=== PATIENT | male | born 1995 | race African-American/Black ===

== ENCOUNTER 2018-05-04 00:10 | Emergency (ER) | payer MEDICAID, OTHER, SELFPAY ==
[2018-05-04 00:10] VITALS: BP 142/73; PULSE 96; RESP 16; TEMP 36.9; O2SAT 97; BMI 23.1
--- NOTE | 2018-05-04 00:32 | ED.DCSUM_ITS ---
- ER Visit Summary Date of Service: 05/04/18 Chief Complaint: Right flank pain History of Present Illness: The patient is a 22 M history of spina bifida with hydrocephalus with non-functioning shunt. He has had a prior appendectomy and prior kidney stone ?1. Patient is paralyzed from the waist down. States this afternoon he had gradual onset of right lower quadrant and right flank pain. Denies fever denies vomiting. Denies diarrhea or constipation. Had a bowel movement today. He does self cath himself. He denies any trauma. Physical Examination: Well appearing young male. Vital signs are stable and afebrile. Does appear to be in some pain. H EENT exam unremarkable. Neck nontender. Lungs clear to auscultation bilaterally. Heart regular rate and rhythm no murmur. Abdomen is soft. Mild right no ecchymosis or bruising. He does have a well-healed prior appendectomy scar in the right lower quadrant. He is nondistended. He has normal bowel sounds. He does not have any peritoneal signs. No signs of obstruction. No masses. He is paralyzed in the lower extremities. Muscles of atrophy.. Neurologically is awake and alert. He has a paralysis from the waist down. Test Results: CBC shows elevated white count of 13. Normal H&H. Electrolytes unremarkable gap is 7. Normal BUN and creatinine. UA is positive for nitrates and 10-25 white cells +2+ bacteria consistent with UTI. This was sent for urine culture. CT flank study without contrast shows right hydronephrosis and hydroureter which is new from the most recent study. They do not see a specific kidney or ureteral stone. The left kidney is normal. This is suspicious for recently passed right ureteral calculi Emergency Department Course and Treatment: Patient has right flank pain which may or may not be a kidney stone. His appendix is previously been removed. Will be treated with IV morphine, Zofran and Toradol. CT labs and urinalysis will be obtained. Treatment Plan: Urine culture sent. Given a dose of Keflex in the ER and started on Keflex 4 times a day for 10 days. Follow-up with his pediatric urologist at [facility]. Urine strainer. [place] for pain. Disposition: Discharge Impression: Acute right flank pain secondary to recently passed right ureteral calculi Acute UTI with urine culture sent History of lower extremity paralysis from spina bifida Prior appendectomy This note was generated with [employer] dictation software. It may contain incorrect words, spelling, and punctuation that were not noted in review of the chart prior to signing ED Disposition - Plan for ED Patient: Chief Complaint: Abd Pain Referrals: Kevin Coleman MD [Primary Care Provider] -
[2018-05-04] MEDS: morphine 8 MG/ML Syringe 6 MG IV (00:38)
[2018-05-04] MEDS: Ketorolac 30 MG/ML Syringe IV (00:38)
[2018-05-04] MEDS: Ondansetron 4 MG/2 ML Vial IV (00:39)
[2018-05-04 01:04] LABS: Anion Gap 7 (5-15); BUN 19 mg/dL (7-18); BUN/Creat Ratio 21.1 RATIO (10-20); Calcium,Total 8.9 mg/dL (8.5-10.1); Chloride 101 mmol/L (98-107); EST Glomerular Filtration Rate 113 mL/min (>60); Est Glom Filt Rate - Afr Amer 137 mL/min (>60); Estimated Creatinine Clearance 108.72 ml/min; Glucose 114 mg/dL (74-106); Potassium 3.6 mmol/L (3.5-5.1); Sodium Level 136 mmol/L (136-145)
[2018-05-04 01:07] LABS: Absolute Lymphocyte Count 1.38 X10^3/ul (0.83-4.51); Absolute Neutrophil Count 9.7 X10^3/uL (2.0-7.7); Basophil# 0.01 X10^3/uL; Basophil% 0.1 % (0-1); Eosinophil# 0.03 X10^3/uL; Eosinophils% 0.2 % (0-5); Hematocrit 43.1 % (40-54); Hemoglobin 13.6 g/dl (13.0-16.5); Lymphocyte # 1.38 X10^3/ul (4.0); Lymphocyte % 10.6 % (19-41); Mean Corp Hgb Conc 31.6 g/gl (32-36); Mean Corpuscular Hgb 26.5 pg (27.0-32.0); Mean Platelet Vol. 9.8 fl (6.2-12.0); Monocyte# 1.88 X10^3/uL; Monocyte% 14.5 % (0-10); Neutrophil # 9.69 X10^3/uL (2.7-7.7); Neutrophil % 74.5 % (47-70); Platelet Count 289 K/mm3 (150-450); RBC Distribution Width CV 13.4 % (11.6-14.6); RBC Distribution Width SD 41.3 fl (35.1-43.9); Red Blood Count 5.13 M/mm3 (4.6-6.2)
[2018-05-04 01:08] LABS: Differential Indicated SCAN CRITERIA MET; POSITIVE COUNT NO; POSITIVE DIFFERENTIAL YES; POSITIVE MORPHOLOGY NO
[2018-05-04 01:43] LABS: Differential Comment SCANNED
[2018-05-04 01:53] LABS: Mucous, Urine 0 SEEN /hpf (<or=2+); Red Blood Cells-Urine 0 SEEN /hpf (0-5); Squamous Epithelial Cells - UA 0 SEEN /hpf (0-5)
[2018-05-04 01:57] LABS: Color, Urine Yellow (Yellow); Glucose, Dipstick Normal (Normal); Ketone-Dipstick Negative (Negative); Leukocyte Esterase-Dipstick 500 /ul (Negative); Nitrite-Dipstick Positive (Negative); Occult Blood-Urine 10 /ul (Negative); Protein-Dipstick 30 mg/dl (Negative); Urine Bilirubin Dipstick Negative (Negative); Urine Clarity Sl. Cloudy (Clear); Urine Urobilinogen Normal (Normal)
[2018-05-04 02:17] VITALS: BP 107/72; PULSE 61; RESP 15; O2SAT 99
[2018-05-04 02:39] LABS: Bacteria 2+ /hpf (None Seen); White Blood Cells 10-25 SEEN /hpf (0-5)
[2018-05-04] MEDS: Cephalexin 250 MG Capsule 500 MG PO (03:01)
--- NOTE | 2018-05-04 03:04 | ED.DEP ---
ED Disposition - Plan for ED Patient: Disposition: Home or Assisted Living Chief Complaint: Abd Pain Instructions: ED Stone Renal W Colic, ED UTI Cystitis Male Prescriptions: Cephalexin [Keflex] 500 mg PO Q6 #40 cap Hydrocodone/Acetaminophen [[place] 5-325 Tablet] 1 - 2 ea PO 4X/DAY PRN PRN 3 Days #14 tab PRN Reason: Pain Referrals: Kevin Coleman MD [Primary Care Provider] - As Needed Additional Instructions: Aspect of the right kidney stone is passed in your bladder. Strain urine to find the stone. Urinary tract infection. Treated with Keflex 4 times a day. Urine culture sent results should be back in the next 48 hours. Plenty fluids and rest. [place] as needed for pain along with Motrin. Call follow-up with your pediatric urologist. Return to ER if feeling a lot worse.
[2018-05-04 03:08] VITALS: RESP 16
--- NOTE | 2018-05-04 03:08 | DCINST.ED_ITS ---
ED Disposition - Plan for ED Patient: Disposition: Home or Assisted Living Chief Complaint: Abd Pain Instructions: ED Stone Renal W Colic, ED UTI Cystitis Male Prescriptions: Cephalexin [Keflex] 500 mg PO Q6 #40 cap Hydrocodone/Acetaminophen [[place] 5-325 Tablet] 1 - 2 ea PO 4X/DAY PRN PRN 3 Days #14 tab PRN Reason: Pain Referrals: Kevin Coleman MD [Primary Care Provider] - As Needed Additional Instructions: Aspect of the right kidney stone is passed in your bladder. Strain urine to find the stone. Urinary tract infection. Treated with Keflex 4 times a day. Urine culture sent results should be back in the next 48 hours. Plenty fluids and rest. [place] as needed for pain along with Motrin. Call follow-up with your pediatric urologist. Return to ER if feeling a lot worse.
[2018-05-04 13:27] LABS: Pathologist Review Reviewed
== END 2018-05-04 03:15 | disposition home or self-care (01) ==
PROVIDERS: Emergency Provider Emergency Medicine; Family Provider Family Medicine; PCP Family Medicine
DX: N13.2 Hydronephrosis with renal and ureteral calculous obstruction (principal); N39.0 Urinary tract infection, site not specified; R10.9 Unspecified abdominal pain; Q05.4 Unspecified spina bifida with hydrocephalus; G82.20 Paraplegia, unspecified; Z87.442 Personal history of urinary calculi; Z79.899 Other long term (current) drug therapy
CPT/HCPCS: 74176; 80048; 81001; 85025; 87077; 87086; 87088; 87186; 96374; 96375; 99283; J7030; A4216; J2405

== ENCOUNTER 2018-12-16 09:00 | Outpatient (RCR) | payer MEDICAID, SELFPAY ==
[2018-12-02 08:54] VITALS: BP 126/62; PULSE 83; RESP 16; TEMP 37.3; BMI 23.1
--- NOTE | 2018-12-02 12:17 | PCM.WC.HP ---
(1) Stage IV pressure ulcer of sacral region Status: Chronic Current Visit: Yes Code(s): L89.154 - Pressure ulcer of sacral region, stage 4 (2) Spina bifida Status: Chronic Current Visit: Yes Code(s): Q05.9 - Spina bifida, unspecified History of Present Illness Chief Complaint: Nonhealing sacral ulcer. History of Wound: Mr. Keenan is a 23yo with past medical history of spina bifida who was in his stable state of health until about 4 months ago after developed an ulcer to his sacral region during an inpatient hospital stay. He had surgery July and also was noted on 22 August. He has since been managed at [facility] and subsequently [place] [facility]. He has had a wound VAC and all the products applied to the wound. He is here with his father who states that he has had no significant improvement. Flap closure was suggested however the family wants to exhaust other possibilities before considering flap closure. They deny stool contamination of the ulcer. He has scheduled bowel movements. They have been told he has exposed bone but did not know of any history of osteomyelitis. He feels well otherwise and denies chills, fever or feeling of unwell. Past Medical History Past Medical History: Chronic Problems Stage IV pressure ulcer of sacral region (Chronic) Spina bifida (Chronic) Allergies/Adverse Reactions: Allergies latex Allergy (Verified 05/04/18 00:12) Other codine Allergy (Uncoded 05/04/18 00:12) Hives Home Medications: Ambulatory Orders Medication Instructions Recorded Darifenacin Hydrobromide 15 mg PO DAILY 10/09/17 [Darifenacin ER] Mirabegron [Myrbetriq] 25 mg PO DAILY 10/09/17 Cephalexin [Keflex] 500 mg PO Q6 #40 cap 05/04/18 Hydrocodone/Acetaminophen [[place] 1 - 2 ea PO 4X/DAY PRN PRN 3 Days 05/04/18 5-325 Tablet] #14 tab Smoking Status: Never smoker Review of Systems Constitutional: Denies: Anorexia, Chills, Fever Eyes: Denies: Blurred vision, Pain HEENT: Denies: Difficulty Swallowing Cardiovascular: Denies: Claudication, Chest Tightness Respiratory: Denies: Cough, Hemoptysis Gastrointestinal: Denies: Abdominal Pain, Hematemesis, Vomiting Genitourinary: Denies: Hematuria Skin: Denies: Jaundice - Physical Exam Vital Signs Temp Pulse Resp BP 99.2 F H 83 16 126/62 H 12/02/18 08:54 12/02/18 08:54 12/02/18 08:54 12/02/18 08:54 General: Alert, Oriented x3, Cooperative, No apparent distress HEENT: Atraumatic, Normocephalic Oral: Moist Mucosa Neck: Supple Lungs: Normal air movement Cardiovascular: Regular rate, Regular Rhythm Abdomen: Non Tender Extremities: No cyanosis Skin: Ulcer/ Wound Wound Measurements and Assessment WC - Nurse 1 - General Ulcer Measurement Start: 12/02/18 08:53 Freq: Status: Active Protocol: Activity Type Activity Date Activity User E-Sign Co-Sign Detail Recorded Client Recorded Date Recorded By Document 12/02/18 08:54 DV [id number] 12/02/18 09:37 DV 12/02/18 08:54 Wound Center Nurse 1 [Ulcer Assessment] # 1 Coccyx -Combined with other wound No -Current Size (cm) - Length 5.3 -Current Size (cm) - Width 3.5 -Current Size (cm) - Depth 2.0 -Total Square Cm 18.55 -Date of Last Picture (Recall this 12/02/18 field) -Photo Taken Yes -Epithelialization None Present -Tunneling No -Undermining/Tunneling Yes -Undermining/Tunneling Starts (O' 7 clock) -Undermining/Tunneling Ends (O'clock) 5 -Maximum Distance (cm) 3.5 -Circular Undermining Yes -Classification - Thickness Full Thickness without Exposed Support Structure -Classification - Pressure Ulcer Stage 4 -Exudate Amt Large -Exudate Type Serosanguineous -Wound Margin Well Defined, Not Attached -Granulation Amt Small (1-33%) -Granulation Quality Red -Slough/Fibrin Yes -Necrosis Amt Small (1-33%) -Necrotic Tissue Type Adherent Slough -Structure Exposed Fascia Muscle -Texture (Aishwarya-wound Skin Appearance) Assessed -Moisture (Aishwarya-wound Skin Appearance Assessed ) -Color (Aishwarya-wound Skin Appearance) Assessed -Temperature (Aishwarya-wound Skin No Abnormality Appearance) (Pt Warm) -Ulcer Cleansing Rinsed/ Irrigated with Saline -Foul Odor after Cleansing No WC - Nurse 2 - General Ulcer CM Notes Start: 12/02/18 08:53 Freq: Status: Active Protocol: Activity Type Activity Date Activity User E-Sign Co-Sign Detail Recorded Client Recorded Date Recorded By Document 12/02/18 09:49 MW [id number] 12/02/18 10:02 MW 12/02/18 09:49 Wound Center Nurse 2 [Procedure/Treatment] -Time 09:49 -Correct Patient Yes -Correct Side, Site, Position Yes -Correct Procedure Yes -Procedure Performed Yes -Type of Procedure Debridement -Clinical Debridement Subcutaneous -Post Debridement Size (cm) - Length 5.4 -Post Debridement Size (cm) - Width 4.0 -Post Debridement Size (cm) - Depth 2.5 -Total Square Cm 21.60 -Wound/Ulcer Outcome Not Healed -Ulcer Cleansing Rinsed/ Irrigated with Saline -Foul Odor after Cleansing No -Bioengineered Tissue No -Bleeding Controlled with Pressure -Other undermining 8-5 , @12- 3.5cm -Offloading No -Treatment Response Procedure Tolerated Well [See Physician Procedure note for Specifics] Pain Scale: 0-10 Numeric [Pain] -Is Patient Pain Free? Yes Neurological: Cranial nerves II-XII grossly intact Psych/Mental Status: Normal Affect Debridement Note Post-Debridement Measurements/Treatment WC - Nurse 2 - General Ulcer CM Notes Start: 12/02/18 08:53 Freq: Status: Active Protocol: Activity Type Activity Date Activity User E-Sign Co-Sign Detail Recorded Client Recorded Date Recorded By Document 12/02/18 09:49 MW [id number] 12/02/18 10:02 MW 12/02/18 09:49 Wound Center Nurse 2 # 1 Coccyx -Time 09:49 -Correct Patient Yes -Correct Side, Site, Position Yes -Correct Procedure Yes -Procedure Performed Yes -Type of Procedure Debridement -Clinical Debridement Subcutaneous -Post Debridement Size (cm) - Length 5.4 -Post Debridement Size (cm) - Width 4.0 -Post Debridement Size (cm) - Depth 2.5 -Total Square Cm 21.60 -Wound/Ulcer Outcome Not Healed -Ulcer Cleansing Rinsed/ Irrigated with Saline -Foul Odor after Cleansing No -Bioengineered Tissue No -Bleeding Controlled with Pressure -Other undermining 8-5 , @12- 3.5cm -Offloading No -Treatment Response Procedure Tolerated Well Pain Scale: 0-10 Numeric Is Patient Pain Free? Yes Wound debrided: Sacral area Wound Grade/Stage: Stage IV Type of Debridement: Excisional debridement Anesthesia Used: 4% Lidocaine Solution Depth: Down to and including healthy tissue, in the subcutaneous layer Percentage of wound debrided: 100 Instrument Used: 7mm curette Tissue Removed: Slough and devitalized tissue Severity: Fat Layer Exposed - Exposed bone Amount of bleeding with debridement: Mild Bleeding Controlled with: Pressure Patient tolerated procedure well Assessment/Plan Active Problems Stage IV pressure ulcer of sacral region (Chronic) Spina bifida (Chronic) Assessment: Nonhealing stage IV sacral ulcer. Possible osteomyelitis, exposed bone. Plan: Debridement done as documented above, procedure was well-tolerated. Due to exposed bone and concerns for osteomyelitis, culture was taken and CT with contrast ordered. They have had problems with the wound VAC and have not used it in about a week. We will attempt to get him a new wound VAC. However, I believe he will benefit from a skin substitute as he has tried traditional wound care products for about 3 months without significant improvement. Will however rule out an active infection/osteomyelitis as above. Continue calcium alginate dressing for now. Change daily to twice daily depending on drainage. Keep area clean. Increased protein intake recommended. He states that he had blood work done about a month ago, will request records. Their questions were answered and he was advised to call with any further questions or concerns. Follow-up in 1 week. This note was generated with [employer] dictation software. It may contain incorrect words, spelling, and punctuation that were not noted in checking the note before signing.
--- NOTE | 2018-12-02 12:21 | HP.PCM_ITS ---
(1) Stage IV pressure ulcer of sacral region Status: Chronic Current Visit: Yes Code(s): L89.154 - Pressure ulcer of sacral region, stage 4 (2) Spina bifida Status: Chronic Current Visit: Yes Code(s): Q05.9 - Spina bifida, unspecified History of Present Illness Chief Complaint: Nonhealing sacral ulcer. History of Wound: Mr. Keenan is a 23yo with past medical history of spina bifida who was in his stable state of health until about 4 months ago after developed an ulcer to his sacral region during an inpatient hospital stay. He had surgery July and also was noted on 22 August. He has since been managed at [facility] and subsequently [place] [facility]. He has had a wound VAC and all the products applied to the wound. He is here with his father who states that he has had no significant improvement. Flap closure was suggested however the family wants to exhaust other possibilities before considering flap closure. They deny stool contamination of the ulcer. He has scheduled bowel movements. They have been told he has exposed bone but did not know of any history of osteomyelitis. He feels well otherwise and denies chills, fever or feeling of unwell. Past Medical History Past Medical History: Chronic Problems Stage IV pressure ulcer of sacral region (Chronic) Spina bifida (Chronic) Allergies/Adverse Reactions: Allergies latex Allergy (Verified 05/04/18 00:12) Other codine Allergy (Uncoded 05/04/18 00:12) Hives Home Medications: Ambulatory Orders Medication Instructions Recorded Darifenacin Hydrobromide 15 mg PO DAILY 10/09/17 [Darifenacin ER] Mirabegron [Myrbetriq] 25 mg PO DAILY 10/09/17 Cephalexin [Keflex] 500 mg PO Q6 #40 cap 05/04/18 Hydrocodone/Acetaminophen [[place] 1 - 2 ea PO 4X/DAY PRN PRN 3 Days 05/04/18 5-325 Tablet] #14 tab Smoking Status: Never smoker Review of Systems Constitutional: Denies: Anorexia, Chills, Fever Eyes: Denies: Blurred vision, Pain HEENT: Denies: Difficulty Swallowing Cardiovascular: Denies: Claudication, Chest Tightness Respiratory: Denies: Cough, Hemoptysis Gastrointestinal: Denies: Abdominal Pain, Hematemesis, Vomiting Genitourinary: Denies: Hematuria Skin: Denies: Jaundice - Physical Exam Vital Signs Temp Pulse Resp BP 99.2 F H 83 16 126/62 H 12/02/18 08:54 12/02/18 08:54 12/02/18 08:54 12/02/18 08:54 General: Alert, Oriented x3, Cooperative, No apparent distress HEENT: Atraumatic, Normocephalic Oral: Moist Mucosa Neck: Supple Lungs: Normal air movement Cardiovascular: Regular rate, Regular Rhythm Abdomen: Non Tender Extremities: No cyanosis Skin: Ulcer/ Wound Wound Measurements and Assessment WC - Nurse 1 - General Ulcer Measurement Start: 12/02/18 08:53 Freq: Status: Active Protocol: Activity Type Activity Date Activity User E-Sign Co-Sign Detail Recorded Client Recorded Date Recorded By Document 12/02/18 08:54 DV [id number] 12/02/18 09:37 DV 12/02/18 08:54 Wound Center Nurse 1 [Ulcer Assessment] # 1 Coccyx -Combined with other wound No -Current Size (cm) - Length 5.3 -Current Size (cm) - Width 3.5 -Current Size (cm) - Depth 2.0 -Total Square Cm 18.55 -Date of Last Picture (Recall this 12/02/18 field) -Photo Taken Yes -Epithelialization None Present -Tunneling No -Undermining/Tunneling Yes -Undermining/Tunneling Starts (O' 7 clock) -Undermining/Tunneling Ends (O'clock) 5 -Maximum Distance (cm) 3.5 -Circular Undermining Yes -Classification - Thickness Full Thickness without Exposed Support Structure -Classification - Pressure Ulcer Stage 4 -Exudate Amt Large -Exudate Type Serosanguineous -Wound Margin Well Defined, Not Attached -Granulation Amt Small (1-33%) -Granulation Quality Red -Slough/Fibrin Yes -Necrosis Amt Small (1-33%) -Necrotic Tissue Type Adherent Slough -Structure Exposed Fascia Muscle -Texture (Aishwarya-wound Skin Appearance) Assessed -Moisture (Aishwarya-wound Skin Appearance Assessed ) -Color (Aishwarya-wound Skin Appearance) Assessed -Temperature (Aishwarya-wound Skin No Abnormality Appearance) (Pt Warm) -Ulcer Cleansing Rinsed/ Irrigated with Saline -Foul Odor after Cleansing No WC - Nurse 2 - General Ulcer CM Notes Start: 12/02/18 08:53 Freq: Status: Active Protocol: Activity Type Activity Date Activity User E-Sign Co-Sign Detail Recorded Client Recorded Date Recorded By Document 12/02/18 09:49 MW [id number] 12/02/18 10:02 MW 12/02/18 09:49 Wound Center Nurse 2 [Procedure/Treatment] -Time 09:49 -Correct Patient Yes -Correct Side, Site, Position Yes -Correct Procedure Yes -Procedure Performed Yes -Type of Procedure Debridement -Clinical Debridement Subcutaneous -Post Debridement Size (cm) - Length 5.4 -Post Debridement Size (cm) - Width 4.0 -Post Debridement Size (cm) - Depth 2.5 -Total Square Cm 21.60 -Wound/Ulcer Outcome Not Healed -Ulcer Cleansing Rinsed/ Irrigated with Saline -Foul Odor after Cleansing No -Bioengineered Tissue No -Bleeding Controlled with Pressure -Other undermining 8-5 , @12- 3.5cm -Offloading No -Treatment Response Procedure Tolerated Well [See Physician Procedure note for Specifics] Pain Scale: 0-10 Numeric [Pain] -Is Patient Pain Free? Yes Neurological: Cranial nerves II-XII grossly intact Psych/Mental Status: Normal Affect Debridement Note Post-Debridement Measurements/Treatment WC - Nurse 2 - General Ulcer CM Notes Start: 12/02/18 08:53 Freq: Status: Active Protocol: Activity Type Activity Date Activity User E-Sign Co-Sign Detail Recorded Client Recorded Date Recorded By Document 12/02/18 09:49 MW [id number] 12/02/18 10:02 MW 12/02/18 09:49 Wound Center Nurse 2 # 1 Coccyx -Time 09:49 -Correct Patient Yes -Correct Side, Site, Position Yes -Correct Procedure Yes -Procedure Performed Yes -Type of Procedure Debridement -Clinical Debridement Subcutaneous -Post Debridement Size (cm) - Length 5.4 -Post Debridement Size (cm) - Width 4.0 -Post Debridement Size (cm) - Depth 2.5 -Total Square Cm 21.60 -Wound/Ulcer Outcome Not Healed -Ulcer Cleansing Rinsed/ Irrigated with Saline -Foul Odor after Cleansing No -Bioengineered Tissue No -Bleeding Controlled with Pressure -Other undermining 8-5 , @12- 3.5cm -Offloading No -Treatment Response Procedure Tolerated Well Pain Scale: 0-10 Numeric Is Patient Pain Free? Yes Wound debrided: Sacral area Wound Grade/Stage: Stage IV Type of Debridement: Excisional debridement Anesthesia Used: 4% Lidocaine Solution Depth: Down to and including healthy tissue, in the subcutaneous layer Percentage of wound debrided: 100 Instrument Used: 7mm curette Tissue Removed: Slough and devitalized tissue Severity: Fat Layer Exposed - Exposed bone Amount of bleeding with debridement: Mild Bleeding Controlled with: Pressure Patient tolerated procedure well Assessment/Plan Active Problems Stage IV pressure ulcer of sacral region (Chronic) Spina bifida (Chronic) Assessment: Nonhealing stage IV sacral ulcer. Possible osteomyelitis, exposed bone. Plan: Debridement done as documented above, procedure was well-tolerated. Due to exposed bone and concerns for osteomyelitis, culture was taken and CT with contrast ordered. They have had problems with the wound VAC and have not used it in about a week. We will attempt to get him a new wound VAC. However, I believe he will benefit from a skin substitute as he has tried traditional wound care products for about 3 months without significant improvement. Will however rule out an active infection/osteomyelitis as above. Continue calcium alginate dressing for now. Change daily to twice daily depending on drainage. Keep area clean. Increased protein intake recommended. He states that he had blood work done about a month ago, will request records. Their questions were answered and he was advised to call with any further questions or concerns. Follow-up in 1 week. This note was generated with [employer] dictation software. It may contain incorrect words, spelling, and punctuation that were not noted in checking the note before signing.
--- NOTE | 2018-12-07 15:06 | CT_ITS ---
HISTORY: SPINA BIFIDA, POSSIBLE OSTEOMYELITIS SACRAL AREA. JACKSON RODS. MAR IMAGES INCLUDED TECHNIQUE:Routine noncontrast bone CT protocol was performed of the pelvis. 2-D reformats were performed by the technologist. A radiation dose optimization technique was used for this scan. IV Contrast dosage and agent: 100 cc [id number]-300 contrast COMPARISON: CT abdomen and pelvis 05/04/2018 FINDINGS: Spina bifida with thoracolumbar Jackson rods anchored distally within the upper sacrum and spanning the SI joints. With comparison to previous, development of a large sacral decubitus ulcer which is gas-filled and measures approximately 5.6 cm in transverse dimension. The ulcer depth is approximately 3 cm and abuts the left hemisacrum. With comparison to previous, the lower sacrum shows an element of decreased density and demyelinization accompanied by heterotopic ossification in keeping with osteomyelitis. The heterotopic ossification is new compared to previous CT exam. No pathologic fracture is seen. The SI joints are not widened. The presacral soft tissues show no suspicious fluid collections. There is chronic fracture of the surgical screw spanning the right SI joint. The fracture is proximal to the SI joint. CT/Pelvis WITH IV Contrast IMPRESSION: 1. Large sacral decubitus ulcer and the lower left hemisacrum shows interval change with bony demineralization accompanied by heterotopic bone formation in keeping with osteomyelitis. 2. No organized abscess collections. 3. Chronic fracture of the surgical screw bridging the right SI joint. Individualized dose optimization techniques were used for this CT. at 0808 Reported and signed by: Noe Fan MD Electronically Signed: Noe Fan, at 8:07 EDT Tel , Service support ,
[2018-12-09 09:09] VITALS: BP 125/70; PULSE 80; RESP 18; TEMP 36.1; BMI 23.1
--- NOTE | 2018-12-09 12:24 | PCM.WC.PN ---
(1) Stage IV pressure ulcer of sacral region Status: Chronic Current Visit: Yes Code(s): L89.154 - Pressure ulcer of sacral region, stage 4 (2) Spina bifida Status: Chronic Current Visit: Yes Code(s): Q05.9 - Spina bifida, unspecified (3) Sacral osteomyelitis Status: Chronic Current Visit: Yes Code(s): M46.28 - Osteomyelitis of vertebra, sacral and sacrococcygeal region Type of Wound Chief Complaint: Nonhealing sacral ulcer. History of Wound: Mr. Keenan is a 23yo with past medical history of spina bifida who was in his stable state of health until about 4 months ago after developed an ulcer to his sacral region during an inpatient hospital stay. He had surgery July and also was noted on 22 August. He has since been managed at [facility] and [facility] [place]. He has had a wound VAC and all the products applied to the wound. He is here with his father who states that he has had no significant improvement. Flap closure was suggested however the family wants to exhaust other possibilities before considering flap closure. They deny stool contamination of the ulcer. He has scheduled bowel movements. They have been told he has exposed bone but did not know of any history of osteomyelitis. He feels well otherwise and denies chills, fever or feeling of unwell. Progress of Wound: Stable. No concerns at this time. They however state that they followed up with a plastic surgeon at the [facility] for second opinion and per patient/father flap closure not necessary. They also will like to do without the wound VAC as it impacts his activities. - Physical Exam Vital Signs Temp Pulse Resp BP 97 F L 80 18 125/70 H 12/09/18 09:09 12/09/18 09:09 12/09/18 09:09 12/09/18 09:09 General: Alert, Oriented x3, Cooperative, No apparent distress HEENT: Atraumatic, Normocephalic Oral: Moist Mucosa Neck: Supple Lungs: Normal air movement Extremities: No cyanosis Skin: Ulcer/ Wound Wound Measurements and Assessment WC - Nurse 1 - General Ulcer Measurement Start: 12/02/18 08:53 Freq: Status: Active Protocol: Activity Type Activity Date Activity User E-Sign Co-Sign Detail Recorded Client Recorded Date Recorded By Document 12/09/18 09:09 DL [id number] 12/09/18 09:18 DL 12/09/18 09:09 Wound Center Nurse 1 [Ulcer Assessment] # 1 Coccyx -Current Size (cm) - Length 4.8 -Current Size (cm) - Width 5 -Current Size (cm) - Depth 2.2 -Total Square Cm 24.0 -Photo Taken No -Undermining/Tunneling Starts (O' 7 clock) -Undermining/Tunneling Ends (O'clock) 3 -Maximum Distance (cm) 3.5 -Exudate Amt Medium -Exudate Type Serosanguineous -Wound Margin Thickened & Rolled Under -Granulation Amt Medium (34-66%) -Granulation Quality [place] -Necrosis Amt Medium (34-66%) -Necrotic Tissue Type Adherent Slough -Structure Exposed Bone -Texture (Aishwarya-wound Skin Appearance) Scarring -Moisture (Aishwarya-wound Skin Appearance No Abnormality ) -Color (Aishwarya-wound Skin Appearance) No Abnormality -Temperature (Aishwarya-wound Skin No Abnormality Appearance) (Pt Warm) -Tenderness on Palpation (Aishwarya-wound No Skin Appearance) -Ulcer Cleansing Rinsed/ Irrigated with Saline -Foul Odor after Cleansing No -Anesthetic Used 4% Lidocaine Solution WC - Nurse 2 - General Ulcer CM Notes Start: 12/02/18 08:53 Freq: Status: Active Protocol: Activity Type Activity Date Activity User E-Sign Co-Sign Detail Recorded Client Recorded Date Recorded By Document 12/09/18 09:31 MW [id number] 12/09/18 09:44 MW 12/09/18 09:31 Wound Center Nurse 2 [Procedure/Treatment] -Time 09:31 -Correct Patient Yes -Correct Side, Site, Position Yes -Correct Procedure Yes -Procedure Performed Yes -Type of Procedure Debridement -Clinical Debridement Subcutaneous -Post Debridement Size (cm) - Length 5.5 -Post Debridement Size (cm) - Width 5.0 -Post Debridement Size (cm) - Depth 2.0 -Total Square Cm 27.50 -Wound/Ulcer Outcome Not Healed -Ulcer Cleansing Rinsed/ Irrigated with Saline -Foul Odor after Cleansing No -Bioengineered Tissue No -Bleeding Controlled with Pressure -Offloading No -Treatment Response Procedure Tolerated Well [See Physician Procedure note for Specifics] Pain Scale: 0-10 Numeric [Pain] -Is Patient Pain Free? Yes Neurological: Cranial nerves II-XII grossly intact Debridement Note Post-Debridement Measurements/Treatment WC - Nurse 2 - General Ulcer CM Notes Start: 12/02/18 08:53 Freq: Status: Active Protocol: Activity Type Activity Date Activity User E-Sign Co-Sign Detail Recorded Client Recorded Date Recorded By Document 12/02/18 09:49 MW [id number] 12/02/18 10:02 MW Document 12/09/18 09:31 MW [id number] 12/09/18 09:44 MW 12/02/18 12/09/18 09:49 09:31 Wound Center Nurse 2 # 1 Coccyx -Time 09:49 09:31 -Correct Patient Yes Yes -Correct Side, Site, Position Yes Yes -Correct Procedure Yes Yes -Procedure Performed Yes Yes -Type of Procedure Debridement Debridement -Clinical Debridement Subcutaneous Subcutaneous -Post Debridement Size (cm) - Length 5.4 5.5 -Post Debridement Size (cm) - Width 4.0 5.0 -Post Debridement Size (cm) - Depth 2.5 2.0 -Total Square Cm 21.60 27.50 -Wound/Ulcer Outcome Not Healed Not Healed -Ulcer Cleansing Rinsed/ Rinsed/ Irrigated with Irrigated with Saline Saline -Foul Odor after Cleansing No No -Bioengineered Tissue No No -Bleeding Controlled with Pressure Pressure -Other undermining 8-5 , @12- 3.5cm -Offloading No No -Treatment Response Procedure Procedure Tolerated Well Tolerated Well Pain Scale: 0-10 Numeric Is Patient Pain Free? Yes Yes Wound debrided: Sacral ulcer Wound Grade/Stage: Stage IV Type of Debridement: Excisional debridement Anesthesia Used: 4% Lidocaine Solution Depth: Down to and including healthy tissue, in the subcutaneous layer Percentage of wound debrided: 100 Instrument Used: 7mm curette Tissue Removed: Slough and devitalized tissue Severity: Fat Layer Exposed Amount of bleeding with debridement: Mild Bleeding Controlled with: Pressure Patient tolerated procedure well Assessment/Plan Clinical Impression(s) from Imaging Studies Pelvis CT 12/07/18 15:06 IMPRESSION: 1. Large sacral decubitus ulcer and the lower left hemisacrum shows interval change with bony demineralization accompanied by heterotopic bone formation in keeping with osteomyelitis. 2. No organized abscess collections. 3. Chronic fracture of the surgical screw bridging the right SI joint. Individualized dose optimization techniques were used for this CT. at 0808 Reported and signed by: Noe Fan MD Electronically Signed: Noe Fan, at 8:07 EDT Tel , Service support , Active Problems Stage IV pressure ulcer of sacral region (Chronic) Spina bifida (Chronic) Sacral osteomyelitis (Chronic) Assessment: Nonhealing stage IV sacral ulcer. Possible osteomyelitis, exposed bone. Plan: Cultures grew staph however CAT scan done also suggestive of osteomyelitis. Debridement done as documented above, procedure was well-tolerated. He would require possible surgical debridement/bone biopsy for culture. He will also require PICC line placement for chronic antibiotic use. They are considering the physicians/surgeons to go with. Will switch to Aquacel silver, change daily to twice daily depending on drainage. Keep area clean. Increased protein intake recommended. Their questions were answered and he was advised to call with any further questions or concerns. Follow-up in 1 week. This note was generated with [employer] dictation software. It may contain incorrect words, spelling, and punctuation that were not noted in checking the note before signing.
--- NOTE | 2018-12-09 12:30 | PN.PCM_ITS ---
(1) Stage IV pressure ulcer of sacral region Status: Chronic Current Visit: Yes Code(s): L89.154 - Pressure ulcer of sacral region, stage 4 (2) Spina bifida Status: Chronic Current Visit: Yes Code(s): Q05.9 - Spina bifida, unspecified (3) Sacral osteomyelitis Status: Chronic Current Visit: Yes Code(s): M46.28 - Osteomyelitis of vertebra, sacral and sacrococcygeal region Type of Wound Chief Complaint: Nonhealing sacral ulcer. History of Wound: Mr. Keenan is a 23yo with past medical history of spina bifida who was in his stable state of health until about 4 months ago after developed an ulcer to his sacral region during an inpatient hospital stay. He had surgery July and also was noted on 22 August. He has since been managed at [facility] and subsequently [place] [facility]. He has had a wound VAC and all the products applied to the wound. He is here with his father who states that he has had no significant improvement. Flap closure was suggested however the family wants to exhaust other possibilities before considering flap closure. They deny stool contamination of the ulcer. He has scheduled bowel movements. They have been told he has exposed bone but did not know of any history of osteomyelitis. He feels well otherwise and denies chills, fever or feeling of unwell. Progress of Wound: Stable. No concerns at this time. They however state that they followed up with a plastic surgeon at the [facility] for second opinion and per patient/father flap closure not necessary. They also will like to do without the wound VAC as it impacts his activities. - Physical Exam Vital Signs Temp Pulse Resp BP 97 F L 80 18 125/70 H 12/09/18 09:09 12/09/18 09:09 12/09/18 09:09 12/09/18 09:09 General: Alert, Oriented x3, Cooperative, No apparent distress HEENT: Atraumatic, Normocephalic Oral: Moist Mucosa Neck: Supple Lungs: Normal air movement Extremities: No cyanosis Skin: Ulcer/ Wound Wound Measurements and Assessment WC - Nurse 1 - General Ulcer Measurement Start: 12/02/18 08:53 Freq: Status: Active Protocol: Activity Type Activity Date Activity User E-Sign Co-Sign Detail Recorded Client Recorded Date Recorded By Document 12/09/18 09:09 DL [id number] 12/09/18 09:18 DL 12/09/18 09:09 Wound Center Nurse 1 [Ulcer Assessment] # 1 Coccyx -Current Size (cm) - Length 4.8 -Current Size (cm) - Width 5 -Current Size (cm) - Depth 2.2 -Total Square Cm 24.0 -Photo Taken No -Undermining/Tunneling Starts (O' 7 clock) -Undermining/Tunneling Ends (O'clock) 3 -Maximum Distance (cm) 3.5 -Exudate Amt Medium -Exudate Type Serosanguineous -Wound Margin Thickened & Rolled Under -Granulation Amt Medium (34-66%) -Granulation Quality [place] -Necrosis Amt Medium (34-66%) -Necrotic Tissue Type Adherent Slough -Structure Exposed Bone -Texture (Aishwarya-wound Skin Appearance) Scarring -Moisture (Aishwarya-wound Skin Appearance No Abnormality ) -Color (Aishwarya-wound Skin Appearance) No Abnormality -Temperature (Aishwarya-wound Skin No Abnormality Appearance) (Pt Warm) -Tenderness on Palpation (Aishwarya-wound No Skin Appearance) -Ulcer Cleansing Rinsed/ Irrigated with Saline -Foul Odor after Cleansing No -Anesthetic Used 4% Lidocaine Solution WC - Nurse 2 - General Ulcer CM Notes Start: 12/02/18 08:53 Freq: Status: Active Protocol: Activity Type Activity Date Activity User E-Sign Co-Sign Detail Recorded Client Recorded Date Recorded By Document 12/09/18 09:31 MW [id number] 12/09/18 09:44 MW 12/09/18 09:31 Wound Center Nurse 2 [Procedure/Treatment] -Time 09:31 -Correct Patient Yes -Correct Side, Site, Position Yes -Correct Procedure Yes -Procedure Performed Yes -Type of Procedure Debridement -Clinical Debridement Subcutaneous -Post Debridement Size (cm) - Length 5.5 -Post Debridement Size (cm) - Width 5.0 -Post Debridement Size (cm) - Depth 2.0 -Total Square Cm 27.50 -Wound/Ulcer Outcome Not Healed -Ulcer Cleansing Rinsed/ Irrigated with Saline -Foul Odor after Cleansing No -Bioengineered Tissue No -Bleeding Controlled with Pressure -Offloading No -Treatment Response Procedure Tolerated Well [See Physician Procedure note for Specifics] Pain Scale: 0-10 Numeric [Pain] -Is Patient Pain Free? Yes Neurological: Cranial nerves II-XII grossly intact Debridement Note Post-Debridement Measurements/Treatment WC - Nurse 2 - General Ulcer CM Notes Start: 12/02/18 08:53 Freq: Status: Active Protocol: Activity Type Activity Date Activity User E-Sign Co-Sign Detail Recorded Client Recorded Date Recorded By Document 12/02/18 09:49 MW [id number] 12/02/18 10:02 MW Document 12/09/18 09:31 MW [id number] 12/09/18 09:44 MW 12/02/18 12/09/18 09:49 09:31 Wound Center Nurse 2 # 1 Coccyx -Time 09:49 09:31 -Correct Patient Yes Yes -Correct Side, Site, Position Yes Yes -Correct Procedure Yes Yes -Procedure Performed Yes Yes -Type of Procedure Debridement Debridement -Clinical Debridement Subcutaneous Subcutaneous -Post Debridement Size (cm) - Length 5.4 5.5 -Post Debridement Size (cm) - Width 4.0 5.0 -Post Debridement Size (cm) - Depth 2.5 2.0 -Total Square Cm 21.60 27.50 -Wound/Ulcer Outcome Not Healed Not Healed -Ulcer Cleansing Rinsed/ Rinsed/ Irrigated with Irrigated with Saline Saline -Foul Odor after Cleansing No No -Bioengineered Tissue No No -Bleeding Controlled with Pressure Pressure -Other undermining 8-5 , @12- 3.5cm -Offloading No No -Treatment Response Procedure Procedure Tolerated Well Tolerated Well Pain Scale: 0-10 Numeric Is Patient Pain Free? Yes Yes Wound debrided: Sacral ulcer Wound Grade/Stage: Stage IV Type of Debridement: Excisional debridement Anesthesia Used: 4% Lidocaine Solution Depth: Down to and including healthy tissue, in the subcutaneous layer Percentage of wound debrided: 100 Instrument Used: 7mm curette Tissue Removed: Slough and devitalized tissue Severity: Fat Layer Exposed Amount of bleeding with debridement: Mild Bleeding Controlled with: Pressure Patient tolerated procedure well Assessment/Plan Clinical Impression(s) from Imaging Studies Pelvis CT 12/07/18 15:06 IMPRESSION: 1. Large sacral decubitus ulcer and the lower left hemisacrum shows interval change with bony demineralization accompanied by heterotopic bone formation in keeping with osteomyelitis. 2. No organized abscess collections. 3. Chronic fracture of the surgical screw bridging the right SI joint. Individualized dose optimization techniques were used for this CT. at 0808 Reported and signed by: Noe Fan MD Electronically Signed: Noe Fan, at 8:07 EDT Tel , Service support , Active Problems Stage IV pressure ulcer of sacral region (Chronic) Spina bifida (Chronic) Sacral osteomyelitis (Chronic) Assessment: Nonhealing stage IV sacral ulcer. Possible osteomyelitis, exposed bone. Plan: Cultures grew staph however CAT scan done also suggestive of osteomyelitis. Debridement done as documented above, procedure was well- tolerated. He would require possible surgical debridement/bone biopsy for culture. He will also require PICC line placement for chronic antibiotic use. They are considering the physicians/surgeons to go with. Will switch to Aquacel silver, change daily to twice daily depending on drainage. Keep area clean. Increased protein intake recommended. Their questions were answered and he was advised to call with any further questions or concerns. Follow-up in 1 week. This note was generated with [employer] dictation software. It may contain incorrect words, spelling, and punctuation that were not noted in checking the note before signing.
[2018-12-16 08:55] VITALS: BP 134/73; PULSE 70; RESP 18; TEMP 36.5; BMI 23.1
--- NOTE | 2018-12-16 11:19 | PCM.WC.PN ---
(1) Stage IV pressure ulcer of sacral region Status: Chronic Current Visit: Yes Code(s): L89.154 - Pressure ulcer of sacral region, stage 4 (2) Spina bifida Status: Chronic Current Visit: Yes Code(s): Q05.9 - Spina bifida, unspecified (3) Sacral osteomyelitis Status: Chronic Current Visit: Yes Code(s): M46.28 - Osteomyelitis of vertebra, sacral and sacrococcygeal region Type of Wound Chief Complaint: Nonhealing sacral ulcer. History of Wound: Mr. Keenan is a 23yo with past medical history of spina bifida who was in his stable state of health until about 4 months ago after developed an ulcer to his sacral region during an inpatient hospital stay. He had surgery July and also was noted on 22 August. He has since been managed at [facility] and subsequently [place] [facility]. He has had a wound VAC and all the products applied to the wound. He is here with his father who states that he has had no significant improvement. Flap closure was suggested however the family wants to exhaust other possibilities before considering flap closure. They deny stool contamination of the ulcer. He has scheduled bowel movements. They have been told he has exposed bone but did not know of any history of osteomyelitis. He feels well otherwise and denies chills, fever or feeling of unwell. Progress of Wound: Stable. No concerns at this time. Tolerating Aquacel silver daily. - Physical Exam Vital Signs Temp Pulse Resp BP 97.7 F L 70 18 134/73 H 12/16/18 08:55 12/16/18 08:55 12/16/18 08:55 12/16/18 08:55 General: Alert, Oriented x3, Cooperative, No apparent distress HEENT: Atraumatic, Normocephalic Oral: Moist Mucosa Neck: Supple Lungs: Normal air movement Extremities: No cyanosis Skin: Ulcer/ Wound Wound Measurements and Assessment WC - Nurse 1 - General Ulcer Measurement Start: 12/02/18 08:53 Freq: Status: Active Protocol: Activity Type Activity Date Activity User E-Sign Co-Sign Detail Recorded Client Recorded Date Recorded By Document 12/16/18 08:55 DL [id number] 12/16/18 09:02 DL 12/16/18 08:55 Wound Center Nurse 1 [Ulcer Assessment] # 1 Coccyx -Current Size (cm) - Length 5.8 -Current Size (cm) - Width 4.4 -Current Size (cm) - Depth 2 -Total Square Cm 25.52 -Photo Taken No -Exudate Amt Medium -Exudate Type Serosanguineous -Wound Margin Thickened & Rolled Under -Granulation Amt Medium (34-66%) -Necrosis Amt Medium (34-66%) -Necrotic Tissue Type Adherent Slough -Structure Exposed Bone -Texture (Aishwarya-wound Skin Appearance) Scarring -Moisture (Aishwarya-wound Skin Appearance No Abnormality ) -Color (Aishwarya-wound Skin Appearance) No Abnormality -Temperature (Aishwarya-wound Skin No Abnormality Appearance) (Pt Warm) -Tenderness on Palpation (Aishwarya-wound No Skin Appearance) -Ulcer Cleansing Rinsed/ Irrigated with Saline -Foul Odor after Cleansing No -Anesthetic Used 4% Lidocaine Solution WC - Nurse 2 - General Ulcer CM Notes Start: 12/02/18 08:53 Freq: Status: Active Protocol: Activity Type Activity Date Activity User E-Sign Co-Sign Detail Recorded Client Recorded Date Recorded By Document 12/15/18 02:00 MW [id number] 12/16/18 09:15 MW 12/15/18 02:00 Wound Center Nurse 2 [Procedure/Treatment] -Time 09:09 -Correct Patient Yes -Correct Side, Site, Position Yes -Correct Procedure Yes -Procedure Performed Yes -Type of Procedure Debridement -Clinical Debridement Subcutaneous -Post Debridement Size (cm) - Length 5.0 -Post Debridement Size (cm) - Width 4.5 -Post Debridement Size (cm) - Depth 2.0 -Total Square Cm 22.50 -Wound/Ulcer Outcome Not Healed -Ulcer Cleansing Rinsed/ Irrigated with Saline -Foul Odor after Cleansing No -Bioengineered Tissue No -Bleeding Controlled with Pressure -Offloading No -Treatment Response Procedure Tolerated Well [See Physician Procedure note for Specifics] Pain Scale: 0-10 Numeric [Pain] -Is Patient Pain Free? Yes Musculoskeletal: No Muscle Wasting Neurological: Cranial nerves II-XII grossly intact Psych/Mental Status: Normal Affect Debridement Note Post-Debridement Measurements/Treatment WC - Nurse 2 - General Ulcer CM Notes Start: 12/02/18 08:53 Freq: Status: Active Protocol: Activity Type Activity Date Activity User E-Sign Co-Sign Detail Recorded Client Recorded Date Recorded By Document 03/13/19 09:49 MW [id number] 12/02/18 10:02 MW Document 12/09/18 09:31 MW [id number] 12/09/18 09:44 MW Document 12/15/18 02:00 MW [id number] 12/16/18 09:15 MW 12/02/18 12/09/18 12/15/18 09:49 09:31 02:00 Wound Center Nurse 2 # 1 Coccyx -Time 09:49 09:31 09:09 -Correct Patient Yes Yes Yes -Correct Side, Site, Position Yes Yes Yes -Correct Procedure Yes Yes Yes -Procedure Performed Yes Yes Yes -Type of Procedure Debridement Debridement Debridement -Clinical Debridement Subcutaneous Subcutaneous Subcutaneous -Post Debridement Size (cm) - Length 5.4 5.5 5.0 -Post Debridement Size (cm) - Width 4.0 5.0 4.5 -Post Debridement Size (cm) - Depth 2.5 2.0 2.0 -Total Square Cm 21.60 27.50 22.50 -Wound/Ulcer Outcome Not Healed Not Healed Not Healed -Ulcer Cleansing Rinsed/ Rinsed/ Rinsed/ Irrigated with Irrigated with Irrigated with Saline Saline Saline -Foul Odor after Cleansing No No No -Bioengineered Tissue No No No -Bleeding Controlled with Pressure Pressure Pressure -Other undermining 8-5 , @12- 3.5cm -Offloading No No No -Treatment Response Procedure Procedure Procedure Tolerated Well Tolerated Well Tolerated Well Pain Scale: 0-10 Numeric Is Patient Pain Free? Yes Yes Yes Wound debrided: Sacarl area Wound Grade/Stage: Stage IV Type of Debridement: Excisional debridement Anesthesia Used: 4% Lidocaine Solution Depth: Down to and including healthy tissue, in the subcutaneous layer Percentage of wound debrided: 100 Instrument Used: 5mm curette Tissue Removed: Slough and devitalized tissue Severity: Fat Layer Exposed Amount of bleeding with debridement: Mild Bleeding Controlled with: Pressure Patient tolerated procedure well Assessment/Plan Clinical Impression(s) from Imaging Studies Pelvis CT 12/07/18 15:06 IMPRESSION: 1. Large sacral decubitus ulcer and the lower left hemisacrum shows interval change with bony demineralization accompanied by heterotopic bone formation in keeping with osteomyelitis. 2. No organized abscess collections. 3. Chronic fracture of the surgical screw bridging the right SI joint. Individualized dose optimization techniques were used for this CT. at 0808 Reported and signed by: Noe Fan MD Electronically Signed: Noe Fan, at 8:07 EDT Tel , Service support , Active Problems Stage IV pressure ulcer of sacral region (Chronic) Spina bifida (Chronic) Sacral osteomyelitis (Chronic) Assessment: Nonhealing stage IV sacral ulcer. Sacral Osteomyelitis. Plan: No new concerns. Debridement done as documented above, procedure was well-tolerated. He would require possible surgical debridement/bone biopsy for culture. He may also require PICC line placement for chronic antibiotic use. They are still considering the physicians/surgeons to go with/ their next line of action. Continue Aquacel silver, change daily to twice daily depending on drainage. Keep area clean. Increased protein intake recommended. Their questions were answered and he was advised to call with any further questions or concerns. Follow-up in 1 - 2 weeks pending consult with Dr. Gomez on 12/21/18. This note was generated with [employer] software. It may contain incorrect words, spelling, and punctuation that were not noted in checking the note before signing.
--- NOTE | 2018-12-16 11:23 | PN.PCM_ITS ---
(1) Stage IV pressure ulcer of sacral region Status: Chronic Current Visit: Yes Code(s): L89.154 - Pressure ulcer of sacral region, stage 4 (2) Spina bifida Status: Chronic Current Visit: Yes Code(s): Q05.9 - Spina bifida, unspecified (3) Sacral osteomyelitis Status: Chronic Current Visit: Yes Code(s): M46.28 - Osteomyelitis of vertebra, sacral and sacrococcygeal region Type of Wound Chief Complaint: Nonhealing sacral ulcer. History of Wound: Mr. Keenan is a 23yo with past medical history of spina bifida who was in his stable state of health until about 4 months ago after developed an ulcer to his sacral region during an inpatient hospital stay. He had surgery July and also was noted on 22 August. He has since been managed at [facility] and subsequently [place] [facility]. He has had a wound VAC and all the products applied to the wound. He is here with his father who states that he has had no significant improvement. Flap closure was suggested however the family wants to exhaust other possibilities before considering flap closure. They deny stool contamination of the ulcer. He has scheduled bowel movements. They have been told he has exposed bone but did not know of any history of osteomyelitis. He feels well otherwise and denies chills, fever or feeling of unwell. Progress of Wound: Stable. No concerns at this time. Tolerating Aquacel silver daily. - Physical Exam Vital Signs Temp Pulse Resp BP 97.7 F L 70 18 134/73 H 12/16/18 08:55 12/16/18 08:55 12/16/18 08:55 12/16/18 08:55 General: Alert, Oriented x3, Cooperative, No apparent distress HEENT: Atraumatic, Normocephalic Oral: Moist Mucosa Neck: Supple Lungs: Normal air movement Extremities: No cyanosis Skin: Ulcer/ Wound Wound Measurements and Assessment WC - Nurse 1 - General Ulcer Measurement Start: 12/02/18 08:53 Freq: Status: Active Protocol: Activity Type Activity Date Activity User E-Sign Co-Sign Detail Recorded Client Recorded Date Recorded By Document 12/16/18 08:55 DL [id number] 12/16/18 09:02 DL 12/16/18 08:55 Wound Center Nurse 1 [Ulcer Assessment] # 1 Coccyx -Current Size (cm) - Length 5.8 -Current Size (cm) - Width 4.4 -Current Size (cm) - Depth 2 -Total Square Cm 25.52 -Photo Taken No -Exudate Amt Medium -Exudate Type Serosanguineous -Wound Margin Thickened & Rolled Under -Granulation Amt Medium (34-66%) -Necrosis Amt Medium (34-66%) -Necrotic Tissue Type Adherent Slough -Structure Exposed Bone -Texture (Aishwarya-wound Skin Appearance) Scarring -Moisture (Aishwarya-wound Skin Appearance No Abnormality ) -Color (Aishwarya-wound Skin Appearance) No Abnormality -Temperature (Aishwarya-wound Skin No Abnormality Appearance) (Pt Warm) -Tenderness on Palpation (Aishwarya-wound No Skin Appearance) -Ulcer Cleansing Rinsed/ Irrigated with Saline -Foul Odor after Cleansing No -Anesthetic Used 4% Lidocaine Solution WC - Nurse 2 - General Ulcer CM Notes Start: 12/02/18 08:53 Freq: Status: Active Protocol: Activity Type Activity Date Activity User E-Sign Co-Sign Detail Recorded Client Recorded Date Recorded By Document 12/15/18 02:00 MW [id number] 12/16/18 09:15 MW 12/15/18 02:00 Wound Center Nurse 2 [Procedure/Treatment] -Time 09:09 -Correct Patient Yes -Correct Side, Site, Position Yes -Correct Procedure Yes -Procedure Performed Yes -Type of Procedure Debridement -Clinical Debridement Subcutaneous -Post Debridement Size (cm) - Length 5.0 -Post Debridement Size (cm) - Width 4.5 -Post Debridement Size (cm) - Depth 2.0 -Total Square Cm 22.50 -Wound/Ulcer Outcome Not Healed -Ulcer Cleansing Rinsed/ Irrigated with Saline -Foul Odor after Cleansing No -Bioengineered Tissue No -Bleeding Controlled with Pressure -Offloading No -Treatment Response Procedure Tolerated Well [See Physician Procedure note for Specifics] Pain Scale: 0-10 Numeric [Pain] -Is Patient Pain Free? Yes Musculoskeletal: No Muscle Wasting Neurological: Cranial nerves II-XII grossly intact Psych/Mental Status: Normal Affect Debridement Note Post-Debridement Measurements/Treatment WC - Nurse 2 - General Ulcer CM Notes Start: 12/02/18 08:53 Freq: Status: Active Protocol: Activity Type Activity Date Activity User E-Sign Co-Sign Detail Recorded Client Recorded Date Recorded By Document 03/13/19 09:49 MW [id number] 12/02/18 10:02 MW Document 12/09/18 09:31 MW [id number] 12/09/18 09:44 MW Document 12/15/18 02:00 MW [id number] 12/16/18 09:15 MW 12/02/18 12/09/18 12/15/18 09:49 09:31 02:00 Wound Center Nurse 2 # 1 Coccyx -Time 09:49 09:31 09:09 -Correct Patient Yes Yes Yes -Correct Side, Site, Position Yes Yes Yes -Correct Procedure Yes Yes Yes -Procedure Performed Yes Yes Yes -Type of Procedure Debridement Debridement Debridement -Clinical Debridement Subcutaneous Subcutaneous Subcutaneous -Post Debridement Size (cm) - Length 5.4 5.5 5.0 -Post Debridement Size (cm) - Width 4.0 5.0 4.5 -Post Debridement Size (cm) - Depth 2.5 2.0 2.0 -Total Square Cm 21.60 27.50 22.50 -Wound/Ulcer Outcome Not Healed Not Healed Not Healed -Ulcer Cleansing Rinsed/ Rinsed/ Rinsed/ Irrigated with Irrigated with Irrigated with Saline Saline Saline -Foul Odor after Cleansing No No No -Bioengineered Tissue No No No -Bleeding Controlled with Pressure Pressure Pressure -Other undermining 8-5 , @12- 3.5cm -Offloading No No No -Treatment Response Procedure Procedure Procedure Tolerated Well Tolerated Well Tolerated Well Pain Scale: 0-10 Numeric Is Patient Pain Free? Yes Yes Yes Wound debrided: Sacarl area Wound Grade/Stage: Stage IV Type of Debridement: Excisional debridement Anesthesia Used: 4% Lidocaine Solution Depth: Down to and including healthy tissue, in the subcutaneous layer Percentage of wound debrided: 100 Instrument Used: 5mm curette Tissue Removed: Slough and devitalized tissue Severity: Fat Layer Exposed Amount of bleeding with debridement: Mild Bleeding Controlled with: Pressure Patient tolerated procedure well Assessment/Plan Clinical Impression(s) from Imaging Studies Pelvis CT 12/07/18 15:06 IMPRESSION: 1. Large sacral decubitus ulcer and the lower left hemisacrum shows interval change with bony demineralization accompanied by heterotopic bone formation in keeping with osteomyelitis. 2. No organized abscess collections. 3. Chronic fracture of the surgical screw bridging the right SI joint. Individualized dose optimization techniques were used for this CT. at 0808 Reported and signed by: Noe Fan MD Electronically Signed: Noe Fan, at 8:07 EDT Tel , Service support , Active Problems Stage IV pressure ulcer of sacral region (Chronic) Spina bifida (Chronic) Sacral osteomyelitis (Chronic) Assessment: Nonhealing stage IV sacral ulcer. Sacral Osteomyelitis. Plan: No new concerns. Debridement done as documented above, procedure was well- tolerated. He would require possible surgical debridement/bone biopsy for culture. He may also require PICC line placement for chronic antibiotic use. They are still considering the physicians/surgeons to go with/ their next line of action. Continue Aquacel silver, change daily to twice daily depending on drainage. Keep area clean. Increased protein intake recommended. Their questions were answered and he was advised to call with any further questions or concerns. Follow-up in 1 - 2 weeks pending consult with Dr. Gomez on 12/21/18. This note was generated with [employer] software. It may contain incorrect words, spelling, and punctuation that were not noted in checking the note before signing.
== END 2018-12-20 23:59 ==
LOC: WC 09:00
PROVIDERS: Family Provider Family Medicine; PCP Family Medicine; Referring Provider Internal Medicine; Visit Provider Internal Medicine
DX: L89.154 Pressure ulcer of sacral region, stage 4 (principal); Q05.9 Spina bifida, unspecified; M46.28 Osteomyelitis of vertebra, sacral and sacrococcygeal region
CPT/HCPCS: 11042; 11045; 72193; 87070; 87075; 87077; 87186; 87205; 99203; Q9967; G0463

== ENCOUNTER 2019-01-13 09:00 | Outpatient (RCR) | payer MEDICAID, SELFPAY ==
[2018-12-21 01:35] VITALS: BP 134/73; PULSE 70; RESP 18; TEMP 36.5
[2018-12-21 10:26] VITALS: BP 140/70; PULSE 69; RESP 18; TEMP 36.6; BMI 23.1
--- NOTE | 2018-12-21 18:03 | HP.PCM_ITS ---
History of Present Illness Date of Service: 12/21/18 - WOUND CENTER CONSULT REFERRING PHYSICIAN: Dr. Montero. VETERINARY SCIENCE TEACHER: Dr. Gomez. Chief Complaint: Sacral pressure sore, Stage IV. History of Wound: 23 year old man with past medical history of spina bifida presented to the Wound Center with a sacral pressure sore. He had on about 4 years ago and his mother thinks he had osteomyelitis at that time. Several months ago, he developed a recurrence during an inpatient hospital stay in [place]. He has been treated with antibiotics and the VAC. While he was in [place], it was recommended to him to proceed with excision of the pressure sore with myocutaneous flap closure. He presents today for another opinion because he is not ready for surgery at this time, and they felt not much improvement has occurred over the last few months. They deny stool contamination of the ulcer. He has scheduled bowel movements. They have been told he has exposed bone but did not know of any history of osteomyelitis. He feels well otherwise and denies fever and chills. His appetite is good. He had a wound culture done on 12/02/18. It showed Staphylococcus aureus and Streptococcus agalactiae. He had been on Keflex. Will add Augmentin. He had a CT Pelvis on 12/07/18. It showed a large sacral decubitus ulcer and the lower left hemisacrum shows interval change with bony demineralization accompanied by heterotopic bone formation in keeping with osteomyelitis. He is currently using Silver dressing changes. Past Medical History Past Medical History: Chronic Problems Stage IV pressure ulcer of sacral region (Chronic) Spina bifida (Chronic) Sacral osteomyelitis (Chronic) Allergies/Adverse Reactions: Allergies latex Allergy (Verified 05/04/18 00:12) Other codine Allergy (Uncoded 05/04/18 00:12) Hives Home Medications: Ambulatory Orders Medication Instructions Recorded Darifenacin Hydrobromide 15 mg PO DAILY 10/09/17 [Darifenacin ER] Mirabegron [Myrbetriq] 25 mg PO DAILY 10/09/17 Cephalexin [Keflex] 500 mg PO Q6 #40 cap 05/04/18 Hydrocodone/Acetaminophen [[place] 1 - 2 ea PO 4X/DAY PRN PRN 3 Days 05/04/18 5-325 Tablet] #14 tab Smoking Status: Never smoker Review of Systems Constitutional: Denies: Anorexia, Chills, Fever. Eyes: Denies: Blurred vision, Pain. HEENT: Denies: Difficulty Swallowing. Cardiovascular: Denies: Claudication, Chest Tightness. Respiratory: Denies: Cough, Hemoptysis. Gastrointestinal: Denies: Abdominal Pain, Hematemesis, Vomiting. Genitourinary: Denies: Hematuria. Skin: Denies: Jaundice - Physical Exam General: Alert, Oriented x3, Cooperative. HEENT: PERRL. EOMI. Oral: Moist Mucosa Neck: Supple, nontender. No cervical adenopathy. Lungs: Clear to auscultation. Cardiovascular: Regular rate, Regular Rhythm Abdomen: Soft, nondistended. Extremities: Skin: Large sacral pressure sore, Stage IV. Bone is palpable. Some granulation tissue is present. Close to the anal opening. Measures 5 x 5 x 1.5 cm. Neurological: Cranial nerves II-XII grossly intact Psych/Mental Status: Normal Affect Vital Signs Temp Pulse Resp BP 97.8 F 69 18 140/70 H 12/21/18 10:26 12/21/18 10:26 12/21/18 10:26 12/21/18 10:26 Wound Measurements and Assessment WC - Nurse 1 - General Ulcer Measurement Start: 12/21/18 10:26 Freq: Status: Active Protocol: Activity Type Activity Date Activity User E-Sign Co-Sign Detail Recorded Client Recorded Date Recorded By Document 12/21/18 10:26 DL [id number] 12/21/18 10:29 DL 12/21/18 10:26 Wound Center Nurse 1 [Ulcer Assessment] # 1 Coccyx -Current Size (cm) - Length 5 -Current Size (cm) - Width 4.8 -Current Size (cm) - Depth 1.5 -Total Square Cm 24.0 -Photo Taken No -Undermining/Tunneling Starts (O' 9 clock) -Undermining/Tunneling Ends (O'clock) 5 -Maximum Distance (cm) 2.8 -Exudate Amt Small -Exudate Type Serosanguineous -Wound Margin Thickened & Rolled Under -Granulation Amt Large (67-100%) -Granulation Quality [place] Red -Necrosis Amt Small (1-33%) -Necrotic Tissue Type Adherent Slough -Structure Exposed N/A -Texture (Aishwarya-wound Skin Appearance) Scarring -Moisture (Aishwarya-wound Skin Appearance No Abnormality ) -Color (Aishwarya-wound Skin Appearance) No Abnormality -Temperature (Aishwarya-wound Skin No Abnormality Appearance) (Pt Warm) -Tenderness on Palpation (Aishwarya-wound No Skin Appearance) -Ulcer Cleansing Rinsed/ Irrigated with Saline -Foul Odor after Cleansing No -Anesthetic Used 4% Lidocaine Solution STACY - Nurse 2 - General Ulcer CM Notes Start: 12/21/18 10:26 Freq: Status: Active Protocol: Activity Type Activity Date Activity User E-Sign Co-Sign Detail Recorded Client Recorded Date Recorded By Document 12/21/18 10:56 [id number] 12/21/18 11:06 12/21/18 10:56 Wound Center Nurse 2 [Procedure/Treatment] -Time 10:56 -Correct Patient Yes -Correct Side, Site, Position Yes -Correct Procedure Yes -Procedure Performed Yes -Type of Procedure Debridement -Clinical Debridement Muscle -Post Debridement Size (cm) - Length 5.1 -Post Debridement Size (cm) - Width 4.8 -Post Debridement Size (cm) - Depth 1.5 -Total Square Cm 24.48 -Wound/Ulcer Outcome Not Healed -Ulcer Cleansing Rinsed/ Irrigated with Saline -Foul Odor after Cleansing No -Bioengineered Tissue No -Bleeding Controlled with Pressure -Offloading No -Treatment Response Procedure Tolerated Well [See Physician Procedure note for Specifics] Pain Scale: 0-10 Numeric [Pain] -Is Patient Pain Free? Yes Debridement Note Post-Debridement Measurements/Treatment - Nurse 2 - General Ulcer CM Notes Start: 12/21/18 10:26 Freq: Status: Active Protocol: Activity Type Activity Date Activity User E-Sign Co-Sign Detail Recorded Client Recorded Date Recorded By Document 12/21/18 10:56 [id number] 12/21/18 11:06 12/21/18 10:56 Wound Center Nurse 2 # 1 Coccyx -Time 10:56 -Correct Patient Yes -Correct Side, Site, Position Yes -Correct Procedure Yes -Procedure Performed Yes -Type of Procedure Debridement -Clinical Debridement Muscle -Post Debridement Size (cm) - Length 5.1 -Post Debridement Size (cm) - Width 4.8 -Post Debridement Size (cm) - Depth 1.5 -Total Square Cm 24.48 -Wound/Ulcer Outcome Not Healed -Ulcer Cleansing Rinsed/ Irrigated with Saline -Foul Odor after Cleansing No -Bioengineered Tissue No -Bleeding Controlled with Pressure -Offloading No -Treatment Response Procedure Tolerated Well Pain Scale: 0-10 Numeric Is Patient Pain Free? Yes Wound debrided: #1 Sacral area. Laterality: Not Applicable Wound Grade/Stage: IV. Type of Debridement: Excisional debridement Anesthesia Used: 4% Lidocaine Solution Depth: Down to and including healthy tissue, in the subcutaneous layer, to muscle, to bone - bone is palpable but not debrided. Percentage of wound debrided: 100 Instrument Used: 7mm curette Tissue Removed: subcutaneous tissue and muscle. Severity: Fat Layer Exposed - muscle exposed. bone is palpable but not debrided. Amount of bleeding with debridement: Mild Bleeding Controlled with: Pressure Patient tolerated procedure well Assessment/Plan Assessment: 1. Sacral pressure sore, Stage IV. 2. Osteomyelitis. 3. Spina bifida. Plan: CT Pelvis reviewed. It was suspicious for osteomyelitis. Continue Silver dressing changes to the sacrum. Wound culture from 12/02/18 showed Staphylococcus aureus and Streptococcus agalactiae. He had been on Keflex. Will add Augmentin. Family is not in a hurry for major surgery at this time. They want to see how much this ulcer can heal. There is good granulation tissue, but it appears if there is some abnormal scar tissue that may get in the way of healing. After talking to them, I think they are hesitant to proceed with the more complex myocutaneous flap closure. Excision of the pressure sore intermittently is needed because of the development of abnormal scarring that can be a hindrance to healing. After surgery, will begin wound care with the VAC. Will send soft tissue to Pathology and Microbiology and will send bone to Pathology and Microbiology. A positive culture may necessitate antibiotic modification. If Pathology is positive for ostemyelitis, then would need dedicated intermodal truck driver IV antibiotics through a PICC line. Also he would be evaluated for HBO treatments which can help salvage healing of a wound with underlying chronic refractory osteomyelitis. Will obtain old records from [place] from 4 years ago. The mother thinks they told him he had osteomyelitis. If so we can start HBO before any surgical debridement. If not then we would have to re-evaluate with a CT or with operative debridement [address] result in November. Then we can start HBO treatments. Followup 2 weeks. If I don't see much improvement in the healing, then I would recommend surgical excision of the pressure sore with partial ostectomy for osteomyelitis. Surgery would be done under general anesthesia with a surgical observation overnight stay in the hospital. I told them that healing would be more efficient if we proceed with operative excision. Can also discuss eventual flap surgery for wound closure. Patient was informed of the risks and complications of the procedure including alternatives to surgery. These were discussed with him personally. He voices understanding and wishes to proceed.
[2019-01-04 09:55] VITALS: BP 129/57; PULSE 71; RESP 16; TEMP 36.9; BMI 23.1
--- NOTE | 2019-01-04 12:26 | PCM.WC.PN ---
Type of Wound Date of Service: 01/04/19 Chief Complaint: Sacral pressure sore, Stage IV. History of Wound: 23 year old man with past medical history of spina bifida presented to [facility] with a sacral pressure sore. He had on about 4 years ago and his mother thinks he had osteomyelitis at that time. Several months ago, he developed a recurrence during an inpatient hospital stay in [place]. He has been treated with antibiotics and the VAC. While he was in [place], it was recommended to him to proceed with excision of the pressure sore with myocutaneous flap closure. He presents today for another opinion because he is not ready for surgery at this time, and they felt not much improvement has occurred over the last few months. They deny stool contamination of the ulcer. He has scheduled bowel movements. They have been told he has exposed bone but did not know of any history of osteomyelitis. He feels well otherwise and denies fever and chills. His appetite is good. He had a wound culture done on 12/02/18. It showed Staphylococcus aureus and Streptococcus agalactiae. He had been on Keflex. Augmentin was added. He had a CT Pelvis on 12/07/18. It showed a large sacral decubitus ulcer and the lower left hemisacrum shows interval change with bony demineralization accompanied by heterotopic bone formation in keeping with osteomyelitis. He is currently using Silver dressing changes. We were able to get a Pathology report from 4 years ago. It was negative for osteomyelitis. Progress of Wound: Stable. - Physical Exam Vital Signs Temp Pulse Resp BP 98.4 F 71 16 129/57 H 01/04/19 09:55 01/04/19 09:55 01/04/19 09:55 01/04/19 09:55 Wound Measurements and Assessment WC - Nurse 1 - General Ulcer Measurement Start: 12/21/18 10:26 Freq: Status: Active Protocol: Activity Type Activity Date Activity User E-Sign Co-Sign Detail Recorded Client Recorded Date Recorded By Document 01/04/19 09:55 DV [id number] 01/04/19 10:09 DV 01/04/19 09:55 Wound Center Nurse 1 [Ulcer Assessment] # 1 Coccyx -Combined with other wound No -Current Size (cm) - Length 4.5 -Current Size (cm) - Width 4.5 -Current Size (cm) - Depth 2.0 -Total Square Cm 20.25 -Date of Last Picture (Recall this 01/04/19 field) -Photo Taken Yes -Epithelialization None Present -Tunneling No -Tunneling Position (O'clock) 11 -Tunneling Distance (cm) 3.5 -Undermining/Tunneling No -Undermining/Tunneling Starts (O' 9 clock) -Undermining/Tunneling Ends (O'clock) 5 -Maximum Distance (cm) 2.5 -Circular Undermining No -Exudate Amt Medium -Exudate Type Serosanguineous -Wound Margin Thickened & Rolled Under -Granulation Amt Large (67-100%) -Granulation Quality Red -Slough/Fibrin Yes -Necrosis Amt Medium (34-66%) -Necrotic Tissue Type Adherent Slough -Structure Exposed Fascia Fat Layer Exposed None/Limited to Skin Breakdown -Texture (Aishwarya-wound Skin Appearance) Assessed Scarring -Moisture (Aishwarya-wound Skin Appearance No Abnormality ) Assessed -Color (Aishwarya-wound Skin Appearance) No Abnormality Assessed -Temperature (Aishwarya-wound Skin No Abnormality Appearance) (Pt Warm) -Tenderness on Palpation (Aishwarya-wound No Skin Appearance) -Ulcer Cleansing Rinsed/ Irrigated with Saline -Foul Odor after Cleansing No WC - Nurse 2 - General Ulcer CM Notes Start: 12/21/18 10:26 Freq: Status: Active Protocol: Activity Type Activity Date Activity User E-Sign Co-Sign Detail Recorded Client Recorded Date Recorded By Document 01/04/19 10:43 MW [id number] 01/04/19 10:50 MW 01/04/19 10:43 Wound Center Nurse 2 [Procedure/Treatment] -Time 10:43 -Correct Patient Yes -Correct Side, Site, Position Yes -Correct Procedure Yes -Procedure Performed Yes -Type of Procedure Debridement -Clinical Debridement Muscle -Post Debridement Size (cm) - Length 5.0 -Post Debridement Size (cm) - Width 3.8 -Post Debridement Size (cm) - Depth 2.0 -Total Square Cm 19.00 -Wound/Ulcer Outcome Not Healed -Ulcer Cleansing Rinsed/ Irrigated with Saline -Foul Odor after Cleansing No -Bioengineered Tissue No -Bleeding Controlled with Pressure -Other undermining 9-4 , 2.5cm -Offloading No -Treatment Response Procedure Tolerated Well [See Physician Procedure note for Specifics] Pain Scale: 0-10 Numeric [Pain] -Is Patient Pain Free? Yes Debridement Note Post-Debridement Measurements/Treatment WC - Nurse 2 - General Ulcer CM Notes Start: 12/21/18 10:26 Freq: Status: Active Protocol: Activity Type Activity Date Activity User E-Sign Co-Sign Detail Recorded Client Recorded Date Recorded By Document 12/21/18 10:56 [id number] 12/21/18 11:06 Document 01/04/19 10:43 MW [id number] 01/04/19 10:50 MW 12/21/18 01/04/19 10:56 10:43 Wound Center Nurse 2 # 1 Coccyx -Time 10:56 10:43 -Correct Patient Yes Yes -Correct Side, Site, Position Yes Yes -Correct Procedure Yes Yes -Procedure Performed Yes Yes -Type of Procedure Debridement Debridement -Clinical Debridement Muscle Muscle -Post Debridement Size (cm) - Length 5.1 5.0 -Post Debridement Size (cm) - Width 4.8 3.8 -Post Debridement Size (cm) - Depth 1.5 2.0 -Total Square Cm 24.48 19.00 -Wound/Ulcer Outcome Not Healed Not Healed -Ulcer Cleansing Rinsed/ Rinsed/ Irrigated with Irrigated with Saline Saline -Foul Odor after Cleansing No No -Bioengineered Tissue No No -Bleeding Controlled with Pressure Pressure -Other undermining 9-4 , 2.5cm -Offloading No No -Treatment Response Procedure Procedure Tolerated Well Tolerated Well Pain Scale: 0-10 Numeric Is Patient Pain Free? Yes Yes Wound debrided: #1 Sacral area. Laterality: Not Applicable Wound Grade/Stage: IV. Type of Debridement: Excisional debridement Anesthesia Used: 4% Lidocaine Solution Depth: Down to and including healthy tissue, in the subcutaneous layer, to muscle, to bone - bone is palpable but not debrided. Percentage of wound debrided: 100 Instrument Used: 7mm curette Tissue Removed: subcutaneous tissue and muscle. Severity: Fat Layer Exposed - muscle is exposed. bone is palpable but not debrided. Amount of bleeding with debridement: Mild Bleeding Controlled with: Pressure Patient tolerated procedure well Assessment/Plan Assessment: 1. Sacral pressure sore, Stage IV. 2. Osteomyelitis. 3. Spina bifida. Plan: Continue Silver dressing changes to the sacrum. Wound culture from 12/02/18 showed Staphylococcus aureus and Streptococcus agalactiae. He had been on Keflex. Augmentin was added. Family is not in a hurry for major surgery at this time. They want to see how much this ulcer can heal. There is good granulation tissue, but it appears if there is some abnormal scar tissue that may get in the way of healing. After talking to them, I think they are hesitant to proceed with the more complex myocutaneous flap closure. Excision of the pressure sore intermittently is needed because of the development of abnormal scarring that can be a hindrance to healing. After surgery, will begin wound care with the VAC. Will send soft tissue to Pathology and Microbiology and will send bone to Pathology and Microbiology. A positive culture may necessitate antibiotic modification. If Pathology is positive for ostemyelitis, then would need intermediate school teacher IV antibiotics through a PICC line. Also he would be evaluated for HBO treatments which can help salvage healing of a wound with underlying chronic refractory osteomyelitis. A Pathology report from [place] from 4 years ago was obtained. It was negative for osteomyelitis. Since the mother remembers being told there was osteomyelitis, it may have been a clinical diagnosis. So getting the bone culture and getting the ID notes may be helpful. If the ID note mentions osteomyelitis in the diagnosis, then we can resubmit for medical approval of HBO. If not successful, will have to wait until March before repeating the CT. As long as osteomyelitis is stil suspicious on the CT, we can start HBO treatments at that time. If CT doesn't show suspicion for osteomyelitis, we can proceed with operative debridement with bony resection. If the pathology from that surgery showed osteomyelitis, then can proceed with HBO treatments. If I don't see much improvement in the healing, then I would recommend surgical excision of the pressure sore with partial ostectomy for osteomyelitis. Surgery would be done under general anesthesia with a surgical observation overnight stay in the hospital. I told them that healing would be more efficient if we proceed with operative excision. Can also discuss eventual flap surgery for wound closure. Patient was informed of the risks and complications of the procedure including alternatives to surgery. These were discussed with him personally. He voices understanding and wishes to proceed. Patient and his father voice understanding that surgical excision will be necessary in the future. Repeat debridements can sometimes help to jump start the healing process. Can proceed with the VAC at that time. They are not ready for a muscle flap at this time. But depending on the healing process, they may change their mind and want to proceed with the muscle flap. Continue Augmentin. Followup 4 weeks. Will see Arsen Montero in the meantime.
[2019-01-13 08:52] VITALS: BP 126/74; PULSE 74; RESP 18; TEMP 36.6; BMI 23.1
--- NOTE | 2019-01-13 09:42 | PCM.WC.PN ---
(1) Sacral osteomyelitis Status: Chronic Current Visit: Yes Code(s): M46.28 - Osteomyelitis of vertebra, sacral and sacrococcygeal region (2) Spina bifida Status: Chronic Current Visit: Yes Code(s): Q05.9 - Spina bifida, unspecified (3) Stage IV pressure ulcer of sacral region Status: Chronic Current Visit: Yes Code(s): L89.154 - Pressure ulcer of sacral region, stage 4 Type of Wound Chief Complaint: Sacral pressure sore, Stage IV. History of Wound: 23 year old man with past medical history of spina bifida presented to the [facility] with a sacral pressure sore. He had on about 4 years ago and his mother thinks he had osteomyelitis at that time. Several months ago, he developed a recurrence during an inpatient hospital stay in [place]. He has been treated with antibiotics and the VAC. While he was in [place], it was recommended to him to proceed with excision of the pressure sore with myocutaneous flap closure. He presents today for another opinion because he is not ready for surgery at this time, and they felt not much improvement has occurred over the last few months. They deny stool contamination of the ulcer. He has scheduled bowel movements. They have been told he has exposed bone but did not know of any history of osteomyelitis. He feels well otherwise and denies fever and chills. His appetite is good. He had a wound culture done on 12/02/18. It showed Staphylococcus aureus and Streptococcus agalactiae. He had been on Keflex. Will add Augmentin. He had a CT Pelvis on 12/07/18. It showed a large sacral decubitus ulcer and the lower left hemisacrum shows interval change with bony demineralization accompanied by heterotopic bone formation in keeping with osteomyelitis. He is currently using Silver dressing changes. Progress of Wound: No new concerns at this time. - Physical Exam Vital Signs Temp Pulse Resp BP 97.8 F 74 18 126/74 H 01/13/19 08:52 01/13/19 08:52 01/13/19 08:52 01/13/19 08:52 General: Alert, Oriented x3, No apparent distress HEENT: Atraumatic, Normocephalic Oral: Moist Mucosa Neck: Supple Lungs: Normal air movement Extremities: No cyanosis Skin: Ulcer/ Wound Wound Measurements and Assessment WC - Nurse 1 - General Ulcer Measurement Start: 12/21/18 10:26 Freq: Status: Active Protocol: Activity Type Activity Date Activity User E-Sign Co-Sign Detail Recorded Client Recorded Date Recorded By Document 01/13/19 08:52 DL [id number] 01/13/19 08:58 DL 01/13/19 08:52 Wound Center Nurse 1 [Ulcer Assessment] # 1 Coccyx -Current Size (cm) - Length 4.7 -Current Size (cm) - Width 4 -Current Size (cm) - Depth 1.8 -Total Square Cm 18.8 -Photo Taken No -Undermining/Tunneling Starts (O' 9 clock) -Undermining/Tunneling Ends (O'clock) 3 -Maximum Distance (cm) 2 -Exudate Amt Medium -Exudate Type Serosanguineous -Wound Margin Thickened & Rolled Under -Granulation Amt Large (67-100%) -Granulation Quality Red -Necrosis Amt Small (1-33%) -Necrotic Tissue Type Adherent Slough -Structure Exposed N/A -Texture (Aishwarya-wound Skin Appearance) Scarring -Moisture (Aishwarya-wound Skin Appearance No Abnormality ) -Color (Aishwarya-wound Skin Appearance) No Abnormality -Temperature (Aishwarya-wound Skin No Abnormality Appearance) (Pt Warm) -Tenderness on Palpation (Aishwarya-wound No Skin Appearance) -Ulcer Cleansing Rinsed/ Irrigated with Saline -Foul Odor after Cleansing No -Anesthetic Used 4% Lidocaine Solution - Nurse 2 - General Ulcer CM Notes Start: 12/21/18 10:26 Freq: Status: Active Protocol: Activity Type Activity Date Activity User E-Sign Co-Sign Detail Recorded Client Recorded Date Recorded By Document 01/13/19 09:19 MW [id number] 01/13/19 09:27 MW 01/13/19 09:19 Wound Center Nurse 2 [Procedure/Treatment] -Time 09:20 -Correct Patient Yes -Correct Side, Site, Position Yes -Correct Procedure Yes -Procedure Performed Yes -Type of Procedure Debridement -Clinical Debridement Subcutaneous -Post Debridement Size (cm) - Length 4.5 -Post Debridement Size (cm) - Width 6.0 -Post Debridement Size (cm) - Depth 1.5 -Total Square Cm 27.00 -Wound/Ulcer Outcome Not Healed -Ulcer Cleansing Rinsed/ Irrigated with Saline -Foul Odor after Cleansing No -Bioengineered Tissue No -Bleeding Controlled with Pressure -Offloading No -Treatment Response Procedure Tolerated Well [See Physician Procedure note for Specifics] Pain Scale: 0-10 Numeric [Pain] -Is Patient Pain Free? Yes Musculoskeletal: No Muscle Wasting Neurological: Cranial nerves II-XII grossly intact Psych/Mental Status: Normal Affect Debridement Note Post-Debridement Measurements/Treatment WC - Nurse 2 - General Ulcer CM Notes Start: 12/21/18 10:26 Freq: Status: Active Protocol: Activity Type Activity Date Activity User E-Sign Co-Sign Detail Recorded Client Recorded Date Recorded By Document 12/21/18 10:56 JF [id number] 12/21/18 11:06 JF Document 01/04/19 10:43 MW [id number] 01/04/19 10:50 MW Document 01/13/19 09:19 MW [id number] 01/13/19 09:27 MW 12/21/18 01/04/19 01/13/19 10:56 10:43 09:19 Wound Center Nurse 2 # 1 Coccyx -Time 10:56 10:43 09:20 -Correct Patient Yes Yes Yes -Correct Side, Site, Position Yes Yes Yes -Correct Procedure Yes Yes Yes -Procedure Performed Yes Yes Yes -Type of Procedure Debridement Debridement Debridement -Clinical Debridement Muscle Muscle Subcutaneous -Post Debridement Size (cm) - Length 5.1 5.0 4.5 -Post Debridement Size (cm) - Width 4.8 3.8 6.0 -Post Debridement Size (cm) - Depth 1.5 2.0 1.5 -Total Square Cm 24.48 19.00 27.00 -Wound/Ulcer Outcome Not Healed Not Healed Not Healed -Ulcer Cleansing Rinsed/ Rinsed/ Rinsed/ Irrigated with Irrigated with Irrigated with Saline Saline Saline -Foul Odor after Cleansing No No No -Bioengineered Tissue No No No -Bleeding Controlled with Pressure Pressure Pressure -Other undermining 9-4 , 2.5cm -Offloading No No No -Treatment Response Procedure Procedure Procedure Tolerated Well Tolerated Well Tolerated Well Pain Scale: 0-10 Numeric Is Patient Pain Free? Yes Yes Yes Wound debrided: Sacral Wound Grade/Stage: Stage IV Type of Debridement: Excisional debridement Anesthesia Used: 4% Lidocaine Solution Depth: Down to and including healthy tissue, in the subcutaneous layer Percentage of wound debrided: 100 Instrument Used: 5mm curette Tissue Removed: slough and devitalized tissue Severity: Fat Layer Exposed Amount of bleeding with debridement: Mild Bleeding Controlled with: Pressure Patient tolerated procedure well Assessment/Plan Active Problems Stage IV pressure ulcer of sacral region (Chronic) Spina bifida (Chronic) Sacral osteomyelitis (Chronic) Assessment: 1. Sacral pressure sore, Stage IV. 2. Osteomyelitis. 3. Spina bifida. Plan: No new concerns at this time. They have been seen by Dr. Gomez over the last couple of weeks. He was referred to Dr. Gomez by me due to concerns for Osteomyelitis and the need for surgical debridement/bone biopsy. From documentation and from discussions with me, they are not open to going along with this plan at this time. They would like to continue traditional wound care for now and see how he progress prior to considering surgical management. They are aware of non healing, wound break down and worsening osteomyelitis. Debridement done as documenetd above, procedure was well tolerated. Continue Aquacel silver. Change daily to twice daily depending on drainage. Offloading recommended. Increased protein intake also recommended. For better continuity of care, will have him follow up with / Veronica Georges NP. They were advised to call with any questions or concerns.
--- NOTE | 2019-01-13 09:52 | PN.PCM_ITS ---
(1) Sacral osteomyelitis Status: Chronic Current Visit: Yes Code(s): M46.28 - Osteomyelitis of vertebra, sacral and sacrococcygeal region (2) Spina bifida Status: Chronic Current Visit: Yes Code(s): Q05.9 - Spina bifida, unspecified (3) Stage IV pressure ulcer of sacral region Status: Chronic Current Visit: Yes Code(s): L89.154 - Pressure ulcer of sacral region, stage 4 Type of Wound Chief Complaint: Sacral pressure sore, Stage IV. History of Wound: 23 year old man with past medical history of spina bifida presented to [facility] with a sacral pressure sore. He had on about 4 years ago and his mother thinks he had osteomyelitis at that time. Several months ago, he developed a recurrence during an inpatient hospital stay in [place]. He has been treated with antibiotics and the VAC. While he was in [place], it was recommended to him to proceed with excision of the pressure sore with myocutaneous flap closure. He presents today for another opinion because he is not ready for surgery at this time, and they felt not much improvement has occurred over the last few months. They deny stool contamination of the ulcer. He has scheduled bowel movements. They have been told he has exposed bone but did not know of any history of osteomyelitis. He feels well otherwise and denies fever and chills. His appetite is good. He had a wound culture done on 12/02/18. It showed Staphylococcus aureus and Streptococcus agalactiae. He had been on Keflex. Will add Augmentin. He had a CT Pelvis on 12/07/18. It showed a large sacral decubitus ulcer and the lower left hemisacrum shows interval change with bony demineralization accompanied by heterotopic bone formation in keeping with osteomyelitis. He is currently using Silver dressing changes. Progress of Wound: No new concerns at this time. - Physical Exam Vital Signs Temp Pulse Resp BP 97.8 F 74 18 126/74 H 01/13/19 08:52 01/13/19 08:52 01/13/19 08:52 01/13/19 08:52 General: Alert, Oriented x3, No apparent distress HEENT: Atraumatic, Normocephalic Oral: Moist Mucosa Neck: Supple Lungs: Normal air movement Extremities: No cyanosis Skin: Ulcer/ Wound Wound Measurements and Assessment WC - Nurse 1 - General Ulcer Measurement Start: 12/21/18 10:26 Freq: Status: Active Protocol: Activity Type Activity Date Activity User E-Sign Co-Sign Detail Recorded Client Recorded Date Recorded By Document 01/13/19 08:52 DL [id number] 01/13/19 08:58 DL 01/13/19 08:52 Wound Center Nurse 1 [Ulcer Assessment] # 1 Coccyx -Current Size (cm) - Length 4.7 -Current Size (cm) - Width 4 -Current Size (cm) - Depth 1.8 -Total Square Cm 18.8 -Photo Taken No -Undermining/Tunneling Starts (O' 9 clock) -Undermining/Tunneling Ends (O'clock) 3 -Maximum Distance (cm) 2 -Exudate Amt Medium -Exudate Type Serosanguineous -Wound Margin Thickened & Rolled Under -Granulation Amt Large (67-100%) -Granulation Quality Red -Necrosis Amt Small (1-33%) -Necrotic Tissue Type Adherent Slough -Structure Exposed N/A -Texture (Aishwarya-wound Skin Appearance) Scarring -Moisture (Aishwarya-wound Skin Appearance No Abnormality ) -Color (Aishwarya-wound Skin Appearance) No Abnormality -Temperature (Aishwarya-wound Skin No Abnormality Appearance) (Pt Warm) -Tenderness on Palpation (Aishwarya-wound No Skin Appearance) -Ulcer Cleansing Rinsed/ Irrigated with Saline -Foul Odor after Cleansing No -Anesthetic Used 4% Lidocaine Solution - Nurse 2 - General Ulcer CM Notes Start: 12/21/18 10:26 Freq: Status: Active Protocol: Activity Type Activity Date Activity User E-Sign Co-Sign Detail Recorded Client Recorded Date Recorded By Document 01/13/19 09:19 MW [id number] 01/13/19 09:27 MW 01/13/19 09:19 Wound Center Nurse 2 [Procedure/Treatment] -Time 09:20 -Correct Patient Yes -Correct Side, Site, Position Yes -Correct Procedure Yes -Procedure Performed Yes -Type of Procedure Debridement -Clinical Debridement Subcutaneous -Post Debridement Size (cm) - Length 4.5 -Post Debridement Size (cm) - Width 6.0 -Post Debridement Size (cm) - Depth 1.5 -Total Square Cm 27.00 -Wound/Ulcer Outcome Not Healed -Ulcer Cleansing Rinsed/ Irrigated with Saline -Foul Odor after Cleansing No -Bioengineered Tissue No -Bleeding Controlled with Pressure -Offloading No -Treatment Response Procedure Tolerated Well [See Physician Procedure note for Specifics] Pain Scale: 0-10 Numeric [Pain] -Is Patient Pain Free? Yes Musculoskeletal: No Muscle Wasting Neurological: Cranial nerves II-XII grossly intact Psych/Mental Status: Normal Affect Debridement Note Post-Debridement Measurements/Treatment WC - Nurse 2 - General Ulcer CM Notes Start: 12/21/18 10:26 Freq: Status: Active Protocol: Activity Type Activity Date Activity User E-Sign Co-Sign Detail Recorded Client Recorded Date Recorded By Document 12/21/18 10:56 JF [id number] 12/21/18 11:06 JF Document 01/04/19 10:43 MW [id number] 01/04/19 10:50 MW Document 01/13/19 09:19 MW [id number] 01/13/19 09:27 MW 12/21/18 01/04/19 01/13/19 10:56 10:43 09:19 Wound Center Nurse 2 # 1 Coccyx -Time 10:56 10:43 09:20 -Correct Patient Yes Yes Yes -Correct Side, Site, Position Yes Yes Yes -Correct Procedure Yes Yes Yes -Procedure Performed Yes Yes Yes -Type of Procedure Debridement Debridement Debridement -Clinical Debridement Muscle Muscle Subcutaneous -Post Debridement Size (cm) - Length 5.1 5.0 4.5 -Post Debridement Size (cm) - Width 4.8 3.8 6.0 -Post Debridement Size (cm) - Depth 1.5 2.0 1.5 -Total Square Cm 24.48 19.00 27.00 -Wound/Ulcer Outcome Not Healed Not Healed Not Healed -Ulcer Cleansing Rinsed/ Rinsed/ Rinsed/ Irrigated with Irrigated with Irrigated with Saline Saline Saline -Foul Odor after Cleansing No No No -Bioengineered Tissue No No No -Bleeding Controlled with Pressure Pressure Pressure -Other undermining 9-4 , 2.5cm -Offloading No No No -Treatment Response Procedure Procedure Procedure Tolerated Well Tolerated Well Tolerated Well Pain Scale: 0-10 Numeric Is Patient Pain Free? Yes Yes Yes Wound debrided: Sacral Wound Grade/Stage: Stage IV Type of Debridement: Excisional debridement Anesthesia Used: 4% Lidocaine Solution Depth: Down to and including healthy tissue, in the subcutaneous layer Percentage of wound debrided: 100 Instrument Used: 5mm curette Tissue Removed: slough and devitalized tissue Severity: Fat Layer Exposed Amount of bleeding with debridement: Mild Bleeding Controlled with: Pressure Patient tolerated procedure well Assessment/Plan Active Problems Stage IV pressure ulcer of sacral region (Chronic) Spina bifida (Chronic) Sacral osteomyelitis (Chronic) Assessment: 1. Sacral pressure sore, Stage IV. 2. Osteomyelitis. 3. Spina bifida. Plan: No new concerns at this time. They have been seen by Dr. Gomez over the last couple of weeks. He was referred to Dr. Gomez by me due to concerns for Osteomyelitis and the need for surgical debridement/bone biopsy. From documentation and from discussions with me, they are not open to going along with this plan at this time. They would like to continue traditional wound care for now and see how he progress prior to considering surgical management. They are aware of non healing, wound break down and worsening osteomyelitis. Debridement done as documenetd above, procedure was well tolerated. Continue Aquacel silver. Change daily to twice daily depending on drainage. Offloading recommended. Increased protein intake also recommended. For better continuity of care, will have him follow up with / Veronica Georges NP. They were advised to call with any questions or concerns.
== END 2019-01-19 23:59 ==
LOC: WC 09:00
PROVIDERS: Family Provider Family Medicine; PCP Family Medicine; Referring Provider Internal Medicine; Visit Provider Internal Medicine
DX: L89.154 Pressure ulcer of sacral region, stage 4 (principal); Q05.9 Spina bifida, unspecified; M46.28 Osteomyelitis of vertebra, sacral and sacrococcygeal region
CPT/HCPCS: 11042; 11043; 11045; 11046

== ENCOUNTER 2019-02-08 09:30 | Outpatient (RCR) | payer MEDICAID, SELFPAY ==
[2019-01-20 01:32] VITALS: BP 126/74; PULSE 74; RESP 18; TEMP 36.6
[2019-01-25 09:03] VITALS: BP 133/69; PULSE 68; RESP 18; TEMP 36.4; BMI 23.1
--- NOTE | 2019-01-25 16:26 | PN.PCM_ITS ---
(1) Stage IV pressure ulcer of sacral region Status: Chronic Current Visit: No Code(s): L89.154 - Pressure ulcer of sacral region, stage 4 (2) Spina bifida Status: Chronic Current Visit: No Code(s): Q05.9 - Spina bifida, unspecified (3) Sacral osteomyelitis Status: Chronic Current Visit: No Code(s): M46.28 - Osteomyelitis of vertebra, sacral and sacrococcygeal region Type of Wound Date of Service: 01/25/19 Chief Complaint: Sacral pressure sore, Stage IV. History of Wound: 23 year old man with past medical history of spina bifida presented to the [facility] Center with a sacral pressure sore. He had on about 4 years ago and his mother thinks he had osteomyelitis at that time. Several months ago, he developed a recurrence during an inpatient hospital stay in [place]. He has been treated with antibiotics and the VAC. While he was in [place], it was recommended to him to proceed with excision of the pressure sore with myocutaneous flap closure. He presents today for another opinion because he is not ready for surgery at this time, and they felt not much improvement has occurred over the last few months. They deny stool contamination of the ulcer. He has scheduled bowel movements. They have been told he has exposed bone but did not know of any history of osteomyelitis. He feels well otherwise and denies fever and chills. His appetite is good. He had a wound culture done on 12/02/18. It showed Staphylococcus aureus and Streptococcus agalactiae. He had been on Keflex. Augmentin was added which he has completed. He had a CT Pelvis on 12/07/18. It showed a large sacral decubitus ulcer and the lower left hemisacrum shows interval change with bony demineralization accompanied by heterotopic bone formation in keeping with osteomyelitis. He is currently using Silver dressing changes. We were able to get a Pathology report from 4 years ago. It was negative for osteomyelitis. He would definately benefit from HBOT. Progress of Wound: Stable. - Physical Exam Vital Signs Temp Pulse Resp BP 97.6 F L 68 18 133/69 H 01/25/19 09:03 01/25/19 09:03 01/25/19 09:03 01/25/19 09:03 General: Alert, Oriented x3, Cooperative HEENT: Atraumatic Oral: Moist Mucosa Lungs: Normal air movement Cardiovascular: Regular rate Extremities: No edema, Capillary Refill Less than 3 Seconds, Peripheral Pulses Normal Skin: Ulcer/ Wound - Stage IV coccyx Wound Measurements and Assessment - Nurse 1 - General Ulcer Measurement Start: 01/25/19 09:03 Freq: Status: Active Protocol: Activity Type Activity Date Activity User E-Sign Co-Sign Detail Recorded Client Recorded Date Recorded By Document 01/25/19 09:03 DL [id number] 01/25/19 09:09 DL 01/25/19 09:03 Wound Center Nurse 1 [Ulcer Assessment] # 1 Coccyx -Current Size (cm) - Length 4.8 -Current Size (cm) - Width 4 -Current Size (cm) - Depth 1.6 -Total Square Cm 19.2 -Photo Taken No -Undermining/Tunneling Starts (O' 9 clock) -Undermining/Tunneling Ends (O'clock) 4 -Maximum Distance (cm) 2.2 -Exudate Amt Small -Exudate Type Serosanguineous -Wound Margin Thickened & Rolled Under -Granulation Amt Large (67-100%) -Granulation Quality Red -Necrosis Amt Small (1-33%) -Necrotic Tissue Type Adherent Slough -Structure Exposed N/A -Texture (Aishwarya-wound Skin Appearance) Scarring -Moisture (Aishwarya-wound Skin Appearance No Abnormality ) -Color (Aishwarya-wound Skin Appearance) No Abnormality -Temperature (Aishwarya-wound Skin No Abnormality Appearance) (Pt Warm) -Tenderness on Palpation (Aishwarya-wound No Skin Appearance) -Ulcer Cleansing Rinsed/ Irrigated with Saline -Foul Odor after Cleansing No -Anesthetic Used 4% Lidocaine Solution - Nurse 2 - General Ulcer CM Notes Start: 01/25/19 09:03 Freq: Status: Active Protocol: Activity Type Activity Date Activity User E-Sign Co-Sign Detail Recorded Client Recorded Date Recorded By Document 01/25/19 09:41 DREW [id number] 01/25/19 09:42 DREW 01/25/19 09:41 Wound Center Nurse 2 [Procedure/Treatment] -Time 09:41 -Correct Patient Yes -Correct Side, Site, Position Yes -Correct Procedure Yes -Procedure Performed Yes -Type of Procedure Debridement -Clinical Debridement Muscle -Post Debridement Size (cm) - Length 4.5 -Post Debridement Size (cm) - Width 4.5 -Post Debridement Size (cm) - Depth 1.6 -Total Square Cm 20.25 -Wound/Ulcer Outcome Not Healed -Ulcer Cleansing Rinsed/ Irrigated with Saline -Foul Odor after Cleansing No -Bioengineered Tissue No -Bleeding Controlled with Pressure -Other undermine 9-5: 00 2.0cm -Offloading No -Treatment Response Procedure Tolerated Well [See Physician Procedure note for Specifics] Pain Scale: 0-10 Numeric [Pain] -Is Patient Pain Free? Yes Musculoskeletal: No Tenderness to Palpation of Joints or Extremities Neurological: Cranial nerves II-XII grossly intact Psych/Mental Status: Normal Affect, Appropriate Debridement Note Post-Debridement Measurements/Treatment WC - Nurse 2 - General Ulcer CM Notes Start: 01/25/19 09:03 Freq: Status: Active Protocol: Activity Type Activity Date Activity User E-Sign Co-Sign Detail Recorded Client Recorded Date Recorded By Document 01/25/19 09:41 DREW [id number] 01/25/19 09:42 DREW 01/25/19 09:41 Wound Center Nurse 2 # 1 Coccyx -Time 09:41 -Correct Patient Yes -Correct Side, Site, Position Yes -Correct Procedure Yes -Procedure Performed Yes -Type of Procedure Debridement -Clinical Debridement Muscle -Post Debridement Size (cm) - Length 4.5 -Post Debridement Size (cm) - Width 4.5 -Post Debridement Size (cm) - Depth 1.6 -Total Square Cm 20.25 -Wound/Ulcer Outcome Not Healed -Ulcer Cleansing Rinsed/ Irrigated with Saline -Foul Odor after Cleansing No -Bioengineered Tissue No -Bleeding Controlled with Pressure -Other undermine 9-5: 00 2.0cm -Offloading No -Treatment Response Procedure Tolerated Well Pain Scale: 0-10 Numeric Is Patient Pain Free? Yes Wound debrided: Coccyx ulcer Wound Grade/Stage: Stage IV Type of Debridement: Excisional debridement Anesthesia Used: 4% Lidocaine Solution Depth: Down to and including healthy tissue, in the subcutaneous layer Percentage of wound debrided: 100 Instrument Used: 7mm curette Tissue Removed: Subcutaneous tissue and slough Severity: Limited To Skin Breakdown Amount of bleeding with debridement: Mild Bleeding Controlled with: Pressure Patient tolerated procedure well Assessment/Plan Assessment: 1. Sacral pressure sore, Stage IV. 2. Osteomyelitis. 3. Spina bifida. Plan: Continue Silver dressing changes to the sacrum. Wound culture from 12/02/18 showed Staphylococcus aureus and Streptococcus agalactiae. He had been on Keflex. Augmentin was added. Family is not in a hurry for major surgery at this time. They want to see how much this ulcer can heal. There is good granulation tissue, but it appears if there is some abnormal scar tissue that may get in the way of healing. After talking to them, I think they are hesitant to proceed with the more complex myocutaneous flap closure. Excision of the pressure sore intermittently is needed because of the development of abnormal scarring that can be a hindrance to healing. After surgery, will begin wound care with the VAC. Will send soft tissue to Pathology and Microbiology and will send bone to Pathology and Microbiology. A positive culture may necessitate antibiotic modification. If Pathology is positive for ostemyelitis, then would need fpc IV antibiotics through a PICC line. Also he would be evaluated for HBO treatments which can help salvage healing of a wound with underlying chronic refractory osteomyelitis. A Pathology report from [facility] from surgery on 07/11/14 showed no definite evidience of osteomyelitis, but the comment from the pathologist states Because osteomyelitis can be patchy, correlation with bone cultures and CRP levels can sometims have better predictive value. CRP=9.50 mg/dL from 07/13/14. On 07/16/14 Dr. Hagen was using a diagnosis of osteomyelitis and referred to checking frequent prealbumin levels. Since the note mentions osteomyelitis in the diagnosis, then we can resubmit for medical approval of HBO. If not successful, will have to wait until March before repeating the CT. As long as osteomyelitis is still suspicious on the CT, we can start HBO treatments at that time. If CT doesn't show suspicion for osteomyelitis, we can proceed with operative debridement with bony resection. If the pathology from that surgery showed osteomyelitis, then can proceed with HBO treatments. If I don't see much improvement in the healing, then I would recommend surgical excision of the pressure sore with partial ostectomy for osteomyelitis. Surgery would be done under general anesthesia with a surgical observation overnight stay in the hospital. I told them that healing would be more efficient if we proceed with operative excision. Can also discuss eventual flap surgery for wound closure. Patient was informed of the risks and complications of the procedure including alternatives to surgery. These were discussed with him personally. He voices understanding and wishes to proceed. Patient and his father voice understanding that surgical excision will be necessary in the future. Repeat debridements can sometimes help to jump start the healing process. Can proceed with the VAC at that time. They are not ready for a muscle flap at this time. But depending on the healing process, they may change their mind and want to proceed with the muscle flap. Completed Augmentin. Followup [address] Montero in the meantime. Code Visit [id number]: [id number] Alma Delia musc/fascia 20 sq cm/<
[2019-02-08 10:19] VITALS: BP 126/72; PULSE 80; RESP 18; TEMP 36.8; BMI 23.1
--- NOTE | 2019-02-08 20:04 | PN.PCM_ITS ---
Type of Wound Date of Service: 02/08/19 Chief Complaint: Sacral pressure sore, Stage IV. History of Wound: 23 year old man with past medical history of spina bifida presented to the [facility] with a sacral pressure sore. He had on about 4 years ago and his mother thinks he had osteomyelitis at that time. Several months ago, he developed a recurrence during an inpatient hospital stay in [place]. He has been treated with antibiotics and the VAC. While he was in [place], it was recommended to him to proceed with excision of the pressure sore with myocutaneous flap closure. He presents today for another opinion because he is not ready for surgery at this time, and they felt not much improvement has occurred over the last few months. They deny stool contamination of the ulcer. He has scheduled bowel movements. They have been told he has exposed bone but did not know of any history of osteomyelitis. He feels well otherwise and denies fever and chills. His appetite is good. He had a wound culture done on 12/02/18. It showed Staphylococcus aureus and Streptococcus agalactiae. He had been on Keflex. Augmentin was added which he has completed. He had a CT Pelvis on 12/07/18. It showed a large sacral decubitus ulcer and the lower left hemisacrum shows interval change with bony demineralization accompanied by heterotopic bone formation in keeping with osteomyelitis. He is currently using Silver dressing changes. We were able to get a Pathology report from 4 years ago. It was negative for osteomyelitis. He would definitely benefit from HBOT. Progress of Wound: Stable. - Physical Exam Vital Signs Temp Pulse Resp BP 98.2 F 80 18 126/72 H 02/08/19 10:19 02/08/19 10:19 02/08/19 10:19 02/08/19 10:19 Wound Measurements and Assessment WC - Nurse 1 - General Ulcer Measurement Start: 01/25/19 09:03 Freq: Status: Active Protocol: Activity Type Activity Date Activity User E-Sign Co-Sign Detail Recorded Client Recorded Date Recorded By Document 02/08/19 10:19 RB [id number] 02/08/19 10:21 RB 02/08/19 10:19 Wound Center Nurse 1 [Ulcer Assessment] # 1 Coccyx -Combined with other wound No -Current Size (cm) - Length 5.5 -Current Size (cm) - Width 5 -Current Size (cm) - Depth 1 -Total Square Cm 27.5 -Photo Taken No -Tunneling No -Undermining/Tunneling Yes -Undermining/Tunneling Starts (O' 11 clock) -Undermining/Tunneling Ends (O'clock) 2 -Maximum Distance (cm) 2.1 -Circular Undermining No -Exudate Amt Small -Exudate Type Serosanguineous -Wound Margin Distinct, Outline Attached -Granulation Amt Large (67-100%) -Granulation Quality [place] -Slough/Fibrin No -Necrosis Amt Small (1-33%) -Necrotic Tissue Type Adherent Slough -Structure Exposed N/A -Texture (Aishwarya-wound Skin Appearance) Assessed -Moisture (Aishwarya-wound Skin Appearance Assessed ) Maceration -Color (Aishwarya-wound Skin Appearance) Assessed -Temperature (Aishwarya-wound Skin No Abnormality Appearance) (Pt Warm) -Tenderness on Palpation (Aishwarya-wound No Skin Appearance) -Ulcer Cleansing Wound Cleanser -Foul Odor after Cleansing No WC - Nurse 2 - General Ulcer CM Notes Start: 01/25/19 09:03 Freq: Status: Active Protocol: Activity Type Activity Date Activity User E-Sign Co-Sign Detail Recorded Client Recorded Date Recorded By Document 02/08/19 10:49 DREW [id number] 02/08/19 10:52 DREW 02/08/19 10:49 Wound Center Nurse 2 [Procedure/Treatment] -Time 10:49 -Correct Patient Yes -Correct Side, Site, Position Yes -Correct Procedure Yes -Procedure Performed Yes -Type of Procedure Debridement -Clinical Debridement Muscle -Post Debridement Size (cm) - Length 5.6 -Post Debridement Size (cm) - Width 6.0 -Post Debridement Size (cm) - Depth 2.2 -Total Square Cm 33.60 -Wound/Ulcer Outcome Not Healed -Ulcer Cleansing Rinsed/ Irrigated with Saline -Foul Odor after Cleansing No -Bioengineered Tissue No -Bleeding Controlled with Pressure -Other 12:00-1.9cm undermining -Offloading No -Treatment Response Procedure Tolerated Well [See Physician Procedure note for Specifics] Pain Scale: 0-10 Numeric [Pain] -Is Patient Pain Free? Yes Debridement Note Post-Debridement Measurements/Treatment WC - Nurse 2 - General Ulcer CM Notes Start: 01/25/19 09:03 Freq: Status: Active Protocol: Activity Type Activity Date Activity User E-Sign Co-Sign Detail Recorded Client Recorded Date Recorded By Document 01/25/19 09:41 [id number] 01/25/19 09:42 Document 02/08/19 10:49 [id number] 02/08/19 10:52 01/25/19 02/08/19 09:41 10:49 Wound Center Nurse 2 # 1 Coccyx -Time 09:41 10:49 -Correct Patient Yes Yes -Correct Side, Site, Position Yes Yes -Correct Procedure Yes Yes -Procedure Performed Yes Yes -Type of Procedure Debridement Debridement -Clinical Debridement Muscle Muscle -Post Debridement Size (cm) - Length 4.5 5.6 -Post Debridement Size (cm) - Width 4.5 6.0 -Post Debridement Size (cm) - Depth 1.6 2.2 -Total Square Cm 20.25 33.60 -Wound/Ulcer Outcome Not Healed Not Healed -Ulcer Cleansing Rinsed/ Rinsed/ Irrigated with Irrigated with Saline Saline -Foul Odor after Cleansing No No -Bioengineered Tissue No No -Bleeding Controlled with Pressure Pressure -Other undermine 9-5: 12:00-1.9cm 00 2.0cm undermining -Offloading No No -Treatment Response Procedure Procedure Tolerated Well Tolerated Well Pain Scale: 0-10 Numeric Is Patient Pain Free? Yes Yes Wound debrided: #1 Sacral area. Laterality: Not Applicable Wound Grade/Stage: IV. Type of Debridement: Excisional debridement Anesthesia Used: 4% Lidocaine Solution Depth: Down to and including healthy tissue, in the subcutaneous layer, to muscle, to bone - bone is palpable but not debrided. Percentage of wound debrided: 100 Instrument Used: 7mm curette Tissue Removed: subcutaneous tissue and muscle. Severity: Fat Layer Exposed - muscle is exposed. bone is palpable but not debrided. Amount of bleeding with debridement: Mild Bleeding Controlled with: Pressure Patient tolerated procedure well Assessment/Plan Assessment: 1. Sacral pressure sore, Stage IV. 2. Osteomyelitis. 3. Spina bifida. Plan: Continue Silver dressing changes to the sacrum. Wound culture from 12/02/18 showed Staphylococcus aureus and Streptococcus agalactiae. He had been on Keflex. Augmentin was added. He has finished the antibiotics. Family is not in a hurry for major surgery at this time. They want to see how much this ulcer can heal. There is good granulation tissue, but it appears if there is some abnormal scar tissue that may get in the way of healing. After talking to them, I think they are hesitant to proceed with the more complex myocutaneous flap closure. Excision of the pressure sore intermittently is needed because of the development of abnormal scarring that can be a hindrance to healing. After surgery, will begin wound care with the VAC. Will send soft tissue to Pathology and Microbiology and will send bone to Pathology and Microbiology. A positive culture may necessitate antibiotic modification. If Pathology is positive for ostemyelitis, then would need parts counterman IV antibiotics through a PICC line. Also he would be evaluated for HBO treatments which can help salvage healing of a wound with underlying chronic refractory osteomyelitis. A Pathology report from [facility] from surgery on 07/11/14 showed no definite evidience of osteomyelitis, but the comment from the pathologist states Because osteomyelitis can be patchy, correlation with bone cultures and CRP levels can sometims have better predictive value. CRP=9.50 mg/dL from 07/13/14. On 07/16/14 Dr. Hagen was using a diagnosis of osteomyelitis and referred to checking frequent prealbumin levels. Since the note mentions osteomyelitis in the diagnosis, then we can resubmit for medical approval of HBO. If not successful, will have to wait until March before repeating the CT. As long as osteomyelitis is still suspicious on the CT, we can start HBO treatments at that time. If CT doesn't show suspicion for osteomyelitis, we can proceed with operative debridement with bony resection. If the pathology from that surgery showed osteomyelitis, then can proceed with HBO treatments. If I don't see much improvement in the healing, then I would recommend surgical excision of the pressure sore with partial ostectomy for osteomyelitis. Surgery would be done under general anesthesia with a surgical observation overnight stay in the hospital. I told them that healing would be more efficient if we proceed with operative excision. Can also discuss eventual flap surgery for wound closure. Patient was informed of the risks and complications of the procedure including alternatives to surgery. These were discussed with him personally. He voices understanding and wishes to proceed. Patient and his father voice understanding that surgical excision will be necessary in the future. Repeat debridements can sometimes help to jump start the healing process. Can proceed with the VAC at that time. They are not ready for a muscle flap at this time. But depending on the healing process, they may change their mind and want to proceed with the muscle flap. Completed Augmentin. Followup 2 weeks. 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 They are leaning toward an operative excision of the pressure sore to try and stimulate healing at this time. They are also amenable to the VAC depending on his training schedule.
== END 2019-02-19 23:59 ==
LOC: WC 09:30
PROVIDERS: Family Provider Family Medicine; PCP Family Medicine; Referring Provider Internal Medicine; Visit Provider Internal Medicine
DX: L89.154 Pressure ulcer of sacral region, stage 4 (principal); Q05.9 Spina bifida, unspecified; M46.28 Osteomyelitis of vertebra, sacral and sacrococcygeal region
CPT/HCPCS: 11043; 11046

== ENCOUNTER → 2019-03-04 | Outpatient (CLI) | payer MEDICAID, SELFPAY ==
[2019-02-22 10:52] VITALS: BMI 23.1
--- NOTE | 2019-03-04 13:07 | RAD_ITS ---
STUDY: X-RAY CHEST REASON FOR EXAM: Male, 23 years old. Short of breath. TECHNIQUE: Frontal and lateral views of the chest. COMPARISON: 10/09/2017. FINDINGS: Tubing from the [employer]IE[employer] shunt seen over the right chest. The lungs are clear and expanded. There is no demonstrated pleural abnormality. Normal size heart. Normal mediastinum and do. Normal visualized pulmonary arteries. Normal visualized aortic arch and descending thoracic aorta. 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 There is no demonstrated abnormality of the visualized soft tissue structures of the upper abdomen. RAD/Chest PA and Lateral IMPRESSION: No acute chest disease. Electronically Signed: Jin Padilla MD at 17:59 EDT , Service support ,
[2019-03-04 13:31] LABS: Absolute Lymphocyte Count 2.06 X10^3/ul (0.83-4.51); Absolute Neutrophil Count 3.1 X10^3/uL (2.0-7.7); Basophil# 0.01 X10^3/uL; Basophil% 0.2 % (0-1); Eosinophil# 0.09 X10^3/uL; Eosinophils% 1.5 % (0-5); Hematocrit 41.8 % (40-54); Hemoglobin 12.8 g/dl (13.0-16.5); Lymphocyte # 2.06 X10^3/ul (4.0); Lymphocyte % 34.9 % (19-41); Mean Corp Hgb Conc 30.6 g/gl (32-36); Mean Corpuscular Hgb 23.2 pg (27.0-32.0); Mean Corpuscular Volume 75.9 fL (80-94); Mean Platelet Vol. 9.6 fl (6.2-12.0); Monocyte# 0.69 X10^3/uL; Monocyte% 11.7 % (0-10); Neutrophil # 3.06 X10^3/uL (2.7-7.7); Neutrophil % 51.7 % (47-70); Platelet Count 400 K/mm3 (150-450); RBC Distribution Width CV 15.4 % (11.6-14.6); RBC Distribution Width SD 42.8 fl (35.1-43.9); Red Blood Count 5.51 M/mm3 (4.6-6.2); White Blood Count 5.9 K/mm3 (4.4-11.0)
[2019-03-04 13:34] LABS: POSITIVE COUNT NO; POSITIVE DIFFERENTIAL NO; POSITIVE MORPHOLOGY NO
[2019-03-04 13:58] LABS: Prealbumin 15.7 mg/dL (20.0-40.0)
== END | disposition home or self-care (01) ==
LOC: LAB 12:53
PROVIDERS: Family Provider Family Medicine; PCP Family Medicine; Referring Provider Nurse Practitioner Family; Visit Provider Nurse Practitioner Family
DX: L89.154 Pressure ulcer of sacral region, stage 4 (principal); R06.02 Shortness of breath
CPT/HCPCS: 36415; 71046; 84134; 85025

== ENCOUNTER 2019-03-15 09:45 | Outpatient (RCR) | payer MEDICAID, SELFPAY ==
[2019-02-20 00:59] VITALS: BP 126/72; PULSE 80; RESP 18; TEMP 36.8
[2019-02-22 10:52] VITALS: BP 121/73; PULSE 73; RESP 16; TEMP 36.9; BMI 23.1
--- NOTE | 2019-02-22 13:12 | PCM.WC.PN ---
(1) Stage IV pressure ulcer of sacral region Status: Chronic Code(s): L89.154 - Pressure ulcer of sacral region, stage 4 (2) Spina bifida Status: Chronic Code(s): Q05.9 - Spina bifida, unspecified (3) Sacral osteomyelitis Status: Chronic Code(s): M46.28 - Osteomyelitis of vertebra, sacral and sacrococcygeal region Type of Wound Date of Service: 02/22/19 Chief Complaint: Sacral pressure sore, Stage IV. History of Wound: 23 year old man with past medical history of spina bifida presented to the W[facility] Center with a sacral pressure sore. He had on about 4 years ago and his mother thinks he had osteomyelitis at that time. Several months ago, he developed a recurrence during an inpatient hospital stay in [place]. He has been treated with antibiotics and the VAC. While he was in [place], it was recommended to him to proceed with excision of the pressure sore with myocutaneous flap closure. He presents today for another opinion because he is not ready for surgery at this time, and they felt not much improvement has occurred over the last few months. They deny stool contamination of the ulcer. He has scheduled bowel movements. They have been told he has exposed bone but did not know of any history of osteomyelitis. He feels well otherwise and denies fever and chills. His appetite is good. He had a wound culture done on 12/02/18. It showed Staphylococcus aureus and Streptococcus agalactiae. He had been on Keflex. Augmentin was added which he has completed. He had a CT Pelvis on 12/07/18. It showed a large sacral decubitus ulcer and the lower left hemisacrum shows interval change with bony demineralization accompanied by heterotopic bone formation in keeping with osteomyelitis. He is currently using Silver dressing changes. We were able to get a Pathology report from 4 years ago. It was negative for osteomyelitis. He would definately benefit from HBOT. Progress of Wound: Stable. - Physical Exam Vital Signs Temp Pulse Resp BP 98.4 F 73 16 121/73 H 02/22/19 10:52 02/22/19 10:52 02/22/19 10:52 02/22/19 10:52 General: Alert, Oriented x3, Cooperative HEENT: Atraumatic Oral: Moist Mucosa Lungs: Normal air movement Cardiovascular: Regular rate Extremities: No edema, Capillary Refill Less than 3 Seconds Skin: Ulcer/ Wound - Stage IV sacral ulcer Wound Measurements and Assessment WC - Nurse 1 - General Ulcer Measurement Start: 02/22/19 10:52 Freq: Status: Active Protocol: Activity Type Activity Date Activity User E-Sign Co-Sign Detail Recorded Client Recorded Date Recorded By Document 02/22/19 10:52 [facility] [id number] 02/22/19 10:59 [facility] 02/22/19 10:52 Wound Center Nurse 1 [Ulcer Assessment] # 1 Coccyx -Combined with other wound No -Current Size (cm) - Length 5.3 -Current Size (cm) - Width 3.9 -Current Size (cm) - Depth 1.4 -Total Square Cm 20.67 -Photo Taken No -Epithelialization None Present -Tunneling No -Undermining/Tunneling Yes -Undermining/Tunneling Starts (O' 8 clock) -Undermining/Tunneling Ends (O'clock) 5 -Maximum Distance (cm) 1.8 -Exudate Amt Medium -Exudate Type Serosanguineous -Wound Margin Thickened & Rolled Under -Granulation Amt Medium (34-66%) -Granulation Quality [place] -Slough/Fibrin Yes -Necrosis Amt Medium (34-66%) -Necrotic Tissue Type Adherent Slough -Texture (Aishwarya-wound Skin Appearance) Assessed Localized Edema -Moisture (Aishwarya-wound Skin Appearance Assessed ) -Color (Aishwarya-wound Skin Appearance) Assessed -Temperature (Aishwarya-wound Skin No Abnormality Appearance) (Pt Warm) -Tenderness on Palpation (Aishwarya-wound No Skin Appearance) -Ulcer Cleansing Wound Cleanser -Foul Odor after Cleansing No WC - Nurse 2 - General Ulcer CM Notes Start: 02/22/19 10:52 Freq: Status: Active Protocol: Activity Type Activity Date Activity User E-Sign Co-Sign Detail Recorded Client Recorded Date Recorded By Document 02/22/19 11:16 AN [id number] 02/22/19 11:22 AN 02/22/19 11:16 Wound Center Nurse 2 [Procedure/Treatment] -Time 11:17 -Correct Patient Yes -Correct Side, Site, Position Yes -Correct Procedure Yes -Procedure Performed Yes -Type of Procedure Debridement -Clinical Debridement Subcutaneous -Post Debridement Size (cm) - Length 5 -Post Debridement Size (cm) - Width 4.2 -Post Debridement Size (cm) - Depth 2 -Total Square Cm 21.0 -Wound/Ulcer Outcome Not Healed -Ulcer Cleansing Rinsed/ Irrigated with Saline -Foul Odor after Cleansing No -Bioengineered Tissue No -Bleeding Controlled with Pressure -Offloading No -Treatment Response Procedure Tolerated Well [See Physician Procedure note for Specifics] Pain Scale: 0-10 Numeric [Pain] -Is Patient Pain Free? Yes Musculoskeletal: No Tenderness to Palpation of Joints or Extremities Neurological: Neuro grossly intact Psych/Mental Status: Normal Affect, Appropriate Debridement Note Post-Debridement Measurements/Treatment WC - Nurse 2 - General Ulcer CM Notes Start: 02/22/19 10:52 Freq: Status: Active Protocol: Activity Type Activity Date Activity User E-Sign Co-Sign Detail Recorded Client Recorded Date Recorded By Document 02/22/19 11:16 AN [id number] 02/22/19 11:22 AN 02/22/19 11:16 Wound Center Nurse 2 # 1 Coccyx -Time 11:17 -Correct Patient Yes -Correct Side, Site, Position Yes -Correct Procedure Yes -Procedure Performed Yes -Type of Procedure Debridement -Clinical Debridement Subcutaneous -Post Debridement Size (cm) - Length 5 -Post Debridement Size (cm) - Width 4.2 -Post Debridement Size (cm) - Depth 2 -Total Square Cm 21.0 -Wound/Ulcer Outcome Not Healed -Ulcer Cleansing Rinsed/ Irrigated with Saline -Foul Odor after Cleansing No -Bioengineered Tissue No -Bleeding Controlled with Pressure -Offloading No -Treatment Response Procedure Tolerated Well Pain Scale: 0-10 Numeric Is Patient Pain Free? Yes Wound debrided: Sacral ulcer Type of Debridement: Excisional debridement Anesthesia Used: 4% Lidocaine Solution Depth: Down to and including healthy tissue, in the subcutaneous layer Percentage of wound debrided: 100 Instrument Used: 7mm curette Tissue Removed: Subcutaneous tissue and slough Severity: Limited To Skin Breakdown Amount of bleeding with debridement: Mild Bleeding Controlled with: Pressure Patient tolerated procedure well Assessment/Plan Assessment: 1. Sacral pressure sore, Stage IV. 2. Osteomyelitis. 3. Spina bifida. Plan: Continue Silver dressing changes to the sacrum. Wound culture from 12/02/18 showed Staphylococcus aureus and Streptococcus agalactiae. He had been on Keflex. Augmentin was added. Family is not in a hurry for major surgery at this time. They want to see how much this ulcer can heal. There is good granulation tissue, but it appears if there is some abnormal scar tissue that may get in the way of healing. After talking to them, I think they are hesitant to proceed with the more complex myocutaneous flap closure. Excision of the pressure sore intermittently is needed because of the development of abnormal scarring that can be a hindrance to healing. Surgery is scheduled for 03/18/19. After surgery, will begin wound care with the VAC. Will send soft tissue to Pathology and Microbiology and will send bone to Pathology and Microbiology. A positive culture may necessitate antibiotic modification. If Pathology is positive for ostemyelitis, then would need long-term IV antibiotics through a PICC line. Also he would be evaluated for HBO treatments which can help salvage healing of a wound with underlying chronic refractory osteomyelitis. A Pathology report from [facility] from surgery on 07/11/14 showed no definite evidience of osteomyelitis, but the comment from the pathologist states Because osteomyelitis can be patchy, correlation with bone cultures and CRP levels can sometims have better predictive value. CRP=9.50 mg/dL from 07/13/14. On 07/16/14 Dr. Hagen was using a diagnosis of osteomyelitis and referred to checking frequent prealbumin levels. Since the note mentions osteomyelitis in the diagnosis, then we can resubmit for medical approval of HBO. If not successful, will have to wait until March before repeating the CT. As long as osteomyelitis is still suspicious on the CT, we can start HBO treatments at that time. If CT doesn't show suspicion for osteomyelitis, we can proceed with operative debridement with bony resection. If the pathology from that surgery showed osteomyelitis, then can proceed with HBO treatments. If I don't see much improvement in the healing, then I would recommend surgical excision of the pressure sore with partial ostectomy for osteomyelitis. Surgery would be done under general anesthesia with a surgical observation overnight stay in the hospital. I told them that healing would be more efficient if we proceed with operative excision. Can also discuss eventual flap surgery for wound closure. Patient was informed of the risks and complications of the procedure including alternatives to surgery. These were discussed with him personally. He voices understanding and wishes to proceed. Patient and his father voice understanding that surgical excision will be necessary in the future. Repeat debridements can sometimes help to jump start the healing process. Can proceed with the VAC at that time. They are not ready for a muscle flap at this time. But depending on the healing process, they may change their mind and want to proceed with the muscle flap. Completed Augmentin. Followup 1 week. They have questions for Dr. Gomez to answer. Code Visit [id number]: [id number] Alma Delia subq tissue 20 sq cm/< Add On Codes: [id number] Alma Delia subq tissue add-on
[2019-03-15 10:15] VITALS: BP 113/68; PULSE 80; RESP 18; TEMP 37.1; BMI 23.1
--- NOTE | 2019-03-15 23:37 | PCM.WC.PN ---
Type of Wound Date of Service: 03/15/19 Chief Complaint: Sacral pressure sore, Stage IV. History of Wound: 23 year old man with past medical history of spina bifida presented to the [facility] with a sacral pressure sore. He had on about 4 years ago and his mother thinks he had osteomyelitis at that time. Several months ago, he developed a recurrence during an inpatient hospital stay in [place]. He has been treated with antibiotics and the VAC. While he was in [place], it was recommended to him to proceed with excision of the pressure sore with myocutaneous flap closure. He comes to the Wound Center because he is not ready for surgery at this time, and they felt not much improvement has occurred over the last few months. They deny stool contamination of the ulcer. He has scheduled bowel movements. They have been told he has exposed bone but did not know of any history of osteomyelitis. He feels well otherwise and denies fever and chills. His appetite is good. He had a wound culture done on 12/02/18. It showed Staphylococcus aureus and Streptococcus agalactiae. He had been on Keflex. Augmentin was added which he has completed. He had a CT Pelvis on 12/07/18. It showed a large sacral decubitus ulcer and the lower left hemisacrum shows interval change with bony demineralization accompanied by heterotopic bone formation in keeping with osteomyelitis. He is currently using Silver dressing changes. We were able to get a Pathology report from 4 years ago. It was negative for osteomyelitis. However, even though the Pathology report from [facility] from surgery on 07/11/14 showed no definite evidience of osteomyelitis, the comment from the pathologist states Because osteomyelitis can be patchy, correlation with bone cultures and CRP levels can sometims have better predictive value. CRP=9.50 mg/dL from 07/13/14. On 07/16/14 Dr. Hagen was using a diagnosis of osteomyelitis and referred to checking frequent prealbumin levels. Since the note mentions osteomyelitis in the diagnosis, then we can resubmit for medical approval of HBO. He would definitely benefit from HBO treatments. Progress of Wound: Stable. - Physical Exam Vital Signs Temp Pulse Resp BP 98.7 F 80 18 113/68 03/15/19 10:15 03/15/19 10:15 03/15/19 10:15 03/15/19 10:15 Wound Measurements and Assessment WC - Nurse 1 - General Ulcer Measurement Start: 02/22/19 10:52 Freq: Status: Active Protocol: Activity Type Activity Date Activity User E-Sign Co-Sign Detail Recorded Client Recorded Date Recorded By Document 03/15/19 10:15 RB [id number] 03/15/19 10:25 RB 03/15/19 10:15 Wound Center Nurse 1 [Ulcer Assessment] # 1 Coccyx -Combined with other wound No -Current Size (cm) - Length 5 -Current Size (cm) - Width 4.2 -Current Size (cm) - Depth 1.5 -Total Square Cm 21.0 -Tunneling No -Undermining/Tunneling Yes -Undermining/Tunneling Starts (O' 8 clock) -Undermining/Tunneling Ends (O'clock) 6 -Maximum Distance (cm) 1.5 -Circular Undermining No -Exudate Amt Large -Exudate Type Serosanguineous -Wound Margin Thickened & Rolled Under -Granulation Amt Large (67-100%) -Granulation Quality [place],Red -Slough/Fibrin Yes -Necrosis Amt Small (1-33%) -Necrotic Tissue Type Adherent Slough -Structure Exposed N/A -Texture (Aishwarya-wound Skin Appearance) Assessed, Scarring -Moisture (Aishwarya-wound Skin Appearance Assessed, ) Maceration -Color (Aishwarya-wound Skin Appearance) Assessed -Temperature (Aishwarya-wound Skin No Abnormality Appearance) (Pt Warm) -Ulcer Cleansing Wound Cleanser -Foul Odor after Cleansing No WC - Nurse 2 - General Ulcer CM Notes Start: 02/22/19 10:52 Freq: Status: Active Protocol: Activity Type Activity Date Activity User E-Sign Co-Sign Detail Recorded Client Recorded Date Recorded By Document 03/15/19 10:59 DREW [id number] 03/15/19 11:01 DREW 03/15/19 10:59 Wound Center Nurse 2 [Procedure/Treatment] -Time 10:59 -Correct Patient Yes -Correct Side, Site, Position Yes -Correct Procedure Yes -Procedure Performed Yes -Type of Procedure Debridement -Clinical Debridement Subcutaneous -Post Debridement Size (cm) - Length 5 -Post Debridement Size (cm) - Width 4.3 -Post Debridement Size (cm) - Depth 1.5 -Total Square Cm 21.5 -Wound/Ulcer Outcome Not Healed -Ulcer Cleansing Rinsed/ Irrigated with Saline -Foul Odor after Cleansing No -Bioengineered Tissue No -Bleeding Controlled with Pressure -Offloading No -Treatment Response Procedure Tolerated Well [See Physician Procedure note for Specifics] Pain Scale: 0-10 Numeric [Pain] -Is Patient Pain Free? Yes Debridement Note Post-Debridement Measurements/Treatment WC - Nurse 2 - General Ulcer CM Notes Start: 02/22/19 10:52 Freq: Status: Active Protocol: Activity Type Activity Date Activity User E-Sign Co-Sign Detail Recorded Client Recorded Date Recorded By Document 02/22/19 11:16 AN [id number] 02/22/19 11:22 AN Document 03/15/19 10:59 [id number] 03/15/19 11:01 JF 02/22/19 03/15/19 11:16 10:59 Wound Center Nurse 2 # 1 Coccyx -Time 11:17 10:59 -Correct Patient Yes Yes -Correct Side, Site, Position Yes Yes -Correct Procedure Yes Yes -Procedure Performed Yes Yes -Type of Procedure Debridement Debridement -Clinical Debridement Subcutaneous Muscle -Post Debridement Size (cm) - Length 5 5 -Post Debridement Size (cm) - Width 4.2 4.3 -Post Debridement Size (cm) - Depth 2 1.5 -Total Square Cm 21.0 21.5 -Wound/Ulcer Outcome Not Healed Not Healed -Ulcer Cleansing Rinsed/ Rinsed/ Irrigated with Irrigated with Saline Saline -Foul Odor after Cleansing No No -Bioengineered Tissue No No -Bleeding Controlled with Pressure Pressure -Offloading No No -Treatment Response Procedure Procedure Tolerated Well Tolerated Well Pain Scale: 0-10 Numeric Is Patient Pain Free? Yes Yes Wound debrided: #1 Sacral area. Laterality: Not Applicable Wound Grade/Stage: IV. Type of Debridement: Excisional debridement Anesthesia Used: 4% Lidocaine Solution Depth: Down to and including healthy tissue, in the subcutaneous layer, to muscle, to bone - bone is palpable but not debrided. Percentage of wound debrided: 100 Instrument Used: 7mm curette Tissue Removed: subcutaneous tissue and muscle. Severity: Fat Layer Exposed - muscle is exposed. bone is palpable but not debrided. Amount of bleeding with debridement: Mild Bleeding Controlled with: Pressure Patient tolerated procedure well Assessment/Plan Assessment: 1. Sacral pressure sore, Stage IV. 2. Osteomyelitis. 3. Spina bifida. Plan: Continue Silver dressing changes to the sacrum. Wound culture from 12/02/18 showed Staphylococcus aureus and Streptococcus agalactiae. He had been on Keflex. Augmentin was added. He has finished the antibiotics. Family is not in a hurry for major surgery at this time. They want to see how much this ulcer can heal. There is good granulation tissue, but it appears if there is some abnormal scar tissue that may get in the way of healing. After talking to them, I think they are hesitant to proceed with the more complex myocutaneous flap closure. Excision of the pressure sore intermittently is needed because of the development of abnormal scarring that can be a hindrance to healing. After surgery, will begin wound care with the VAC. Will send soft tissue to Pathology and Microbiology and will send bone to Pathology and Microbiology. A positive culture may necessitate antibiotic modification. If Pathology is positive for ostemyelitis, then would need retirement IV antibiotics through a PICC line. Also he would be evaluated for HBO treatments which can help salvage healing of a wound with underlying chronic refractory osteomyelitis. A Pathology report from [facility] from surgery on 07/11/14 showed no definite evidience of osteomyelitis, but the comment from the pathologist states Because osteomyelitis can be patchy, correlation with bone cultures and CRP levels can sometims have better predictive value. CRP=9.50 mg/dL from 07/13/14. On 07/16/14 Dr. Hagen was using a diagnosis of osteomyelitis and referred to checking frequent prealbumin levels. Since the note mentions osteomyelitis in the diagnosis, then we can resubmit for medical approval of HBO. If not successful, will have to wait until March before repeating the CT. As long as osteomyelitis is still suspicious on the CT, we can start HBO treatments at that time. If CT doesn't show suspicion for osteomyelitis, we can proceed with operative debridement with bony resection. If the pathology from that surgery showed osteomyelitis, then can proceed with HBO treatments. If I don't see much improvement in the healing, then I would recommend surgical excision of the pressure sore with partial ostectomy for osteomyelitis. Surgery would be done under general anesthesia with a surgical observation overnight stay in the hospital. I told them that healing would be more efficient if we proceed with operative excision. Can also discuss eventual flap surgery for wound closure. Patient was informed of the risks and complications of the procedure including alternatives to surgery. These were discussed with him personally. He voices understanding and wishes to proceed. Patient and his father voice understanding that surgical excision will be necessary in the future. Repeat debridements can sometimes help to jump start the healing process. Can proceed with the VAC at that time. They are not ready for a muscle flap at this time. But depending on the healing process, they may change their mind and want to proceed with the muscle flap. Completed Augmentin. Followup 3 weeks. He was initially on the surgery schedule for an excision on 04/01/19. 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 They are also amenable to the VAC after surgery, and it would be easier for the VAC once [employer] are over.
== END 2019-03-21 23:59 ==
LOC: WC 09:45
PROVIDERS: Family Provider Family Medicine; PCP Family Medicine; Referring Provider Internal Medicine; Visit Provider Internal Medicine
DX: L89.154 Pressure ulcer of sacral region, stage 4 (principal); Q05.9 Spina bifida, unspecified; M46.28 Osteomyelitis of vertebra, sacral and sacrococcygeal region
CPT/HCPCS: 11042; 11043; 11045

== ENCOUNTER 2019-04-12 08:21 | Outpatient (RCR) | payer MEDICAID, SELFPAY ==
[2019-03-22 00:42] VITALS: BP 113/68; PULSE 80; RESP 18; TEMP 37.1
[2019-04-12 10:16] VITALS: BP 145/82; PULSE 79; RESP 16; TEMP 36.6; BMI 23.1
--- NOTE | 2019-04-12 12:10 | PCM.WC.PN ---
(1) Stage IV pressure ulcer of sacral region Status: Chronic Current Visit: Yes Code(s): L89.154 - Pressure ulcer of sacral region, stage 4 (2) Spina bifida Status: Chronic Current Visit: Yes Code(s): Q05.9 - Spina bifida, unspecified (3) Sacral osteomyelitis Status: Chronic Current Visit: Yes Code(s): M46.28 - Osteomyelitis of vertebra, sacral and sacrococcygeal region Type of Wound Date of Service: 04/12/19 Chief Complaint: Sacral pressure sore, Stage IV. History of Wound: 23 year old man with past medical history of spina bifida presented to the Wound Center with a sacral pressure sore. He had on about 4 years ago and his mother thinks he had osteomyelitis at that time. Several months ago, he developed a recurrence during an inpatient hospital stay in [place]. He has been treated with antibiotics and the VAC. While he was in [place], it was recommended to him to proceed with excision of the pressure sore with myocutaneous flap closure. He comes to the Wound Center because he is not ready for surgery at this time, and they felt not much improvement has occurred over the last few months. They deny stool contamination of the ulcer. He has scheduled bowel movements. They have been told he has exposed bone but did not know of any history of osteomyelitis. He feels well otherwise and denies fever and chills. His appetite is good. He had a wound culture done on 12/02/18. It showed Staphylococcus aureus and Streptococcus agalactiae. He had been on Keflex. Augmentin was added which he has completed. He had a CT Pelvis on 12/07/18. It showed a large sacral decubitus ulcer and the lower left hemisacrum shows interval change with bony demineralization accompanied by heterotopic bone formation in keeping with osteomyelitis. He is currently using Silver dressing changes. We were able to get a Pathology report from 4 years ago. It was negative for osteomyelitis. However, even though the Pathology report from [facility] from surgery on 07/11/14 showed no definite evidience of osteomyelitis, the comment from the pathologist states Because osteomyelitis can be patchy, correlation with bone cultures and CRP levels can sometims have better predictive value. CRP=9.50 mg/dL from 07/13/14. On 07/16/14 Dr. Hagen was using a diagnosis of osteomyelitis and referred to checking frequent prealbumin levels. Since the note mentions osteomyelitis in the diagnosis, then we can resubmit for medical approval of HBO. He would definitely benefit from HBO treatments. Progress of Wound: Stable. - Physical Exam Vital Signs Temp Pulse Resp BP 98 F 79 16 145/82 H 04/12/19 10:16 04/12/19 10:16 04/12/19 10:16 04/12/19 10:16 General: Alert, Oriented x3, Cooperative HEENT: Atraumatic Oral: Moist Mucosa Lungs: Normal air movement Cardiovascular: Regular rate Extremities: No edema, Capillary Refill Less than 3 Seconds Skin: Ulcer/ Wound - Sacral ulcer Wound Measurements and Assessment WC - Nurse 1 - General Ulcer Measurement Start: 04/12/19 10:00 Freq: Status: Active Protocol: Activity Type Activity Date Activity User E-Sign Co-Sign Detail Recorded Client Recorded Date Recorded By Document 04/12/19 10:16 [facility] [id number] 04/12/19 10:25 [facility] 04/12/19 10:16 Wound Center Nurse 1 [Ulcer Assessment] # 1 Coccyx -Combined with other wound No -Current Size (cm) - Length 3.4 -Current Size (cm) - Width 4.6 -Current Size (cm) - Depth 1.3 -Total Square Cm 15.64 -Date of Last Picture (Recall this 04/12/19 field) -Photo Taken Yes -Epithelialization None Present -Tunneling No -Undermining/Tunneling Yes -Undermining/Tunneling Starts (O' 12 clock) -Undermining/Tunneling Ends (O'clock) 12 -Maximum Distance (cm) 2.5 -Circular Undermining Yes -Exudate Amt Medium -Exudate Type Serous -Wound Margin Thickened & Rolled Under -Granulation Amt Medium (34-66%) -Granulation Quality Red -Slough/Fibrin Yes -Necrosis Amt Medium (34-66%) -Necrotic Tissue Type Adherent Slough -Texture (Aishwarya-wound Skin Appearance) Assessed, Scarring -Moisture (Aishwarya-wound Skin Appearance Assessed,Dry/ ) Scaly -Color (Aishwarya-wound Skin Appearance) Assessed -Temperature (Aishwarya-wound Skin No Abnormality Appearance) (Pt Warm) -Tenderness on Palpation (Aishwarya-wound No Skin Appearance) -Ulcer Cleansing Rinsed/ Irrigated with Saline -Foul Odor after Cleansing No - Nurse 2 - General Ulcer CM Notes Start: 04/12/19 10:00 Freq: Status: Active Protocol: Activity Type Activity Date Activity User E-Sign Co-Sign Detail Recorded Client Recorded Date Recorded By Document 04/12/19 10:57 MW [id number] 04/12/19 11:05 MW 04/12/19 10:57 Wound Center Nurse 2 [Procedure/Treatment] -Time 10:57 -Correct Patient Yes -Correct Side, Site, Position Yes -Correct Procedure Yes -Procedure Performed Yes -Type of Procedure Debridement -Clinical Debridement Subcutaneous -Post Debridement Size (cm) - Length 4.5 -Post Debridement Size (cm) - Width 3.3 -Post Debridement Size (cm) - Depth 0.8 -Total Square Cm 14.85 -Wound/Ulcer Outcome Not Healed -Ulcer Cleansing Rinsed/ Irrigated with Saline -Foul Odor after Cleansing No -Bioengineered Tissue No -Bleeding Controlled with Pressure -Other undermining @11 - 2.7cm ; @12 - 2.0cm -Offloading No -Treatment Response Procedure Tolerated Well [See Physician Procedure note for Specifics] Pain Scale: 0-10 Numeric [Pain] -Is Patient Pain Free? Yes Musculoskeletal: No Tenderness to Palpation of Joints or Extremities Neurological: Neuro grossly intact Psych/Mental Status: Normal Affect, Appropriate Debridement Note Post-Debridement Measurements/Treatment - Nurse 2 - General Ulcer CM Notes Start: 04/12/19 10:00 Freq: Status: Active Protocol: Activity Type Activity Date Activity User E-Sign Co-Sign Detail Recorded Client Recorded Date Recorded By Document 04/12/19 10:57 MW [id number] 04/12/19 11:05 MW 04/12/19 10:57 Wound Center Nurse 2 # 1 Coccyx -Time 10:57 -Correct Patient Yes -Correct Side, Site, Position Yes -Correct Procedure Yes -Procedure Performed Yes -Type of Procedure Debridement -Clinical Debridement Subcutaneous -Post Debridement Size (cm) - Length 4.5 -Post Debridement Size (cm) - Width 3.3 -Post Debridement Size (cm) - Depth 0.8 -Total Square Cm 14.85 -Wound/Ulcer Outcome Not Healed -Ulcer Cleansing Rinsed/ Irrigated with Saline -Foul Odor after Cleansing No -Bioengineered Tissue No -Bleeding Controlled with Pressure -Other undermining @11 - 2.7cm ; @12 - 2.0cm -Offloading No -Treatment Response Procedure Tolerated Well Pain Scale: 0-10 Numeric Is Patient Pain Free? Yes Wound debrided: Sacral ulcer Laterality: Not Applicable Type of Debridement: Excisional debridement Anesthesia Used: 4% Lidocaine Solution Depth: Down to and including healthy tissue Percentage of wound debrided: 100 Instrument Used: 7mm curette Tissue Removed: Subcutaneous tissue and slough Severity: Fat Layer Exposed Amount of bleeding with debridement: Mild Bleeding Controlled with: Compression and gauze Patient tolerated procedure well Assessment/Plan Active Problems Stage IV pressure ulcer of sacral region (Chronic) Spina bifida (Chronic) Sacral osteomyelitis (Chronic) Assessment: 1. Sacral pressure sore, Stage IV. 2. Osteomyelitis. 3. Spina bifida. Plan: Continue Silver dressing changes to the sacrum. Wound culture from 12/02/18 showed Staphylococcus aureus and Streptococcus agalactiae. He had been on Keflex. Augmentin was added. He has finished the antibiotics. Family is not in a hurry for major surgery at this time. They want to see how much this ulcer can heal. There is good granulation tissue, but it appears if there is some abnormal scar tissue that may get in the way of healing. After talking to them, I think they are hesitant to proceed with the more complex myocutaneous flap closure. Excision of the pressure sore intermittently is needed because of the development of abnormal scarring that can be a hindrance to healing. After surgery, will begin wound care with the VAC. Will send soft tissue to Pathology and Microbiology and will send bone to Pathology and Microbiology. A positive culture may necessitate antibiotic modification. If Pathology is positive for ostemyelitis, then would need computer terminal operator IV antibiotics through a PICC line. Also he would be evaluated for HBO treatments which can help salvage healing of a wound with underlying chronic refractory osteomyelitis. A Pathology report from [facility] from surgery on 07/11/14 showed no definite evidience of osteomyelitis, but the comment from the pathologist states Because osteomyelitis can be patchy, correlation with bone cultures and CRP levels can sometims have better predictive value. CRP=9.50 mg/dL from 07/13/14. On 07/16/14 Dr. Hagen was using a diagnosis of osteomyelitis and referred to checking frequent prealbumin levels. Since the note mentions osteomyelitis in the diagnosis, then we can resubmit for medical approval of HBO. If not successful, will have to wait until March before repeating the CT. As long as osteomyelitis is still suspicious on the CT, we can start HBO treatments at that time. If CT doesn't show suspicion for osteomyelitis, we can proceed with operative debridement with bony resection. If the pathology from that surgery showed osteomyelitis, then can proceed with HBO treatments. If I don't see much improvement in the healing, then I would recommend surgical excision of the pressure sore with partial ostectomy for osteomyelitis. Surgery would be done under general anesthesia with a surgical observation overnight stay in the hospital. I told them that healing would be more efficient if we proceed with operative excision. Can also discuss eventual flap surgery for wound closure. Patient was informed of the risks and complications of the procedure including alternatives to surgery. These were discussed with him personally. He voices understanding and wishes to proceed. Patient and his father voice understanding that surgical excision will be necessary in the future. Repeat debridements can sometimes help to jump start the healing process. Can proceed with the VAC at that time. They are not ready for a muscle flap at this time. But depending on the healing process, they may change their mind and want to proceed with the muscle flap. Completed Augmentin. Followup 3 weeks. He was initially on the surgery schedule for an excision on 04/01/19. 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 They are also amenable to the VAC after surgery, and it would be easier for the VAC once [employer] are over. Will order repeat CT for chronic refractory osteo. Follow up in 2 weeks. Code Visit [id number]: [id number] Alma Delia subq tissue 20 sq cm/<
== END 2019-04-21 23:59 ==
LOC: WC 08:21
PROVIDERS: Family Provider Family Medicine; PCP Family Medicine; Referring Provider Internal Medicine; Visit Provider Internal Medicine
DX: L89.154 Pressure ulcer of sacral region, stage 4 (principal); Q05.9 Spina bifida, unspecified; M46.28 Osteomyelitis of vertebra, sacral and sacrococcygeal region
CPT/HCPCS: 11042

== ENCOUNTER 2019-05-06 10:15 | Outpatient (RCR) | payer MEDICAID, SELFPAY ==
[2019-04-22 00:44] VITALS: BP 145/82; PULSE 79; RESP 16; TEMP 36.6
[2019-04-26 08:45] VITALS: BP 109/83; BP 140/68; PULSE 68; PULSE 73; RESP 16; TEMP 36.8
--- NOTE | 2019-04-26 09:35 | HBO.PN.PCM_ITS ---
History of Present Illness Date of Service: 04/26/19 Presenting Chief Complaint: Sacral pressure sore, Stage IV. RORY HERNÁNDEZ is a 23 year old currently undergoing hyperbaric oxygen therapy for Stage IV sacral pressure sore with osteomyelitis. Progress: Today is the first session and a series of 40 planned hyperbaric oxygen therapy sessions. Tolerance of hyperbaric oxygen therapy: Hyperbaric oxygen therapy was administered as per the facility's protocol. The patient tolerated hyperbaric oxygen therapy well, without complaints or complications. Upon emergence from the hyperbaric chamber, the patient's vital signs remained stable. He did experience [place] trauma to the right ear, without perforation. He denies any pain or pressure. He was discharged in good condition. 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) Spina bifida (Chronic) Sacral osteomyelitis (Chronic) Allergies/Adverse Reactions: Allergies latex Allergy (Verified 05/04/18 00:12) Other codine Allergy (Uncoded 05/04/18 00:12) Hives Home Medications: Ambulatory Orders Medication Instructions Recorded Darifenacin Hydrobromide 15 mg PO DAILY 10/09/17 [Darifenacin ER] Mirabegron [Myrbetriq] 25 mg PO DAILY 10/09/17 Cephalexin [Keflex] 500 mg PO Q6 #40 cap 05/04/18 Hydrocodone/Acetaminophen [Louise 1 - 2 ea PO 4X/DAY PRN PRN 3 Days 05/04/18 5-325 Tablet] #14 tab Smoking Status: Never smoker Physical Exam Vital Signs Temp Pulse Resp BP 98.2 F 68 16 140/68 H 04/26/19 08:45 04/26/19 08:45 04/26/19 08:45 04/26/19 08:45 General: Alert, Oriented x3, Cooperative, No apparent distress HEENT: Atraumatic, TM's Clear Lungs: Clear to auscultation, Normal air movement Cardiovascular: Regular rate, Regular Rhythm Psych/Mental Status: Normal Affect, Appropriate, Alert and oriented to time, place, person, mood and affect Assessment/Plan The patient appears to be tolerating hyperbaric oxygen therapy well, which will be continued as per the patient's medical plan.
[2019-04-26 11:12] VITALS: BP 109/83; PULSE 73; RESP 20; TEMP 36.8; BMI 23.1
--- NOTE | 2019-04-26 13:38 | PCM.WC.PN ---
(1) Stage IV pressure ulcer of sacral region Status: Chronic Code(s): L89.154 - Pressure ulcer of sacral region, stage 4 (2) Spina bifida Status: Chronic Code(s): Q05.9 - Spina bifida, unspecified (3) Sacral osteomyelitis Status: Chronic Code(s): M46.28 - Osteomyelitis of vertebra, sacral and sacrococcygeal region Type of Wound Date of Service: 04/26/19 Chief Complaint: Sacral pressure sore, Stage IV. History of Wound: 23 year old man with past medical history of spina bifida presented to [facility] with a sacral pressure sore. He had on about 4 years ago and his mother thinks he had osteomyelitis at that time. Several months ago, he developed a recurrence during an inpatient hospital stay in [place]. He has been treated with antibiotics and the VAC. While he was in [place], it was recommended to him to proceed with excision of the pressure sore with myocutaneous flap closure. He presents today for another opinion because he is not ready for surgery at this time, and they felt not much improvement has occurred over the last few months. They deny stool contamination of the ulcer. He has scheduled bowel movements. They have been told he has exposed bone but did not know of any history of osteomyelitis. He feels well otherwise and denies fever and chills. His appetite is good. He had a wound culture done on 12/02/18. It showed Staphylococcus aureus and Streptococcus agalactiae. He had been on Keflex. Augmentin was added which he has completed. He had a CT Pelvis on 12/07/18. It showed a large sacral decubitus ulcer and the lower left hemisacrum shows interval change with bony demineralization accompanied by heterotopic bone formation in keeping with osteomyelitis. He is currently using Silver dressing changes. We were able to get a Pathology report from 4 years ago. It was negative for osteomyelitis. He started HBO today. Progress of Wound: Stable. - Physical Exam Vital Signs Temp Pulse Resp BP 98.2 F 73 20 H 109/83 H 04/26/19 11:12 04/26/19 11:12 04/26/19 11:12 04/26/19 11:12 General: Alert, Oriented x3, Cooperative HEENT: Atraumatic Oral: Moist Mucosa Lungs: Normal air movement Cardiovascular: Regular rate Extremities: No edema, Capillary Refill Less than 3 Seconds Skin: Ulcer/ Wound - Sacral ulcer Wound Measurements and Assessment - Nurse 1 - General Ulcer Measurement Start: 04/26/19 08:45 Freq: Status: Active Protocol: Activity Type Activity Date Activity User E-Sign Co-Sign Detail Recorded Client Recorded Date Recorded By Document 04/26/19 11:19 DL [id number] 04/26/19 11:23 DL 04/26/19 11:19 Wound Center Nurse 1 [Ulcer Assessment] # 1 Coccyx -Current Size (cm) - Length 4 -Current Size (cm) - Width 3.8 -Current Size (cm) - Depth 1.1 -Total Square Cm 15.2 -Photo Taken No -Undermining/Tunneling Starts (O' 7 clock) -Undermining/Tunneling Ends (O'clock) 4 -Maximum Distance (cm) 1.8 -Circular Undermining Yes -Exudate Amt Medium -Exudate Type Serosanguineous -Wound Margin Thickened & Rolled Under -Granulation Amt Large (67-100%) -Granulation Quality [place] -Necrosis Amt Small (1-33%) -Necrotic Tissue Type Adherent Slough -Structure Exposed N/A -Texture (Aishwarya-wound Skin Appearance) Scarring -Moisture (Aishwarya-wound Skin Appearance No Abnormality ) -Color (Aishwarya-wound Skin Appearance) No Abnormality -Temperature (Aishwarya-wound Skin No Abnormality Appearance) (Pt Warm) -Ulcer Cleansing Wound Cleanser -Foul Odor after Cleansing No -Anesthetic Used 4% Lidocaine Solution - Nurse 2 - General Ulcer CM Notes Start: 04/26/19 08:45 Freq: Status: Active Protocol: Activity Type Activity Date Activity User E-Sign Co-Sign Detail Recorded Client Recorded Date Recorded By Document 04/26/19 11:45 DREW [id number] 04/26/19 11:48 DREW 04/26/19 11:45 Wound Center Nurse 2 [Procedure/Treatment] -Time 11:45 -Correct Patient Yes -Correct Side, Site, Position Yes -Correct Procedure Yes -Procedure Performed Yes -Type of Procedure Debridement -Clinical Debridement Muscle -Post Debridement Size (cm) - Length 3.8 -Post Debridement Size (cm) - Width 4 -Post Debridement Size (cm) - Depth 0.7 -Total Square Cm 15.2 -Wound/Ulcer Outcome Not Healed -Ulcer Cleansing Rinsed/ Irrigated with Saline -Foul Odor after Cleansing No -Bioengineered Tissue No -Bleeding Controlled with Pressure -Other undermining 11- 3:00=2.6cm -Offloading No -Treatment Response Procedure Tolerated Well [See Physician Procedure note for Specifics] Pain Scale: 0-10 Numeric [Pain] -Is Patient Pain Free? Yes Musculoskeletal: No Tenderness to Palpation of Joints or Extremities Neurological: Cranial nerves II-XII grossly intact Psych/Mental Status: Normal Affect, Appropriate Debridement Note Post-Debridement Measurements/Treatment WC - Nurse 2 - General Ulcer CM Notes Start: 04/26/19 08:45 Freq: Status: Active Protocol: Activity Type Activity Date Activity User E-Sign Co-Sign Detail Recorded Client Recorded Date Recorded By Document 04/26/19 11:45 [id number] 04/26/19 11:48 04/26/19 11:45 Wound Center Nurse 2 # 1 Coccyx -Time 11:45 -Correct Patient Yes -Correct Side, Site, Position Yes -Correct Procedure Yes -Procedure Performed Yes -Type of Procedure Debridement -Clinical Debridement Muscle -Post Debridement Size (cm) - Length 3.8 -Post Debridement Size (cm) - Width 4 -Post Debridement Size (cm) - Depth 0.7 -Total Square Cm 15.2 -Wound/Ulcer Outcome Not Healed -Ulcer Cleansing Rinsed/ Irrigated with Saline -Foul Odor after Cleansing No -Bioengineered Tissue No -Bleeding Controlled with Pressure -Other undermining 11- 3:00=2.6cm -Offloading No -Treatment Response Procedure Tolerated Well Pain Scale: 0-10 Numeric Is Patient Pain Free? Yes Assessment/Plan Assessment: 1. Sacral pressure sore, Stage IV. 2. Osteomyelitis. 3. Spina bifida. Plan: Continue Silver dressing changes to the sacrum. Wound culture from 12/02/18 showed Staphylococcus aureus and Streptococcus agalactiae. He had been on Keflex. Augmentin was added. He has finished the antibiotics. Family is not in a hurry for major surgery at this time. They want to see how much this ulcer can heal. There is good granulation tissue, but it appears if there is some abnormal scar tissue that may get in the way of healing. After talking to them, I think they are hesitant to proceed with the more complex myocutaneous flap closure. Excision of the pressure sore intermittently is needed because of the development of abnormal scarring that can be a hindrance to healing. After surgery, will begin wound care with the VAC. Will send soft tissue to Pathology and Microbiology and will send bone to Pathology and Microbiology. A positive culture may necessitate antibiotic modification. If Pathology is positive for ostemyelitis, then would need [employer] IV antibiotics through a PICC line. Also he would be evaluated for HBO treatments which can help salvage healing of a wound with underlying chronic refractory osteomyelitis. A Pathology report from [facility] from surgery on 07/11/14 showed no definite evidience of osteomyelitis, but the comment from the pathologist states Because osteomyelitis can be patchy, correlation with bone cultures and CRP levels can sometims have better predictive value. CRP=9.50 mg/dL from 07/13/14. On 07/16/14 Dr. Hagen was using a diagnosis of osteomyelitis and referred to checking frequent prealbumin levels. Since the note mentions osteomyelitis in the diagnosis, then we can resubmit for medical approval of HBO. If not successful, will have to wait until March before repeating the CT. As long as osteomyelitis is still suspicious on the CT, we can start HBO treatments at that time. If CT doesn't show suspicion for osteomyelitis, we can proceed with operative debridement with bony resection. If the pathology from that surgery showed osteomyelitis, then can proceed with HBO treatments. If I don't see much improvement in the healing, then I would recommend surgical excision of the pressure sore with partial ostectomy for osteomyelitis. Surgery would be done under general anesthesia with a surgical observation overnight stay in the hospital. I told them that healing would be more efficient if we proceed with operative excision. Can also discuss eventual flap surgery for wound closure. Patient was informed of the risks and complications of the procedure including alternatives to surgery. These were discussed with him personally. He voices understanding and wishes to proceed. Patient and his father voice understanding that surgical excision will be necessary in the future. Repeat debridements can sometimes help to jump start the healing process. Can proceed with the VAC at that time. They are not ready for a muscle flap at this time. But depending on the healing process, they may change their mind and want to proceed with the muscle flap. Completed Augmentin. He would like to wait until July for the surgery because they are in the midst of training for [employer]. They are also amenable to the VAC after surgery, and it would be easier for the VAC once [employer] are over. Will order repeat CT for chronic refractory osteo. He started HBOT today. Follow up in one week after HBOT. Code Visit [id number]: [id number] Alma Delia musc/fascia 20 sq cm/<
[2019-04-27 08:50] VITALS: BP 114/61; BP 128/67; PULSE 68; PULSE 81; RESP 16; TEMP 36.7; TEMP 37
--- NOTE | 2019-04-27 13:52 | PCM.HBO.PN ---
History of Present Illness Date of Service: 04/27/19 Presenting Chief Complaint: Sacral pressure sore, Stage IV, with osteomyelitis RORY HERNÁNDEZ is a 23 year old currently undergoing hyperbaric oxygen therapy for Stage IV sacral pressure sore with osteomyelitis. Progress: Today is the 2nd session and a series of 40 planned hyperbaric oxygen therapy sessions. Tolerance of hyperbaric oxygen therapy: Hyperbaric oxygen therapy was administered as per the facility's protocol. The patient tolerated hyperbaric oxygen therapy well, without complaints or complications. Upon emergence from the hyperbaric chamber, the patient's vital signs remained stable. He did experience tulalip trauma to the right ear, without perforation. Otoscopic examination revealed erythema of the right tympanic membrane following his HBO session. He denies any pain or pressure. He was discharged in good condition. Recommendation has been made for the patient to be evaluated by the otolaryngology service. The HBO session was administered at 2 taiwo. There were no air breaks. Treatment time was 125 minutes. 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) Spina bifida (Chronic) Sacral osteomyelitis (Chronic) Allergies/Adverse Reactions: Allergies latex Allergy (Verified 05/04/18 00:12) Other codine Allergy (Uncoded 05/04/18 00:12) Hives Home Medications: Ambulatory Orders Medication Instructions Recorded Darifenacin Hydrobromide 15 mg PO DAILY 10/09/17 [Darifenacin ER] Mirabegron [Myrbetriq] 25 mg PO DAILY 10/09/17 Cephalexin [Keflex] 500 mg PO Q6 #40 cap 05/04/18 Hydrocodone/Acetaminophen [[employer] 1 - 2 ea PO 4X/DAY PRN PRN 3 Days 05/04/18 5-325 Tablet] #14 tab Smoking Status: Never smoker Physical Exam Vital Signs Temp Pulse Resp BP 98.1 F 81 16 128/67 H 04/27/19 08:50 04/27/19 08:50 04/27/19 08:50 04/27/19 08:50 General: Alert, Oriented x3, Cooperative, No apparent distress, Well developed, Well nourished, - - The patient is paraplegic HEENT: Atraumatic, PERRLA, EOMI, Normocephalic Lungs: Normal air movement Psych/Mental Status: Normal Affect, Appropriate, Alert and oriented to time, place, person, mood and affect Assessment/Plan The patient tolerated hyperbaric oxygen therapy well, which is plan to continue as per the patient's medical plan. However, the patient and his family have indicated some upcoming scheduling conflicts, which may ultimately impact the patient's planned hyperbaric oxygen treatment schedule.
[2019-05-06 10:08] VITALS: BP 115/58; PULSE 86; RESP 16; TEMP 37.1; BMI 23.1
--- NOTE | 2019-05-06 10:51 | PN.PCM_ITS ---
(1) Spina bifida Status: Chronic Current Visit: Yes Code(s): Q05.9 - Spina bifida, unspecified (2) Stage IV pressure ulcer of sacral region Status: Chronic Current Visit: Yes Code(s): L89.154 - Pressure ulcer of sacral region, stage 4 (3) Sacral osteomyelitis Status: Chronic Current Visit: Yes Code(s): M46.28 - Osteomyelitis of vertebra, sacral and sacrococcygeal region Type of Wound Date of Service: 05/06/19 Chief Complaint: Sacral pressure sore, Stage IV, with osteomyelitis History of Wound: 23 year old man with past medical history of spina bifida presented to the [facility] with a sacral pressure sore. He had on about 4 years ago and his mother thinks he had osteomyelitis at that time. Several months ago, he developed a recurrence during an inpatient hospital stay in [place]. He has been treated with antibiotics and the VAC. While he was in [place], it was recommended to him to proceed with excision of the pressure sore with myocutaneous flap closure. He presents today for another opinion because he is not ready for surgery at this time, and they felt not much improvement has occurred over the last few months. They deny stool contamination of the ulcer. He has scheduled bowel movements. They have been told he has exposed bone but did not know of any history of osteomyelitis. He feels well otherwise and denies fever and chills. His appetite is good. He had a wound culture done on 12/02/18. It showed Staphylococcus aureus and Streptococcus agalactiae. He had been on Keflex. Augmentin was added which he has completed. He had a CT Pelvis on 12/07/18. It showed a large sacral decubitus ulcer and the lower left hemisacrum shows interval change with bony demineralization accompanied by heterotopic bone formation in keeping with osteomyelitis. He is currently using Silver dressing changes. We were able to get a Pathology report from 4 years ago. It was negative for osteomyelitis. He started HBO today. Progress of Wound: [place] Visit for Dr. Gomez. Stable Ulcer. No new concerns at this time. - Physical Exam Vital Signs Temp Pulse Resp BP 98.7 F 86 16 115/58 L 05/06/19 10:08 05/06/19 10:08 05/06/19 10:08 05/06/19 10:08 General: Alert, Oriented x3, Cooperative, No apparent distress HEENT: Atraumatic, Normocephalic Oral: Moist Mucosa Neck: Supple Lungs: Normal air movement Extremities: No cyanosis Skin: Ulcer/ Wound Wound Measurements and Assessment - Nurse 1 - General Ulcer Measurement Start: 04/26/19 08:45 Freq: Status: Active Protocol: Activity Type Activity Date Activity User E-Sign Co-Sign Detail Recorded Client Recorded Date Recorded By Document 05/06/19 10:08 OR [id number] 05/06/19 10:14 OR 05/06/19 10:08 Wound Center Nurse 1 [Ulcer Assessment] # 1 Coccyx -Current Size (cm) - Length 5 -Current Size (cm) - Width 4 -Current Size (cm) - Depth 2 -Total Square Cm 20 -Photo Taken No -Maximum Distance #2 (cm) 1.9 -Circular Undermining Yes -Exudate Amt Medium -Exudate Type Serosanguineous -Wound Margin Thickened & Rolled Under -Granulation Amt Medium (34-66%) -Granulation Quality Red -Necrosis Amt Medium (34-66%) -Necrotic Tissue Type Adherent Slough -Structure Exposed N/A -Texture (Aishwarya-wound Skin Appearance) Scarring -Moisture (Aishwarya-wound Skin Appearance Maceration ) -Color (Aishwarya-wound Skin Appearance) No Abnormality -Temperature (Aishwarya-wound Skin No Abnormality Appearance) (Pt Warm) -Tenderness on Palpation (Aishwarya-wound No Skin Appearance) -Ulcer Cleansing Wound Cleanser -Foul Odor after Cleansing No -Anesthetic Used 5% Lidocaine Gel - Nurse 2 - General Ulcer CM Notes Start: 04/26/19 08:45 Freq: Status: Active Protocol: Activity Type Activity Date Activity User E-Sign Co-Sign Detail Recorded Client Recorded Date Recorded By Document 05/06/19 10:19 OR [id number] 05/06/19 10:27 OR 05/06/19 10:19 Wound Center Nurse 2 [Procedure/Treatment] -Time 10:26 -Correct Patient Yes -Correct Side, Site, Position Yes -Correct Procedure Yes -Procedure Performed Yes -Type of Procedure Debridement -Clinical Debridement Subcutaneous -Post Debridement Size (cm) - Length 4 -Post Debridement Size (cm) - Width 4 -Post Debridement Size (cm) - Depth 1.1 -Total Square Cm 16 -Wound/Ulcer Outcome Not Healed -Ulcer Cleansing Rinsed/ Irrigated with Saline -Foul Odor after Cleansing No -Bioengineered Tissue No -Bleeding Controlled with Pressure -Offloading Yes -Treatment Response Procedure Tolerated Well [See Physician Procedure note for Specifics] Pain Scale: 0-10 Numeric [Pain] -Is Patient Pain Free? Yes Musculoskeletal: No Muscle Wasting Neurological: Cranial nerves II-XII grossly intact Psych/Mental Status: Normal Affect Debridement Note Post-Debridement Measurements/Treatment WC - Nurse 2 - General Ulcer CM Notes Start: 04/26/19 08:45 Freq: Status: Active Protocol: Activity Type Activity Date Activity User E-Sign Co-Sign Detail Recorded Client Recorded Date Recorded By Document 04/26/19 11:45 [id number] 04/26/19 11:48 Document 05/06/19 10:19 OR [id number] 05/06/19 10:27 OR 04/26/19 05/06/19 11:45 10:19 Wound Center Nurse 2 # 1 Coccyx -Time 11:45 10:26 -Correct Patient Yes Yes -Correct Side, Site, Position Yes Yes -Correct Procedure Yes Yes -Procedure Performed Yes Yes -Type of Procedure Debridement Debridement -Clinical Debridement Muscle Subcutaneous -Post Debridement Size (cm) - Length 3.8 4 -Post Debridement Size (cm) - Width 4 4 -Post Debridement Size (cm) - Depth 0.7 1.1 -Total Square Cm 15.2 16 -Wound/Ulcer Outcome Not Healed Not Healed -Ulcer Cleansing Rinsed/ Rinsed/ Irrigated with Irrigated with Saline Saline -Foul Odor after Cleansing No No -Bioengineered Tissue No No -Bleeding Controlled with Pressure Pressure -Other undermining 11- 3:00=2.6cm -Offloading No Yes -Treatment Response Procedure Procedure Tolerated Well Tolerated Well Pain Scale: 0-10 Numeric Is Patient Pain Free? 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 Sacral pressure sore, Stage IV. 2. Osteomyelitis. 3. Spina bifida. Plan: Debridement done as documented above, procedure was well tolerated. Continue Silver dressing changes to the sacrum. Set to travel to [place] representing to [facility] next week and will be there till first week in May. No indication for antibiotics for wound management at this time. Continue offloading and increased protein intake. They were advised to call with any concerns otherwise, follow-up on return from [place]. This note was generated with [employer] dictation software. It may contain incorrect words, spelling, and punctuation that were not noted in checking the note before signing.
== END 2019-05-22 23:59 ==
LOC: WC 10:15
PROVIDERS: Family Provider Family Medicine; PCP Family Medicine; Referring Provider Internal Medicine; Visit Provider Internal Medicine
DX: L89.154 Pressure ulcer of sacral region, stage 4 (principal); Q05.9 Spina bifida, unspecified; M46.28 Osteomyelitis of vertebra, sacral and sacrococcygeal region
CPT/HCPCS: 11042; 11043; 99183; G0277

== ENCOUNTER 2019-06-14 08:15 | Outpatient (RCR) | payer MEDICAID, SELFPAY ==
[2019-05-23 00:38] VITALS: BP 115/58; PULSE 86; RESP 16; TEMP 37.1
[2019-05-31 08:19] VITALS: BP 124/71; PULSE 73; RESP 18; TEMP 36.3; BMI 23.1
--- NOTE | 2019-05-31 22:26 | PN.PCM_ITS ---
Type of Wound Date of Service: 05/31/19 Chief Complaint: Sacral pressure sore in the posterior aspect of the pelvis, Stage IV, with osteomyelitis of the pelvis. History of Wound: 23 year old man with past medical history of spina bifida presented to the [facility] Center with a sacral pressure sore. He had on about 4 years ago and his mother thinks he had osteomyelitis at that time. Several months ago, he developed a recurrence during an inpatient hospital stay in [place]. He has been treated with antibiotics and the VAC. While he was in [place], it was recommended to him to proceed with excision of the pressure sore with myocutaneous flap closure. He comes to the Wound Center because he is not ready for surgery at this time, and they felt not much improvement has occurred over the last few months. They deny stool contamination of the ulcer. He has scheduled bowel movements. They have been told he has exposed bone but did not know of any history of osteomyelitis. He feels well otherwise and denies fever and chills. His appetite is good. He had a wound culture done on 12/02/18. It showed Staphylococcus aureus and Streptococcus agalactiae. He had been on Keflex. Augmentin was added which he has completed. He had a CT Pelvis on 12/07/18. It showed a large sacral decubitus ulcer and the lower left hemisacrum shows interval change with bony demineralization accompanied by heterotopic bone formation in keeping with osteomyelitis. He is currently using Silver dressing changes. We were able to get a Pathology report from 4 years ago. It was negative for osteomyelitis. However, even though the Pathology report from [facility] from surgery on 07/11/14 showed no definite evidience of osteomyelitis, the comment from the pathologist states Because osteomyelitis can be patchy, correlation with bone cultures and CRP levels can sometims have better predictive value. CRP=9.50 mg/dL from 07/13/14. On 07/16/14 Dr. Hagen was using a diagnosis of osteomyelitis and referred to checking frequent prealbumin levels. Since the note mentions osteomyelitis in the diagnosis, then we can resubmit for medical approval of HBO. He would definitely benefit from HBO treatments. According to the reports he has presence of chronic refractory osteomyelitis in his pelvis. Progress of Wound: Stable. - Physical Exam Vital Signs Temp Pulse Resp BP 97.3 F L 73 18 124/71 H 05/31/19 08:19 05/31/19 08:19 05/31/19 08:19 05/31/19 08:19 Wound Measurements and Assessment - Nurse 1 - General Ulcer Measurement Start: 05/31/19 08:19 Freq: Status: Active Protocol: Activity Type Activity Date Activity User E-Sign Co-Sign Detail Recorded Client Recorded Date Recorded By Document 05/31/19 08:19 DL [id number] 05/31/19 08:25 DL 05/31/19 08:19 Wound Center Nurse 1 [Ulcer Assessment] # 1 Coccyx -Current Size (cm) - Length 4.3 -Current Size (cm) - Width 3 -Current Size (cm) - Depth 0.8 -Total Square Cm 12.9 -Undermining/Tunneling Starts (O' 11 clock) -Undermining/Tunneling Ends (O'clock) 3 -Maximum Distance (cm) 1.8 -Circular Undermining No -Exudate Amt Medium -Exudate Type Serosanguineous -Wound Margin Thickened & Rolled Under -Granulation Amt Large (67-100%) -Granulation Quality Red -Necrosis Amt Small (1-33%) -Necrotic Tissue Type Adherent Slough -Structure Exposed N/A -Texture (Aishwarya-wound Skin Appearance) Scarring -Moisture (Aishwarya-wound Skin Appearance Maceration ) -Color (Aishwarya-wound Skin Appearance) No Abnormality -Temperature (Aishwarya-wound Skin No Abnormality Appearance) (Pt Warm) -Tenderness on Palpation (Aishwarya-wound No Skin Appearance) -Ulcer Cleansing Wound Cleanser -Foul Odor after Cleansing No -Anesthetic Used 5% Lidocaine Gel - Nurse 2 - General Ulcer CM Notes Start: 05/31/19 08:19 Freq: Status: Active Protocol: Activity Type Activity Date Activity User E-Sign Co-Sign Detail Recorded Client Recorded Date Recorded By Document 05/31/19 08:37 DREW [id number] 05/31/19 08:43 DREW 05/31/19 08:37 Wound Center Nurse 2 [Procedure/Treatment] -Time 08:37 -Correct Patient Yes -Correct Side, Site, Position Yes -Correct Procedure Yes -Procedure Performed Yes -Type of Procedure Debridement -Clinical Debridement Muscle -Post Debridement Size (cm) - Length 4.4 -Post Debridement Size (cm) - Width 3.2 -Post Debridement Size (cm) - Depth 1.0 -Total Square Cm 14.08 -Wound/Ulcer Outcome Not Healed -Ulcer Cleansing Rinsed/ Irrigated with Saline -Foul Odor after Cleansing No -Bioengineered Tissue No -Bleeding Controlled with Pressure -Offloading No -Treatment Response Procedure Tolerated Well [See Physician Procedure note for Specifics] Pain Scale: 0-10 Numeric [Pain] -Is Patient Pain Free? Yes Debridement Note Post-Debridement Measurements/Treatment WC - Nurse 2 - General Ulcer CM Notes Start: 05/31/19 08:19 Freq: Status: Active Protocol: Activity Type Activity Date Activity User E-Sign Co-Sign Detail Recorded Client Recorded Date Recorded By Document 05/31/19 08:37 [id number] 05/31/19 08:43 DREW 05/31/19 08:37 Wound Center Nurse 2 # 1 Coccyx -Time 08:37 -Correct Patient Yes -Correct Side, Site, Position Yes -Correct Procedure Yes -Procedure Performed Yes -Type of Procedure Debridement -Clinical Debridement Muscle -Post Debridement Size (cm) - Length 4.4 -Post Debridement Size (cm) - Width 3.2 -Post Debridement Size (cm) - Depth 1.0 -Total Square Cm 14.08 -Wound/Ulcer Outcome Not Healed -Ulcer Cleansing Rinsed/ Irrigated with Saline -Foul Odor after Cleansing No -Bioengineered Tissue No -Bleeding Controlled with Pressure -Offloading No -Treatment Response Procedure Tolerated Well Pain Scale: 0-10 Numeric Is Patient Pain Free? Yes Wound debrided: #1 Posterior pelvis in the sacral area. Laterality: Not Applicable Wound Grade/Stage: IV. Type of Debridement: Excisional debridement Anesthesia Used: 4% Lidocaine Solution Depth: Down to and including healthy tissue, in the subcutaneous layer, to muscle, to bone - bone is palpable but not debrided. Percentage of wound debrided: 100 Instrument Used: 7mm curette Tissue Removed: subcutaneous tissue and muscle. Severity: Fat Layer Exposed - muscle is exposed. bone is palpable but not debrided. Amount of bleeding with debridement: Mild Bleeding Controlled with: Pressure Patient tolerated procedure well Assessment/Plan Assessment: 1. 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 2. Chronic osteomyelitis of the pelvis. 3. Spina bifida. Plan: Continue Silver dressing changes to the posterior aspect of the pelvis in the sacral area. Wound culture from 12/02/18 showed Staphylococcus aureus and Streptococcus agalactiae. He had been on Keflex. Augmentin was added. He has finished the antibiotics. Family is not in a hurry for major surgery at this time. They want to see how much this ulcer can heal. There is good granulation tissue, but it appears if there is some abnormal scar tissue that may get in the way of healing. After talking to them, I think they are hesitant to proceed with the more complex myocutaneous flap closure. Excision of the pressure sore intermittently is needed because of the development of abnormal scarring that can be a hindrance to healing. After surgery, will begin wound care with the VAC. Will send soft tissue to Pathology and Microbiology and will send bone to Pathology and Microbiology. A positive culture may necessitate antibiotic modification. If Pathology is positive for ostemyelitis, then would need care home IV antibiotics through a PICC line. Also he would be evaluated for HBO treatments which can help salvage healing of a wound with underlying chronic refractory osteomyelitis of the pelvis. A Pathology report from [facility] from surgery on 07/11/14 showed no definite evidience of osteomyelitis, but the comment from the pathologist states Because osteomyelitis can be patchy, correlation with bone cultures and CRP levels can sometims have better predictive value. CRP=9.50 mg/dL from 07/13/14. On 07/16/14 Dr. Hagen was using a diagnosis of osteomyelitis. Since the note mentions osteomyelitis in the diagnosis, then we can resubmit for medical approval of HBO. If not successful, we can repeat the CT looking for continued radiologic evidence of chronic osteomyelitis of the pelvis. As long as osteomyelitis of the pelvis is still suspicious on the CT, we can start HBO treatments at that time. Surgery would be done under general anesthesia with a surgical observation overnight stay in the hospital. I told them that healing would be more efficient if we proceed with operative excision. Can also discuss eventual flap surgery for wound closure. Patient was informed of the risks and complications of the procedure including alternatives to surgery. These were discussed with him personally. He voices understanding and wishes to proceed. Patient and his father voice understanding that surgical excision will be necessary in the future. They are not ready for surgery at this time because of training. 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 They are also amenable to the VAC after surgery, and it would be easier for the VAC once [employer] are over. Will order repeat CT for chronic refractory osteo at that time.
[2019-06-14 08:29] VITALS: BP 147/71; PULSE 66; RESP 16; TEMP 36.8; BMI 23.1
--- NOTE | 2019-06-14 23:02 | PCM.WC.PN ---
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 History of Wound: 23 year old man with past medical history of spina bifida presented to the Wound Center with a sacral pressure sore. He had on about 4 years ago and his mother thinks he had osteomyelitis at that time. Several months ago, he developed a recurrence during an inpatient hospital stay in [place]. He has been treated with antibiotics and the VAC. While he was in [place], it was recommended to him to proceed with excision of the pressure sore with myocutaneous flap closure. He comes to the Wound Center because he is not ready for surgery at this time, and they felt not much improvement has occurred over the last few months. They deny stool contamination of the ulcer. He has scheduled bowel movements. They have been told he has exposed bone but did not know of any history of osteomyelitis. He feels well otherwise and denies fever and chills. His appetite is good. He had a wound culture done on 12/02/18. It showed Staphylococcus aureus and Streptococcus agalactiae. He had been on Keflex. Augmentin was added which he has completed. He had a CT Pelvis on 12/07/18. It showed a large sacral decubitus ulcer and the lower left hemisacrum shows interval change with bony demineralization accompanied by heterotopic bone formation in keeping with osteomyelitis. He is currently using Silver dressing changes. We were able to get a Pathology report from 4 years ago. It was negative for osteomyelitis. However, even though the Pathology report from [facility] from surgery on 07/11/14 showed no definite evidience of osteomyelitis, the comment from the pathologist states Because osteomyelitis can be patchy, correlation with bone cultures and CRP levels can sometims have better predictive value. CRP=9.50 mg/dL from 07/13/14. On 07/16/14 Dr. Hagen was using a diagnosis of osteomyelitis and referred to checking frequent prealbumin levels. Since the note mentions osteomyelitis in the diagnosis, then we can resubmit for medical approval of HBO. He would definitely benefit from HBO treatments. According to the reports he has presence of chronic refractory osteomyelitis in his pelvis. Progress of Wound: Stable. - Physical Exam Vital Signs Temp Pulse Resp BP 98.2 F 66 16 147/71 H 09/23/19 08:29 06/14/19 08:29 06/14/19 08:29 06/14/19 08:29 Wound Measurements and Assessment WC - Nurse 1 - General Ulcer Measurement Start: 05/31/19 08:19 Freq: Status: Active Protocol: Activity Type Activity Date Activity User E-Sign Co-Sign Detail Recorded Client Recorded Date Recorded By Document 06/14/19 08:29 MW [id number] 06/14/19 08:39 MW 06/14/19 08:29 Wound Center Nurse 1 [Ulcer Assessment] # 1 Coccyx -Combined with other wound No -Current Size (cm) - Length 4.0 -Current Size (cm) - Width 2.5 -Current Size (cm) - Depth 0.7 -Total Square Cm 10.00 -Date of Last Picture (Recall this 06/14/19 field) -Photo Taken Yes -Epithelialization None Present -Tunneling No -Undermining/Tunneling No -Circular Undermining No -Exudate Amt Large -Exudate Type Serosanguineous -Wound Margin Thickened & Rolled Under -Granulation Amt Medium (34-66%) -Granulation Quality [place] -Slough/Fibrin Yes -Necrosis Amt Small (1-33%) -Necrotic Tissue Type Adherent Slough -Structure Exposed N/A -Texture (Aishwarya-wound Skin Appearance) Assessed, Scarring -Moisture (Aishwarya-wound Skin Appearance Assessed, ) Maceration -Color (Aishwarya-wound Skin Appearance) No Abnormality, Assessed -Temperature (Aishwarya-wound Skin No Abnormality Appearance) (Pt Warm) -Tenderness on Palpation (Aishwarya-wound No Skin Appearance) -Ulcer Cleansing SOAP AND WATER -Foul Odor after Cleansing No -Anesthetic Used 5% Lidocaine Gel [Edema Assessment] -Lower Limb Edema Present No WC - Nurse 2 - General Ulcer CM Notes Start: 05/31/19 08:19 Freq: Status: Active Protocol: Activity Type Activity Date Activity User E-Sign Co-Sign Detail Recorded Client Recorded Date Recorded By Document 06/14/19 09:09 [id number] 06/14/19 09:11 JF 06/14/19 09:09 Wound Center Nurse 2 [Procedure/Treatment] # 1 Posterior aspect of pelvis in sacral area -Time 09:09 -Correct Patient Yes -Correct Side, Site, Position Yes -Correct Procedure Yes -Procedure Performed Yes -Type of Procedure Debridement -Clinical Debridement Muscle -Post Debridement Size (cm) - Length 4.0 -Post Debridement Size (cm) - Width 2.6 -Post Debridement Size (cm) - Depth 0.8 -Total Square Cm 10.40 -Wound/Ulcer Outcome Not Healed -Ulcer Cleansing Rinsed/ Irrigated with Saline -Foul Odor after Cleansing No -Bioengineered Tissue No -Bleeding Controlled with Pressure -Offloading No -Treatment Response Procedure Tolerated Well [See Physician Procedure note for Specifics] Pain Scale: 0-10 Numeric [Pain] -Is Patient Pain Free? Yes Debridement Note Post-Debridement Measurements/Treatment WC - Nurse 2 - General Ulcer CM Notes Start: 05/31/19 08:19 Freq: Status: Active Protocol: Activity Type Activity Date Activity User E-Sign Co-Sign Detail Recorded Client Recorded Date Recorded By Document 05/31/19 08:37 [id number] 05/31/19 08:43 Document 06/14/19 09:09 [id number] 06/14/19 09:11 05/31/19 06/14/19 08:37 09:09 Wound Center Nurse 2 # 1 Posterior aspect of pelvis in sacral area -Time 08:37 09:09 -Correct Patient Yes Yes -Correct Side, Site, Position Yes Yes -Correct Procedure Yes Yes -Procedure Performed Yes Yes -Type of Procedure Debridement Debridement -Clinical Debridement Muscle Muscle -Post Debridement Size (cm) - Length 4.4 4.0 -Post Debridement Size (cm) - Width 3.2 2.6 -Post Debridement Size (cm) - Depth 1.0 0.8 -Total Square Cm 14.08 10.40 -Wound/Ulcer Outcome Not Healed Not Healed -Ulcer Cleansing Rinsed/ Rinsed/ Irrigated with Irrigated with Saline Saline -Foul Odor after Cleansing No No -Bioengineered Tissue No No -Bleeding Controlled with Pressure Pressure -Offloading No No -Treatment Response Procedure Procedure Tolerated Well Tolerated Well Pain Scale: 0-10 Numeric Is Patient Pain Free? Yes Yes Wound debrided: #1 Posterior pelvis in sacral area. Laterality: Not Applicable Wound Grade/Stage: IV. Type of Debridement: Excisional debridement Anesthesia Used: 4% Lidocaine Solution Depth: Down to and including healthy tissue, in the subcutaneous layer, to muscle, to bone - bone is palpable but not debrided. Percentage of wound debrided: 100 Instrument Used: 7mm curette Tissue Removed: subcutaneous tissue and muscle. Severity: Fat Layer Exposed - muscle is exposed. bone is palpable but not debrided. Amount of bleeding with debridement: Mild Bleeding Controlled with: Pressure Patient tolerated procedure well Assessment/Plan Assessment: 1. 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 2. Chronic osteomyelitis of the pelvis. 3. Spina bifida. Plan: Continue Silver dressing changes to the posterior aspect of the pelvis in the sacral area. Wound culture from 12/02/18 showed Staphylococcus aureus and Streptococcus agalactiae. He had been on Keflex. Augmentin was added. He has finished the antibiotics. Family is not in a hurry for major surgery at this time. They want to see how much this ulcer can heal. There is good granulation tissue, but it appears if there is some abnormal scar tissue that may get in the way of healing. After talking to them, I think they are hesitant to proceed with the more complex myocutaneous flap closure. Excision of the pressure sore intermittently is needed because of the development of abnormal scarring that can be a hindrance to healing. After surgery, will begin wound care with the VAC. Will send soft tissue to Pathology and Microbiology and will send bone to Pathology and Microbiology. A positive culture may necessitate antibiotic modification. If Pathology is positive for ostemyelitis, then would need shelter IV antibiotics through a PICC line. Also he would be evaluated for HBO treatments which can help salvage healing of a wound with underlying chronic refractory osteomyelitis of the pelvis. A Pathology report from [facility] from surgery on 07/11/14 showed no definite evidience of osteomyelitis, but the comment from the pathologist states Because osteomyelitis can be patchy, correlation with bone cultures and CRP levels can sometims have better predictive value. CRP=9.50 mg/dL from 07/13/14. On 07/16/14 Dr. Hagen was using a diagnosis of osteomyelitis. Since the note mentions osteomyelitis in the diagnosis, then we can resubmit for medical approval of HBO. If not successful, we can repeat the CT looking for continued radiologic evidence of chronic osteomyelitis of the pelvis. As long as osteomyelitis of the pelvis is still suspicious on the CT, we can start HBO treatments at that time. Surgery would be done under general anesthesia with a surgical observation overnight stay in the hospital. I told them that healing would be more efficient if we proceed with operative excision. Can also discuss eventual flap surgery for wound closure. Patient was informed of the risks and complications of the procedure including alternatives to surgery. These were discussed with him personally. He voices understanding and wishes to proceed. Patient and his father voice understanding that surgical excision will be necessary in the future. They are not ready for surgery at this time because of training. 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 They are also amenable to the VAC after surgery, and it would be easier for the VAC once [employer] are over. Will order repeat CT for chronic refractory osteo at that time. Followup 2 weeks.
== END 2019-06-21 23:59 ==
LOC: WC 08:15
PROVIDERS: Family Provider Family Medicine; PCP Family Medicine; Referring Provider Internal Medicine; Visit Provider Internal Medicine
DX: L89.154 Pressure ulcer of sacral region, stage 4 (principal); Q05.9 Spina bifida, unspecified; M86.68 Other chronic osteomyelitis, other site
CPT/HCPCS: 11043

== ENCOUNTER 2019-07-12 08:00 | Outpatient (RCR) | payer MEDICAID, SELFPAY ==
[2019-06-22 00:39] VITALS: BP 147/71; PULSE 66; RESP 16; TEMP 36.8
[2019-06-28 08:27] VITALS: BP 120/60; PULSE 69; RESP 18; TEMP 36.2; BMI 23.1
--- NOTE | 2019-06-28 23:02 | PCM.WC.PN ---
Type of Wound Date of Service: 06/28/19 Chief Complaint: Sacral pressure sore in the posterior aspect of the pelvis, Stage IV, with osteomyelitis of the pelvis. History of Wound: 23 year old man with past medical history of spina bifida presented to the [facility] with a sacral pressure sore in the posterior aspect of the pelvis. He had on about 4 years ago and his mother thinks he had osteomyelitis at that time. Several months ago, he developed a recurrence during an inpatient hospital stay in [place]. He has been treated with antibiotics and the VAC. While he was in [place], it was recommended to him to proceed with excision of the pressure sore with myocutaneous flap closure. He comes to the Wound Center because he is not ready for surgery at this time, and they felt not much improvement has occurred over the last few months. They deny stool contamination of the ulcer. He has scheduled bowel movements. They have been told he has exposed bone but did not know of any history of osteomyelitis. He feels well otherwise and denies fever and chills. His appetite is good. He had a wound culture done on 12/02/18. It showed Staphylococcus aureus and Streptococcus agalactiae. He had been on Keflex. Augmentin was added which he has completed. He had a CT Pelvis on 12/07/18. It showed a large sacral decubitus ulcer and the lower left hemisacrum shows interval change with bony demineralization accompanied by heterotopic bone formation in keeping with osteomyelitis. He is currently using Silver dressing changes. We were able to get a Pathology report from 4 years ago. It was negative for osteomyelitis. However, even though the Pathology report from [facility] from surgery on 07/11/14 showed no definite evidience of osteomyelitis, the comment from the pathologist states Because osteomyelitis can be patchy, correlation with bone cultures and CRP levels can sometims have better predictive value. CRP=9.50 mg/dL from 07/13/14. On 07/16/14 Dr. Hagen was using a diagnosis of osteomyelitis and referred to checking frequent prealbumin levels. Since the note mentions osteomyelitis in the diagnosis, then we can resubmit for medical approval of HBO. He would definitely benefit from HBO treatments. According to the reports he has presence of chronic refractory osteomyelitis in his pelvis. Progress of Wound: Stable. - Physical Exam Vital Signs Temp Pulse Resp BP 97.1 F L 69 18 120/60 06/28/19 08:27 10 08:27 06/28/19 08:27 06/28/19 08:27 Wound Measurements and Assessment WC - Nurse 1 - General Ulcer Measurement Start: 06/28/19 08:27 Freq: Status: Active Protocol: Activity Type Activity Date Activity User E-Sign Co-Sign Detail Recorded Client Recorded Date Recorded By Document 06/28/19 08:27 DL [id number] 06/28/19 08:32 DL 06/28/19 08:27 Wound Center Nurse 1 [Ulcer Assessment] # 1 Posterior aspect of pelvis in sacral area -Current Size (cm) - Length 3.5 -Current Size (cm) - Width 2.6 -Current Size (cm) - Depth 1 -Total Square Cm 9.10 -Photo Taken No -Exudate Amt Small -Exudate Type Serosanguineous -Wound Margin Thickened & Rolled Under -Granulation Amt Large (67-100%) -Granulation Quality Red -Necrosis Amt Small (1-33%) -Necrotic Tissue Type Adherent Slough -Structure Exposed N/A -Texture (Aishwarya-wound Skin Appearance) Scarring -Moisture (Aishwarya-wound Skin Appearance No Abnormality ) -Color (Aishwarya-wound Skin Appearance) No Abnormality -Temperature (Aishwarya-wound Skin No Abnormality Appearance) (Pt Warm) -Tenderness on Palpation (Aishwarya-wound No Skin Appearance) -Ulcer Cleansing Wound Cleanser -Foul Odor after Cleansing No -Anesthetic Used 5% Lidocaine Gel - Nurse 2 - General Ulcer CM Notes Start: 06/28/19 08:27 Freq: Status: Active Protocol: Activity Type Activity Date Activity User E-Sign Co-Sign Detail Recorded Client Recorded Date Recorded By Document 06/28/19 08:56 [id number] 06/28/19 09:00 06/28/19 08:56 Wound Center Nurse 2 [Procedure/Treatment] -Time 08:57 -Correct Patient Yes -Correct Side, Site, Position Yes -Correct Procedure Yes -Procedure Performed Yes -Type of Procedure Debridement -Clinical Debridement Muscle -Post Debridement Size (cm) - Length 3.8 -Post Debridement Size (cm) - Width 3.0 -Post Debridement Size (cm) - Depth 1.4 -Total Square Cm 11.40 -Wound/Ulcer Outcome Not Healed -Ulcer Cleansing Rinsed/ Irrigated with Saline -Foul Odor after Cleansing No -Bioengineered Tissue No -Bleeding Controlled with Pressure -Other 9-6:00=1.8cm -Offloading No -Treatment Response Procedure Tolerated Well [See Physician Procedure note for Specifics] Pain Scale: 0-10 Numeric [Pain] -Is Patient Pain Free? Yes Debridement Note Post-Debridement Measurements/Treatment WC - Nurse 2 - General Ulcer CM Notes Start: 06/28/19 08:27 Freq: Status: Active Protocol: Activity Type Activity Date Activity User E-Sign Co-Sign Detail Recorded Client Recorded Date Recorded By Document 06/28/19 08:56 [email or web address] [id number] 06/28/19 09:00 [email or web address] 06/28/19 08:56 Wound Center Nurse 2 # 1 posterior aspect of pelvis in sacral area -Time 08:57 -Correct Patient Yes -Correct Side, Site, Position Yes -Correct Procedure Yes -Procedure Performed Yes -Type of Procedure Debridement -Clinical Debridement Muscle -Post Debridement Size (cm) - Length 3.8 -Post Debridement Size (cm) - Width 3.0 -Post Debridement Size (cm) - Depth 1.4 -Total Square Cm 11.40 -Wound/Ulcer Outcome Not Healed -Ulcer Cleansing Rinsed/ Irrigated with Saline -Foul Odor after Cleansing No -Bioengineered Tissue No -Bleeding Controlled with Pressure -Other 9-6:00=1.8cm -Offloading No -Treatment Response Procedure Tolerated Well Pain Scale: 0-10 Numeric Is Patient Pain Free? Yes Wound debrided: #1 Posterior pelvis in sacral area. Laterality: Not Applicable Wound Grade/Stage: IV. Type of Debridement: Excisional debridement Anesthesia Used: 4% Lidocaine Solution Depth: Down to and including healthy tissue, in the subcutaneous layer, to muscle, to bone - bone is palpable but not debrided. Percentage of wound debrided: 100 Instrument Used: 7mm curette Tissue Removed: subcutaneous tissue. Severity: Fat Layer Exposed - muscle is exposed. bone is palpable but not exposed. Amount of bleeding with debridement: Mild Bleeding Controlled with: Pressure Patient tolerated procedure well Assessment/Plan Assessment: 1. 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 2. Chronic osteomyelitis of the pelvis. 3. Spina bifida. Plan: Continue Silver dressing changes to the posterior aspect of the pelvis in the sacral area. Wound culture from 12/02/18 showed Staphylococcus aureus and Streptococcus agalactiae. He had been on Keflex. Augmentin was added. He has finished the antibiotics. Family is not in a hurry for major surgery at this time. They want to see how much this ulcer can heal. There is good granulation tissue, but it appears if there is some abnormal scar tissue that may get in the way of healing. After talking to them, I think they are hesitant to proceed with the more complex myocutaneous flap closure. Excision of the pressure sore intermittently is needed because of the development of abnormal scarring that can be a hindrance to healing. After surgery, will begin wound care with the VAC. Will send soft tissue to Pathology and Microbiology and will send bone to Pathology and Microbiology. A positive culture may necessitate antibiotic modification. If Pathology is positive for ostemyelitis, then would need watermelon inspector IV antibiotics through a PICC line. Also he would be evaluated for HBO treatments which can help salvage healing of a wound with underlying chronic refractory osteomyelitis of the pelvis. A Pathology report from [facility] from surgery on 07/11/14 showed no definite evidience of osteomyelitis, but the comment from the pathologist states Because osteomyelitis can be patchy, correlation with bone cultures and CRP levels can sometims have better predictive value. CRP=9.50 mg/dL from 07/13/14. On 07/16/14 Dr. Hagen was using a diagnosis of osteomyelitis. Since the note mentions osteomyelitis in the diagnosis, then we can resubmit for medical approval of HBO. If not successful, we can repeat the CT looking for continued radiologic evidence of chronic osteomyelitis of the pelvis. As long as osteomyelitis of the pelvis is still suspicious on the CT, we can start HBO treatments at that time. Surgery would be done under general anesthesia with a surgical observation overnight stay in the hospital. I told them that healing would be more efficient if we proceed with operative excision. Can also discuss eventual flap surgery for wound closure. Patient was informed of the risks and complications of the procedure including alternatives to surgery. These were discussed with him personally. He voices understanding and wishes to proceed. Patient and his father voice understanding that surgical excision will be necessary in the future. 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 They are ready to proceed with surgery. Will schedule the surgery next month in July. They are also amenable to the VAC after surgery for a little while until they resume training. Will order repeat CT for chronic refractory osteo at that time. Followup 2 weeks.
[2019-07-12 08:24] VITALS: BP 121/73; PULSE 77; RESP 16; TEMP 36.4; BMI 23.1
--- NOTE | 2019-07-12 09:45 | PCM.WC.PN ---
(1) Chronic osteomyelitis of pelvis Status: Chronic Code(s): M86.659 - Other chronic osteomyelitis, unspecified thigh (2) Stage IV pressure ulcer of sacral region Status: Chronic Code(s): L89.154 - Pressure ulcer of sacral region, stage 4 (3) Spina bifida Status: Chronic Code(s): Q05.9 - Spina bifida, unspecified Type of Wound Date of Service: 07/12/19 Chief Complaint: Sacral pressure sore in the posterior aspect of the pelvis, Stage IV, with osteomyelitis of the pelvis. History of Wound: 23 year old man with past medical history of spina bifida presented to the Wound Center with a sacral pressure sore in the posterior aspect of the pelvis. He had on about 4 years ago and his mother thinks he had osteomyelitis at that time. Several months ago, he developed a recurrence during an inpatient hospital stay in [place]. He has been treated with antibiotics and the VAC. While he was in [place], it was recommended to him to proceed with excision of the pressure sore with myocutaneous flap closure. He comes to the Wound Center because he is not ready for surgery at this time, and they felt not much improvement has occurred over the last few months. They deny stool contamination of the ulcer. He has scheduled bowel movements. They have been told he has exposed bone but did not know of any history of osteomyelitis. He feels well otherwise and denies fever and chills. His appetite is good. He had a wound culture done on 12/02/18. It showed Staphylococcus aureus and Streptococcus agalactiae. He had been on Keflex. Augmentin was added which he has completed. He had a CT Pelvis on 12/07/18. It showed a large sacral decubitus ulcer and the lower left hemisacrum shows interval change with bony demineralization accompanied by heterotopic bone formation in keeping with osteomyelitis. He is currently using Silver dressing changes. We were able to get a Pathology report from 4 years ago. It was negative for osteomyelitis. However, even though the Pathology report from [facility] from surgery on 07/11/14 showed no definite evidience of osteomyelitis, the comment from the pathologist states Because osteomyelitis can be patchy, correlation with bone cultures and CRP levels can sometims have better predictive value. CRP=9.50 mg/dL from 07/13/14. On 07/16/14 Dr. Hagen was using a diagnosis of osteomyelitis and referred to checking frequent prealbumin levels. Since the note mentions osteomyelitis in the diagnosis, then we can resubmit for medical approval of HBO. He would definitely benefit from HBO treatments. According to the reports he has presence of chronic refractory osteomyelitis in his pelvis. Progress of Wound: Stable. - Physical Exam Vital Signs Temp Pulse Resp BP 97.5 F L 77 16 121/73 H 07/12/19 08:24 07/12/19 08:24 07/12/19 08:24 07/12/19 08:24 General: Alert, Oriented x3, Cooperative HEENT: Atraumatic, Normocephalic Oral: Moist Mucosa Lungs: Normal air movement Cardiovascular: Regular rate Extremities: Capillary Refill Less than 3 Seconds Skin: Ulcer/ Wound - Stage IV coccyx ulcer Wound Measurements and Assessment WC - Nurse 1 - General Ulcer Measurement Start: 06/28/19 08:27 Freq: Status: Active Protocol: Activity Type Activity Date Activity User E-Sign Co-Sign Detail Recorded Client Recorded Date Recorded By Document 07/12/19 08:24 MW [id number] 07/12/19 08:27 MW 07/12/19 08:24 Wound Center Nurse 1 [Ulcer Assessment] # 1 Coccyx -Combined with other wound No -Current Size (cm) - Length 3.4 -Current Size (cm) - Width 2.0 -Current Size (cm) - Depth 1.0 -Total Square Cm 6.80 -Photo Taken No -Epithelialization Small 1-33% -Tunneling No -Undermining/Tunneling No -Circular Undermining No -Exudate Amt Large -Exudate Type Serosanguineous -Wound Margin Thickened & Rolled Under -Granulation Amt Medium (34-66%) -Granulation Quality [place] -Slough/Fibrin Yes -Necrosis Amt Small (1-33%) -Necrotic Tissue Type Adherent Slough -Structure Exposed N/A -Texture (Aishwarya-wound Skin Appearance) Assessed, Scarring -Moisture (Aishwarya-wound Skin Appearance Assessed, ) Maceration -Color (Aishwarya-wound Skin Appearance) No Abnormality, Assessed -Temperature (Aishwarya-wound Skin No Abnormality Appearance) (Pt Warm) -Tenderness on Palpation (Aishwarya-wound No Skin Appearance) -Ulcer Cleansing Rinsed/ Irrigated with Saline -Foul Odor after Cleansing No -Anesthetic Used 5% Lidocaine Gel [Edema Assessment] -Lower Limb Edema Present No - Nurse 2 - General Ulcer CM Notes Start: 06/28/19 08:27 Freq: Status: Active Protocol: Activity Type Activity Date Activity User E-Sign Co-Sign Detail Recorded Client Recorded Date Recorded By Document 07/12/19 08:40 [id number] 07/12/19 08:45 07/12/19 08:40 Wound Center Nurse 2 [Procedure/Treatment] # 1 Coccyx -Time 08:44 -Correct Patient Yes -Correct Side, Site, Position Yes -Correct Procedure Yes -Procedure Performed Yes -Type of Procedure Debridement -Clinical Debridement Muscle -Post Debridement Size (cm) - Length 3.5 -Post Debridement Size (cm) - Width 2.7 -Post Debridement Size (cm) - Depth 1.0 -Total Square Cm 9.45 -Wound/Ulcer Outcome Not Healed -Ulcer Cleansing Rinsed/ Irrigated with Saline -Foul Odor after Cleansing No -Bioengineered Tissue No -Bleeding Controlled with Pressure -Other 12:00--2.4cm -Offloading No -Treatment Response Procedure Tolerated Well [See Physician Procedure note for Specifics] Pain Scale: 0-10 Numeric [Pain] -Is Patient Pain Free? Yes Musculoskeletal: No Tenderness to Palpation of Joints or Extremities Neurological: Cranial nerves II-XII grossly intact Psych/Mental Status: Normal Affect, Appropriate Debridement Note Post-Debridement Measurements/Treatment - Nurse 2 - General Ulcer CM Notes Start: 06/28/19 08:27 Freq: Status: Active Protocol: Activity Type Activity Date Activity User E-Sign Co-Sign Detail Recorded Client Recorded Date Recorded By Document 06/28/19 08:56 [id number] 06/28/19 09:00 Document 07/12/19 08:40 [id number] 07/12/19 08:45 06/28/19 07/12/19 08:56 08:40 Wound Center Nurse 2 # 1 Coccyx -Time 08:57 08:44 -Correct Patient Yes Yes -Correct Side, Site, Position Yes Yes -Correct Procedure Yes Yes -Procedure Performed Yes Yes -Type of Procedure Debridement Debridement -Clinical Debridement Muscle Muscle -Post Debridement Size (cm) - Length 3.8 3.5 -Post Debridement Size (cm) - Width 3.0 2.7 -Post Debridement Size (cm) - Depth 1.4 1.0 -Total Square Cm 11.40 9.45 -Wound/Ulcer Outcome Not Healed Not Healed -Ulcer Cleansing Rinsed/ Rinsed/ Irrigated with Irrigated with Saline Saline -Foul Odor after Cleansing No No -Bioengineered Tissue No No -Bleeding Controlled with Pressure Pressure -Other 9-6:00=1.8cm 12:00--2.4cm -Offloading No No -Treatment Response Procedure Procedure Tolerated Well Tolerated Well Pain Scale: 0-10 Numeric Is Patient Pain Free? Yes Yes Wound debrided: Coccyx ulcer Laterality: Not Applicable Wound Grade/Stage: Stage IV Type of Debridement: Excisional debridement Anesthesia Used: 4% Lidocaine Solution, 5% Lidocaine Gel Depth: Down to and including healthy tissue, in the subcutaneous layer, to muscle Percentage of wound debrided: 100 Instrument Used: 7mm curette Tissue Removed: Subcutaneous tissue and slough Severity: Fat Layer Exposed Amount of bleeding with debridement: Mild Bleeding Controlled with: Pressure, Compression and gauze Patient tolerated procedure well Assessment/Plan Assessment: 1. 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 2. Chronic osteomyelitis of the pelvis. 3. Spina bifida. Plan: Continue Silver dressing changes to the posterior aspect of the pelvis in the sacral area. Wound culture from 12/02/18 showed Staphylococcus aureus and Streptococcus agalactiae. He had been on Keflex. Augmentin was added. He has finished the antibiotics. Family is not in a hurry for major surgery at this time. They want to see how much this ulcer can heal. There is good granulation tissue, but it appears if there is some abnormal scar tissue that may get in the way of healing. After talking to them, I think they are hesitant to proceed with the more complex myocutaneous flap closure. Excision of the pressure sore intermittently is needed because of the development of abnormal scarring that can be a hindrance to healing. After surgery, will begin wound care with the VAC. Will send soft tissue to Pathology and Microbiology and will send bone to Pathology and Microbiology. A positive culture may necessitate antibiotic modification. If Pathology is positive for ostemyelitis, then would need technician terminal and repeater IV antibiotics through a PICC line. Also he would be evaluated for HBO treatments which can help salvage healing of a wound with underlying chronic refractory osteomyelitis of the pelvis. A Pathology report from [facility] from surgery on 07/11/14 showed no definite evidience of osteomyelitis, but the comment from the pathologist states Because osteomyelitis can be patchy, correlation with bone cultures and CRP levels can sometims have better predictive value. CRP=9.50 mg/dL from 07/13/14. On 07/16/14 Dr. Hagen was using a diagnosis of osteomyelitis. Since the note mentions osteomyelitis in the diagnosis, then we can resubmit for medical approval of HBO. If not successful, we can repeat the CT looking for continued radiologic evidence of chronic osteomyelitis of the pelvis. As long as osteomyelitis of the pelvis is still suspicious on the CT, we can start HBO treatments at that time. Surgery would be done under general anesthesia with a surgical observation overnight stay in the hospital. I told them that healing would be more efficient if we proceed with operative excision. Can also discuss eventual flap surgery for wound closure. Patient was informed of the risks and complications of the procedure including alternatives to surgery. These were discussed with him personally. He voices understanding and wishes to proceed. Patient and his father voice understanding that surgical excision will be necessary in the future. 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 They are ready to proceed with surgery. Will schedule the surgery next month in July. They are also amenable to the VAC after surgery for a little while until they resume training. Will order repeat CT for chronic refractory osteo at that time. Followup 2 weeks. Code Visit [id number]: [id number] Alma Delia musc/fascia 20 sq cm/<
== END 2019-07-22 23:59 ==
LOC: WC 08:00
PROVIDERS: Family Provider Family Medicine; PCP Family Medicine; Referring Provider Internal Medicine; Visit Provider Internal Medicine
DX: L89.154 Pressure ulcer of sacral region, stage 4 (principal); Q05.9 Spina bifida, unspecified; M86.68 Other chronic osteomyelitis, other site
CPT/HCPCS: 11043

== ENCOUNTER 2019-08-05 09:10 | Observation (INO) | payer MEDICAID, SELFPAY ==
[2019-07-26 08:17] VITALS: BMI 23.1
[2019-08-05] VITALS (10 sets, daily range): BP systolic 106–130; BP diastolic 62–86; PULSE 58–76; RESP 16–18; TEMP 36.3–37.1; O2SAT 94–100; BMI 23.1
--- NOTE | 2019-08-05 01:02 | HP.PCM_ITS ---
History and Physical Date of Admission: 08/05/19 HISTORY OF PRESENT ILLNESS 23 year old man with past medical history of spina bifida presented to the [facility] Center with a sacral pressure sore. He had on about 4 years ago and his mother thinks he had osteomyelitis at that time. Several months ago, he developed a recurrence during an inpatient hospital stay in [place]. He has been treated with antibiotics and the VAC. While he was in [place], it was recommended to him to proceed with excision of the pressure sore with myocutaneous flap closure. He presents today for another opinion because he is not ready for surgery at this time, and they felt not much improvement has occurred over the last few months. They deny stool contamination of the ulcer. He has scheduled bowel movements. They have been told he has exposed bone but did not know of any history of osteomyelitis. He feels well otherwise and denies fever and chills. His appetite is good. He had a wound culture done on 12/02/18. It showed Staphylococcus aureus and Streptococcus agalactiae. He had been on Keflex. Will add Augmentin. He had a CT Pelvis on 12/07/18. It showed a large sacral decubitus ulcer and the lower left hemisacrum shows interval change with bony demineralization accompanied by heterotopic bone formation in keeping with osteomyelitis. He is currently using Silver dressing changes. 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 Excision of sacral pressure sore in the posterior aspect of the pelvis. ALLERGIES latex codeine MEDICATIONS Darifenacin SOCIAL HISTORY Never smoker FAMILY HISTORY Noncontributory. REVIEW OF SYSTEMS Constitutional: Denies: Anorexia, Chills, Fever. Eyes: Denies: Blurred vision, Pain. HEENT: Denies: Difficulty Swallowing. Cardiovascular: Denies: Claudication, Chest Tightness. Respiratory: Denies: Cough, Hemoptysis. Gastrointestinal: Denies: Abdominal Pain, Hematemesis, Vomiting. Genitourinary: Denies: Hematuria. Skin: Denies: Jaundice PHYSICAL EXAMINATION General: Alert, Oriented x3, Cooperative. HEENT: PERRL. EOMI. Oral: Moist Mucosa Neck: Supple, nontender. No cervical adenopathy. Lungs: Clear to auscultation. Cardiovascular: Regular rate, Regular Rhythm Abdomen: Soft, nondistended. Extremities: Skin: Large sacral pressure sore in the posterior aspect of the pelvis, Stage IV. Bone is palpable. Some granulation tissue is present. Close to the anal opening. Measures 5 x 5 x 1.5 cm. Neurological: Cranial nerves II-XII grossly intact Psych/Mental Status: Normal Affect ASSESSMENT 1. 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 2. Chronic osteomyelitis of the pelvis. 3. Spina bifida. PLAN Continue Silver dressing changes to the posterior aspect of the pelvis in the sacral area. Wound culture from 12/02/18 showed Staphylococcus aureus and Streptococcus agalactiae. He had been on Keflex. Augmentin was added. He has finished the antibiotics. Family is not in a hurry for major surgery at this time. They want to see how much this ulcer can heal. There is good granulation tissue, but it appears if there is some abnormal scar tissue that may get in the way of healing. After talking to them, I think they are hesitant to proceed with the more complex myocutaneous flap closure. Excision of the pressure sore intermittently is needed because of the development of abnormal scarring that can be a hindrance to healing. After surgery, will begin wound care with the VAC. Will send soft tissue to Pathology and Microbiology and will send bone to Pathology and Microbiology. A positive culture may necessitate antibiotic modification. If Pathology is positive for ostemyelitis, then would need intermediate IV antibiotics through a PICC line. Also he would be evaluated for HBO treatments which can help salvage healing of a wound with underlying chronic refractory osteomyelitis of the pelvis. A Pathology report from [facility] from surgery on 07/11/14 showed no definite evidience of osteomyelitis, but the comment from the pathologist states Because osteomyelitis can be patchy, correlation with bone cultures and CRP levels can sometims have better predictive value. CRP=9.50 mg/dL from 07/13/14. On 07/16/14 Dr. Hagen was using a diagnosis of osteomyelitis. Since the note mentions osteomyelitis in the diagnosis, then we can resubmit for medical approval of HBO. If not successful, we can repeat the CT looking for continued radiologic evidence of chronic osteomyelitis of the pelvis. As long as osteomyelitis of the pelvis is still suspicious on the CT, we can start HBO treatments at that time. If surgery is done then can check the bone for osteomyelitis and can hold off on the CT. Surgery would be done under general anesthesia with a surgical observation overnight stay in the hospital. I told them that healing would be more efficient if we proceed with operative excision. Can also discuss eventual flap surgery for wound closure. Patient was informed of the risks and complications of the procedure including alternatives to surgery. These were discussed with him personally. He voices understanding and wishes to proceed. Patient and his father voice understanding that surgical excision will be necessary in the future. 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 They are ready to proceed with surgery. Will schedule the surgery next month in July. They are also amenable to the VAC after surgery for a little while until they resume training.
[2019-08-05 06:39] LABS: Hematocrit 44.6 % (40-54); Hemoglobin 13.2 g/dL (13.0-16.5); Mean Corp Hgb Conc 29.6 g/dL (32-36); Mean Corpuscular Hgb 23.9 pg (27.0-32.0); Mean Corpuscular Volume 80.7 fL (80-94); Mean Platelet Vol. 9.5 fl (6.2-12.0); Platelet Count 309 K/mm3 (150-450); RBC Distribution Width CV 15.2 % (11.6-14.6); RBC Distribution Width SD 43.6 fl (35.1-43.9); Red Blood Count 5.53 M/mm3 (4.6-6.2); White Blood Count 6.3 K/mm3 (4.4-11.0)
[2019-08-05 06:53] LABS: Anion Gap 4 (5-15); BUN 15 mg/dL (7-18); BUN/Creat Ratio 25.4 RATIO (10-20); Calcium,Total 8.8 mg/dL (8.5-10.1); Chloride 106 mmol/L (98-107); Creatinine, Serum 0.59 mg/dL (0.70-1.30); EST Glomerular Filtration Rate 181 mL/min (>60); Est Glom Filt Rate - Afr Amer 219 mL/min (>60); Glucose 88 mg/dL (74-106); Potassium 3.6 mmol/L (3.5-5.1); Sodium Level 142 mmol/L (136-145)
[2019-08-05] MEDS: Lactated Ringers 1,000 ML 100 ML IV (07:20)
--- NOTE | 2019-08-05 07:30 | PRES_PTH ---
PATIENT: RORY HERNÁNDEZ LOC: MS3 U#:[id number] AGE/SX: 23/M ROOM: MS322 RE08/05/[address]: Dr. Luis Gomez MD : 1995 BED: 1 DIS: 08/06/2019 SPEC #: [id number] RECD: 08/05/19 14:36 STATUS: ANGELITA REZandra #: [id number] MAN: 08/05/19 07:[address]: Luis Gomez DEPT: SURGICAL PATHOLOGY RECD BY: Bradly Bhat ENTERED: 08/06/19 09:41 SP TYPE: PRESS SORE SEVERINO DR: Dr. Kevin Coleman MD Tissues: A - Ischium, NOS B - Ischium, NOS Procedures: Decalcification bone/plaque Surgery Specimen Level III HEADER OPERATION: Excision sacral pressure sore, posterior aspect of pelvis PRE-OP DIAGNOSIS: Sacral pressure sore, stage IV; osteomyelitis; spina bifida TISSUE SUBMITTED: A - Soft tissue sacral area, B - Bone sacral aspect of pelvis MICROSCOPIC DIAGNOSIS A. Soft tissue sacral area: Pieces of skin with underlying tissue with ulceration, acute and chronic inflammation, granulation tissue reaction and reactive changes. B. Bone sacral aspect of pelvis: Pieces of bone with reactive changes. Negative for acute osteomyelitis. ARTIE:addy 08/11/19 MICROSCOPIC DESCRIPTION Slides are reviewed. GROSS DESCRIPTION A - Received in fixative is one container labeled with the patient's name and designated soft tissue sacral area. The specimen consists of a C-shaped piece of skin with underlying tissue measuring 5 x 4.5 x 1 cm. Also present in the container are two detached pieces of soft tissue measuring in aggregate 3 x 3 x 1.3 cm. No mass lesion is identified. Electronic Test Technician sections are submitted in two cassettes. B - Received in fixative is one container labeled with the patient's name and designated bone sacral aspect of pelvis. The specimen consists of multiple fragments of bone that in aggregate measure 1.5 x 1.5 x 0.3 cm. The entire specimen is submitted in one cassette after decalcification. / ARTIE:addy 08/06/19 TC:2 CPT: 64962 x2, 66265
--- NOTE | 2019-08-05 09:02 | PCM.OPRPT ---
Report of Operation Date of Procedure: 08/05/19 Pre-Operative Diagnosis: 1. 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 2. Chronic osteomyelitis of the pelvis. 3. Spina bifida. Post-Operative Diagnosis: Same. Surgery/Procedure Performed:: 1. Excision sacral pressure sore in posterior aspect of pelvis, Stage IV. 2. Partial ostectomy pelvis for osteomyelitis. Description of Surgical Findings:: 23 year old man with past medical history of spina bifida presented to the [facility] Center with a sacral pressure sore. He had on about 4 years ago and his mother thinks he had osteomyelitis at that time. Several months ago, he developed a recurrence during an inpatient hospital stay in [place]. He has been treated with antibiotics and the VAC. While he was in [place], it was recommended to him to proceed with excision of the pressure sore with myocutaneous flap closure. He presents today for another opinion because he is not ready for surgery at this time, and they felt not much improvement has occurred over the last few months. They deny stool contamination of the ulcer. He has scheduled bowel movements. They have been told he has exposed bone but did not know of any history of osteomyelitis. He feels well otherwise and denies fever and chills. His appetite is good. He had a wound culture done on 12/02/18. It showed Staphylococcus aureus and Streptococcus agalactiae. He had been on Keflex. Will add Augmentin. He had a CT Pelvis on 12/07/18. It showed a large sacral decubitus ulcer and the lower left hemisacrum shows interval change with bony demineralization accompanied by heterotopic bone formation in keeping with osteomyelitis. He is currently using Silver dressing changes. If surgery is done then can check the bone for osteomyelitis and can hold off on the CT. Surgery would be done under general anesthesia with a surgical observation overnight stay in the hospital. I told them that healing would be more efficient if we proceed with operative excision. Can also discuss eventual flap surgery for wound closure. Patient was informed of the risks and complications of the procedure including alternatives to surgery. These were discussed with him personally. He voices understanding and wishes to proceed. Patient and his father voice understanding that surgical excision will be necessary in the future. 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 They are ready to proceed with surgery. They are also amenable to the VAC after surgery for a little while until they resume training. Size of defect sacral area in posterior aspect of pelvis - 6 x 6 x 1.5 cm. chief of field operations: None Type of Anesthesia:: General Specimen's removed: 1. Sacral pressure sore in posterior aspect pelvis soft tissue to Pathology and Microbiology. 2. Sacral pressure sore in posterior aspect pelvis bone to Pathology and Microbioloby. Drains: none. Estimated Blood Loss (mL): 150 ml. Description of Procedure: Patient was taken to OR in supine position and was placed under general anesthesia. He was then placed in the prone position. The sacral area was prepped and draped in the usual fashion. SCD's were placed for DVT prophylaxis. Perioperative antibiotics were given intravenously. Using xylocaine with epinephrine, the sacral pressure sore in the posterior aspect of the pelvis was infiltrated. After waiting 5 minutes for the anesthetic to take effect, I excised the sacral pressure sore in the posterior aspect of the pelvis in a circular fashion to include the undermined areas as well. Dissection was carried down into the subcutaneous tissue through the scarred muscle which was adherent to the underlying bone. A partial ostectomy was then performed using rongeurs. Clinically the bone did not look overtly suspicious for osteomyelitis. Specimens from several areas of bone were taken. A rasp was used to smooth out the bony edges. After excising the abnormal bursal scar tissue, the remaining soft tissue showed good bleeding. Hemostasis was obtained with electrocautery. I also used some bone wax to help with hemostasis on some of the bony edges that were debrided. The size of the sacral pressure sore after excision was 6 x 6 x 1.5 cm. The wound was irrigated with saline. I dressed the wound with Mepitel nonadherent dressing followed by Kerlix gauze and Betadine and dry Kerlix gauze followed by ABD pads compression dressing. Half the soft tissue and half the bone were sent to Pathology for analysis to rule out carcinoma and to evaluate for osteomyelitis. Half the soft tissue and half the bone were sent to Microbiology for culture. A positive culture will necessitate antibiotic therapy. If pathology is positive for osteomyelitis, then correction IV antibiotics would be needed through a PICC line. He would also be evaluated at the Wound Center for HBO treatments if necessary. Patient tolerated the procedure well and was sent to PACU in satisfactory condition. Patient will be sent upstairs for continued postop care. The VAC will be placed tomorrow. Anticipate increased metabolic demands. Will check a Prealbumin and encourage nutritional supplementation with protein to help the healing process. After discharge will followup at the Wound Center. Grafts/Implants Used: None. - Complications None. - Admit VTE Documentation VTE Present on Admission: No VTE Mechan Device Prophylaxis: SCD's VTE Pharm Prophylaxis ordered?: No Code Visit Surgery Charges CPT - 51296 ICD-10 - L89.154, M86.659, Q05.9
[2019-08-05] MEDS: Docusate Sodium 100 MG Capsule PO ×2 (12:09→21:14)
[2019-08-05] MEDS: Lactated Ringers 1,000 ML 60 ML IV ×2 (12:13→23:39)
[2019-08-05] MEDS: Tolterodine Tartrate 4 MG CAP.SA PO (21:14)
[2019-08-06 05:00] VITALS: BP 115/62; PULSE 78; RESP 16; TEMP 37; O2SAT 98
[2019-08-06 06:42] LABS: Hematocrit 40.8 % (40-54); Hemoglobin 12.6 g/dL (13.0-16.5); Mean Corp Hgb Conc 30.9 g/dL (32-36); Mean Corpuscular Hgb 24.5 pg (27.0-32.0); Mean Corpuscular Volume 79.2 fL (80-94); Mean Platelet Vol. 9.9 fl (6.2-12.0); Platelet Count 262 K/mm3 (150-450); RBC Distribution Width CV 15.3 % (11.6-14.6); RBC Distribution Width SD 43.7 fl (35.1-43.9); Red Blood Count 5.15 M/mm3 (4.6-6.2); White Blood Count 7.9 K/mm3 (4.4-11.0)
[2019-08-06 07:04] LABS: Anion Gap 6 (5-15); BUN 13 mg/dL (7-18); BUN/Creat Ratio 21.8 RATIO (10-20); Calcium,Total 8.4 mg/dL (8.5-10.1); Chloride 104 mmol/L (98-107); EST Glomerular Filtration Rate 179 mL/min (>60); Est Glom Filt Rate - Afr Amer 216 mL/min (>60); Glucose 89 mg/dL (74-106); Potassium 3.8 mmol/L (3.5-5.1); Prealbumin 20.6 mg/dL (20.0-40.0); Sodium Level 140 mmol/L (136-145)
--- NOTE | 2019-08-06 09:52 | PCM.PN.SRG ---
<Luis Gomez Dominic - Last Filed: 08/06/19 09:52> Subjective: Postop #1 - Physical Exam Vitals/I&O's: Vital Signs Temp Pulse Resp BP Pulse Ox 98.6 F 78 16 115/62 98 08/06/19 05:00 08/06/19 05:00 08/06/19 05:00 08/06/19 05:00 08/06/19 05:00 Oxygen Delivery Method Room Air Weight: 134 lb 15.825 oz Body Mass Index (BMI) 23.1 Intake and Output for Last 24 Hours 08/04/19 08/05/19 08/06/19 23:59 23:59 23:59 Intake Total 2625.63 / 3025.63 955 / 955 Output Total 350 / 350 Balance 2275.63 / 2675.63 955 / 955 Microbiology Past 72 Hours 08/05/19 Unknown Bone - Buttock Gram Stain - Final 08/05/19 Unknown Tissue - Buttock Gram Stain - Final Laboratory Results 08/06/19 06:25: WBC 7.9, RBC 5.15, Hgb 12.6 L, Hct 40.8, MCV 79.2 L, MCH 24.5 L, MCHC 30.9 L, RDW Std Deviation 43.7, RDW Coeff of Walter 15.3 H, Plt Count 262, MPV 9.9 08/06/19 06:25: Sodium 140, Potassium 3.8, Chloride 104, Carbon Dioxide 30.0, Anion Gap 6, BUN 13, Creatinine 0.60 L, Estim Creat Clear Calc 161.70, Est GFR (MDRD) Af Amer 216, Est GFR (MDRD) Non-Af 179, BUN/Creatinine Ratio 21.8 H, Glucose 89, Calcium 8.4 L, Prealbumin 20.6 Current Medications Diazepam (Valium) 5 mg PO 4X/DAY PRN PRN PRN Reason: SPASMS Docusate Sodium (Colace) 100 mg PO BID BRIEN Last Admin: 08/05/19 21:14 Dose: 100 mg Documented by: Hydromorphone HCl (Dilaudid Inj) 1 mg IV Q4H PRN PRN PRN Reason: Pain Score 6-10/10 Sodium Chloride () 250 mls @ 15 mls/hr IV .[id number] PRN PRN Reason: Saline Flush Ampicillin Sodium/Sulbactam (Sodium 3 gm/ Sodium Chloride) 112 mls @ 150 mls/hr IV Q6 [facility] Last Infusion: 08/06/19 05:55 Dose: Infused Documented by: Lactated Ringer's () 1,000 mls @ 60 mls/hr IV .[id number] [facility] Last Infusion: 08/06/19 05:55 Dose: 60 mls/hr Documented by: Nutritional Formula (Valentin - Warrick Flavor) 1 packet PO BIDCM [facility] Last Admin: 08/05/19 16:51 Dose: 1 packet Documented by: Nutritional Formula (Lactose Free) (Ensure Enlive) 120 ml PO 4X/DAY [facility] Last Admin: 08/05/19 21:14 Dose: 120 ml Documented by: Ondansetron HCl (Zofran) 4 mg IV Q6H PRN PRN PRN Reason: NAUSEA Oxycodone HCl (Oxyir) 10 mg PO Q4H PRN PRN PRN Reason: Pain Score 6-10/10 Promethazine HCl (Phenergan Tablet) 25 mg PO Q4H PRN PRN PRN Reason: NAUSEA/VOMITING Sodium Chloride () 10 - 40 ml IV UD PRN PRN Reason: SALINE FLUSH Tolterodine Tartrate (Detrol La) 4 mg PO HS [facility] Last Admin: 08/05/19 21:14 Dose: 4 mg Documented by: Medical Necessity - Tobacco Use Smoking Status: Never smoker Tobacco Use: Non-smoker <Lacey Georges E - Last Filed: 08/06/19 17:19> - Physical Exam Vitals/I&O's: Vital Signs Temp Pulse Resp BP Pulse Ox 99.6 F H 96 18 123/60 H 99 08/06/19 14:50 08/06/19 14:50 08/06/19 14:50 08/06/19 14:50 08/06/19 14:50 Oxygen Delivery Method Room Air Weight: 134 lb 15.825 oz Body Mass Index (BMI) 23.1 Intake and Output for Last 24 Hours 08/04/19 08/05/19 08/06/19 23:59 23:59 23:59 Intake Total 2625.63 / 3025.63 1478 / 1478 Output Total 350 / 350 Balance 2275.63 / 2675.63 1478 / 1478 General: Alert, Oriented x3, Cooperative HEENT: Atraumatic Oral: Moist Mucosa Lungs: Normal air movement Cardiovascular: Regular rate Skin: Ulcer/ Wound - open sacral ulcer, no bleeding observed. Musculoskeletal: No Tenderness to Palpation of Joints or Extremities Neurological: Neuro grossly intact Psych/Mental Status: Normal Affect, Appropriate Microbiology Past 72 Hours 08/05/19 Unknown Bone - Buttock Gram Stain - Final 08/05/19 Unknown Bone - Buttock Wound Culture - Preliminary No growth-Final to follow 08/05/19 Unknown Tissue - Buttock Gram Stain - Final 08/05/19 Unknown Tissue - Buttock Wound Culture - Preliminary Staphylococcus aureus Laboratory Results 08/06/19 06:25: WBC 7.9, RBC 5.15, Hgb 12.6 L, Hct 40.8, MCV 79.2 L, MCH 24.5 L, MCHC 30.9 L, RDW Std Deviation 43.7, RDW Coeff of Walter 15.3 H, Plt Count 262, MPV 9.9 08/06/19 06:25: Sodium 140, Potassium 3.8, Chloride 104, Carbon Dioxide 30.0, Anion Gap 6, BUN 13, Creatinine 0.60 L, Estim Creat Clear Calc 161.70, Est GFR (MDRD) Af Amer 216, Est GFR (MDRD) Non-Af 179, BUN/Creatinine Ratio 21.8 H, Glucose 89, Calcium 8.4 L, Prealbumin 20.6 Assessment/Plan 1. Chronic osteomyelitis of Pelvis 2. Stage IV Pressure Ulcer of Sacrum 3. Spina bifida Patient underwent excision sacral pressure sore in posterior aspect of pelvis, Stage IV and partial ostectomy pelvis for osteomyelitis yesterday. Wound VAC applied today at 150 mmHg. No bleeding observed. He has an appointment on Friday at the wound center. He is being discharged today. Prealbumin today 20.6. Appetite is good. Patient denying any complaints.
[2019-08-06] MEDS: Docusate Sodium 100 MG Capsule PO (09:54)
--- NOTE | 2019-08-06 09:57 | DCINST_ITS ---
You will use the following diet at home:: No restrictions, Other - encourage nutritional supplementation with protein to help the healing process. Discharge Activity: May Shower - on the days the vac is changed. May shower in (days): 2 - may shower on the days the vac is changed. Call your doctor if your incision/area has: Continuous Slow Oozing, Sudden Increased Bleeding, Increased Pain/ Swelling, Increased Redness, Foul Smelling Discharge, Swelling at the incision site Call your doctor if you observe: Fever of 101 or Higher, Coldness, Increased Pain, Shortness of breath, Chest pain, Calf discomfort, Uncontrolled pain Suture Line Care: - - vac changes three times per week at 150 mmHg continuous suction. Change Dressing in (Days):: 2 - vac changes three times per week. Cleanse incision/area with: Soap & Water - may cleanse the wound with soap and water at the time of the vac dressing change., - - may shower on the days the vac is changed. Allergies/Adverse Reactions: Allergies codeine Allergy (Verified 08/02/19 11:18) Hives latex Allergy (Verified 05/04/18 00:12) Other Medications to take at Discharge Darifenacin Hydrobromide [Darifenacin ER] 15 mg PO QHS 10/09/17 Amox/Clavulanate Tablet [Augmentin Tablet] 875 mg PO Q12H #30 tab 08/06/19 Diazepam [Valium] 5 mg PO 4X/DAY PRN PRN #30 tab 08/06/19 Docusate Sodium [Colace] 100 mg PO BID #60 cap 08/06/19 Oxycodone HCl/Acetaminophen [Percocet 5/325] 1 tab PO Q6H PRN PRN 7 Days #30 tab 08/06/19 Tolterodine Tartrate [Detrol LA] 4 mg PO HS cap.sa 08/06/19 proMETHazine tablet [Phenergan tablet] 25 mg PO 4X/DAY PRN PRN #30 tab 08/06/19 The following prescriptions were given: Amox/Clavulanate Tablet [Augmentin Tablet] 875 mg PO Q12H #30 tab Prescription Printed Docusate Sodium [Colace] 100 mg PO BID #60 cap Prescription Printed Oxycodone HCl/Acetaminophen [Percocet 5/325] 1 tab PO Q6H PRN PRN 7 Days #30 tab PRN Reason: Pain Score 4-5/10 Prescription Printed proMETHazine tablet [Phenergan tablet] 25 mg PO 4X/DAY PRN PRN #30 tab PRN Reason: NAUSEA/VOMITING Prescription Printed Diazepam [Valium] 5 mg PO 4X/DAY PRN PRN #30 tab PRN Reason: Spasms Prescription Printed Primary Care Physician: Kevin Coleman MD [Primary Care Provider] - Test Results: Test results from this visit will be discussed in further detail at your follow- up appointment, if applicable. Please Follow Up With: Luis Gomez MD When: one week at wound center. call [phone] for appt. Proposed Discharge Date: 08/06/19
[2019-08-06 09:58] VITALS: BP 109/52; PULSE 72; RESP 16; TEMP 36.9; O2SAT 98
--- NOTE | 2019-08-06 11:25 | CASEMGMT ---
SASHA DE PAZ in to discuss discharge plans with patient and mother. Patient and family would like patient to discharge home and deny need for HHC. They prefer to follow in the [facility] and have appt for Friday08/09/19 1345. Patient denied further needs or questions at this time. SASHA DE PAZ called [facility] to confirm appointment.
[2019-08-06 14:50] VITALS: BP 123/60; PULSE 96; RESP 18; TEMP 37.6; O2SAT 99
== END 2019-08-06 15:10 | disposition home or self-care (01) ==
LOC: MS3 09:49 → SDC 09:49
PROVIDERS: Anesthesiology; Admitting Provider Surgery; Family Provider Family Medicine; PCP Family Medicine; Referring Provider Surgery; Visit Provider Surgery
PROC: (CPT 15999; principal; 2019-08-05 07:15)
DX: L89.154 Pressure ulcer of sacral region, stage 4 (principal); Q05.9 Spina bifida, unspecified; M86.68 Other chronic osteomyelitis, other site
CPT/HCPCS: 01120; 15937; 36415; 80048; 84134; 85027; 87015; 87070; 87075; 87077; 87102; 87116; 87176; 87186; 87205; 87206; 88304; 88305; 88311; 96365; 96366; 97802; 99218; 99251; J7120; G0378; G0379; G0463; J0295; J2405

== ENCOUNTER → 2019-08-10 14:59 | Outpatient (CLI) | payer MEDICAID, SELFPAY ==
[2019-08-09 13:56] VITALS: BMI 23.1
[2019-08-10 16:34] LABS: Hematocrit 40.2 % (40-54); Hemoglobin 12.1 g/dL (13.0-16.5); Mean Corp Hgb Conc 30.1 g/dL (32-36); Mean Corpuscular Hgb 24.2 pg (27.0-32.0); Mean Corpuscular Volume 80.4 fL (80-94); Mean Platelet Vol. 11.2 fl (6.2-12.0); Platelet Count 331 K/mm3 (150-450); RBC Distribution Width CV 15.6 % (11.6-14.6); RBC Distribution Width SD 44.8 fl (35.1-43.9); White Blood Count 11.7 K/mm3 (4.4-11.0)
[2019-08-10 16:55] LABS: Anion Gap 7 (5-15); BUN 12 mg/dL (7-18); BUN/Creat Ratio 21.8 RATIO (10-20); Calcium,Total 8.9 mg/dL (8.5-10.1); Chloride 103 mmol/L (98-107); Creatinine, Serum 0.55 mg/dL (0.70-1.30); EST Glomerular Filtration Rate 196 mL/min (>60); Est Glom Filt Rate - Afr Amer 237 mL/min (>60); Glucose 86 mg/dL (74-106); Potassium 3.5 mmol/L (3.5-5.1); Sodium Level 138 mmol/L (136-145)
== END ==
PROVIDERS: Family Provider Family Medicine; PCP Family Medicine; Referring Provider Internal Medicine; Visit Provider Internal Medicine
DX: R50.9 Fever, unspecified (principal); R53.83 Other fatigue
CPT/HCPCS: 36415; 80048; 85027

== ENCOUNTER 2019-08-16 15:29 | Outpatient (RCR) | payer MEDICAID, SELFPAY ==
[2019-07-23 00:41] VITALS: BP 121/73; PULSE 77; RESP 16; TEMP 36.4
[2019-07-26 08:17] VITALS: BP 134/66; PULSE 64; RESP 18; TEMP 37.2; BMI 23.1
--- NOTE | 2019-07-26 09:03 | PCM.WC.PN ---
(1) Stage IV pressure ulcer of sacral region Status: Chronic Current Visit: Yes Code(s): L89.154 - Pressure ulcer of sacral region, stage 4 (2) Chronic osteomyelitis of pelvis Status: Chronic Current Visit: Yes Code(s): M86.659 - Other chronic osteomyelitis, unspecified thigh (3) Spina bifida Status: Chronic Current Visit: Yes Code(s): Q05.9 - Spina bifida, unspecified Type of Wound Date of Service: 07/26/19 Chief Complaint: Sacral pressure sore in the posterior aspect of the pelvis, Stage IV, with osteomyelitis of the pelvis. History of Wound: 23 year old man with past medical history of spina bifida presented to the [facility] with a sacral pressure sore in the posterior aspect of the pelvis. He had on about 4 years ago and his mother thinks he had osteomyelitis at that time. Several months ago, he developed a recurrence during an inpatient hospital stay in [place]. He has been treated with antibiotics and the VAC. While he was in [place], it was recommended to him to proceed with excision of the pressure sore with myocutaneous flap closure. He comes to the [facility] Center because he is not ready for surgery at this time, and they felt not much improvement has occurred over the last few months. They deny stool contamination of the ulcer. He has scheduled bowel movements. They have been told he has exposed bone but did not know of any history of osteomyelitis. He feels well otherwise and denies fever and chills. His appetite is good. He had a wound culture done on 12/02/18. It showed Staphylococcus aureus and Streptococcus agalactiae. He had been on Keflex. Augmentin was added which he has completed. He had a CT Pelvis on 12/07/18. It showed a large sacral decubitus ulcer and the lower left hemisacrum shows interval change with bony demineralization accompanied by heterotopic bone formation in keeping with osteomyelitis. He is currently using Silver dressing changes. We were able to get a Pathology report from 4 years ago. It was negative for osteomyelitis. However, even though the Pathology report from [facility] from surgery on 07/11/14 showed no definite evidience of osteomyelitis, the comment from the pathologist states Because osteomyelitis can be patchy, correlation with bone cultures and CRP levels can sometims have better predictive value. CRP=9.50 mg/dL from 07/13/14. On 07/16/14 Dr. Hagen was using a diagnosis of osteomyelitis and referred to checking frequent prealbumin levels. Since the note mentions osteomyelitis in the diagnosis, then we can resubmit for medical approval of HBO. He would definitely benefit from HBO treatments. According to the reports he has presence of chronic refractory osteomyelitis in his pelvis. He is scheduled next week for a surgical debridement. Progress of Wound: Stable. - Physical Exam Vital Signs Temp Pulse Resp BP 98.9 F 64 18 134/66 H 07/26/19 08:17 07/26/19 08:17 07/26/19 08:17 07/26/19 08:17 General: Alert, Oriented x3, Cooperative HEENT: Atraumatic Oral: Moist Mucosa Lungs: Normal air movement Cardiovascular: Regular rate Extremities: Capillary Refill Less than 3 Seconds Skin: Ulcer/ Wound - Sacral Stage IV ulcer with undermining from 8 o'clock to 3 o'clock Wound Measurements and Assessment WC - Nurse 1 - General Ulcer Measurement Start: 07/26/19 08:15 Freq: Status: Active Protocol: Activity Type Activity Date Activity User E-Sign Co-Sign Detail Recorded Client Recorded Date Recorded By Document 07/26/19 08:17 DL [id number] 07/26/19 08:22 DL 07/26/19 08:17 Wound Center Nurse 1 [Ulcer Assessment] # 1 Coccyx -Current Size (cm) - Length 3.5 -Current Size (cm) - Width 2.2 -Current Size (cm) - Depth 0.7 -Total Square Cm 7.70 -Photo Taken No -Maximum Distance #2 (cm) 1.7 -Circular Undermining Yes -Exudate Amt Medium -Exudate Type Serosanguineous -Wound Margin Thickened & Rolled Under -Granulation Amt Large (67-100%) -Granulation Quality Red -Necrosis Amt Small (1-33%) -Necrotic Tissue Type Adherent Slough -Structure Exposed N/A -Texture (Aishwarya-wound Skin Appearance) Scarring -Moisture (Aishwarya-wound Skin Appearance No Abnormality ) -Color (Aishwarya-wound Skin Appearance) No Abnormality -Temperature (Aishwarya-wound Skin No Abnormality Appearance) (Pt Warm) -Tenderness on Palpation (Aishwarya-wound No Skin Appearance) -Ulcer Cleansing Wound Cleanser -Foul Odor after Cleansing No -Anesthetic Used 5% Lidocaine Gel WC - Nurse 2 - General Ulcer CM Notes Start: 07/26/19 08:15 Freq: Status: Active Protocol: Activity Type Activity Date Activity User E-Sign Co-Sign Detail Recorded Client Recorded Date Recorded By Document 07/26/19 08:34 [id number] 07/26/19 08:36 07/26/19 08:34 Wound Center Nurse 2 [Procedure/Treatment] -Time 08:34 -Correct Patient Yes -Correct Side, Site, Position Yes -Correct Procedure Yes -Procedure Performed Yes -Type of Procedure Debridement -Clinical Debridement Muscle -Post Debridement Size (cm) - Length 3.2 -Post Debridement Size (cm) - Width 3.5 -Post Debridement Size (cm) - Depth 1.0 -Total Square Cm 11.20 -Wound/Ulcer Outcome Not Healed -Ulcer Cleansing Rinsed/ Irrigated with Saline -Foul Odor after Cleansing No -Bioengineered Tissue No -Bleeding Controlled with Pressure -Other undermining 7-3 :00---2.0cm -Offloading No -Treatment Response Procedure Tolerated Well [See Physician Procedure note for Specifics] Pain Scale: 0-10 Numeric [Pain] -Is Patient Pain Free? Yes Musculoskeletal: No Tenderness to Palpation of Joints or Extremities Neurological: Cranial nerves II-XII grossly intact Psych/Mental Status: Normal Affect, Appropriate Debridement Note Post-Debridement Measurements/Treatment - Nurse 2 - General Ulcer CM Notes Start: 07/26/19 08:15 Freq: Status: Active Protocol: Activity Type Activity Date Activity User E-Sign Co-Sign Detail Recorded Client Recorded Date Recorded By Document 07/26/19 08:34 [id number] 07/26/19 08:36 07/26/19 08:34 Wound Center Nurse 2 # 1 Coccyx -Time 08:34 -Correct Patient Yes -Correct Side, Site, Position Yes -Correct Procedure Yes -Procedure Performed Yes -Type of Procedure Debridement -Clinical Debridement Muscle -Post Debridement Size (cm) - Length 3.2 -Post Debridement Size (cm) - Width 3.5 -Post Debridement Size (cm) - Depth 1.0 -Total Square Cm 11.20 -Wound/Ulcer Outcome Not Healed -Ulcer Cleansing Rinsed/ Irrigated with Saline -Foul Odor after Cleansing No -Bioengineered Tissue No -Bleeding Controlled with Pressure -Other undermining 7-3 :00---2.0cm -Offloading No -Treatment Response Procedure Tolerated Well Pain Scale: 0-10 Numeric Is Patient Pain Free? Yes Wound debrided: Sacral ulcer Laterality: Not Applicable Wound Grade/Stage: Stage IV Type of Debridement: Excisional debridement Anesthesia Used: 4% Lidocaine Solution Depth: Down to and including healthy tissue, in the subcutaneous layer, to muscle Percentage of wound debrided: 100 Instrument Used: 7mm curette Tissue Removed: Subcutaneous tissue, slough into the muscle layer Severity: Fat Layer Exposed Amount of bleeding with debridement: Moderate Bleeding Controlled with: Pressure, Compression and gauze Patient tolerated procedure well Assessment/Plan Active Problems Chronic osteomyelitis of pelvis (Chronic) Stage IV pressure ulcer of sacral region (Chronic) Spina bifida (Chronic) Assessment: 1. 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 2. Chronic osteomyelitis of the pelvis. 3. Spina bifida. Plan: Continue Silver dressing changes to the posterior aspect of the pelvis in the sacral area. Wound culture from 12/02/18 showed Staphylococcus aureus and Streptococcus agalactiae. He had been on Keflex. Augmentin was added. He has finished the antibiotics. Family is not in a hurry for major surgery at this time. They want to see how much this ulcer can heal. There is good granulation tissue, but it appears if there is some abnormal scar tissue that may get in the way of healing. After talking to them, I think they are hesitant to proceed with the more complex myocutaneous flap closure. Excision of the pressure sore intermittently is needed because of the development of abnormal scarring that can be a hindrance to healing. After surgery, will begin wound care with the VAC. Will send soft tissue to Pathology and Microbiology and will send bone to Pathology and Microbiology. A positive culture may necessitate antibiotic modification. If Pathology is positive for ostemyelitis, then would need ocean transportation intermediary IV antibiotics through a PICC line. Also he would be evaluated for HBO treatments which can help salvage healing of a wound with underlying chronic refractory osteomyelitis of the pelvis. A Pathology report from [facility] from surgery on 07/11/14 showed no definite evidience of osteomyelitis, but the comment from the pathologist states Because osteomyelitis can be patchy, correlation with bone cultures and CRP levels can sometims have better predictive value. CRP=9.50 mg/dL from 07/13/14. On 07/16/14 Dr. Hagen was using a diagnosis of osteomyelitis. Since the note mentions osteomyelitis in the diagnosis, then we can resubmit for medical approval of HBO. If not successful, we can repeat the CT looking for continued radiologic evidence of chronic osteomyelitis of the pelvis. As long as osteomyelitis of the pelvis is still suspicious on the CT, we can start HBO treatments at that time. Surgery would be done under general anesthesia with a surgical observation overnight stay in the hospital. I told them that healing would be more efficient if we proceed with operative excision. Can also discuss eventual flap surgery for wound closure. Patient was informed of the risks and complications of the procedure including alternatives to surgery. These were discussed with him personally. He voices understanding and wishes to proceed. Patient and his father voice understanding that surgical excision will be necessary in the future. 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 They are ready to proceed with surgery. Surgery scheduled for next week. They are also amenable to the VAC after surgery for a little while until they resume training. Followup 2 weeks. Code Visit [id number]: [id number] Alma Delia musc/fascia 20 sq cm/<
[2019-08-09 13:56] VITALS: BP 109/82; PULSE 103; RESP 20; TEMP 37.9; BMI 23.1
--- NOTE | 2019-08-09 16:16 | PN.PCM_ITS ---
(1) Stage IV pressure ulcer of sacral region Status: Chronic Current Visit: Yes Code(s): L89.154 - Pressure ulcer of sacral region, stage 4 (2) Chronic osteomyelitis of pelvis Status: Chronic Current Visit: Yes Code(s): M86.659 - Other chronic osteomyelitis, unspecified thigh (3) Spina bifida Status: Chronic Current Visit: Yes Code(s): Q05.9 - Spina bifida, unspecified Type of Wound Date of Service: 08/09/19 Chief Complaint: Sacral pressure sore in the posterior aspect of the pelvis, Stage IV, with osteomyelitis of the pelvis. History of Wound: 23 year old man with past medical history of spina bifida p resented to the Wound Center with a sacral pressure sore in the posterior aspect of the pelvis. He had a debridement about 4 years ago and his mother thinks he had osteomyelitis at that time. Several months ago, he developed a recurrence during an inpatient hospital stay in [place]. He has been treated with antibiotics and the VAC. While he was in [place], it was recommended to him to proceed with excision of the pressure sore with myocutaneous flap closure. He comes to the Wound Center because he is not ready for surgery at this time, and they felt not much improvement has occurred over the last few months. They deny stool contamination of the ulcer. He has scheduled bowel movements. They have been told he has exposed bone but did not know of any history of osteomyelitis. He had a wound culture done on 12/02/18. It showed Staphylococcus aureus and Streptococcus agalactiae. He had been on Keflex. Augmentin was added which he has completed. He had a CT Pelvis on 12/07/18. It showed a large sacral decubitus ulcer and the lower left hemisacrum shows interval change with bony demineralization accompanied by heterotopic bone formation in keeping with osteomyelitis. We were able to get a Pathology report from 4 years ago. It was negative for osteomyelitis. However, even though the Pathology report from [facility] from surgery on 07/11/14 showed no definite evidience of osteomyelitis, the comment from the pathologist states Because osteomyelitis can be patchy, correlation with bone cultures and CRP levels can sometims have better predictive value. CRP=9.50 mg/dL from 07/13/14. On 07/16/14 Dr. Hagen was using a diagnosis of osteomyelitis and referred to checking frequent prealbumin levels. Since the note mentions osteomyelitis in the diagnosis, then we can resubmit for medical approval of HBO. He would definitely benefit from HBO treatments. According to the reports he has presence of chronic refractory osteomyelitis in his pelvis. On 08/05/19 Surgery 1. Excision sacral pressure sore in posterior aspect of pelvis, Stage IV. 2. Partial ostectomy pelvis for osteomyelitis. Bone culture from surgery negative for bacteria growth. Soft tissue culture Staphylococcus aureus and Anaerobic cocci. Antibiotics changed to Augmentin. Wound Care: wound VAC with changes 3 times per week. Family declined home health so will come into the wound center 3 times per week for VAC changes. He is having a low grade temperature today and not feeling well. Encouraged fluids and protein. Will order labwork per family request. Follow up in ED if symptoms worsen. Progress of Wound: Stable. - Physical Exam Vital Signs Temp Pulse Resp BP 100.2 F H 103 H 20 H 109/82 H 08/09/19 13:56 08/09/19 13:56 08/09/19 13:56 08/09/19 13:56 General: Alert, Cooperative HEENT: Atraumatic Oral: Moist Mucosa Lungs: Clear to auscultation, Normal air movement, No rhonchi, No wheeze Cardiovascular: Regular rate, Regular Rhythm Abdomen: Soft, Non Tender Extremities: Capillary Refill Less than 3 Seconds Skin: Ulcer/ Wound - Sacral ulcer, beefy pink Wound Measurements and Assessment WC - Nurse 1 - General Ulcer Measurement Start: 07/26/19 08:15 Freq: Status: Active Protocol: Activity Type Activity Date Activity User E-Sign Co-Sign Detail Recorded Client Recorded Date Recorded By Document 08/09/19 13:56 DL [id number] 08/09/19 14:06 DL 08/09/19 13:56 Wound Center Nurse 1 [Ulcer Assessment] # 1 Coccyx -Current Size (cm) - Length 5 -Current Size (cm) - Width 5 -Current Size (cm) - Depth 2.7 -Total Square Cm 25 -Photo Taken Yes -Undermining/Tunneling Starts (O' 7 clock) -Undermining/Tunneling Ends (O'clock) 5 -Maximum Distance (cm) 3.3 -Exudate Amt Small -Exudate Type Serosanguineous -Wound Margin Distinct, Outline Attached -Granulation Amt Medium (34-66%) -Granulation Quality Red -Necrosis Amt Medium (34-66%) -Necrotic Tissue Type Adherent Slough -Structure Exposed Bone -Texture (Aishwarya-wound Skin Appearance) Scarring -Moisture (Aishwarya-wound Skin Appearance No Abnormality ) -Color (Aishwarya-wound Skin Appearance) No Abnormality -Temperature (Aishwarya-wound Skin No Abnormality Appearance) (Pt Warm) -Tenderness on Palpation (Aishwarya-wound No Skin Appearance) -Ulcer Cleansing Wound Cleanser -Foul Odor after Cleansing No -Anesthetic Used 4% Lidocaine Solution,5% Lidocaine Gel - Nurse 2 - General Ulcer Notes Start: 07/26/19 08:15 Freq: Status: Active Protocol: Activity Type Activity Date Activity User E-Sign Co-Sign Detail Recorded Client Recorded Date Recorded By Document 08/09/19 14:28 [id number] 08/09/19 14:28 08/09/19 14:28 Wound Center Nurse 2 [Procedure/Treatment] -Correct Patient No -Correct Side, Site, Position No -Correct Procedure No -Procedure Performed No -Wound/Ulcer Outcome Not Healed [See Physician Procedure note for Specifics] Pain Scale: 0-10 Numeric [Pain] -Is Patient Pain Free? Yes Musculoskeletal: No Tenderness to Palpation of Joints or Extremities Neurological: Neuro grossly intact Psych/Mental Status: Normal Affect, Appropriate Debridement Note Post-Debridement Measurements/Treatment - Nurse 2 - General Ulcer Notes Start: 07/26/19 08:15 Freq: Status: Active Protocol: Activity Type Activity Date Activity User E-Sign Co-Sign Detail Recorded Client Recorded Date Recorded By Document 07/26/19 08:34 [id number] 07/26/19 08:36 Document 08/09/19 14:28 [id number] 08/09/19 14:28 07/26/19 08/09/19 08:34 14:28 Wound Center Nurse 2 # 1 Coccyx -Time 08:34 -Correct Patient Yes No -Correct Side, Site, Position Yes No -Correct Procedure Yes No -Procedure Performed Yes No -Type of Procedure Debridement -Clinical Debridement Muscle -Post Debridement Size (cm) - Length 3.2 -Post Debridement Size (cm) - Width 3.5 -Post Debridement Size (cm) - Depth 1.0 -Total Square Cm 11.20 -Wound/Ulcer Outcome Not Healed Not Healed -Ulcer Cleansing Rinsed/ Irrigated with Saline -Foul Odor after Cleansing No -Bioengineered Tissue No -Bleeding Controlled with Pressure -Other undermining 7-3 :00---2.0cm -Offloading No -Treatment Response Procedure Tolerated Well Pain Scale: 0-10 Numeric Is Patient Pain Free? Yes Yes No debridement was completed today Assessment/Plan Active Problems Chronic osteomyelitis of pelvis (Chronic) Stage IV pressure ulcer of sacral region (Chronic) Spina bifida (Chronic) Assessment: 1. 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 2. Chronic osteomyelitis of the pelvis. 3. Spina bifida. Plan: Continue Silver dressing changes to the posterior aspect of the pelvis in the sacral area. Wound culture from 12/02/18 showed Staphylococcus aureus and Streptococcus agalactiae. He had been on Keflex. Augmentin was added. He has finished the antibiotics. Family is not in a hurry for major surgery at this time. They want to see how much this ulcer can heal. There is good granulation tissue, but it appears if there is some abnormal scar tissue that may get in the way of healing. After talking to them, I think they are hesitant to proceed with the more complex myocutaneous flap closure. Excision of the pressure sore intermittently is needed because of the development of abnormal scarring that can be a hindrance to healing. After surgery, will begin wound care with the VAC. Will send soft tissue to Pathology and Microbiology and will send bone to Pathology and Microbiology. A positive culture may necessitate antibiotic modification. If Pathology is positive for ostemyelitis, then would need joint terminal attack controller IV antibiotics through a PICC line. Also he would be evaluated for HBO treatments which can help salvage healing of a wound with underlying chronic refractory osteomyelitis of the pelvis. A Pathology report from [facility] from surgery on 07/11/14 showed no definite evidience of osteomyelitis, but the comment from the pathologist states Because osteomyelitis can be patchy, correlation with bone cultures and CRP levels can sometims have better predictive value. CRP=9.50 mg/dL from 07/13/14. On 07/16/14 Dr. Hagen was using a diagnosis of osteomyelitis. Since the note mentions osteomyelitis in the diagnosis, then we can resubmit for medical approval of HBO. If not successful, we can repeat the CT looking for continued radiologic evidence of chronic osteomyelitis of the pelvis. As long as osteomyelitis of the pelvis is still suspicious on the CT, we can start HBO treatments at that time. Surgery would be done under general anesthesia with a surgical observation overnight stay in the hospital. I told them that healing would be more efficient if we proceed with operative excision. Can also discuss eventual flap surgery for wound closure. 08/05/19 Surgery 1. Excision sacral pressure sore in posterior aspect of pelvis, Stage IV. 2. Partial ostectomy pelvis for osteomyelitis. They are also amenable to the VAC after surgery for a little while until they resume training. They do not want home health for VAC changes, so he will come into the wound center 3 days per week for the VAC change. Bone culture from surgery negative for bacteria growth. Soft tissue culture Staphylococcus aureus and Anaerobic cocci. Antibiotics changed to Augmentin. Followup 1 week. Patient is running a low grade fever today and not feeling well. His family has been ill with respiratory illnesses. Instructed both the patient and his father that he needs to increase his fluid intake. If his symptoms worsen or don't improve then he should follow see PCP or go to ED. Code Visit [id number]
[2019-08-11 12:07] VITALS: BP 123/69; PULSE 93; RESP 16; TEMP 37.7; BMI 23.1
[2019-08-13 09:56] VITALS: BP 134/68; PULSE 99; RESP 16; TEMP 35.9; BMI 23.1
[2019-08-16 12:54] VITALS: BP 135/63; PULSE 85; RESP 20; TEMP 37.1; BMI 23.1
--- NOTE | 2019-08-16 14:05 | PN.PCM_ITS ---
(1) Stage IV pressure ulcer of sacral region Status: Chronic Code(s): L89.154 - Pressure ulcer of sacral region, stage 4 (2) Chronic osteomyelitis of pelvis Status: Chronic Code(s): M86.659 - Other chronic osteomyelitis, unspecified thigh (3) Spina bifida Status: Chronic Code(s): Q05.9 - Spina bifida, unspecified Type of Wound Date of Service: 08/16/19 Chief Complaint: Sacral pressure sore in the posterior aspect of the pelvis, Stage IV, with osteomyelitis of the pelvis. History of Wound: 23 year old man with past medical history of spina bifida presented to the Wound Center with a sacral pressure sore in the posterior aspect of the pelvis. He had a debridement about 4 years ago and his mother thinks he had osteomyelitis at that time. Several months ago, he developed a recurrence during an inpatient hospital stay in [place]. He has been treated with antibiotics and the VAC. While he was in [place], it was recommended to him to proceed with excision of the pressure sore with myocutaneous flap closure. He comes to the Wound Center because he is not ready for surgery at this time, and they felt not much improvement has occurred over the last few months. They deny stool contamination of the ulcer. He has scheduled bowel movements. They have been told he has exposed bone but did not know of any history of osteomyelitis. He had a wound culture done on 12/02/18. It showed Staphylococcus aureus and Streptococcus agalactiae. He had been on Keflex. Augmentin was added which he has completed. He had a CT Pelvis on 12/07/18. It showed a large sacral decubitus ulcer and the lower left hemisacrum shows interval change with bony demineralization accompanied by heterotopic bone formation in keeping with osteomyelitis. We were able to get a Pathology report from 4 years ago. It was negative for osteomyelitis. However, even though the Pathology report from [facility] from surgery on 07/11/14 showed no definite evidience of osteomyelitis, the comment from the pathologist states Because osteomyelitis can be patchy, correlation with bone cultures and CRP levels can sometims have better predictive value. CRP=9.50 mg/dL from 07/13/14. On 07/16/14 Dr. Hagen was using a diagnosis of osteomyelitis and referred to checking frequent prealbumin levels. Since the note mentions osteomyelitis in the diagnosis, then we can resubmit for medical approval of HBO. He would definitely benefit from HBO treatments. According to the reports he has presence of chronic refractory osteomyelitis in his pelvis. On 08/05/19 Surgery 1. Excision sacral pressure sore in posterior aspect of pelvis, Stage IV. 2. Partial ostectomy pelvis for osteomyelitis. Bone culture from surgery negative for bacteria growth. Soft tissue culture Staphylococcus aureus and Anaerobic cocci. Antibiotics changed to Augmentin. Wound Care: wound VAC with changes 3 times per week. Family declined home health so will come into the wound center 3 times per week for VAC changes. He is having a low grade temperature today and not feeling well. Encouraged fluids and protein. The labwork done last week WBC 11.7. Cultured wound today. Follow up in ED if symptoms worsen. Progress of Wound: Stable. There is a strong odor today after the wound VAC was removed. Patient states that he is not having issues with the seal on the wound VAC. His wound is pale in color today. - Physical Exam Vital Signs Temp Pulse Resp BP 98.7 F 85 20 H 135/63 H 08/16/19 12:54 08/16/19 12:54 08/16/19 12:54 08/16/19 12:54 General: Alert, Oriented x3, Cooperative HEENT: Atraumatic Oral: Moist Mucosa Lungs: Normal air movement Cardiovascular: Regular rate Extremities: No edema, Capillary Refill Less than 3 Seconds Skin: Ulcer/ Wound - sacral ulcer is pale in color today. Bone is exposed. Wound Measurements and Assessment WC - Nurse 1 - General Ulcer Measurement Start: 07/26/19 08:15 Freq: Status: Active Protocol: Activity Type Activity Date Activity User E-Sign Co-Sign Detail Recorded Client Recorded Date Recorded By Document 08/16/19 12:54 DL [id number] 08/16/19 13:05 DL 08/16/19 12:54 Wound Center Nurse 1 [Ulcer Assessment] # 1 Coccyx -Current Size (cm) - Length 4.8 -Current Size (cm) - Width 4 -Current Size (cm) - Depth 2.2 -Total Square Cm 19.2 -Undermining/Tunneling Starts (O' 9 clock) -Undermining/Tunneling Ends (O'clock) 4 -Maximum Distance (cm) 2.8 -Circular Undermining No -Exudate Amt Medium -Exudate Type Serosanguineous -Wound Margin Thickened & Rolled Under -Granulation Amt Small (1-33%) -Granulation Quality [place],Red -Necrosis Amt Large (67-100%) -Necrotic Tissue Type Adherent Slough -Structure Exposed Bone -Texture (Aishwarya-wound Skin Appearance) Scarring -Moisture (Aishwarya-wound Skin Appearance Maceration ) -Color (Aishwarya-wound Skin Appearance) No Abnormality -Temperature (Aishwarya-wound Skin No Abnormality Appearance) (Pt Warm) -Tenderness on Palpation (Aishwarya-wound No Skin Appearance) -Ulcer Cleansing Wound Cleanser -Foul Odor after Cleansing Yes -Anesthetic Used 4% Lidocaine Solution - Nurse 2 - General Ulcer CM Notes Start: 07/26/19 08:15 Freq: Status: Active Protocol: Activity Type Activity Date Activity User E-Sign Co-Sign Detail Recorded Client Recorded Date Recorded By Document 08/16/19 13:25 [id number] 08/16/19 13:26 08/16/19 13:25 Wound Center Nurse 2 [Procedure/Treatment] -Time 13:26 -Correct Patient Yes -Correct Side, Site, Position Yes -Correct Procedure Yes -Procedure Performed Yes -Type of Procedure Debridement -Clinical Debridement Muscle -Post Debridement Size (cm) - Length 5 -Post Debridement Size (cm) - Width 4.3 -Post Debridement Size (cm) - Depth 2.7 -Total Square Cm 21.5 -Wound/Ulcer Outcome Not Healed -Ulcer Cleansing Rinsed/ Irrigated with Saline -Foul Odor after Cleansing No -Bioengineered Tissue No -Bleeding Controlled with Pressure -Offloading No -Treatment Response Procedure Tolerated Well [See Physician Procedure note for Specifics] Pain Scale: 0-10 Numeric [Pain] -Is Patient Pain Free? Yes Musculoskeletal: No Tenderness to Palpation of Joints or Extremities Neurological: Cranial nerves II-XII grossly intact Psych/Mental Status: Normal Affect, Appropriate Debridement Note Post-Debridement Measurements/Treatment - Nurse 2 - General Ulcer CM Notes Start: 07/26/19 08:15 Freq: Status: Active Protocol: Activity Type Activity Date Activity User E-Sign Co-Sign Detail Recorded Client Recorded Date Recorded By Document 07/26/19 08:34 [id number] 07/26/19 08:36 Document 08/09/19 14:28 [id number] 08/09/19 14:28 Document 08/16/19 13:25 [id number] 08/16/19 13:26 07/26/19 08/09/19 08/16/19 08:34 14:28 13:25 Wound Center Nurse 2 # 1 Coccyx -Time 08:34 13:26 -Correct Patient Yes No Yes -Correct Side, Site, Position Yes No Yes -Correct Procedure Yes No Yes -Procedure Performed Yes No Yes -Type of Procedure Debridement Debridement -Clinical Debridement Muscle Muscle -Post Debridement Size (cm) - Length 3.2 5 -Post Debridement Size (cm) - Width 3.5 4.3 -Post Debridement Size (cm) - Depth 1.0 2.7 -Total Square Cm 11.20 21.5 -Wound/Ulcer Outcome Not Healed Not Healed Not Healed -Ulcer Cleansing Rinsed/ Rinsed/ Irrigated with Irrigated with Saline Saline -Foul Odor after Cleansing No No -Bioengineered Tissue No No -Bleeding Controlled with Pressure Pressure -Other undermining 7-3 :00---2.0cm -Offloading No No -Treatment Response Procedure Procedure Tolerated Well Tolerated Well Pain Scale: 0-10 Numeric Is Patient Pain Free? Yes Yes Yes Wound debrided: sacral ulcer Type of Debridement: Excisional debridement Anesthesia Used: 5% Lidocaine Gel Depth: Down to and including healthy tissue, in the subcutaneous layer, to muscle Percentage of wound debrided: 100 Instrument Used: 7mm curette Tissue Removed: Subcutaneous tissue into the muscle. Severity: Fat Layer Exposed Amount of bleeding with debridement: Mild Bleeding Controlled with: Pressure Patient tolerated procedure well Assessment/Plan Assessment: 1. 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 2. Chronic osteomyelitis of the pelvis. 3. Spina bifida. Plan: Surgery on 08/05/19 1. Excision sacral pressure sore in posterior aspect of pelvis, Stage IV. 2. Partial ostectomy pelvis for osteomyelitis. Wound Care: Wound VAC. Will take a wound VAC holiday and start Dakin's dressing changes daily due to the odor and the patient is not feeling well. Will reassess wound VAC next week. They do not want home health for VAC changes, so he will come into the wound center 3 days per week for the VAC change. Bone culture from surgery negative for bacteria growth. Soft tissue culture Staphylococcus aureus and Anaerobic cocci. Antibiotics changed to Augmentin. Today there was a strong odor when the wound VAC was removed. The wound is pale in color. Patient states that there has been no issues with the wound VAC keeping a seal. Wound culture obtained today. Followup 1 week. Patient is running a low grade fever today and not feeling well. His family has been ill with respiratory illnesses. Instructed both the patient and his father that he needs to increase his fluid intake. If his symptoms worsen or don't improve then he should follow see PCP or go to ED. He did see his PCP and his UA and urine cultures were negative. He continues not to feel well. Reinforced to follow up with PCP or go to ED if symptoms worsen. Did discuss all of this with Dr. Gomez. Code Visit [id number]: [id number] Alma Delia musc/fascia 20 sq cm/< Add On Codes: 90866 Alma Delia musc/fascia add-on
== END 2019-08-21 23:59 ==
LOC: WC 15:29
PROVIDERS: Family Provider Family Medicine; PCP Family Medicine; Referring Provider Internal Medicine; Visit Provider Nurse Practitioner Family
DX: L89.154 Pressure ulcer of sacral region, stage 4 (principal); Q05.9 Spina bifida, unspecified; M86.68 Other chronic osteomyelitis, other site; R50.9 Fever, unspecified
CPT/HCPCS: 11043; 11046; 87070; 87075; 87077; 87186; 87205; 97605; 97606; 99213; G0463

== ENCOUNTER 2019-08-18 19:00 | Inpatient (IN) | payer MEDICAID, SELFPAY ==
--- NOTE | 2019-08-18 15:10 | HP.PCM_ITS ---
History and Physical Date of Admission: 08/18/19 History and Physical Date of Admission: 08/05/19 HISTORY OF PRESENT ILLNESS 23 year old man with past medical history of spina bifida presented to the Wound Center with a sacral pressure sore. He had on about 4 years ago and his mother thinks he had osteomyelitis at that time. Several months ago, he developed a recurrence during an inpatient hospital stay in [place]. He has been treated with antibiotics and the VAC. While he was in [place], it was recommended to him to proceed with excision of the pressure sore with myocutaneous flap closure. He presents today for another opinion because he is not ready for surgery at this time, and they felt not much improvement has occurred over the last few months. They deny stool contamination of the ulcer. He has scheduled bowel movements. They have been told he has exposed bone but did not know of any history of osteomyelitis. He feels well otherwise and denies fever and chills. His appetite is good. He had a wound culture done on 12/02/18. It showed Staphylococcus aureus and Streptococcus agalactiae. He had been on Keflex. Will add Augmentin. He had a CT Pelvis on 12/07/18. It showed a large sacral decubitus ulcer and the lower left hemisacrum shows interval change with bony demineralization accompanied by heterotopic bone formation in keeping with osteomyelitis. He is currently using Silver dressing changes. 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 Excision of sacral pressure sore in the posterior aspect of the pelvis. ALLERGIES latex codeine MEDICATIONS Darifenacin SOCIAL HISTORY Never smoker FAMILY HISTORY Noncontributory. REVIEW OF SYSTEMS Constitutional: Denies: Anorexia, Chills, Fever. Eyes: Denies: Blurred vision, Pain. HEENT: Denies: Difficulty Swallowing. Cardiovascular: Denies: Claudication, Chest Tightness. Respiratory: Denies: Cough, Hemoptysis. Gastrointestinal: Denies: Abdominal Pain, Hematemesis, Vomiting. Genitourinary: Denies: Hematuria. Skin: Denies: Jaundice PHYSICAL EXAMINATION General: Alert, Oriented x3, Cooperative. HEENT: PERRL. EOMI. Oral: Moist Mucosa Neck: Supple, nontender. No cervical adenopathy. Lungs: Clear to auscultation. Cardiovascular: Regular rate, Regular Rhythm Abdomen: Soft, nondistended. Extremities: Skin: Large sacral pressure sore in the posterior aspect of the pelvis, Stage IV. Bone is palpable. Some granulation tissue is present. Close to the anal opening. Measures 5 x 5 x 1.5 cm. Neurological: Cranial nerves II-XII grossly intact Psych/Mental Status: Normal Affect ASSESSMENT 1. 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 2. Chronic osteomyelitis of the pelvis. 3. Spina bifida. PLAN Continue Silver dressing changes to the posterior aspect of the pelvis in the sacral area. Wound culture from 12/02/18 showed Staphylococcus aureus and Streptococcus agalactiae. He had been on Keflex. Augmentin was added. He has finished the antibiotics. Family is not in a hurry for major surgery at this time. They want to see how much this ulcer can heal. There is good granulation tissue, but it appears if there is some abnormal scar tissue that may get in the way of healing. After talking to them, I think they are hesitant to proceed with the more complex myocutaneous flap closure. Excision of the pressure sore intermittently is needed because of the development of abnormal scarring that can be a hindrance to healing. After surgery, will begin wound care with the VAC. Will send soft tissue to Pathology and Microbiology and will send bone to Pathology and Microbiology. A positive culture may necessitate antibiotic modification. If Pathology is positive for ostemyelitis, then would need intermediate accountant IV antibiotics through a PICC line. Also he would be evaluated for HBO treatments which can help salvage healing of a wound with underlying chronic refractory osteomyelitis of the pelvis. A Pathology report from [facility] from surgery on 07/11/14 showed no definite evidience of osteomy elitis, but the comment from the pathologist states Because osteomyelitis can be patchy, correlation with bone cultures and CRP levels can sometims have better predictive value. CRP=9.50 mg/dL from 07/13/14. On 07/16/14 Dr. Hagen was using a diagnosis of osteomyelitis. Since the note mentions osteomyelitis in the diagnosis, then we can resubmit for medical approval of HBO. If not successful, we can repeat the CT looking for continued radiologic evidence of chronic osteomyelitis of the pelvis. As long as osteomyelitis of the pelvis is still suspicious on the CT, we can start HBO treatments at that time. If surgery is done then can check the bone for osteomyelitis and can hold off on the CT. Surgery would be done under general anesthesia with a surgical observation overnight stay in the hospital. I told them that healing would be more efficient if we proceed with operative excision. Can also discuss eventual flap surgery for wound closure. Patient was informed of the risks and complications of the procedure including alternatives to surgery. These were discussed with him personally. He voices understanding and wishes to proceed. Patient and his father voice understanding that surgical excision will be necessary in the future. 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 They are ready to proceed with surgery. Will schedule the surgery next month in July. They are also amenable to the VAC after surgery for a little while until they resume training.
[2019-08-18 19:37] VITALS: BMI 23.1
[2019-08-18 19:38] VITALS: BP 123/60; PULSE 101; RESP 18; TEMP 36.8; O2SAT 99
[2019-08-18 19:50] VITALS: BMI 23.2
[2019-08-18] MEDS: Vancomycin IV 1,000 MG/200 ML BAG 200 MG IV (20:26)
[2019-08-18] MEDS: 0.9% Saline Lock 10 ML Syringe IV ×2 (20:26→21:52)
[2019-08-18] MEDS: Lactated Ringers 1,000 ML 60 ML IV (20:26)
[2019-08-18 20:42] LABS: Hematocrit 36.9 % (40-54); Hemoglobin 11.1 g/dL (13.0-16.5); Mean Corp Hgb Conc 30.1 g/dL (32-36); Mean Corpuscular Hgb 23.5 pg (27.0-32.0); Mean Corpuscular Volume 78.2 fL (80-94); Mean Platelet Vol. 9.1 fl (6.2-12.0); Platelet Count 460 K/mm3 (150-450); RBC Distribution Width CV 15.2 % (11.6-14.6); RBC Distribution Width SD 43.6 fl (35.1-43.9); Red Blood Count 4.72 M/mm3 (4.6-6.2); White Blood Count 12.6 K/mm3 (4.4-11.0)
[2019-08-18 20:53] LABS: ALB/GLOB Ratio 0.5 RATIO (0.9-2.4); AST(SGOT) 12 U/L (15-37); Alanine Aminotransfer ALT/SGPT 23 U/L (16-61); Albumin, Serum 2.6 g/dL (3.2-5.0); Alkaline Phosphatase 90 U/L (45-117); Anion Gap 4 (5-15); BUN 11 mg/dL (7-18); BUN/Creat Ratio 16.9 RATIO (10-20); Calcium,Total 8.4 mg/dL (8.5-10.1); Chloride 102 mmol/L (98-107); Creatinine, Serum 0.65 mg/dL (0.70-1.30); EST Glomerular Filtration Rate 162 mL/min (>60); Est Glom Filt Rate - Afr Amer 196 mL/min (>60); Estimated Creatinine Clearance 149.26 ml/min; Globulin 5.3 g/dL (2.2-4.2); Glucose 105 mg/dL (74-106); Potassium 3.3 mmol/L (3.5-5.1); Prealbumin 7.5 mg/dL (20.0-40.0); Protein, Total 7.9 g/dL (6.4-8.2); Sodium Level 137 mmol/L (136-145)
[2019-08-18 20:58] LABS: Erythrocyte Sedimentation Rate 124 mm/hr (0-15)
[2019-08-18] MEDS: Tolterodine Tartrate 4 MG CAP.SA PO (21:52)
[2019-08-18] MEDS: Docusate Sodium 100 MG Capsule PO (21:52)
[2019-08-18 21:58] VITALS: BP 117/55; PULSE 92; RESP 18; TEMP 37.1; O2SAT 100
--- NOTE | 2019-08-18 22:36 | PCM.RX.CS ---
Consult Pharmacy has been consulted to manage selected antiobiotic: Vancomycin Type of Consult: New start Suspected Infection: Osteomyelitis Prior Doses of Antibiotics Received/Current Regimen: Medications Vancomycin HCl (Vancomycin) 1,000 mg in 200 mls @ 200 mls/hr IV Q12H BRIEN Discontinued Medications Vancomycin HCl (Vancomycin) 1,000 mg in 200 mls @ 200 mls/hr IV X1 ONE Stop: 08/18/19 21:29 Last Admin: 08/18/19 21:26 Dose: Infused Labs: Sodium 137 mmol/L (136-145) 08/18/19 20:20 Potassium 3.3 mmol/L (3.5-5.1) L 08/18/19 20:20 Chloride 102 mmol/L (98-107) 08/18/19 20:20 Carbon Dioxide 31.0 mmol/L (21.0-32.0) 08/18/19 20:20 Anion Gap 4 (5-15) L 08/18/19 20:20 BUN 11 mg/dL (7-18) 08/18/19 20:20 Creatinine 0.65 mg/dL (0.70-1.30) L 08/18/19 20:20 Est GFR (MDRD) Af Amer 196 mL/min (>60) 08/18/19 20:20 Est GFR (MDRD) Non-Af 162 mL/min (>60) 08/18/19 20:20 BUN/Creatinine Ratio 16.9 RATIO (10-20) 08/18/19 20:20 Glucose 105 mg/dL (74-106) 08/18/19 20:20 Weight used for dosin.3 kg Estimated Creatinine Clearance: 149 Goal Trough: 10-15 mcg/mL Pharmacy Plan for Drug Dosing: Pharmacy Service will continue to monitor and adjust dosing as required. Follow-Up Labs: Trough Vancomycin Labs to be done on [date and time ordered]: 08/20/19 @0800
[2019-08-19] VITALS (10 sets, daily range): BP systolic 94–131; BP diastolic 50–69; PULSE 84–101; RESP 18; TEMP 36.9–38.3; O2SAT 97–100
[2019-08-19] MEDS: Acetaminophen 325 MG Tablet 650 MG PO ×2 (09:08→20:29)
[2019-08-19] MEDS: Vancomycin IV 1,000 MG/200 ML BAG 200 MG IV ×2 (09:09→20:30)
[2019-08-19] MEDS: Docusate Sodium 100 MG Capsule PO ×2 (09:12→22:44)
--- NOTE | 2019-08-19 09:19 | RAD_ITS ---
STUDY: X-RAY CHEST REASON FOR EXAM: Male, 23 years old. TECHNIQUE: 1 view COMPARISON: 04 March 2019 FINDINGS: The lungs are clear and expanded. There is no demonstrated pleural abnormality. Normal size heart. Normal mediastinum and do. Normal visualized pulmonary arteries. Normal visualized aortic arch and descending thoracic aorta. The christal seen fixing the spine. There is a ELECTRIC METER READER shunt along the right hemithorax. Normal visualized ribs, clavicles, and shoulders. There is no demonstrated abnormality of the visualized soft tissue structures of the upper abdomen. RAD/Chest 1 View (Portable) IMPRESSION: Normal x-ray examination of the chest unchanged since March 04, 2019. Electronically Signed: Merritt Rosenberg, at 11:02 EST Tel , Service support ,
[2019-08-19 10:19] LABS: Hematocrit 32.3 % (40-54); Hemoglobin 9.9 g/dL (13.0-16.5); Mean Corp Hgb Conc 30.7 g/dL (32-36); Mean Corpuscular Hgb 23.8 pg (27.0-32.0); Mean Corpuscular Volume 77.6 fL (80-94); Mean Platelet Vol. 9.2 fl (6.2-12.0); Platelet Count 400 K/mm3 (150-450); RBC Distribution Width CV 15.4 % (11.6-14.6); RBC Distribution Width SD 43.1 fl (35.1-43.9); Red Blood Count 4.16 M/mm3 (4.6-6.2); White Blood Count 11.5 K/mm3 (4.4-11.0)
[2019-08-19] MEDS: DAKIN'S SOL HALF STRENGTH (=0.25%) 1 APPLIC TOPICAL ×2 (11:15→22:44)
[2019-08-19 11:23] LABS: Bacteria 0 SEEN /hpf (None Seen); Mucous, Urine 0 SEEN /hpf (<or=2+); Red Blood Cells-Urine 0 SEEN /hpf (0-5); Squamous Epithelial Cells - UA 0 SEEN /hpf (0-5); White Blood Cells 0 SEEN /hpf (0-5)
[2019-08-19 11:34] LABS: Color, Urine Yellow (Yellow); Glucose, Dipstick Normal (Normal); Ketone-Dipstick Negative (Negative); Leukocyte Esterase-Dipstick 25 /ul (Negative); Nitrite-Dipstick Negative (Negative); Occult Blood-Urine Negative /ul (Negative); Protein-Dipstick Negative (Negative); Specific Gravity, Urine 1.015 (1.002-1.030); Urine Bilirubin Dipstick Negative (Negative); Urine Clarity Clear (Clear); Urine Urobilinogen Normal (Normal)
[2019-08-19] MEDS: Lactated Ringers 1,000 ML 60 ML IV (13:10)
--- NOTE | 2019-08-19 15:27 | PCM.PN.SRG ---
Subjective: Postop #14 Patient is resting comfortably. Feels a little less tired. - Physical Exam Vitals/I&O's: Vital Signs Temp Pulse Resp BP Pulse Ox 98.5 F 84 18 94/50 L 99 08/19/19 14:00 08/19/19 14:00 08/19/19 14:00 08/19/19 14:00 08/19/19 14:00 101 F (Tmax) 08/19/19 00:24 Oxygen Delivery Method Room Air Weight: 135 lb 2.294 oz Body Mass Index (BMI) 23.1 Intake and Output for Last 24 Hours 08/17/19 08/18/19 08/19/19 23:59 23:59 23:59 Intake Total 200 / 460 2254 / 2254 Output Total 1300 / 1300 Balance 200 / 310 954 / 954 General: Alert, Oriented x3 HEENT: PERRLA, EOMI Oral: Moist Mucosa Neck: Supple Abdomen: Soft, Non-Distended Skin: Ulcer/ Wound - sacral wound is stable. More granulation tissue seen. More of the bone is covered. Neurological: Cranial nerves II-XII grossly intact Psych/Mental Status: Normal Affect, Appropriate Laboratory Results 08/18/19 20:20: WBC 12.6 H, RBC 4.72, Hgb 11.1 L, Hct 36.9 L, MCV 78.2 L, MCH 23.5 L, MCHC 30.1 L, RDW Std Deviation 43.6, RDW Coeff of Walter 15.2 H, Plt Count 460 H, MPV 9.1, ESR 124 H 08/18/19 20:20: Sodium 137, Potassium 3.3 L, Chloride 102, Carbon Dioxide 31.0, Anion Gap 4 L, BUN 11, Creatinine 0.65 L, Estim Creat Clear Calc 149.26, Est GFR (MDRD) Af Amer 196, Est GFR (MDRD) Non-Af 162, BUN/Creatinine Ratio 16.9, Glucose 105, Calcium 8.4 L, Total Bilirubin 0.20, AST 12 L, ALT 23, Alkaline Phosphatase 90, C-React Prot Ext Range 162.00 H, Total Protein 7.9, Albumin 2.6 L, Globulin 5.3 H, Albumin/Globulin Ratio 0.5 L, Prealbumin 7.5 L 08/19/19 10:08: WBC 11.5 H, RBC 4.16 L, Hgb 9.9 L, Hct 32.3 L, MCV 77.6 L, MCH 23.8 L, MCHC 30.7 L, RDW Std Deviation 43.1, RDW Coeff of Walter 15.4 H, Plt Count 400, MPV 9.2 08/19/19 11:15: Urine Color Yellow, Urine Clarity Clear, Urine pH 7.0, Ur Specific Sidney 1.015, Urine Protein Negative, Urine Glucose (UA) Normal, Urine Ketones Negative, Urine Occult Blood Negative, Urine Nitrite Negative, Urine Bilirubin Negative, Urine Urobilinogen Normal, Ur Leukocyte Esterase 25 H, Urine RBC 0 SEEN, Urine WBC 0 SEEN, Ur Squamous Epith Cells 0 SEEN, Urine Bacteria 0 SEEN, Urine Mucus 0 SEEN Wound Culture from 08/16/19 - Gram positive cocci, Gram positive rods, and Gram negative rods. Diagnostic Data Chest X-Ray 08/19/19 09:19 IMPRESSION: Normal x-ray examination of the chest unchanged since March 04, 2019. Electronically Signed: Merritt Rosenberg, at 11:02 EST Tel , Service support , Current Medications Acetaminophen (Tylenol) 650 mg PO Q4H PRN PRN PRN Reason: Pain 1-10 or Fever Last Admin: 08/19/19 09:08 Dose: 650 mg Documented by: Diazepam (Valium) 5 mg PO 4X/DAY PRN PRN PRN Reason: SPASMS Docusate Sodium (Colace) 100 mg PO BID [facility] Last Admin: 08/19/19 09:12 Dose: 100 mg Documented by: Enoxaparin Sodium (Lovenox) 40 mg SC DAILY@0600 [facility] Last Admin: 08/19/19 06:40 Dose: Not Given Documented by: Lactated Ringer's () 1,000 mls @ 60 mls/hr IV .[id number] [facility] Last Admin: 08/19/19 13:10 Dose: 60 mls/hr Documented by: Piperacillin Sod/Tazobactam (Sod 3.375 gm/ Sodium Chloride) 50 mls @ 12.5 mls/hr IV Q8 [facility] Last Admin: 08/19/19 13:10 Dose: 12.5 mls/hr Documented by: Vancomycin IV Pharmacy to Dose (1 ea/ Sodium Chloride) 500 mls @ 250 mls/hr IV X1 PRN; Protocol PRN Reason: Rx to Dose Vancomycin HCl (Vancomycin) 1,000 mg in 200 mls @ 200 mls/hr IV Q12H [facility] Last Infusion: 08/19/19 10:09 Dose: Infused Documented by: Sodium Chloride () 250 mls @ 15 mls/hr IV .[id number] PRN PRN Reason: Saline Flush Nutritional Formula ([place] - [place] Flavor) [facility] Last Admin: 08/19/19 09:11 Dose: 1 packet Documented by: Ondansetron HCl (Zofran) 4 mg IV Q6H PRN PRN PRN Reason: NAUSEA Oxycodone HCl (Oxyir) 10 mg PO Q4H PRN PRN PRN Reason: Pain Score 6-10/10 Potassium Chloride (K-Dur) [facility] Last Admin: 08/19/19 09:08 Dose: 20 meq Documented by: Promethazine HCl (Phenergan Tablet) 25 mg PO 4X/DAY PRN PRN PRN Reason: NAUSEA Sodium Chloride () 10 - 40 ml IV UD PRN PRN Reason: SALINE FLUSH Last Admin: 08/18/19 21:52 Dose: 20 ml Documented by: Sodium Hypochlorite (Dakins Solution 0.25% (1/2 Strength)) 1 applic TOPICAL BID [facility]; Protocol Last Admin: 08/19/19 11:15 Dose: 1 applicatio Documented by: Tolterodine Tartrate (Detrol La) 4 mg PO QHS [facility] Last Admin: 08/18/19 21:52 Dose: 4 mg Documented by: Medical Necessity - Tobacco Use Smoking Status: Never smoker Assessment/Plan 1. 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 2. Chronic osteomyelitis of the pelvis. 3. Spina bifida. 4. Postop fever. 5. Hypopotassiumemia. Recent culture from 08/16/19 shows Gram positive cocci, Gram positive rods, and Gram negative rods. Continue IV Vancomycin and and Zosyn. PICC line has been placed. WBC improved from 12.6 to 11.5. Urinalysis was negative. Urine culture is pending. CXR was normal. Blood cultures are pending. He feels a little more hungry today. Wound is stable. More granulation tissue seen. Continue Dakin's dressing changes twice a day. Potassium was a low at 3.3. Started Potassium supplementation. Prealbumin was low at 7.5. Encourage nutritional supplementation with protein to help the healing process. Inflammatory markers are elevated. ESR is 124. CRP is 162.00. He will continue IV antibiotics after discharge. He will continue Dakin's dressing changes after discharge. Will make determinatoin at the Wound Center about changing back to the VAC.
[2019-08-19] MEDS: Tolterodine Tartrate 4 MG CAP.SA PO (22:44)
[2019-08-20 00:02] VITALS: BP 110/60; PULSE 82; RESP 18; TEMP 37.1; O2SAT 98
[2019-08-20 06:15] VITALS: BP 93/50; PULSE 89; RESP 18; TEMP 37.2; O2SAT 99
[2019-08-20] MEDS: Lactated Ringers 1,000 ML 60 ML IV (06:22)
[2019-08-20] MEDS: Enoxaparin 40 MG/0.4 ML Syringe SC (06:30)
[2019-08-20 08:21] LABS: Hematocrit 35.7 % (40-54); Hemoglobin 10.7 g/dL (13.0-16.5); Mean Corpuscular Hgb 23.9 pg (27.0-32.0); Mean Corpuscular Volume 79.9 fL (80-94); Mean Platelet Vol. 11.3 fl (6.2-12.0); Platelet Count 323 K/mm3 (150-450); RBC Distribution Width CV 15.6 % (11.6-14.6); RBC Distribution Width SD 44.8 fl (35.1-43.9); Red Blood Count 4.47 M/mm3 (4.6-6.2); White Blood Count 8.1 K/mm3 (4.4-11.0)
[2019-08-20 08:23] VITALS: BP 103/60; PULSE 98; RESP 18; TEMP 37; O2SAT 97
[2019-08-20] MEDS: Vancomycin IV 1,000 MG/200 ML BAG 200 MG IV (08:25)
[2019-08-20] MEDS: DAKIN'S SOL HALF STRENGTH (=0.25%) 1 APPLIC TOPICAL ×2 (08:26→22:16)
[2019-08-20 08:43] LABS: Vancomycin, Trough Level 5.1 ug/mL (5.0-15.0)
[2019-08-20 08:53] LABS: Anion Gap 7 (5-15); BUN 6 mg/dL (7-18); BUN/Creat Ratio 17.2 RATIO (10-20); Calcium,Total 8.2 mg/dL (8.5-10.1); Chloride 106 mmol/L (98-107); Creatinine, Serum 0.35 mg/dL (0.70-1.30); EST Glomerular Filtration Rate 332 mL/min (>60); Est Glom Filt Rate - Afr Amer 402 mL/min (>60); Glucose 93 mg/dL (74-106); Potassium 4.6 mmol/L (3.5-5.1); Sodium Level 140 mmol/L (136-145)
--- NOTE | 2019-08-20 09:11 | PCM.RX.CS ---
Consult Pharmacy has been consulted to manage selected antiobiotic: Vancomycin Type of Consult: Follow-up Suspected Infection: Osteomyelitis Prior Doses of Antibiotics Received/Current Regimen: VANCOMYCIN 1000MG IV 08/19 @ 2030 AND 0909 Labs: Sodium 140 mmol/L (136-145) 08/20/19 08:06 Potassium 4.6 mmol/L (3.5-5.1) 08/20/19 08:06 Chloride 106 mmol/L (98-107) 08/20/19 08:06 Carbon Dioxide 27.0 mmol/L (21.0-32.0) 08/20/19 08:06 Anion Gap 7 (5-15) 08/20/19 08:06 BUN 6 mg/dL (7-18) L 08/20/19 08:06 Creatinine 0.35 mg/dL (0.70-1.30) L 08/20/19 08:06 Est GFR (MDRD) Af Amer 402 mL/min (>60) 08/20/19 08:06 Est GFR (MDRD) Non-Af 332 mL/min (>60) 08/20/19 08:06 BUN/Creatinine Ratio 17.2 RATIO (10-20) 08/20/19 08:06 Glucose 93 mg/dL (74-106) 08/20/19 08:06 Vancomycin Trough 5.1 ug/mL (5.0-15.0) 08/20/19 08:06 Estimated Creatinine Clearance: 161.7 Goal Trough: 10-15 mcg/mL Pharmacy Plan for Drug Dosin. Trough of 5.1 mg/dL (drawn on 08/20 @ 0806, 11. hr level) is subtherapeutic (goal 10-15) 2. Will increase dose to 2000mg Q12H starting tonight 08/20 @ 1999 because the 0800 1000mg dose is already hung 3. Re draw a trough 08/22 at 0730 prior to the fourth dose of new regimen Pharmacy Service will continue to monitor and adjust dosing as required. Labs to be done on [date and time ordered]: 08/22/19 @ 0730
[2019-08-20] MEDS: Docusate Sodium 100 MG Capsule PO (10:53)
[2019-08-20] MEDS: 0.9% Saline Lock 10 ML Syringe IV ×2 (12:09→19:38)
--- NOTE | 2019-08-20 13:10 | PN.SURG_ITS ---
Subjective: Postop #15 Patient is resting comfortably. His appetite is better. - Physical Exam Vitals/I&O's: Vital Signs Temp Pulse Resp BP Pulse Ox 98.6 F 98 18 103/60 97 08/20/19 08:23 08/20/19 08:23 08/20/19 08:23 08/20/19 08:23 08/20/19 08:23 100.1 F (Tmax) 08/19/19 20:22 Oxygen Delivery Method Room Air Weight: 135 lb 2.294 oz Body Mass Index (BMI) 23.1 Intake and Output for Last 24 Hours 08/18/19 08/19/19 08/20/19 23:59 23:59 23:59 Intake Total 200 / 460 3898 / 3898 1563.00 / 1563.00 Output Total 2850 / 2850 1400 / 1400 Balance 200 / 310 1048 / 1048 163.00 / 163.00 General: Alert, Oriented x3 HEENT: PERRLA, EOMI Oral: Moist Mucosa Neck: Supple Abdomen: Soft, Non-Distended Skin: Ulcer/ Wound - sacral wound is stable. Granulation tissue appears pinker. More of the bone is covered with granulation tissue. Neurological: Cranial nerves II-XII grossly intact Psych/Mental Status: Normal Affect, Appropriate Microbiology Past 72 Hours 08/19/19 11:15 Urine Catheter - Catheter Urine Culture - Preliminary Culture exhibits no growth. Laboratory Results 08/20/19 08:06: Vancomycin Trough 5.1 08/20/19 08:06: WBC 8.1, RBC 4.47 L, Hgb 10.7 L, Hct 35.7 L, MCV 79.9 L, MCH 23.9 L, MCHC 30.0 L, RDW Std Deviation 44.8 H, RDW Coeff of Walter 15.6 H, Plt Count 323, MPV 11.3 08/20/19 08:06: Sodium 140, Potassium 4.6, Chloride 106, Carbon Dioxide 27.0, Anion Gap 7, BUN 6 L, Creatinine 0.35 L, Estim Creat Clear Calc 277.21, Est GFR (MDRD) Af Amer 402, Est GFR (MDRD) Non-Af 332, BUN/Creatinine Ratio 17.2, Glucose 93, Calcium 8.2 L Wound Culture from 08/16/19 - Staphylococcus aureus and Streptococcus agalactiae B. Current Medications Acetaminophen (Tylenol) 650 mg PO Q4H PRN PRN PRN Reason: Pain 1-10/10 or Fever Last Admin: 08/19/19 20:29 Dose: 650 mg Documented by: Diazepam (Valium) 5 mg PO 4X/DAY PRN PRN PRN Reason: SPASMS Docusate Sodium (Colace) 100 mg PO BID [facility] Last Admin: 08/20/19 10:53 Dose: 100 mg Documented by: Enoxaparin Sodium (Lovenox) 40 mg SC DAILY@0600 [facility] Last Admin: 08/20/19 06:30 Dose: 40 mg Documented by: Lactated Ringer's () 1,000 mls @ 60 mls/hr IV .[id number] [facility] Last Infusion: 08/20/19 12:00 Dose: 60 mls/hr Documented by: Vancomycin IV Pharmacy to Dose (1 ea/ Sodium Chloride) 500 mls @ 250 mls/hr IV X1 PRN; Protocol PRN Reason: Rx to Dose Sodium Chloride () 250 mls @ 15 mls/hr IV .[id number] PRN PRN Reason: Saline Flush Vancomycin HCl 2,000 mg/ (Sodium Chloride) 540 mls @ 250 mls/hr IV Q12H [facility] Nutritional Formula (Valentin - [place] Flavor) [facility] Last Admin: 08/20/19 10:53 Dose: 1 packet Documented by: Ondansetron HCl (Zofran) 4 mg IV Q6H PRN PRN PRN Reason: NAUSEA Oxycodone HCl (Oxyir) 10 mg PO Q4H PRN PRN PRN Reason: Pain Score 6-10/10 Potassium Chloride ([facility]) [facility] Promethazine HCl (Phenergan Tablet) 25 mg PO 4X/DAY PRN PRN PRN Reason: NAUSEA Sodium Chloride () 10 - 40 ml IV UD PRN PRN Reason: SALINE FLUSH Last Admin: 08/20/19 12:09 Dose: 10 ml Documented by: Sodium Hypochlorite (Dakins Solution 0.25% (1/2 Strength)) 1 applic TOPICAL BID [facility]; Protocol Last Admin: 08/20/19 08:26 Dose: 1 applicatio Documented by: Tolterodine Tartrate (Detrol La) 4 mg PO QHS [facility] Last Admin: 08/19/19 22:44 Dose: 4 mg Documented by: Medical Necessity - Tobacco Use Smoking Status: Never smoker Assessment/Plan 1. 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 2. Chronic osteomyelitis of the pelvis. 3. Spina bifida. 4. Postop fever, resolving. 5. Hypopotassiumemia, resolved. Recent culture from 08/16/19 shows Staphylococcus aureus and Streptococcus agalactiae (B). Continue IV Vancomycin. Will stop the Zosyn. PICC line has been placed. WBC has decreased to normal at 8.1. Urinalysis was negative. Urine culture is negative thus far. CXR was normal. Blood cultures are pending. His last CT Pelvis was 12/08. Will repeat today because of the presence of the spinal rods that extend into the sacral bone. His appetite is better today. Wound is stable. More granulation tissue seen. Continue Dakin's dressing changes twice a day. Potassium was a low at 3.3. Started Potassium supplementation. Prealbumin was low at 7.5. Encourage nutritional supplementation with protein to help the healing process. Inflammatory markers are elevated. ESR is 124. CRP is 162.00. He will continue IV antibiotics (Vancomycin) after discharge. He will continue Dakin's dressing changes after discharge. Will make determination at the Wound Center about changing back to the VAC.
--- NOTE | 2019-08-20 13:20 | CASEMGMT ---
Addendum entered by Ade Feldman 08/20/19 17:12: Pt made aware [facility] is not able to be set up at this time and that he will be here through the weekend. Addendum entered by Ade Feldman 08/20/19 16:18: Script for IV Vanco faxed to [facility] at this time. Addendum entered by Ade Feldman 08/20/19 16:03: Calls placed Interim [facility], [facility], [place], [place], [facility], [place] [facility], [facility], and [place]. None of these [facility]'s are able to accept pt until next week. Addendum entered by Ade Feldman 08/20/19 15:24: [facility] also states they do not have the nursing staffing to teach IV atb administration. Call placed to [facility] and spoke with Tri. She states they do not have the staffing to be able to accept the patient. Addendum entered by Ade Feldman 08/20/19 14:36: Call placed to [facility] and spoke with Abeba. She states they are not able to accept pt d/t staffing. Addendum entered by Ade Feldman 08/20/19 14:32: Call has been placed to [facility]--they are unable to accept pt d/t staffing. Call placed to [facility] w/referral. Awaiting call back. Addendum entered by Ade Feldman 08/20/19 13:39: Addendum entered by Ade Feldman 08/20/19 13:29: Mom/pt state also do not have preference of Infusion supply company. Referral packet faxed to [facility] and call placed to them. After reviewing, call received back from them, and they state they do not have the staffing to accept pt. Referal packet faxed to [facility] for financials to be determined. Call received back from Geovanna @ [facility]. She states medication/supplies will be covered @ 100%. Call placed to [facility] and referral packet faxed to them. Per [facility], they have their own pharmacy and will supply IV atb's if they are able to accept patient. Awaiting response/acceptance. Per Dr Gomez, pt is medically ready to be discharged once HHC/IV Atb's set up. Original Note: RN CM TRAUMA NURSE CM to room to meet with patient for initial transition planning/care coordination assessment. RN BALDEV introduced self and role at [facility]. Pt voices understanding and consents to assessment at this time. Pt siting up @ edge of bed in no distress at this time. Mother @ bedside. Care providers, pharmacy, and demographics verified by pt and mother at this time. PCP: Jared Specialists: Wound Center, Dr Page--urology @ [facility]. Sees several specialists @ [facility]. Preferred Pharmacy: [facility] Insurance: [employer] Prescription Benefit: [employer] Living Will/HPOA: Does not have LW. Has HPOA, who is his mother, Suzi REDDY: Parents. 3 sisters Living Arrangements: Lives with his parents and 3 sisters. Pt has Spina Bifida/flaccid from waist down. Parents help care for pt in the home. Transportation: No transportation concerns. DME: Has the following DME: shower chair, W/C, Wound Vac. Deny further DME needs SNF: No history of SNF. HHC: History of several HHC's in the past. Pt will need 6-wks IV atb's. Pt/mom state plans are for pt to return home. Mom states she has experience with administering IV atb's to patient and doing wound care and states is comfortable with doing this again. Will need HHC established. Mom/pt deny having preference of HHC agency. Pt/mom wish for pt to return home and states has no concerns with going home at time of discharge. CM to follow any further discharge planning/needs. Pt voices no further concerns/needs at this time. Advised pt to ask for CM if any further questions/concerns/needs arise. Voices understanding. PLAN: Home w/HHC for penitentiary: IV atb's and wound care. Jonathan SMITH RN, CM
[2019-08-20 14:45] VITALS: BP 124/67; PULSE 79; RESP 18; TEMP 37.2; O2SAT 100
--- NOTE | 2019-08-20 15:51 | CT_ITS ---
STUDY: CT PELVIS WITHOUT CONTRAST REASON FOR EXAM: Male, 23 years old. Sacral decubitus ulcer RADIATION DOSAGE (If Supplied By Facility): CTDIvol = ( 26.41 ) mGy, DLP = ( 728.69 ) mGycm TECHNIQUE: Transaxial imaging of the pelvis was performed with oral contrast, and without intravenous administration of contrast material. Multiplanar coronal and sagittal images were reformatted. Individualized dose optimization techniques were used for this CT. COMPARISON: 12/07/2018 FINDINGS: Stable spina bifida with thoracolumbar Macias rods anchored distally within the upper sacrum and spanning the SI joints. If anything, there is a slight worsening in the appearance of a previously noted large sacral decubitus ulcer which is gas-filled and contains packing and measures approximately 4.94 x 3.41 x 4.93 cm, there does appear to be some erosive change within the sacrum consistent with osteomyelitis. No suspicious loculated fluid collection. There is diffuse induration of the subcutaneous fat within the left gluteus with induration of the perirectal fat as well. There are multiple borderline enlarged perirectal lymph nodes. A Nazario catheter is noted within the bladder, the bladder contains air likely from placement of the Nazario catheter. Retained stool noted throughout the colon. Borderline enlarged inguinal lymphadenopathy CT/Pelvis without IV Contrast IMPRESSION: Persistent, if slightly worse sacral decubitus ulcer when compared to the previous study from 12/07/2018. There are persistent erosive changes within the sacrum suggesting associated osteomyelitis. The ulcer measures approximate 4.9 x 3.4 x 4.9 cm, is gas-filled and appears to contain packing material. Stable surgical hardware in the lower lumbar spine and sacrum Induration of the perirectal fat with multiple borderline-enlarged perirectal lymph nodes Diffuse induration of the left gluteal fat Borderline enlarged inguinal lymphadenopathy Nazario catheter within the bladder, the bladder contains air likely from Nazario placement Retained stool noted throughout the colon. Electronically Signed: Dontae Valentine MD at 17:12 EST , Service support ,
[2019-08-20 19:50] VITALS: BP 143/71; PULSE 100; RESP 16; TEMP 37.4; O2SAT 98
[2019-08-20] MEDS: Tolterodine Tartrate 4 MG CAP.SA PO (22:17)
[2019-08-20 23:24] VITALS: BP 123/64; PULSE 92; RESP 16; TEMP 37; O2SAT 98
[2019-08-21] MEDS: Lactated Ringers 1,000 ML 60 ML IV ×2 (05:09→15:52)
[2019-08-21] MEDS: Enoxaparin 40 MG/0.4 ML Syringe SC (06:16)
[2019-08-21 06:25] VITALS: BP 118/68; PULSE 87; RESP 18; TEMP 37.1; O2SAT 96
[2019-08-21 09:00] VITALS: BP 125/67; PULSE 86; RESP 18; TEMP 36.3; O2SAT 98
[2019-08-21] MEDS: DAKIN'S SOL HALF STRENGTH (=0.25%) 1 APPLIC TOPICAL ×2 (11:06→21:30)
[2019-08-21 15:33] VITALS: BP 111/61; PULSE 94; RESP 18; TEMP 37.2; O2SAT 98
[2019-08-21 20:15] VITALS: BP 124/54; PULSE 84; RESP 18; TEMP 37.1; O2SAT 98
--- NOTE | 2019-08-21 20:49 | PCM.PN.SRG ---
Subjective: Postop #16 Patient is resting comfortably. - Physical Exam Vitals/I&O's: Vital Signs Temp Pulse Resp BP Pulse Ox 98.9 F 94 18 111/61 98 08/21/19 15:33 08/21/19 15:33 08/21/19 15:33 08/21/19 15:33 08/21/19 15:33 Oxygen Delivery Method Room Air Weight: 135 lb 2.294 oz Body Mass Index (BMI) 23.1 Intake and Output for Last 24 Hours 08/19/19 08/20/19 08/21/19 23:59 23:59 23:59 Intake Total 3898 / 3898 3322.00 / 3322.00 2899 / 2899 Output Total 2850 / 2850 2650 / 2650 2850 / 2850 Balance 1048 / 1048 672.00 / 672.00 49 / 49 General: Alert, Oriented x3 HEENT: PERRLA, EOMI Oral: Moist Mucosa Neck: Supple Abdomen: Soft, Non-Distended Skin: Ulcer/ Wound - sacral wound is stable. Granulation is pinker. Less bone is exposed. Neurological: Cranial nerves II-XII grossly intact Psych/Mental Status: Normal Affect, Appropriate Microbiology Past 72 Hours 08/19/19 11:15 Urine Catheter - Catheter Urine Culture - Final Culture exhibits no growth. Diagnostic Data Pelvis CT 08/20/19 15:51 IMPRESSION: Persistent, if slightly worse sacral decubitus ulcer when compared to the previous study from 12/07/2018. There are persistent erosive changes within the sacrum suggesting associated osteomyelitis. The ulcer measures approximate 4.9 x 3.4 x 4.9 cm, is gas-filled and appears to contain packing material. Stable surgical hardware in the lower lumbar spine and sacrum Induration of the perirectal fat with multiple borderline-enlarged perirectal lymph nodes Diffuse induration of the left gluteal fat Borderline enlarged inguinal lymphadenopathy Nazario catheter within the bladder, the bladder contains air likely from Nazario placement Retained stool noted throughout the colon. Electronically Signed: Dontae Valentine MD at 17:12 EST , Service support , Current Medications Acetaminophen (Tylenol) 650 mg PO Q4H PRN PRN PRN Reason: Pain 1-10 or Fever Last Admin: 08/19/19 20:29 Dose: 650 mg Documented by: Diazepam (Valium) 5 mg PO 4X/DAY PRN PRN PRN Reason: SPASMS Docusate Sodium (Colace) 100 mg PO BID [facility] Last Admin: 08/21/19 11:04 Dose: Not Given Documented by: Enoxaparin Sodium (Lovenox) 40 mg SC DAILY@0600 [facility] Last Admin: 08/21/19 06:16 Dose: 40 mg Documented by: Lactated Ringer's () 1,000 mls @ 60 mls/hr IV .[id number] [facility] Last Admin: 08/21/19 15:52 Dose: 60 mls/hr Documented by: Vancomycin IV Pharmacy to Dose (1 ea/ Sodium Chloride) 500 mls @ 250 mls/hr IV X1 PRN; Protocol PRN Reason: Rx to Dose Sodium Chloride () 250 mls @ 15 mls/hr IV .[id number] PRN PRN Reason: Saline Flush Vancomycin HCl 2,000 mg/ (Sodium Chloride) 540 mls @ 250 mls/hr IV Q12H [facility] Last Admin: 08/21/19 20:07 Dose: 250 mls/hr Documented by: Nutritional Formula (Valentin - [place] Flavor) [facility] Last Admin: 08/21/19 17:13 Dose: 1 packet Documented by: Ondansetron HCl (Zofran) 4 mg IV Q6H PRN PRN PRN Reason: NAUSEA Oxycodone HCl (Oxyir) 10 mg PO Q4H PRN PRN PRN Reason: Pain Score 6-10/10 Potassium Chloride (K-Dur) [facility]q [facility] Last Admin: 08/21/19 11:04 Dose: 10 meq Documented by: Promethazine HCl (Phenergan Tablet) 25 mg PO 4X/DAY PRN PRN PRN Reason: NAUSEA Sodium Chloride () 10 - 40 ml IV UD PRN PRN Reason: SALINE FLUSH Last Admin: 08/20/19 19:38 Dose: 20 ml Documented by: Sodium Hypochlorite (Dakins Solution 0.25% (1/2 Strength)) 1 applic TOPICAL BID [facility]; Protocol Last Admin: 08/21/19 11:06 Dose: 1 applicatio Documented by: Tolterodine Tartrate (Detrol La) 4 mg PO QHS [facility] Last Admin: 08/20/19 22:17 Dose: 4 mg Documented by: Medical Necessity - Tobacco Use Smoking Status: Never smoker Assessment/Plan 1. 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 2. Chronic osteomyelitis of the pelvis. 3. Spina bifida. 4. Postop fever, resolved. 5. Hypopotassiumemia, resolved. Recent culture from 08/16/19 shows Staphylococcus aureus and Streptococcus agalactiae (B). Continue IV Vancomycin. PICC line has been placed. WBC has decreased to normal at 8.1. Urinalysis was negative. Urine culture is negative. CXR was normal. Blood cultures are pending. His last CT Pelvis was 12/08. CT Pelvis showed persistent, if slightly worse sacral decubitus ulcer when compared to the previous study from 12/07/2018. There are persistent erosive changes within the sacrum suggesting associated osteomyelitis. The ulcer measures approximate 4.9 x 3.4 x 4.9 cm, is gas-filled and appears to contain packing material. Stable surgical hardware in the lower lumbar spine and sacrum. Induration of the perirectal fat with multiple borderline-enlarged perirectal lymph nodes. Diffuse induration of the left gluteal fat. Borderline enlarged inguinal lymphadenopathy. Nazario catheter within the bladder, the bladder contains air likely from Nazario placement. Retained stool noted throughout the colon. His appetite is better today. Wound is stable. More granulation tissue seen. Continue Dakin's dressing changes twice a day. Potassium has improved from 3.3 to 4.6. Will stop the Potassium supplementation. Prealbumin was low at 7.5. Encourage nutritional supplementation with protein to help the healing process. Inflammatory markers are elevated. ESR is 124. CRP is 162.00. He will continue IV antibiotics (Vancomycin) after discharge. He will continue Dakin's dressing changes after discharge. Will make determination at the Wound Center about changing back to the VAC.
[2019-08-21] MEDS: Tolterodine Tartrate 4 MG CAP.SA PO (21:30)
[2019-08-22 02:30] VITALS: BP 123/57; PULSE 88; RESP 18; TEMP 36.9; O2SAT 100
[2019-08-22] MEDS: Enoxaparin 40 MG/0.4 ML Syringe SC (05:15)
[2019-08-22] MEDS: Lactated Ringers 1,000 ML 60 ML IV (05:15)
[2019-08-22 08:14] LABS: Vancomycin, Trough Level 11.4 ug/mL (5.0-15.0)
[2019-08-22 08:30] VITALS: BP 111/59; PULSE 87; RESP 18; TEMP 36.7; O2SAT 96
[2019-08-22] MEDS: DAKIN'S SOL HALF STRENGTH (=0.25%) 1 APPLIC TOPICAL ×2 (11:02→21:23)
--- NOTE | 2019-08-22 13:39 | NURSING ---
PT READY TO LEAVE WITH PARENTS FOR A FAMILY GATHERING
--- NOTE | 2019-08-22 13:40 | NURSING ---
PT LEFT FOR [facility] TO FAMILY DINNER. DR SANTA AWARE. FATHER STATES SHOULD RETURN BY 7PM. FATHER ALSO SIGNED [facility] FORM.
[2019-08-22 19:30] VITALS: BP 123/52; PULSE 89; RESP 18; TEMP 36.9; O2SAT 100
--- NOTE | 2019-08-22 19:38 | NURSING ---
LATE ENTRY - 190 - PT RETURN FROM [place] WITH FAMILY
[2019-08-22] MEDS: 0.9% Saline Lock 10 ML Syringe IV ×2 (19:39→19:46)
[2019-08-22] MEDS: Tolterodine Tartrate 4 MG CAP.SA PO (21:23)
--- NOTE | 2019-08-22 21:36 | PCM.PN.SRG ---
Subjective: Postop #17 Patient is resting comfortably. Had a leave of absence today for a Thanksgiving meal at home. - Physical Exam Vitals/I&O's: Vital Signs Temp Pulse Resp BP Pulse Ox 98.5 F 89 18 123/52 H 100 08/22/19 19:30 08/22/19 19:30 08/22/19 19:30 08/22/19 19:30 08/22/19 19:30 Oxygen Delivery Method Room Air Weight: 135 lb 2.294 oz Body Mass Index (BMI) 23.1 Intake and Output for Last 24 Hours 08/20/19 08/21/19 08/22/19 23:59 23:59 23:59 Intake Total 3322.00 / 3322.00 3687 / 3687 2646 / 2646 Output Total 2650 / 2650 2850 / 3450 2250 / 2250 Balance 672.00 / 672.00 837 / 237 396 / 396 General: Alert, Oriented x3 HEENT: PERRLA, EOMI Oral: Moist Mucosa Neck: Supple Abdomen: Soft, Non-Distended Skin: Ulcer/ Wound - sacral wound is stable. No bleeding. More granulation tissue seen. Less bone is exposed. Tolerating the Dakin's dressing changes. Neurological: Cranial nerves II-XII grossly intact Psych/Mental Status: Normal Affect, Appropriate Microbiology Past 72 Hours 08/19/19 10:48 Blood Culture (Wb) - Anticubital Right Blood Culture - Preliminary No growth in 48 hours. 08/19/19 10:08 Blood Culture (Wb) - Right Hand Blood Culture - Preliminary No growth in 48 hours. 08/19/19 11:15 Urine Catheter - Catheter Urine Culture - Final Culture exhibits no growth. Laboratory Results 08/22/19 07:25: Vancomycin Trough 11.4 Current Medications Acetaminophen (Tylenol) 650 mg PO Q4H PRN PRN PRN Reason: Pain 1-10/10 or Fever Last Admin: 08/19/19 20:29 Dose: 650 mg Documented by: Diazepam (Valium) 5 mg PO 4X/DAY PRN PRN PRN Reason: SPASMS Docusate Sodium (Colace) 100 mg PO BID [facility] Last Admin: 08/22/19 21:32 Dose: Not Given Documented by: Enoxaparin Sodium (Lovenox) 40 mg SC DAILY@0600 [facility] Last Admin: 08/22/19 05:15 Dose: 40 mg Documented by: Lactated Ringer's () 1,000 mls @ 60 mls/hr IV .[id number] [facility] Last Infusion: 08/22/19 19:49 Dose: 0 mls/hr Documented by: Vancomycin IV Pharmacy to Dose (1 ea/ Sodium Chloride) 500 mls @ 250 mls/hr IV X1 PRN; Protocol PRN Reason: Rx to Dose Sodium Chloride () 250 mls @ 15 mls/hr IV .[id number] PRN PRN Reason: Saline Flush Vancomycin HCl 2,000 mg/ (Sodium Chloride) 540 mls @ 250 mls/hr IV Q12H [facility] Last Admin: 08/22/19 19:35 Dose: 250 mls/hr Documented by: Nutritional Formula (Valentin - [place] Flavor) [facility] Last Admin: 08/22/19 19:35 Dose: 1 packet Documented by: Ondansetron HCl (Zofran) 4 mg IV Q6H PRN PRN PRN Reason: NAUSEA Oxycodone HCl (Oxyir) 10 mg PO Q4H PRN PRN PRN Reason: Pain Score 6-10/10 Potassium Chloride (K-Dur) [facility] Last Admin: 08/22/19 10:54 Dose: 10 meq Documented by: Promethazine HCl (Phenergan Tablet) 25 mg PO 4X/DAY PRN PRN PRN Reason: NAUSEA Sodium Chloride () 10 - 40 ml IV UD PRN PRN Reason: SALINE FLUSH Last Admin: 08/22/19 19:46 Dose: 10 ml Documented by: Sodium Hypochlorite (Dakins Solution 0.25% (1/2 Strength)) 1 applic TOPICAL BID [facility]; Protocol Last Admin: 08/22/19 21:23 Dose: 1 applicatio Documented by: Tolterodine Tartrate (Detrol La) 4 mg PO QHS [facility] Last Admin: 08/22/19 21:23 Dose: 4 mg Documented by: Medical Necessity - Tobacco Use Smoking Status: Never smoker Assessment/Plan 1. 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 2. Chronic osteomyelitis of the pelvis. 3. Spina bifida. 4. Postop fever, resolved. 5. Hypopotassiumemia, resolved. Recent culture from 08/16/19 shows Staphylococcus aureus and Streptococcus agalactiae (B). Continue IV Vancomycin. PICC line has been placed. WBC has decreased to normal at 8.1. Urinalysis was negative. Urine culture is negative. CXR was normal. Blood cultures are negative thus far. His appetite is better today. Wound is stable. More granulation tissue seen. Continue Dakin's dressing changes twice a day. Potassium has improved from 3.3 to 4.6. The Potassium supplementation was stopped. Prealbumin was low at 7.5. Encourage nutritional supplementation with protein to help the healing process. Inflammatory markers are elevated. ESR is 124. CRP is 162.00. He will continue IV antibiotics (Vancomycin) after discharge. He will continue Dakin's dressing changes after discharge. Will make determination at the Wound Center about changing back to the VAC. Awaiting Home Health to assist with the infusion of the IV antibiotics. Anticipate discharge tomorrow. Will check labs in morning prior to discharge.
[2019-08-23 05:45] VITALS: BP 118/55; PULSE 89; RESP 18; TEMP 36.7; O2SAT 97
[2019-08-23] MEDS: Enoxaparin 40 MG/0.4 ML Syringe SC (05:47)
[2019-08-23] MEDS: 0.9% Saline Lock 10 ML Syringe IV ×3 (05:48→09:36)
[2019-08-23] MEDS: Alteplase 2 MG/2 ML Vial IV (06:37)
[2019-08-23 08:43] LABS: Erythrocyte Sedimentation Rate 68 mm/hr (0-15)
[2019-08-23 08:46] LABS: Hematocrit 35.7 % (40-54); Hemoglobin 10.7 g/dL (13.0-16.5); Mean Corpuscular Hgb 23.4 pg (27.0-32.0); Mean Corpuscular Volume 78.1 fL (80-94); Mean Platelet Vol. 8.8 fl (6.2-12.0); Platelet Count 400 K/mm3 (150-450); RBC Distribution Width CV 15.1 % (11.6-14.6); RBC Distribution Width SD 42.9 fl (35.1-43.9); Red Blood Count 4.57 M/mm3 (4.6-6.2); White Blood Count 7.4 K/mm3 (4.4-11.0)
[2019-08-23 09:02] LABS: ALB/GLOB Ratio 0.5 RATIO (0.9-2.4); AST(SGOT) 18 U/L (15-37); Alanine Aminotransfer ALT/SGPT 37 U/L (16-61); Albumin, Serum 2.4 g/dL (3.2-5.0); Alkaline Phosphatase 80 U/L (45-117); Anion Gap 5 (5-15); BUN 11 mg/dL (7-18); BUN/Creat Ratio 26.3 RATIO (10-20); Calcium,Total 8.5 mg/dL (8.5-10.1); Chloride 103 mmol/L (98-107); Creatinine, Serum 0.42 mg/dL (0.70-1.30); EST Glomerular Filtration Rate 270 mL/min (>60); Est Glom Filt Rate - Afr Amer 326 mL/min (>60); Estimated Creatinine Clearance 231.01 ml/min; Globulin 5.1 g/dL (2.2-4.2); Glucose 90 mg/dL (74-106); Potassium 3.6 mmol/L (3.5-5.1); Prealbumin 14.9 mg/dL (20.0-40.0); Protein, Total 7.5 g/dL (6.4-8.2); Sodium Level 138 mmol/L (136-145)
--- NOTE | 2019-08-23 09:27 | DCINST_ITS ---
You will use the following diet at home:: No restrictions, Other - encourage nutritional supplementation with protein to help the healing process. Discharge Activity: May Shower - at the time of the dakin's dressing change. May shower in (days): 1 - at the time of the dakin's dressing change. Call your doctor if your incision/area has: Continuous Slow Oozing, Sudden Increased Bleeding, Increased Pain/ Swelling, Increased Redness, Foul Smelling Discharge, Swelling at the incision site Call your doctor if you observe: Fever of 101 or Higher, Coldness, Increased Pain, Shortness of breath, Chest pain Suture Line Care: - - dakin's dressing changes twice a day. Change Dressing in (Days):: 1 - dakin's dressing changes twice a day. Cleanse incision/area with: Soap & Water - may cleanse the wound with soap and water at the time of the dakin's dressing changes., - - may shower at the time of the dakin's dressing change. Catheter: Nazario to leg bag Allergies/Adverse Reactions: Allergies codeine Allergy (Verified 08/02/19 11:18) Hives latex Allergy (Verified 08/18/19 19:34) precautionary Medications to take at Discharge Darifenacin Hydrobromide [Darifenacin ER] 15 mg PO QHS 10/09/17 Amox/Clavulanate Tablet [Augmentin Tablet] 875 mg PO Q12H #30 tab 08/06/19 Ciprofloxacin [Cipro] 500 mg PO BID 08/18/19 Docusate Sodium [Enemeez] 1 ea RECTAL QODAY 08/18/19 Gauze Bandage [Kerlix] 2 ea TP BID 30 Days #120 bandage 08/20/19 Sodium Hypochlorite [Dakins Solution 0.25% (1/2 Strength)] 1 applic TOPICAL BID 14 Days #7 bottle 08/20/19 Vancomycin IV 2,000 mg IV Q12H 39 Days #78 vial 08/20/19 The following prescriptions were given: Sodium Hypochlorite [Dakins Solution 0.25% (1/2 Strength)] 1 applic TOPICAL BID 14 Days #7 bottle Prescription Printed Gauze Bandage [Kerlix] 2 ea TP BID 30 Days #120 bandage Prescription Printed Vancomycin IV 2,000 mg IV Q12H 39 Days #78 vial Prescription Printed Orders to be completed after discharge: CBC-Complete Blood Cnt No Diff Time Frame: 1 Week, Facility: [facility], Location: [facility] Comprehensive Metabolic Profil Time Frame: 1 Week, Facility: [facility], Location: [facility] CRP Time Frame: 1 Week, Facility: [facility], Location: [facility] Erythrocyte Sed Rate Time Frame: 1 Week, Facility: [facility], Location: [facility] Prealbumin Time Frame: 1 Week, Facility: [facility], Location: [facility] Vancomycin, Trough Level Time Frame: 1 Week, Facility: [facility], Location: [facility] Primary Care Physician: Kevin Coleman MD [Primary Care Provider] - Test Results: Test results from this visit will be discussed in further detail at your follow- up appointment, if applicable. Please Follow Up With: Luis Gomez MD - call [phone] if any questions. When: friday08/30/19 at [facility] at 1000am. Proposed Discharge Date: 08/23/19
[2019-08-23] MEDS: DAKIN'S SOL HALF STRENGTH (=0.25%) 1 APPLIC TOPICAL (09:36)
--- NOTE | 2019-08-23 09:44 | DS.PCM_ITS ---
Discharge Date and Diagnosis Date of Admission: 08/18/19 Date of Discharge: 08/23/19 - Primary Discharge Diagnosis Infected sacral pressure sore in the posterior aspect of the pelvis, Stage IV. Postop fever, resolved. Hypopotassiumemia, resolved. - Secondary Discharge Diagnosis Chronic osteomyelitis of pelvis Spina bifida Hospital Course and Treatment Imaging Results: Diagnostic Data Chest X-Ray 08/19/19 09:19 IMPRESSION: Normal x-ray examination of the chest unchanged since March 04, 2019. Electronically Signed: Merritt Rosenberg, at 11:02 EST Tel , Service support , Pelvis CT 08/20/19 15:51 IMPRESSION: Persistent, if slightly worse sacral decubitus ulcer when compared to the previous study from 12/07/2018. There are persistent erosive changes within the sacrum suggesting associated osteomyelitis. The ulcer measures approximate 4.9 x 3.4 x 4.9 cm, is gas-filled and appears to contain packing material. Stable surgical hardware in the lower lumbar spine and sacrum Induration of the perirectal fat with multiple borderline-enlarged perirectal lymph nodes Diffuse induration of the left gluteal fat Borderline enlarged inguinal lymphadenopathy Nazario catheter within the bladder, the bladder contains air likely from Nazario placement Retained stool noted throughout the colon. 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 His operative cultures showed Staphylococcus aureus and Anaerobic cocci. He was discharged on Augmentin. His Pathology was negative for osteomyelitis. Postop he had persistent fevers for 12 days. He had seen his PCP who checked a CXR that was ok and a urine culture which showed an infection. He was placed on Cipro. A few days ago at [facility], there was an odor to the wound and a wound culture was obtained. The VAC was stopped and Dakin's dressing changes were ordered. The wound culture showed Staphylococcus aureus and Streptococcus group B thus far. Gram stain also showed Gram negative rods. With persistent fever despite po antibiotics, it was recommended to the patient to admit for IV antibiotics and continuation of wound care with Dakin's dressing changes. A PICC line will be placed for oil heaterman IV antibiotics. Will start him on Vancomycin and Zosyn initially. While here will obtain a CT Pelvis as well. Will check a Prealbumin. I anticipate increased metabolic demands from the wound and from his infection. Will encourage nutritional supplementation with protein to help the healing process. If fevers persist despite IV antibiotics, may need additional operative excision. His fevers resolved on the IV antibiotics. His WBC also normalized. Recent wound culture from 08/16/19 showed Staphylococcus aureus and Streptococcus agalactiae B. The Zosyn was discontinued and the Vancomycin will be continued post discharge. A PICC line was placed. Also a CXR was done and a Urinalysis was done. Both were normal. Blood cultures were also done which were negative. While hospitalized, a CT Pelvis was done and the back hardware was stable. The bony changes were consistent with osteomyelitis. His Potassium was low upon admission at 3.3. He was given Potassium supplementation and it improved to 4.6 and the supplementation was stopped. It took a few extra days to arrange Home Health and the infusion company for the antibiotics because it was a holiday weekend. On 08/23/19, arrangements were made and he was discharged home in satisfactory condition. His appetite was better. Encouraged nutritional supplementation with protein to help the healing process. His Prealbumin was 7.5. Will check weekly labs while on Vancomycin. Followup one week at the [facility]. Subjective: Postop #18 Patient is resting comfortably. - Physical Exam Vitals/I&O's: Vital Signs Temp Pulse Resp BP Pulse Ox 98.1 F 89 18 118/55 L 97 08/23/19 05:45 08/23/19 05:45 08/23/19 05:45 08/23/19 05:45 08/23/19 05:45 Oxygen Delivery Method Room Air Weight: 135 lb 2.294 oz Body Mass Index (BMI) 23.1 Intake and Output for Last 24 Hours 11/30/19 12/01/19 12/02/19 23:59 23:59 23:59 Intake Total 3687 / 3687 2628 / 2628 465 / 465 Output Total 2850 / 3450 2250 / 2725 775 / 775 Balance 837 / 237 378 / -97 -310 / -310 General: Alert, Oriented x3 HEENT: PERRLA, EOMI Oral: Moist Mucosa Neck: Supple Lungs: Clear to auscultation Abdomen: Soft, Non-Distended Skin: Ulcer/ Wound - sacral wound is stable. Granulation tissue seen. Less bone exposed. Continue Dakin's dressing changes. Neurological: Cranial nerves II-XII grossly intact Psych/Mental Status: Normal Affect, Appropriate Microbiology Past 72 Hours 08/19/19 10:48 Blood Culture (Wb) - Anticubital Right Blood Culture - Preliminary No growth in 48 hours. 08/19/19 10:08 Blood Culture (Wb) - Right Hand Blood Culture - Preliminary No growth in 48 hours. 08/19/19 11:15 Urine Catheter - Catheter Urine Culture - Final Culture exhibits no growth. Laboratory Results 08/23/19 08:25: WBC 7.4, RBC 4.57 L, Hgb 10.7 L, Hct 35.7 L, MCV 78.1 L, MCH 23.4 L, MCHC 30.0 L, RDW Std Deviation 42.9, RDW Coeff of Walter 15.1 H, Plt Count 400, MPV 8.8, ESR 68 H 08/23/19 08:25: Sodium 138, Potassium 3.6, Chloride 103, Carbon Dioxide 30.0, Anion Gap 5, BUN 11, Creatinine 0.42 L, Estim Creat Clear Calc 231.01, Est GFR (MDRD) Af Amer 326, Est GFR (MDRD) Non-Af 270, BUN/Creatinine Ratio 26.3 H, Glucose 90, Calcium 8.5, Total Bilirubin 0.20, AST 18, ALT 37, Alkaline Phosphatase 80, C-React Prot Ext Range 38.40 H, Total Protein 7.5, Albumin 2.4 L , Globulin 5.1 H, Albumin/Globulin Ratio 0.5 L, Prealbumin 14.9 L Current Medications Acetaminophen (Tylenol) 650 mg PO Q4H PRN PRN PRN Reason: Pain 1-10/10 or Fever Last Admin: 08/19/19 20:29 Dose: 650 mg Documented by: Diazepam (Valium) 5 mg PO 4X/DAY PRN PRN PRN Reason: SPASMS Docusate Sodium (Colace) 100 mg PO BID [facility] Last Admin: 08/23/19 09:30 Dose: Not Given Documented by: Enoxaparin Sodium (Lovenox) 40 mg SC DAILY@0600 [facility] Last Admin: 08/23/19 05:47 Dose: 40 mg Documented by: Lactated Ringer's () 1,000 mls @ 60 mls/hr IV .[id number] [facility] Last Infusion: 08/23/19 05:30 Dose: 0 mls/hr Documented by: Vancomycin IV Pharmacy to Dose (1 ea/ Sodium Chloride) 500 mls @ 250 mls/hr IV X1 PRN; Protocol PRN Reason: Rx to Dose Sodium Chloride () 250 mls @ 15 mls/hr IV .[id number] PRN PRN Reason: Saline Flush Vancomycin HCl 2,000 mg/ (Sodium Chloride) 540 mls @ 250 mls/hr IV Q12H [facility] Last Admin: 08/23/19 09:31 Dose: 250 mls/hr Documented by: Nutritional Formula (Valentin - [place] Flavor) [facility] Last Admin: 08/23/19 09:35 Dose: 1 packet Documented by: Ondansetron HCl (Zofran) 4 mg IV Q6H PRN PRN PRN Reason: NAUSEA Oxycodone HCl (Oxyir) 10 mg PO Q4H PRN PRN PRN Reason: Pain Score 6-10/10 Potassium Chloride (K-Dur) [facility] Last Admin: 08/23/19 09:36 Dose: 10 meq Documented by: Promethazine HCl (Phenergan Tablet) 25 mg PO 4X/DAY PRN PRN PRN Reason: NAUSEA Sodium Chloride () 10 - 40 ml IV UD PRN PRN Reason: SALINE FLUSH Last Admin: 08/23/19 09:36 Dose: 10 ml Documented by: Sodium Hypochlorite (Dakins Solution 0.25% (1/2 Strength)) 1 applic TOPICAL BID [facility]; Protocol Last Admin: 08/23/19 09:36 Dose: 1 applicatio Documented by: Tolterodine Tartrate (Detrol La) 4 mg PO QHS [facility] Last Admin: 08/22/19 21:23 Dose: 4 mg Documented by: Discharge Diet: No Restrictions, - - encourage nutritional supplementation with protein to help the healing process. Discharge Activity: May Shower - at the time of the dakin's dressing change. May shower in (days): 1 - at the time of the dakin's dressing change. Call your doctor if your incision/area has: Continuous Slow Oozing, Sudden Increased Bleeding, Increased Pain/ Swelling, Increased Redness, Foul Smelling Discharge, Swelling at the incision site Call your doctor if you observe: Fever of 101 or Higher, Coldness, Increased Pain, Shortness of breath, Chest pain Suture Line Care: - - dakin's dressing changes twice a day. Change Dressing in (Days):: 1 - dakin's dressing changes twice a day. Cleanse incision/area with: Soap & Water - may cleanse the wound with soap and water at the time of the dakin's dressing changes., - - may shower at the time of the dakin's dressing change. Catheter: Nazario to leg bag Home Medications: Medications to take at Discharge Darifenacin Hydrobromide [Darifenacin ER] 15 mg PO QHS 10/09/17 Ciprofloxacin [Cipro] 500 mg PO BID 08/18/19 Docusate Sodium [Enemeez] 1 ea RECTAL QODAY 08/18/19 Gauze Bandage [Kerlix] 2 ea TP BID 30 Days #120 bandage 08/20/19 Sodium Hypochlorite [Dakins Solution 0.25% (1/2 Strength)] 1 applic TOPICAL BID 14 Days #7 bottle 08/20/19 Vancomycin IV 2,000 mg IV Q12H 39 Days #78 vial 08/20/19 Docusate Sodium [Colace] 100 mg PO BID cap 08/23/19 Nutritional Supplement [Valentin - ORANGE FLAVOR] 1 packet PO BIDCM #60 packet 08/23/19 Sodium Hypochlorite [Dakins Solution 0.25% (1/2 Strength)] 1 applic TOPICAL BID bottle 08/23/19 Vancomycin IV Pharmacy to Dose 1 ea IV X1 PRN ea 08/23/19 proMETHazine tablet [Phenergan tablet] 25 mg PO 4X/DAY PRN PRN tab 08/23/19 Following Prescrptions Were Given to Patient: Sodium Hypochlorite [Dakins Solution 0.25% (1/2 Strength)] 1 applic TOPICAL BID 14 Days #7 bottle Prescription Printed Nutritional Supplement [Valentin - ORANGE FLAVOR] 1 packet PO BIDCM #60 packet Transmission Status: Received by [id number] Gauze Bandage [Kerlix] 2 ea TP BID 30 Days #120 bandage Prescription Printed Vancomycin IV 2,000 mg IV Q12H 39 Days #78 vial Prescription Printed Other Amb Orders: CBC-Complete Blood Cnt No Diff Time Frame: 1 Week, Facility: [facility], Location: [facility] Comprehensive Metabolic Profil Time Frame: 1 Week, Facility: [facility], Location: [facility] CRP Time Frame: 1 Week, Facility: [facility], Location: [facility] Erythrocyte Sed Rate Time Frame: 1 Week, Facility: [facility], Location: [facility] Prealbumin Time Frame: 1 Week, Facility: [facility], Location: [facility] Vancomycin, Trough Level Time Frame: 1 Week, Facility: [facility], Location: [facility] Primary Care Physician: Kevin Coleman MD [Primary Care Provider] - Please Follow Up With: Luis Gomez MD - call [phone] if any questions. When: friday08/30/19 at [facility] [place] at 1000am. Disposition: Home with Home Health Minutes spent on discharge:: 35 Patient Condition:: Stable Medical Necessity - Tobacco Use Smoking Status: Never smoker Meaningful Use Info Meaningful Use Diagnoses (Choose all that apply): None applicable
[2019-08-23 10:07] VITALS: BP 115/56; PULSE 68; RESP 18; TEMP 36.9; O2SAT 98
--- NOTE | 2019-08-23 10:26 | NURSING ---
wound photo: sacrum
--- NOTE | 2019-08-23 11:37 | CASEMGMT ---
SASHA DE PAZ continued to setup HHC for patient. The following HHC agencies were called and declined either due to staffing, do not accept insurance, or do not do IV ATBs: [facility], [facility], [facility], [facility], [facility], [facility], [facility]. Referrals were sent to [facility] and [facility], they could accept patient but not for start of care for this evening at 1999. [facility] was able to accept the patient for start of care for this evening at 1999. SASHA DE PAZ called Geovanna at [facility] and confirmed start of care for this evening at 1999. SASHA DE PAZ updated the patient and mother regarding HHC being setup with [facility]. Also confirmed that IV ATBs will be delivered tonight by 1999. Patient and mother voiced understanding. SASHA DE PAZ updated floor nurse.
--- NOTE | 2019-08-24 13:53 | CASEMGMT ---
RN [facility] PHONE CALL DC DATE: 08.23.19 DC Disposition: Home with [facility] Diagnosis on Discharge: Osteomyelitis LACE/STRATA: 06/24 Pt returned home with family and Home Health set up. Per Intake nurse, case was opened last evening and went well. [facility] will continue to follow with pt/family for IV antibiotics. Beatriz SMITH RN AC
== END 2019-08-23 13:53 | disposition home health service (06) | DRG 380 ==
PROVIDERS: Admitting Provider Surgery; Family Provider Family Medicine; PCP Family Medicine; Referring Provider Surgery; Visit Provider Surgery
DX: L89.154 Pressure ulcer of sacral region, stage 4 (principal); Q05.9 Spina bifida, unspecified; M86.68 Other chronic osteomyelitis, other site
CPT/HCPCS: 11043; 11046; 36415; 36569; 71045; 72192; 80048; 80053; 80202; 81001; 84134; 85027; 85652; 86140; 87040; 87070; 87075; 87077; 87086; 87186; 87205; 97605; 97802; J2997; J7040; J7120; A4216

== ENCOUNTER → 2019-08-30 08:07 | Outpatient (CLI) | payer MEDICAID, SELFPAY ==
[2019-08-18 19:37] VITALS: BMI 23.1
[2019-08-30 08:45] LABS: Hematocrit 39.5 % (40-54); Hemoglobin 11.6 g/dL (13.0-16.5); Mean Corp Hgb Conc 29.4 g/dL (32-36); Mean Corpuscular Volume 78.4 fL (80-94); Platelet Count 273 K/mm3 (150-450); RBC Distribution Width CV 15.5 % (11.6-14.6); RBC Distribution Width SD 43.7 fl (35.1-43.9); Red Blood Count 5.04 M/mm3 (4.6-6.2); White Blood Count 5.8 K/mm3 (4.4-11.0)
[2019-08-30 08:55] LABS: Erythrocyte Sedimentation Rate > 130 mm/hr (0-15)
[2019-08-30 09:05] LABS: Vancomycin, Trough Level 13.9 ug/mL (5.0-15.0)
[2019-08-30 13:21] LABS: ALB/GLOB Ratio 0.6 RATIO (0.9-2.4); AST(SGOT) 15 U/L (15-37); Alanine Aminotransfer ALT/SGPT 26 U/L (16-61); Alkaline Phosphatase 91 U/L (45-117); Anion Gap 4 (5-15); BUN 10 mg/dL (7-18); BUN/Creat Ratio 17.5 RATIO (10-20); Calcium,Total 8.9 mg/dL (8.5-10.1); Chloride 103 mmol/L (98-107); Creatinine, Serum 0.57 mg/dL (0.70-1.30); EST Glomerular Filtration Rate 189 mL/min (>60); Est Glom Filt Rate - Afr Amer 228 mL/min (>60); Globulin 5.2 g/dL (2.2-4.2); Glucose 86 mg/dL (74-106); Potassium 3.6 mmol/L (3.5-5.1); Prealbumin 17.2 mg/dL (20.0-40.0); Protein, Total 8.2 g/dL (6.4-8.2); Sodium Level 138 mmol/L (136-145)
== END ==
PROVIDERS: Family Provider Family Medicine; PCP Family Medicine; Referring Provider Surgery; Visit Provider Surgery
DX: Z79.2 Long term (current) use of antibiotics (principal)
CPT/HCPCS: 36415; 80053; 80202; 84134; 85027; 85652; 86140

== ENCOUNTER → 2019-09-06 08:27 | Outpatient (CLI) | payer MEDICAID, SELFPAY ==
[2019-08-30 10:00] VITALS: BMI 23.1
[2019-09-06 09:39] LABS: Erythrocyte Sedimentation Rate 49 mm/hr (0-15)
[2019-09-06 09:40] LABS: Hematocrit 43.1 % (40-54); Hemoglobin 12.9 g/dL (13.0-16.5); Mean Corp Hgb Conc 29.9 g/dL (32-36); Mean Corpuscular Hgb 23.6 pg (27.0-32.0); Mean Corpuscular Volume 78.9 fL (80-94); Mean Platelet Vol. 9.6 fl (6.2-12.0); Platelet Count 372 K/mm3 (150-450); RBC Distribution Width CV 15.3 % (11.6-14.6); RBC Distribution Width SD 43.2 fl (35.1-43.9); Red Blood Count 5.46 M/mm3 (4.6-6.2); White Blood Count 5.8 K/mm3 (4.4-11.0)
[2019-09-06 10:21] LABS: ALB/GLOB Ratio 0.6 RATIO (0.9-2.4); AST(SGOT) 21 U/L (15-37); Alanine Aminotransfer ALT/SGPT 24 U/L (16-61); Albumin, Serum 3.2 g/dL (3.2-5.0); Alkaline Phosphatase 103 U/L (45-117); Anion Gap 4 (5-15); BUN 11 mg/dL (7-18); BUN/Creat Ratio 17.3 RATIO (10-20); Calcium,Total 8.8 mg/dL (8.5-10.1); Chloride 105 mmol/L (98-107); Creatinine, Serum 0.64 mg/dL (0.70-1.30); EST Glomerular Filtration Rate 166 mL/min (>60); Est Glom Filt Rate - Afr Amer 201 mL/min (>60); Globulin 5.3 g/dL (2.2-4.2); Glucose 89 mg/dL (74-106); Potassium 3.7 mmol/L (3.5-5.1); Protein, Total 8.5 g/dL (6.4-8.2); Sodium Level 137 mmol/L (136-145); Vancomycin, Trough Level 13.9 ug/mL (5.0-15.0)
== END ==
PROVIDERS: Family Provider Family Medicine; PCP Family Medicine; Referring Provider Surgery; Visit Provider Surgery
DX: Z79.2 Long term (current) use of antibiotics (principal)
CPT/HCPCS: 36415; 80053; 80202; 85027; 85652; 86140

== ENCOUNTER → 2019-09-13 08:10 | Outpatient (CLI) | payer MEDICAID, SELFPAY ==
[2019-09-06 09:51] VITALS: BMI 23.1
[2019-09-13 09:38] LABS: Hematocrit 44.3 % (40-54); Hemoglobin 13.3 g/dL (13.0-16.5); Mean Corpuscular Hgb 23.5 pg (27.0-32.0); Mean Corpuscular Volume 78.1 fL (80-94); Mean Platelet Vol. 10.8 fl (6.2-12.0); Platelet Count 280 K/mm3 (150-450); RBC Distribution Width CV 15.5 % (11.6-14.6); RBC Distribution Width SD 43.4 fl (35.1-43.9); Red Blood Count 5.67 M/mm3 (4.6-6.2); White Blood Count 5.2 K/mm3 (4.4-11.0)
== END ==
PROVIDERS: Nurse Practitioner Family; Family Provider Family Medicine; PCP Family Medicine; Referring Provider Surgery; Visit Provider Surgery
DX: M86.659 Other chronic osteomyelitis, unspecified thigh (principal); L89.154 Pressure ulcer of sacral region, stage 4; Q05.9 Spina bifida, unspecified
CPT/HCPCS: 36415; 85027

== ENCOUNTER → 2019-09-14 08:25 | Outpatient (CLI) | payer MEDICAID, SELFPAY ==
[2019-09-13 08:39] VITALS: BMI 23.1
[2019-09-14] MEDS: Alteplase 2 MG/2 ML Vial IV ×2 (08:49→08:53)
== END ==
PROVIDERS: Family Provider Family Medicine; PCP Family Medicine; Referring Provider Nurse Practitioner Family; Visit Provider Nurse Practitioner Family
DX: L89.154 Pressure ulcer of sacral region, stage 4 (principal); M46.28 Osteomyelitis of vertebra, sacral and sacrococcygeal region
CPT/HCPCS: 36593; J2997; A4216

== ENCOUNTER 2019-09-20 09:15 | Outpatient (RCR) | payer MEDICAID, SELFPAY ==
[2019-08-22 00:33] VITALS: BP 135/63; PULSE 85; RESP 20; TEMP 37.1
[2019-08-30 10:00] VITALS: BP 119/72; PULSE 94; RESP 16; TEMP 37.6; BMI 23.1
--- NOTE | 2019-08-30 14:45 | PCM.WC.PN ---
(1) Stage IV pressure ulcer of sacral region Status: Chronic Code(s): L89.154 - Pressure ulcer of sacral region, stage 4 (2) Chronic osteomyelitis of pelvis Status: Chronic Code(s): M86.659 - Other chronic osteomyelitis, unspecified thigh (3) Spina bifida Status: Chronic Code(s): Q05.9 - Spina bifida, unspecified Type of Wound Date of Service: 08/30/19 Chief Complaint: Sacral pressure sore in the posterior aspect of the pelvis, Stage IV, with osteomyelitis of the pelvis. History of Wound: 23 year old man with past medical history of spina bifida presented to the Wound Center with a sacral pressure sore in the posterior aspect of the pelvis. He had a debridement about 4 years ago and his mother thinks he had osteomyelitis at that time. Several months ago, he developed a recurrence during an inpatient hospital stay in [place]. He has been treated with antibiotics and the VAC. While he was in [place], it was recommended to him to proceed with excision of the pressure sore with myocutaneous flap closure. He comes to the Wound Center because he is not ready for surgery at this time, and they felt not much improvement has occurred over the last few months. They deny stool contamination of the ulcer. He has scheduled bowel movements. They have been told he has exposed bone but did not know of any history of osteomyelitis. He had a wound culture done on 12/02/18. It showed Staphylococcus aureus and Streptococcus agalactiae. He had been on Keflex. Augmentin was added which he has completed. He had a CT Pelvis on 12/07/18. It showed a large sacral decubitus ulcer and the lower left hemisacrum shows interval change with bony demineralization accompanied by heterotopic bone formation in keeping with osteomyelitis. We were able to get a Pathology report from 4 years ago. It was negative for osteomyelitis. However, even though the Pathology report from [facility] from surgery on 07/11/14 showed no definite evidience of osteomyelitis, the comment from the pathologist states Because osteomyelitis can be patchy, correlation with bone cultures and CRP levels can sometims have better predictive value. CRP=9.50 mg/dL from 07/13/14. On 07/16/14 Dr. Hagen was using a diagnosis of osteomyelitis and referred to checking frequent prealbumin levels. Since the note mentions osteomyelitis in the diagnosis, then we can resubmit for medical approval of HBO. He would definitely benefit from HBO treatments. According to the reports he has presence of chronic refractory osteomyelitis in his pelvis. On 08/05/19 Surgery 1. Excision sacral pressure sore in posterior aspect of pelvis, Stage IV. 2. Partial ostectomy pelvis for osteomyelitis. Bone culture from surgery negative for bacteria growth. Soft tissue culture Staphylococcus aureus and Anaerobic cocci. Antibiotics changed to Augmentin. He was seen at the wound center on 08/16/19 and wound cultures were obtained that were positive for Staphylococcues aureus and Streptococcus agalactiae B, Bacteroides fragilis and Clostridium species. He was admitted on 08/18/19 due to persistent fevers and IV antibiotics. He was discharged home with PICC line and on Vancomycin. Will add Flagyl for the anaerobic cultures that just came back. On 08/22/19 lab results: WBC 7.4, H/H 10.7/35.7, PLT 400, ESR 68, BUN 11, creat 0.42, CRP 38.40, Prealbumin 14.9Wound Care: Dakin's solultion dressing changes daily. Will continue to place the VAC on hold at this time. Encouraged increased protein intake. Progress of Wound: Stable. - Physical Exam Vital Signs Temp Pulse Resp BP 99.6 F H 94 16 119/72 08/30/19 10:00 08/30/19 10:00 08/30/19 10:00 08/30/19 10:00 General: Alert, Oriented x3 HEENT: Atraumatic Oral: Moist Mucosa Lungs: Normal air movement Extremities: Capillary Refill Less than 3 Seconds Skin: Ulcer/ Wound - coccyx stage IV into the muscle Wound Measurements and Assessment WC - Nurse 1 - General Ulcer Measurement Start: 08/30/19 10:00 Freq: Status: Active Protocol: Activity Type Activity Date Activity User E-Sign Co-Sign Detail Recorded Client Recorded Date Recorded By Document 08/30/19 10:00 MW [id number] 08/30/19 10:15 MW 08/30/19 10:00 Wound Center Nurse 1 [Ulcer Assessment] # 1 Coccyx -Combined with other wound No -Current Size (cm) - Length 5.5 -Current Size (cm) - Width 6.0 -Current Size (cm) - Depth 2.3 -Total Square Cm 33.00 -Date of Last Picture (Recall this 08/30/19 field) -Photo Taken Yes -Epithelialization None Present -Tunneling No -Undermining/Tunneling No -Circular Undermining No -Exudate Amt Large -Exudate Type Serosanguineous -Wound Margin Distinct, Outline Attached -Granulation Amt Large (67-100%) -Granulation Quality [place] -Slough/Fibrin Yes -Necrosis Amt Small (1-33%) -Necrotic Tissue Type Adherent Slough -Structure Exposed N/A -Texture (Aishwarya-wound Skin Appearance) Assessed, Scarring -Moisture (Aishwarya-wound Skin Appearance No Abnormality, ) Assessed -Color (Aishwarya-wound Skin Appearance) No Abnormality, Assessed -Temperature (Aishwarya-wound Skin No Abnormality Appearance) (Pt Warm) -Tenderness on Palpation (Aishwarya-wound No Skin Appearance) -Ulcer Cleansing soap and water -Foul Odor after Cleansing No -Anesthetic Used 5% Lidocaine Gel [Edema Assessment] -Lower Limb Edema Present No WC - Nurse 2 - General Ulcer CM Notes Start: 08/30/19 10:00 Freq: Status: Active Protocol: Activity Type Activity Date Activity User E-Sign Co-Sign Detail Recorded Client Recorded Date Recorded By Document 08/30/19 10:35 [id number] 08/30/19 10:37 DREW 08/30/19 10:35 Wound Center Nurse 2 [Procedure/Treatment] # 1 Coccyx -Time 10:35 -Correct Patient Yes -Correct Side, Site, Position Yes -Correct Procedure Yes -Procedure Performed Yes -Type of Procedure Debridement -Clinical Debridement Muscle -Post Debridement Size (cm) - Length 6.0 -Post Debridement Size (cm) - Width 5.2 -Post Debridement Size (cm) - Depth 1.7 -Total Square Cm 31.20 -Wound/Ulcer Outcome Not Healed -Ulcer Cleansing Rinsed/ Irrigated with Saline -Foul Odor after Cleansing No -Bioengineered Tissue No -Other undermining 8-5 :00 2cm -Offloading No -Treatment Response Procedure Tolerated Well [See Physician Procedure note for Specifics] Pain Scale: 0-10 Numeric [Pain] -Is Patient Pain Free? Yes Musculoskeletal: No Tenderness to Palpation of Joints or Extremities Neurological: Cranial nerves II-XII grossly intact Psych/Mental Status: Appropriate Debridement Note Post-Debridement Measurements/Treatment WC - Nurse 2 - General Ulcer CM Notes Start: 08/30/19 10:00 Freq: Status: Active Protocol: Activity Type Activity Date Activity User E-Sign Co-Sign Detail Recorded Client Recorded Date Recorded By Document 08/30/19 10:35 DREW [id number] 08/30/19 10:37 DREW 08/30/19 10:35 Wound Center Nurse 2 # 1 Coccyx -Time 10:35 -Correct Patient Yes -Correct Side, Site, Position Yes -Correct Procedure Yes -Procedure Performed Yes -Type of Procedure Debridement -Clinical Debridement Muscle -Post Debridement Size (cm) - Length 6.0 -Post Debridement Size (cm) - Width 5.2 -Post Debridement Size (cm) - Depth 1.7 -Total Square Cm 31.20 -Wound/Ulcer Outcome Not Healed -Ulcer Cleansing Rinsed/ Irrigated with Saline -Foul Odor after Cleansing No -Bioengineered Tissue No -Other undermining 8-5 :00 2cm -Offloading No -Treatment Response Procedure Tolerated Well Pain Scale: 0-10 Numeric Is Patient Pain Free? Yes Wound debrided: coccyx ulcer Type of Debridement: Excisional debridement Anesthesia Used: 4% Lidocaine Solution Depth: Down to and including healthy tissue, in the subcutaneous layer, to muscle Percentage of wound debrided: 100 Instrument Used: 7mm curette Tissue Removed: subcutaneous tissue, slough into the muscle Severity: Fat Layer Exposed Amount of bleeding with debridement: Mild Bleeding Controlled with: Pressure Patient tolerated procedure well Assessment/Plan Assessment: 1. 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 2. Chronic osteomyelitis of the pelvis. 3. Spina bifida. Plan: Wound culture from 12/02/18 showed Staphylococcus aureus and Streptococcus agalactiae. He had been on Keflex. Augmentin was added. He has finished the antibiotics. Family is not in a hurry for major surgery at this time. They want to see how much this ulcer can heal. There is good granulation tissue, but it appears if there is some abnormal scar tissue that may get in the way of healing. After talking to them, I think they are hesitant to proceed with the more complex myocutaneous flap closure. Excision of the pressure sore intermittently is needed because of the development of abnormal scarring that can be a hindrance to healing. After surgery, will begin wound care with the VAC. Will send soft tissue to Pathology and Microbiology and will send bone to Pathology and Microbiology. A positive culture may necessitate antibiotic modification. If Pathology is positive for ostemyelitis, then would need group home IV antibiotics through a PICC line. Also he would be evaluated for HBO treatments which can help salvage healing of a wound with underlying chronic refractory osteomyelitis of the pelvis. A Pathology report from [facility] from surgery on 07/11/14 showed no definite evidience of osteomyelitis, but the comment from the pathologist states Because osteomyelitis can be patchy, correlation with bone cultures and CRP levels can sometims have better predictive value. CRP=9.50 mg/dL from 07/13/14. On 07/16/14 Dr. Hagen was using a diagnosis of osteomyelitis. Since the note mentions osteomyelitis in the diagnosis, then we can resubmit for medical approval of HBO. If not successful, we can repeat the CT looking for continued radiologic evidence of chronic osteomyelitis of the pelvis. As long as osteomyelitis of the pelvis is still suspicious on the CT, we can start HBO treatments at that time. Surgery would be done under general anesthesia with a surgical observation overnight stay in the hospital. I told them that healing would be more efficient if we proceed with operative excision. Can also discuss eventual flap surgery for wound closure. 08/05/19 Surgery 1. Excision sacral pressure sore in posterior aspect of pelvis, Stage IV. 2. Partial ostectomy pelvis for osteomyelitis. Bone culture from surgery negative for bacteria growth. Soft tissue culture Staphylococcus aureus and Anaerobic cocci. Antibiotics changed to Augmentin. Wound cultures from 08/16/19 were positive for Staphylococcues aureus and Streptococcus agalactiae B, Bacteroides fragilis and Clostridium species. He was admitted on 08/18/19 due to persistent fevers and IV antibiotics. He was discharged home with PICC line and on Vancomycin. Will add Flagyl for the anaerobic cultures that just came back. On 08/22/19 lab results: WBC 7.4, H/H 10.7/35.7, PLT 400, ESR 68, BUN 11, creat 0.42, CRP 38.40, Prealbumin 14.9Wound Care: Dakin's solultion dressing changes daily. Will continue to place the VAC on hold at this time. Encouraged increase in protein intake. Follow up in one week. Code Visit [id number]: 33076 Alma Delia musc/fascia 20 sq cm/< Add On Codes: 51109 Alma Delia musc/fascia add-on
[2019-09-06 09:51] VITALS: BP 124/75; PULSE 91; RESP 18; TEMP 37.1; BMI 23.1
--- NOTE | 2019-09-06 17:51 | PCM.WC.PN ---
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 History of Wound: Surgery 08/05/19 - 1. Excision sacral pressure sore in posterior aspect of pelvis, Stage IV. 2. Partial ostectomy pelvis for osteomyelitis. Wound care - Dakin's. Had the VAC initially. Operative cultures - Staphylococcus aureus and Anaerobic cocci in the soft tissue and negative in the bone. He was initially placed on Augmentin. Pathology was negative for osteomyelitis. Postop he had persistent fevers. He had a wound culture done on 08/16/19 which showed Staphylococcus aureus, Streptococcus agalactiae, Bacteroides fragilis, and Clostridium. It was felt the VAC was not functioning and his wound care was changed to Dakin's. He was admitted to the hospital for IV antibiotics. He was started on Vancomycin. After discharge from the hospital, he was also started on Flagyl. CT Pelvis from 08/20/19 showed persistent, if slightly worse sacral decubitus ulcer when compared to the previous study from 12/07/2018. There are persistent erosive changes within the sacrum suggesting associated osteomyelitis. The ulcer measures approximate 4.9 x 3.4 x 4.9 cm, is gas-filled and appears to contain packing material. Stable surgical hardware in the lower lumbar spine and sacrum.. He was seen at the wound center on 08/16/19 and wound cultures were obtained that were positive for Staphylococcues aureus and Streptococcus agalactiae B, Bacteroides fragilis and Clostridium species. He was admitted on 08/18/19 due to persistent fevers and IV antibiotics. He was discharged home with PICC line and on Vancomycin. Flagyl was added for the Anaerobes. Prealbumin from 08/18/19 was 7.5. Encourage nutritional supplementation with protein to help the healing process. After discharge he was getting weekly labs while on Vancomycin. His labs from 08/30/19 showed BUN was 10 and the Creatinine was 0.57. AST was 15. ALT was 26. Alkaline phosphatase was 91. Total Bilirubin was 0.30. ESR was >130. CRP was 30.20. Today he denies fever. His appetite is good. Progress of Wound: Improved. - Physical Exam Vital Signs Temp Pulse Resp BP 98.8 F 91 18 124/75 H 09/06/19 09:51 09/06/19 09:51 09/06/19 09:51 09/06/19 09:51 Wound Measurements and Assessment WC - Nurse 1 - General Ulcer Measurement Start: 08/30/19 10:00 Freq: Status: Active Protocol: Activity Type Activity Date Activity User E-Sign Co-Sign Detail Recorded Client Recorded Date Recorded By Document 09/06/19 09:51 RB [id number] 09/06/19 09:53 RB 09/06/19 09:51 Wound Center Nurse 1 [Ulcer Assessment] # 1 Coccyx -Combined with other wound No -Current Size (cm) - Length 5.7 -Current Size (cm) - Width 6 -Current Size (cm) - Depth 2.3 -Total Square Cm 34.2 -Tunneling No -Undermining/Tunneling Yes -Undermining/Tunneling Starts (O' 2 clock) -Undermining/Tunneling Ends (O'clock) 4 -Maximum Distance (cm) 3 -Circular Undermining No -Exudate Amt Large -Exudate Type Serosanguineous -Wound Margin Thickened & Rolled Under -Granulation Amt Large (67-100%) -Granulation Quality [place] -Slough/Fibrin Yes -Necrosis Amt Small (1-33%) -Structure Exposed Bone -Texture (Aishwarya-wound Skin Appearance) Assessed -Moisture (Aishwarya-wound Skin Appearance Maceration ) -Color (Aishwarya-wound Skin Appearance) Assessed -Temperature (Aishwarya-wound Skin No Abnormality Appearance) (Pt Warm) -Tenderness on Palpation (Aishwarya-wound No Skin Appearance) -Ulcer Cleansing Wound Cleanser -Foul Odor after Cleansing No WC - Nurse 2 - General Ulcer CM Notes Start: 08/30/19 10:00 Freq: Status: Active Protocol: Activity Type Activity Date Activity User E-Sign Co-Sign Detail Recorded Client Recorded Date Recorded By Document 09/06/19 10:12 [id number] 09/06/19 10:13 DREW 09/06/19 10:12 Wound Center Nurse 2 [Procedure/Treatment] -Time 10:13 -Correct Patient Yes -Correct Side, Site, Position Yes -Correct Procedure Yes -Procedure Performed Yes -Type of Procedure Debridement -Clinical Debridement Muscle -Post Debridement Size (cm) - Length 5.8 -Post Debridement Size (cm) - Width 6 -Post Debridement Size (cm) - Depth 2.3 -Total Square Cm 34.8 -Wound/Ulcer Outcome Not Healed -Ulcer Cleansing Rinsed/ Irrigated with Saline -Foul Odor after Cleansing No -Bioengineered Tissue No -Bleeding Controlled with Pressure -Offloading No -Treatment Response Procedure Tolerated Well [See Physician Procedure note for Specifics] Pain Scale: 0-10 Numeric [Pain] -Is Patient Pain Free? Yes Debridement Note Post-Debridement Measurements/Treatment WC - Nurse 2 - General Ulcer CM Notes Start: 08/30/19 10:00 Freq: Status: Active Protocol: Activity Type Activity Date Activity User E-Sign Co-Sign Detail Recorded Client Recorded Date Recorded By Document 08/30/19 10:35 [id number] 08/30/19 10:37 Document 09/06/19 10:12 [id number] 09/06/19 10:13 08/30/19 09/06/19 10:35 10:12 Wound Center Nurse 2 # 1 Coccyx -Time 10:35 10:13 -Correct Patient Yes Yes -Correct Side, Site, Position Yes Yes -Correct Procedure Yes Yes -Procedure Performed Yes Yes -Type of Procedure Debridement Debridement -Clinical Debridement Muscle Muscle -Post Debridement Size (cm) - Length 6.0 5.8 -Post Debridement Size (cm) - Width 5.2 6 -Post Debridement Size (cm) - Depth 1.7 2.3 -Total Square Cm 31.20 34.8 -Wound/Ulcer Outcome Not Healed Not Healed -Ulcer Cleansing Rinsed/ Rinsed/ Irrigated with Irrigated with Saline Saline -Foul Odor after Cleansing No No -Bioengineered Tissue No No -Bleeding Controlled with Pressure -Other undermining 8-5 :00 2cm -Offloading No No -Treatment Response Procedure Procedure Tolerated Well Tolerated Well Pain Scale: 0-10 Numeric Is Patient Pain Free? Yes Yes Wound debrided: #1 Posterior pelvis in sacral area. Laterality: Not Applicable Wound Grade/Stage: IV. Type of Debridement: Excisional debridement Anesthesia Used: 4% Lidocaine Solution Depth: Down to and including healthy tissue, in the subcutaneous layer, to muscle, to bone - bone is exposed but not debrided. Percentage of wound debrided: 100 Instrument Used: 7mm curette Tissue Removed: subcutaneous tissue and muscle. Severity: Fat Layer Exposed - muscle is exposed. bone is exposed but not debrided. Amount of bleeding with debridement: Mild Bleeding Controlled with: Pressure Patient tolerated procedure well Assessment/Plan Assessment: 1. 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 2. Chronic osteomyelitis of the pelvis. 3. Spina bifida. 4. s/p excision sacral pressure sore in posterior aspect of pelvis, Stage IV, and partial ostectomy pelvis for osteomyelitis. Plan: Continue Dakin's dressing changes twice a day. The wound continues to improve with granulation tissue and no exudate and the bone almost covered entirely with granulation tissue. Continue IV Vancomycin for the Staphylococcus aureus and Streptococcus agalactiae. He is finishing the Flagyl for the Anaerobes. His Prealbumin has improved since discharge from 7.5 while in the hospital to 17.2 on 08/30/19. His weekly labs while on Vancomycin are normal from 08/30/19. BUN was 10. Creatinine was 0.57. AST was 15. ALT was 26. Alkaline phosphatase was 91. Total Bilirubin was 0.30. ESR was >130. CRP was 30.20. Followup one week. Code Visit Wound Center Charges CPT - 15122 ICD-10 - V58.49, L89.154, M86.659, Q05.9
[2019-09-13 08:39] VITALS: BP 137/72; PULSE 18; RESP 74; TEMP 36.5; BMI 23.1
--- NOTE | 2019-09-13 15:44 | PCM.WC.PN ---
(1) Stage IV pressure ulcer of sacral region Status: Chronic Code(s): L89.154 - Pressure ulcer of sacral region, stage 4 (2) Chronic osteomyelitis of pelvis Status: Chronic Code(s): M86.659 - Other chronic osteomyelitis, unspecified thigh (3) Spina bifida Status: Chronic Code(s): Q05.9 - Spina bifida, unspecified Type of Wound Date of Service: 09/13/19 Chief Complaint: Sacral pressure sore in the posterior aspect of the pelvis, Stage IV, with osteomyelitis of the pelvis. History of Wound: Surgery 08/05/19 - 1. Excision sacral pressure sore in posterior aspect of pelvis, Stage IV. 2. Partial ostectomy pelvis for osteomyelitis. Wound care - [facility]. Had the VAC initially. Operative cultures - Staphylococcus aureus and Anaerobic cocci in the soft tissue and negative in the bone. He was initially placed on Augmentin. Pathology was negative for osteomyelitis. Postop he had persistent fevers. He had a wound culture done on 08/16/19 which showed Staphylococcus aureus, Streptococcus agalactiae, Bacteroides fragilis, and Clostridium. It was felt the VAC was not functioning and his wound care was changed to [facility]. He was admitted to the hospital for IV antibiotics. He was started on Vancomycin. After discharge from the hospital, he was also started on Flagyl. CT Pelvis from 08/20/19 showed persistent, if slightly worse sacral decubitus ulcer when compared to the previous study from 12/07/2018. There are persistent erosive changes within the sacrum suggesting associated osteomyelitis. The ulcer measures approximate 4.9 x 3.4 x 4.9 cm, is gas-filled and appears to contain packing material. Stable surgical hardware in the lower lumbar spine and sacrum.. He was seen at the wound center on 08/16/19 and wound cultures were obtained that were positive for Staphylococcues aureus and Streptococcus agalactiae B, Bacteroides fragilis and Clostridium species. He was admitted on 08/18/19 due to persistent fevers and IV antibiotics. He was discharged home with PICC line and on Vancomycin. Flagyl was added for the Anaerobes. Prealbumin from 08/18/19 was 7.5. Encourage nutritional supplementation with protein to help the healing process. After discharge he was getting weekly labs while on Vancomycin. His labs from 08/30/19 showed BUN was 10 and the Creatinine was 0.57. AST was 15. ALT was 26. Alkaline phosphatase was 91. Total Bilirubin was 0.30. ESR was >130. CRP was 30.20. Today he denies fever. His appetite is good. Progress of Wound: Improved. - Physical Exam Vital Signs Temp Pulse Resp BP 97.7 F L 18 L 74 H 137/72 H 09/13/19 08:39 09/13/19 08:39 09/13/19 08:39 09/13/19 08:39 General: Alert, Oriented x3, Cooperative HEENT: Atraumatic Oral: Moist Mucosa Lungs: Normal air movement Cardiovascular: Regular rate Extremities: Capillary Refill Less than 3 Seconds Skin: Ulcer/ Wound - coccyx Wound Measurements and Assessment WC - Nurse 1 - General Ulcer Measurement Start: 08/30/19 10:00 Freq: Status: Active Protocol: Activity Type Activity Date Activity User E-Sign Co-Sign Detail Recorded Client Recorded Date Recorded By Document 09/13/19 08:39 [facility] [id number] 09/13/19 08:44 [facility] 09/13/19 08:39 Wound Center Nurse 1 [Ulcer Assessment] # 1 Coccyx -Combined with other wound No -Current Size (cm) - Length 5.6 -Current Size (cm) - Width 5.3 -Current Size (cm) - Depth 1.5 -Total Square Cm 29.68 -Photo Taken No -Epithelialization Small 1-33% -Tunneling No -Undermining/Tunneling Yes -Undermining/Tunneling Starts (O' 10 clock) -Undermining/Tunneling Ends (O'clock) 5 -Maximum Distance (cm) 3 -Circular Undermining No -Exudate Amt Medium -Exudate Type Serosanguineous -Wound Margin Distinct, Outline Attached -Granulation Amt Large (67-100%) -Granulation Quality Pale,Red -Slough/Fibrin Yes -Necrosis Amt Small (1-33%) -Necrotic Tissue Type Adherent Slough -Texture (Aishwarya-wound Skin Appearance) Assessed, Scarring -Moisture (Aishwarya-wound Skin Appearance Assessed, ) Maceration -Color (Aishwarya-wound Skin Appearance) Assessed,Palor -Temperature (Aishwarya-wound Skin No Abnormality Appearance) (Pt Warm) -Tenderness on Palpation (Aishwarya-wound No Skin Appearance) -Ulcer Cleansing soapy water -Foul Odor after Cleansing No -Anesthetic Used 4% Lidocaine Solution - Nurse 2 - General Ulcer CM Notes Start: 08/30/19 10:00 Freq: Status: Active Protocol: Activity Type Activity Date Activity User E-Sign Co-Sign Detail Recorded Client Recorded Date Recorded By Document 09/13/19 09:14 [id number] 09/13/19 09:16 09/13/19 09:14 Wound Center Nurse 2 [Procedure/Treatment] -Time 09:15 -Correct Patient Yes -Correct Side, Site, Position Yes -Correct Procedure Yes -Procedure Performed Yes -Type of Procedure Debridement -Clinical Debridement Muscle -Post Debridement Size (cm) - Length 5.5 -Post Debridement Size (cm) - Width 5.0 -Post Debridement Size (cm) - Depth 2.0 -Total Square Cm 27.50 -Wound/Ulcer Outcome Not Healed -Ulcer Cleansing Rinsed/ Irrigated with Saline -Foul Odor after Cleansing No -Bioengineered Tissue No -Bleeding Controlled with Pressure -Other undermining 9-5 :00 3cm -Offloading No -Treatment Response Procedure Tolerated Well [See Physician Procedure note for Specifics] Pain Scale: 0-10 Numeric [Pain] -Is Patient Pain Free? Yes Musculoskeletal: No Tenderness to Palpation of Joints or Extremities Neurological: Cranial nerves II-XII grossly intact Psych/Mental Status: Normal Affect, Appropriate Debridement Note Post-Debridement Measurements/Treatment - Nurse 2 - General Ulcer CM Notes Start: 08/30/19 10:00 Freq: Status: Active Protocol: Activity Type Activity Date Activity User E-Sign Co-Sign Detail Recorded Client Recorded Date Recorded By Document 08/30/19 10:35 [id number] 08/30/19 10:37 Document 09/06/19 10:12 [id number] 09/06/19 10:13 Document 09/13/19 09:14 [id number] 09/13/19 09:16 08/30/19 09/06/19 09/13/19 10:35 10:12 09:14 Wound Center Nurse 2 # 1 Coccyx -Time 10:35 10:13 09:15 -Correct Patient Yes Yes Yes -Correct Side, Site, Position Yes Yes Yes -Correct Procedure Yes Yes Yes -Procedure Performed Yes Yes Yes -Type of Procedure Debridement Debridement Debridement -Clinical Debridement Muscle Muscle Muscle -Post Debridement Size (cm) - Length 6.0 5.8 5.5 -Post Debridement Size (cm) - Width 5.2 6 5.0 -Post Debridement Size (cm) - Depth 1.7 2.3 2.0 -Total Square Cm 31.20 34.8 27.50 -Wound/Ulcer Outcome Not Healed Not Healed Not Healed -Ulcer Cleansing Rinsed/ Rinsed/ Rinsed/ Irrigated with Irrigated with Irrigated with Saline Saline Saline -Foul Odor after Cleansing No No No -Bioengineered Tissue No No No -Bleeding Controlled with Pressure Pressure -Other undermining 8-5 undermining 9-5 :00 2cm :00 3cm -Offloading No No No -Treatment Response Procedure Procedure Procedure Tolerated Well Tolerated Well Tolerated Well Pain Scale: 0-10 Numeric Is Patient Pain Free? Yes Yes Yes Wound debrided: sacral ulcer Type of Debridement: Excisional debridement Anesthesia Used: 5% Lidocaine Gel Depth: Down to and including healthy tissue, in the subcutaneous layer Percentage of wound debrided: 100 Instrument Used: 5mm curette Tissue Removed: Subcutaneous tissue and slough Severity: Fat Layer Exposed - into the muscle Amount of bleeding with debridement: Mild Bleeding Controlled with: Pressure Patient tolerated procedure well Assessment/Plan Assessment: 1. 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 2. Chronic osteomyelitis of the pelvis. 3. Spina bifida. 4. s/p excision sacral pressure sore in posterior aspect of pelvis, Stage IV, and partial ostectomy pelvis for osteomyelitis. Plan: Continue Dakin's dressing changes twice a day. The wound continues to improve with granulation tissue and no exudate and the bone almost covered entirely with granulation tissue. Continue IV Vancomycin for the Staphylococcus aureus and Streptococcus agalactiae. He is finishing the Flagyl for the Anaerobes. His Prealbumin has improved since discharge from 7.5 while in the hospital to 17.2 on 08/30/19. His weekly labs while on Vancomycin are normal from 09/06/19. BUN was 11. Creatinine was 0.64. AST was 15. ALT was 21. Alkaline phosphatase was 103. Total Bilirubin was 0.40. ESR was 49. CRP was 15.8. His PICC line no longer has a blood return, but it now is taking longer to run his antibiotics through it. Will order him to go have it flushed with activace at the infusion center. Followup one week. Code Visit 16875
[2019-09-20 09:38] VITALS: BP 138/63; PULSE 77; RESP 18; TEMP 36.2; BMI 23.1
[2019-09-20 10:59] LABS: ALB/GLOB Ratio 0.7 RATIO (0.9-2.4); AST(SGOT) 19 U/L (15-37); Alanine Aminotransfer ALT/SGPT 32 U/L (16-61); Albumin, Serum 3.4 g/dL (3.2-5.0); Alkaline Phosphatase 107 U/L (45-117); Anion Gap 4 (5-15); BUN 14 mg/dL (7-18); BUN/Creat Ratio 22.3 RATIO (10-20); CRP 4.78 mg/L (0.0-3.0); Calcium,Total 8.6 mg/dL (8.5-10.1); Chloride 105 mmol/L (98-107); Creatinine, Serum 0.63 mg/dL (0.70-1.30); EST Glomerular Filtration Rate 168 mL/min (>60); Est Glom Filt Rate - Afr Amer 204 mL/min (>60); Globulin 4.9 g/dL (2.2-4.2); Glucose 79 mg/dL (74-106); Potassium 3.7 mmol/L (3.5-5.1); Protein, Total 8.3 g/dL (6.4-8.2); Sodium Level 138 mmol/L (136-145)
[2019-09-20 11:01] LABS: Erythrocyte Sedimentation Rate 46 mm/hr (0-15)
[2019-09-20 11:06] LABS: Hematocrit 45.1 % (40-54); Hemoglobin 13.5 g/dL (13.0-16.5); Mean Corp Hgb Conc 29.9 g/dL (32-36); Mean Corpuscular Hgb 23.6 pg (27.0-32.0); Mean Platelet Vol. 10.6 fl (6.2-12.0); Platelet Count 292 K/mm3 (150-450); RBC Distribution Width CV 15.8 % (11.6-14.6); RBC Distribution Width SD 44.7 fl (35.1-43.9); Red Blood Count 5.71 M/mm3 (4.6-6.2); White Blood Count 6.2 K/mm3 (4.4-11.0)
[2019-09-20 11:14] LABS: Vancomycin, Trough Level 3.5 ug/mL (5.0-15.0)
--- NOTE | 2019-09-20 13:50 | PCM.WC.PN ---
(1) Stage IV pressure ulcer of sacral region Status: Chronic Code(s): L89.154 - Pressure ulcer of sacral region, stage 4 (2) Chronic osteomyelitis of pelvis Status: Chronic Code(s): M86.659 - Other chronic osteomyelitis, unspecified thigh (3) Spina bifida Status: Chronic Code(s): Q05.9 - Spina bifida, unspecified Type of Wound Date of Service: 09/20/19 Chief Complaint: Sacral pressure sore in the posterior aspect of the pelvis, Stage IV, with osteomyelitis of the pelvis. History of Wound: Surgery 08/05/19 - 1. Excision sacral pressure sore in posterior aspect of pelvis, Stage IV. 2. Partial ostectomy pelvis for osteomyelitis. Wound care - [facility]. Had the VAC initially. Operative cultures - Staphylococcus aureus and Anaerobic cocci in the soft tissue and negative in the bone. He was initially placed on Augmentin. Pathology was negative for osteomyelitis. Postop he had persistent fevers. He had a wound culture done on 08/16/19 which showed Staphylococcus aureus, Streptococcus agalactiae, Bacteroides fragilis, and Clostridium. It was felt the VAC was not functioning and his wound care was changed to [facility]. He was admitted to the hospital for IV antibiotics. He was started on Vancomycin. After discharge from the hospital, he was also started on Flagyl. CT Pelvis from 08/20/19 showed persistent, if slightly worse sacral decubitus ulcer when compared to the previous study from 12/07/2018. There are persistent erosive changes within the sacrum suggesting associated osteomyelitis. The ulcer measures approximate 4.9 x 3.4 x 4.9 cm, is gas-filled and appears to contain packing material. Stable surgical hardware in the lower lumbar spine and sacrum.. He was seen at the wound center on 08/16/19 and wound cultures were obtained that were positive for Staphylococcues aureus and Streptococcus agalactiae B, Bacteroides fragilis and Clostridium species. He was admitted on 08/18/19 due to persistent fevers and IV antibiotics. He was discharged home with PICC line and on Vancomycin. Flagyl was added for the Anaerobes. Prealbumin from 08/18/19 was 7.5. Encourage nutritional supplementation with protein to help the healing process. After discharge he was getting weekly labs while on Vancomycin. His labs from 09/20/19 showed BUN was 14 and the Creatinine was 0.63. AST was 19. ALT was 32. Alkaline phosphatase was 107. Total Bilirubin 0.40. ESR was46. CRP was 4.78. Today he denies fever. His appetite is good. Progress of Wound: Improved. - Physical Exam Vital Signs Temp Pulse Resp BP 97.2 F L 77 18 138/63 H 09/20/19 09:38 12 09:38 09/20/19 09:38 09/20/19 09:38 General: Alert, Oriented x3 HEENT: Atraumatic Oral: Moist Mucosa Lungs: Normal air movement Cardiovascular: Regular rate Extremities: No edema, Capillary Refill Less than 3 Seconds Skin: Ulcer/ Wound - sacral Wound Measurements and Assessment WC - Nurse 1 - General Ulcer Measurement Start: 08/30/19 10:00 Freq: Status: Active Protocol: Activity Type Activity Date Activity User E-Sign Co-Sign Detail Recorded Client Recorded Date Recorded By Document 09/20/19 09:38 DL [id number] 09/20/19 09:44 DL 09/20/19 09:38 Wound Center Nurse 1 [Ulcer Assessment] # 1 Coccyx -Current Size (cm) - Length 5.5 -Current Size (cm) - Width 5.5 -Current Size (cm) - Depth 2 -Total Square Cm 30.25 -Photo Taken No -Undermining/Tunneling Starts (O' 10 clock) -Undermining/Tunneling Ends (O'clock) 5 -Maximum Distance (cm) 2.8 -Exudate Amt Medium -Exudate Type Serosanguineous -Wound Margin Thickened & Rolled Under -Granulation Amt Large (67-100%) -Granulation Quality Red -Necrosis Amt Small (1-33%) -Necrotic Tissue Type Adherent Slough -Structure Exposed Bone,N/A -Texture (Aishwarya-wound Skin Appearance) Scarring -Moisture (Aishwarya-wound Skin Appearance No Abnormality ) -Color (Aishwarya-wound Skin Appearance) No Abnormality -Temperature (Aishwarya-wound Skin No Abnormality Appearance) (Pt Warm) -Tenderness on Palpation (Aishwarya-wound No Skin Appearance) -Ulcer Cleansing Wound Cleanser -Foul Odor after Cleansing No -Anesthetic Used 4% Lidocaine Solution WC - Nurse 2 - General Ulcer CM Notes Start: 08/30/19 10:00 Freq: Status: Active Protocol: Activity Type Activity Date Activity User E-Sign Co-Sign Detail Recorded Client Recorded Date Recorded By Document 09/20/19 10:03 [id number] 09/20/19 10:05 09/20/19 10:03 Wound Center Nurse 2 [Procedure/Treatment] -Time 10:03 -Correct Patient Yes -Correct Side, Site, Position Yes -Correct Procedure Yes -Procedure Performed Yes -Type of Procedure Debridement -Clinical Debridement Muscle -Post Debridement Size (cm) - Length 5.3 -Post Debridement Size (cm) - Width 5.4 -Post Debridement Size (cm) - Depth 1.0 -Total Square Cm 28.62 -Wound/Ulcer Outcome Not Healed -Ulcer Cleansing Rinsed/ Irrigated with Saline -Foul Odor after Cleansing No -Bioengineered Tissue No -Bleeding Controlled with Pressure -Offloading No -Treatment Response Procedure Tolerated Well [See Physician Procedure note for Specifics] Pain Scale: 0-10 Numeric [Pain] -Is Patient Pain Free? Yes Musculoskeletal: No Tenderness to Palpation of Joints or Extremities Neurological: Neuro grossly intact Psych/Mental Status: Normal Affect, Appropriate Debridement Note Post-Debridement Measurements/Treatment WC - Nurse 2 - General Ulcer CM Notes Start: 08/30/19 10:00 Freq: Status: Active Protocol: Activity Type Activity Date Activity User E-Sign Co-Sign Detail Recorded Client Recorded Date Recorded By Document 08/30/19 10:35 [id number] 08/30/19 10:37 Document 09/06/19 10:12 [id number] 09/06/19 10:13 Document 09/13/19 09:14 [id number] 09/13/19 09:16 Document 09/20/19 10:03 [id number] 09/20/19 10:05 08/30/19 09/06/19 09/13/19 10:35 10:12 09:14 Wound Center Nurse 2 # 1 Coccyx -Time 10:35 10:13 09:15 -Correct Patient Yes Yes Yes -Correct Side, Site, Position Yes Yes Yes -Correct Procedure Yes Yes Yes -Procedure Performed Yes Yes Yes -Type of Procedure Debridement Debridement Debridement -Clinical Debridement Muscle Muscle Muscle -Post Debridement Size (cm) - Length 6.0 5.8 5.5 -Post Debridement Size (cm) - Width 5.2 6 5.0 -Post Debridement Size (cm) - Depth 1.7 2.3 2.0 -Total Square Cm 31.20 34.8 27.50 -Wound/Ulcer Outcome Not Healed Not Healed Not Healed -Ulcer Cleansing Rinsed/ Rinsed/ Rinsed/ Irrigated with Irrigated with Irrigated with Saline Saline Saline -Foul Odor after Cleansing No No No -Bioengineered Tissue No No No -Bleeding Controlled with Pressure Pressure -Other undermining 8-5 undermining 9-5 :00 2cm :00 3cm -Offloading No No No -Treatment Response Procedure Procedure Procedure Tolerated Well Tolerated Well Tolerated Well Pain Scale: 0-10 Numeric Is Patient Pain Free? Yes Yes Yes 09/20/19 10:03 Wound Center Nurse 2 # 1 Coccyx -Time 10:03 -Correct Patient Yes -Correct Side, Site, Position Yes -Correct Procedure Yes -Procedure Performed Yes -Type of Procedure Debridement -Clinical Debridement Muscle -Post Debridement Size (cm) - Length 5.3 -Post Debridement Size (cm) - Width 5.4 -Post Debridement Size (cm) - Depth 1.0 -Total Square Cm 28.62 -Wound/Ulcer Outcome Not Healed -Ulcer Cleansing Rinsed/ Irrigated with Saline -Foul Odor after Cleansing No -Bioengineered Tissue No -Bleeding Controlled with Pressure -Other -Offloading No -Treatment Response Procedure Tolerated Well Pain Scale: 0-10 Numeric Is Patient Pain Free? Yes Wound debrided: sacral ulcer Type of Debridement: Excisional debridement Anesthesia Used: 5% Lidocaine Gel Depth: Down to and including healthy tissue, in the subcutaneous layer Percentage of wound debrided: 100 Instrument Used: 5mm curette Tissue Removed: subcutaneous tissue and slough, into the muscle Severity: Fat Layer Exposed Amount of bleeding with debridement: Mild Bleeding Controlled with: Pressure Patient tolerated procedure well Assessment/Plan Assessment: 1. 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 2. Chronic osteomyelitis of the pelvis. 3. Spina bifida. 4. s/p excision sacral pressure sore in posterior aspect of pelvis, Stage IV, and partial ostectomy pelvis for osteomyelitis. Plan: Continue [facility]in[facility] dressing changes twice a day. The wound continues to improve with granulation tissue and no exudate and the bone almost covered entirely with granulation tissue. Continue IV Vancomycin for the Staphylococcus aureus and Streptococcus agalactiae. He is finishing the Flagyl for the Anaerobes. His Prealbumin has improved since discharge from 7.5 while in the hospital to 17.2 on 08/30/19. His weekly labs while on Vancomycin from 09/20/19 showed BUN was 14 and the Creatinine was 0.63. AST was 19. ALT was 32. Alkaline phosphatase was 107. Total Bilirubin 0.40. ESR was46. CRP was 4.78. He had a new PICC line placed last week due to his having a block. Followup one week. Code Visit [id number]
== END 2019-09-21 23:59 ==
LOC: WC 09:15
PROVIDERS: Family Provider Family Medicine; PCP Family Medicine; Referring Provider Internal Medicine; Visit Provider Nurse Practitioner Family
DX: L89.154 Pressure ulcer of sacral region, stage 4 (principal); Q05.9 Spina bifida, unspecified; M86.68 Other chronic osteomyelitis, other site
CPT/HCPCS: 11043; 11046; 36415; 36593; 80053; 80202; 84134; 85027; 85652; 86140; J2997; A4216

== ENCOUNTER 2019-10-04 08:11 | Outpatient (RCR) | payer MEDICAID, SELFPAY ==
[2019-09-22 00:28] VITALS: BP 138/63; PULSE 77; RESP 18; TEMP 36.2
[2019-09-27 08:32] LABS: Erythrocyte Sedimentation Rate 50 mm/hr (0-15)
[2019-09-27 08:35] LABS: Hematocrit 44.6 % (40-54); Hemoglobin 13.4 g/dL (13.0-16.5); Mean Corpuscular Hgb 23.3 pg (27.0-32.0); Mean Corpuscular Volume 77.7 fL (80-94); Mean Platelet Vol. 10.3 fl (6.2-12.0); Platelet Count 264 K/mm3 (150-450); RBC Distribution Width SD 44.8 fl (35.1-43.9); Red Blood Count 5.74 M/mm3 (4.6-6.2)
[2019-09-27 08:45] LABS: ALB/GLOB Ratio 0.7 RATIO (0.9-2.4); AST(SGOT) 26 U/L (15-37); Alanine Aminotransfer ALT/SGPT 33 U/L (16-61); Albumin, Serum 3.3 g/dL (3.2-5.0); Alkaline Phosphatase 113 U/L (45-117); Anion Gap 3 (5-15); BUN 15 mg/dL (7-18); BUN/Creat Ratio 21.8 RATIO (10-20); Calcium,Total 8.7 mg/dL (8.5-10.1); Chloride 107 mmol/L (98-107); Creatinine, Serum 0.69 mg/dL (0.70-1.30); EST Glomerular Filtration Rate 151 mL/min (>60); Est Glom Filt Rate - Afr Amer 183 mL/min (>60); Estimated Creatinine Clearance 140.61 ml/min; Globulin 4.9 g/dL (2.2-4.2); Glucose 95 mg/dL (74-106); Potassium 3.8 mmol/L (3.5-5.1); Protein, Total 8.2 g/dL (6.4-8.2); Sodium Level 136 mmol/L (136-145); Vancomycin, Trough Level 12.4 ug/mL (5.0-15.0)
[2019-10-04 09:27] LABS: Hematocrit 45.4 % (40-54); Hemoglobin 13.3 g/dL (13.0-16.5); Mean Corp Hgb Conc 29.3 g/dL (32-36); Mean Corpuscular Hgb 23.3 pg (27.0-32.0); Mean Corpuscular Volume 79.5 fL (80-94); Mean Platelet Vol. 10.3 fl (6.2-12.0); Platelet Count 334 K/mm3 (150-450); RBC Distribution Width CV 15.7 % (11.6-14.6); RBC Distribution Width SD 44.7 fl (35.1-43.9); Red Blood Count 5.71 M/mm3 (4.6-6.2)
[2019-10-04 09:30] LABS: Erythrocyte Sedimentation Rate 22 mm/hr (0-15)
[2019-10-04 09:38] LABS: Vancomycin, Trough Level < 0.8 ug/mL (5.0-15.0)
[2019-10-04 09:40] LABS: ALB/GLOB Ratio 0.8 RATIO (0.9-2.4); AST(SGOT) 16 U/L (15-37); Alanine Aminotransfer ALT/SGPT 29 U/L (16-61); Albumin, Serum 3.6 g/dL (3.2-5.0); Alkaline Phosphatase 114 U/L (45-117); Anion Gap 5 (5-15); BUN 24 mg/dL (7-18); BUN/Creat Ratio 33.2 RATIO (10-20); CRP 8.26 mg/L (0.0-3.0); Chloride 104 mmol/L (98-107); Creatinine, Serum 0.72 mg/dL (0.70-1.30); EST Glomerular Filtration Rate 143 mL/min (>60); Est Glom Filt Rate - Afr Amer 174 mL/min (>60); Estimated Creatinine Clearance 134.75 ml/min; Globulin 4.7 g/dL (2.2-4.2); Glucose 74 mg/dL (74-106); Potassium 3.7 mmol/L (3.5-5.1); Protein, Total 8.3 g/dL (6.4-8.2); Sodium Level 139 mmol/L (136-145)
== END 2019-10-04 18:00 | disposition home or self-care (01) ==
LOC: LAB 08:11
PROVIDERS: Family Provider Family Medicine; PCP Family Medicine; Referring Provider Nurse Practitioner Family; Visit Provider Nurse Practitioner Family
DX: M86.659 Other chronic osteomyelitis, unspecified thigh (principal); L89.154 Pressure ulcer of sacral region, stage 4; Q05.9 Spina bifida, unspecified
CPT/HCPCS: 36415; 80053; 80202; 85027; 85652; 86140

== ENCOUNTER 2019-10-18 09:15 | Outpatient (RCR) | payer MEDICAID, SELFPAY ==
[2019-09-27 08:21] VITALS: BP 134/54; PULSE 73; RESP 18; TEMP 36.1; BMI 23.1
--- NOTE | 2019-09-27 12:51 | PCM.WC.PN ---
(1) Stage IV pressure ulcer of sacral region Status: Chronic Current Visit: Yes Code(s): L89.154 - Pressure ulcer of sacral region, stage 4 (2) Chronic osteomyelitis of pelvis Status: Chronic Current Visit: Yes Code(s): M86.659 - Other chronic osteomyelitis, unspecified thigh (3) Spina bifida Status: Chronic Current Visit: Yes Code(s): Q05.9 - Spina bifida, unspecified Type of Wound Date of Service: 09/27/19 Chief Complaint: Sacral pressure sore in the posterior aspect of the pelvis, Stage IV, with osteomyelitis of the pelvis. History of Wound: Surgery 08/05/19 - 1. Excision sacral pressure sore in posterior aspect of pelvis, Stage IV. 2. Partial ostectomy pelvis for osteomyelitis. Wound care - [facility]. Had the VAC initially. Operative cultures - Staphylococcus aureus and Anaerobic cocci in the soft tissue and negative in the bone. He was initially placed on Augmentin. Pathology was negative for osteomyelitis. Postop he had persistent fevers. He had a wound culture done on 08/16/19 which showed Staphylococcus aureus, Streptococcus agalactiae, Bacteroides fragilis, and Clostridium. It was felt the VAC was not functioning and his wound care was changed to [facility]. He was admitted to the hospital for IV antibiotics. He was started on Vancomycin. After discharge from the hospital, he was also started on Flagyl. CT Pelvis from 08/20/19 showed persistent, if slightly worse sacral decubitus ulcer when compared to the previous study from 12/07/2018. There are persistent erosive changes within the sacrum suggesting associated osteomyelitis. The ulcer measures approximate 4.9 x 3.4 x 4.9 cm, is gas-filled and appears to contain packing material. Stable surgical hardware in the lower lumbar spine and sacrum.. He was seen at the wound center on 08/16/19 and wound cultures were obtained that were positive for Staphylococcues aureus and Streptococcus agalactiae B, Bacteroides fragilis and Clostridium species. He was admitted on 08/18/19 due to persistent fevers and IV antibiotics. He was discharged home with PICC line and on Vancomycin. Flagyl was added for the Anaerobes. Prealbumin from 08/18/19 was 7.5. Encourage nutritional supplementation with protein to help the healing process. After discharge he was getting weekly labs while on Vancomycin. His labs from this morning 09/27/2019 showed BUN was 15 and the Creatinine was 0.69. AST was 26. ALT was 33. Alkaline phosphatase was 113. Total Bilirubin was 0.40. ESR was 50. CRP was 20.5. Today he denies fever. His appetite is good. Progress of Wound: improved - Physical Exam Vital Signs Temp Pulse Resp BP 97 F L 73 18 134/54 H 09/27/19 08:21 09/27/19 08:21 09/27/19 08:21 09/27/19 08:21 General: Alert, Oriented x3, Cooperative HEENT: Atraumatic Oral: Moist Mucosa Lungs: Normal air movement Cardiovascular: Regular rate Abdomen: Soft Skin: Ulcer/ Wound - sacral ulcer Wound Measurements and Assessment WC - Nurse 1 - General Ulcer Measurement Start: 09/27/19 08:21 Freq: Status: Active Protocol: Activity Type Activity Date Activity User E-Sign Co-Sign Detail Recorded Client Recorded Date Recorded By Document 09/27/19 08:21 [email or web address] [id number] 09/27/19 08:26 DL 09/27/19 08:21 Wound Center Nurse 1 [Ulcer Assessment] # 1 Coccyx -Current Size (cm) - Length 6 -Current Size (cm) - Width 6 -Current Size (cm) - Depth 1.4 -Total Square Cm 36 -Photo Taken No -Exudate Amt Medium -Exudate Type Serosanguineous -Wound Margin Thickened & Rolled Under -Granulation Amt Large (67-100%) -Granulation Quality Red -Necrosis Amt Small (1-33%) -Necrotic Tissue Type Adherent Slough -Structure Exposed N/A -Texture (Aishwarya-wound Skin Appearance) Scarring -Moisture (Aishwarya-wound Skin Appearance No Abnormality ) -Color (Aishwarya-wound Skin Appearance) No Abnormality -Temperature (Aishwarya-wound Skin No Abnormality Appearance) (Pt Warm) -Tenderness on Palpation (Aishwarya-wound No Skin Appearance) -Ulcer Cleansing Wound Cleanser -Foul Odor after Cleansing No -Anesthetic Used 4% Lidocaine Solution WC - Nurse 2 - General Ulcer CM Notes Start: 09/27/19 08:21 Freq: Status: Active Protocol: Activity Type Activity Date Activity User E-Sign Co-Sign Detail Recorded Client Recorded Date Recorded By Document 09/27/19 08:46 [email or web address] [id number] 09/27/19 08:47 09/27/19 08:46 Wound Center Nurse 2 [Procedure/Treatment] -Time 08:46 -Correct Patient Yes -Correct Side, Site, Position Yes -Correct Procedure Yes -Procedure Performed Yes -Type of Procedure Debridement -Clinical Debridement Muscle -Post Debridement Size (cm) - Length 5.8 -Post Debridement Size (cm) - Width 5.5 -Post Debridement Size (cm) - Depth 1.0 -Total Square Cm 31.90 -Wound/Ulcer Outcome Not Healed -Ulcer Cleansing Rinsed/ Irrigated with Saline -Foul Odor after Cleansing No -Bioengineered Tissue No -Bleeding Controlled with Pressure -Other 05-27:---2.9cm -Offloading No -Treatment Response Procedure Tolerated Well [See Physician Procedure note for Specifics] Pain Scale: 0-10 Numeric [Pain] -Is Patient Pain Free? Yes Musculoskeletal: No Tenderness to Palpation of Joints or Extremities Neurological: Neuro grossly intact Psych/Mental Status: Normal Affect, Appropriate Debridement Note Post-Debridement Measurements/Treatment WC - Nurse 2 - General Ulcer CM Notes Start: 09/27/19 08:21 Freq: Status: Active Protocol: Activity Type Activity Date Activity User E-Sign Co-Sign Detail Recorded Client Recorded Date Recorded By Document 09/27/19 08:46 [id number] 09/27/19 08:47 09/27/19 08:46 Wound Center Nurse 2 # 1 Coccyx -Time 08:46 -Correct Patient Yes -Correct Side, Site, Position Yes -Correct Procedure Yes -Procedure Performed Yes -Type of Procedure Debridement -Clinical Debridement Muscle -Post Debridement Size (cm) - Length 5.8 -Post Debridement Size (cm) - Width 5.5 -Post Debridement Size (cm) - Depth 1.0 -Total Square Cm 31.90 -Wound/Ulcer Outcome Not Healed -Ulcer Cleansing Rinsed/ Irrigated with Saline -Foul Odor after Cleansing No -Bioengineered Tissue No -Bleeding Controlled with Pressure -Other 95:00---2.9cm -Offloading No -Treatment Response Procedure Tolerated Well Pain Scale: 0-10 Numeric Is Patient Pain Free? Yes Wound debrided: sacral ulcer Type of Debridement: Excisional debridement Anesthesia Used: 4% Lidocaine Solution Depth: Down to and including healthy tissue, in the subcutaneous layer Percentage of wound debrided: 100 Instrument Used: 7mm curette Tissue Removed: Subcutaneous tissue and slough Severity: Fat Layer Exposed Amount of bleeding with debridement: Mild Bleeding Controlled with: Compression and gauze Patient tolerated procedure well Assessment/Plan Active Problems Chronic osteomyelitis of pelvis (Chronic) Stage IV pressure ulcer of sacral region (Chronic) Spina bifida (Chronic) Assessment: 1. 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 2. Chronic osteomyelitis of the pelvis. 3. Spina bifida. 4. s/p excision sacral pressure sore in posterior aspect of pelvis, Stage IV, and partial ostectomy pelvis for osteomyelitis. Plan: Continue [facility]in[facility] dressing changes twice a day. The wound continues to improve with granulation tissue and no exudate and the bone almost covered entirely with granulation tissue. Continue IV Vancomycin for the Staphylococcus aureus and Streptococcus agalactiae. He is finishing the Flagyl for the Anaerobes. His Prealbumin has improved since discharge from 7.5 while in the hospital to 17.2 on 08/30/19. His weekly labs while on Vancomycin are normal from from today 09/27/19. BUN was 15. Creatinine was 0.69. AST was 26. ALT was 33. Alkaline phosphatase was 113. Total Bilirubin was 0.40. ESR was 50. CRP was 20.5. Followup one week. Code Visit [id number]
[2019-10-04 08:32] VITALS: BP 138/73; PULSE 77; RESP 18; TEMP 36.8; BMI 23.1
--- NOTE | 2019-10-04 15:01 | PN.PCM_ITS ---
(1) Stage IV pressure ulcer of sacral region Status: Chronic Current Visit: Yes Code(s): L89.154 - Pressure ulcer of sacral region, stage 4 (2) Chronic osteomyelitis of pelvis Status: Chronic Current Visit: Yes Code(s): M86.659 - Other chronic osteomyelitis, unspecified thigh (3) Spina bifida Status: Chronic Current Visit: Yes Code(s): Q05.9 - Spina bifida, unspecified Type of Wound Date of Service: 10/04/19 Chief Complaint: Sacral pressure sore in the posterior aspect of the pelvis, Stage IV, with osteomyelitis of the pelvis. History of Wound: Surgery 08/05/19 - 1. Excision sacral pressure sore in pos terior aspect of pelvis, Stage IV. 2. Partial ostectomy pelvis for osteomyelitis. Wound care - [facility]. Had the VAC initially. Operative cultures - Staphylococcus aureus and Anaerobic cocci in the soft tissue and negative in the bone. He was initially placed on Augmentin. Pathology was negative for osteomyelitis. Postop he had persistent fevers. He had a wound culture done on 08/16/19 which showed Staphylococcus aureus, Streptococcus agalactiae, Bacteroides fragilis, and Clostridium. It was felt the VAC was not functioning and his wound care was changed to [facility]. He was admitted to the hospital for IV antibiotics. He was started on Vancomycin. After discharge from the hospital, he was also started on Flagyl. CT Pelvis from 08/20/19 showed persistent, if slightly worse sacral decubitus ulcer when compared to the previous study from 12/07/2018. There are persistent erosive changes within the sacrum suggesting associated osteomyelitis. The ulcer measures approximate 4.9 x 3.4 x 4.9 cm, is gas-filled and appears to contain packing material. Stable surgical hardware in the lower lumbar spine and sacrum.. He was seen at the wound center on 08/16/19 and wound cultures were obtained that were positive for Staphylococcues aureus and Streptococcus agalactiae B, Bacteroides fragilis and Clostridium species. He was admitted on 08/18/19 due to persistent fevers and IV antibiotics. He was discharged home with PICC line and on Vancomycin. Flagyl was added for the Anaerobes. Prealbumin from 08/18/19 was 7.5. Encourage nutritional supplementation with protein to help the healing process. After discharge he was getting weekly labs while on Vancomycin. His labs from 09/27/2019 showed BUN was 15 and the Creatinine was 0.69. AST was 26. ALT was 33. Alkaline phosphatase was 113. Total Bilirubin was 0.40. ESR was 50. CRP was 20.5. Todays labs are not back yet. He finished his antibiotic yesterday. Will discontinue the PICC line today. Today he denies fever. His appetite is good. Progress of Wound: improved - Physical Exam Vital Signs Temp Pulse Resp BP 98.2 F 77 18 138/73 H 10/04/19 08:32 10/04/19 08:32 10/04/19 08:32 10/04/19 08:32 General: Alert, Oriented x3, Cooperative HEENT: Atraumatic Oral: Moist Mucosa Lungs: Normal air movement Cardiovascular: Regular rate Extremities: Capillary Refill Less than 3 Seconds Skin: Ulcer/ Wound - sacral ulcer Wound Measurements and Assessment WC - Nurse 1 - General Ulcer Measurement Start: 09/27/19 08:21 Freq: Status: Active Protocol: Activity Type Activity Date Activity User E-Sign Co-Sign Detail Recorded Client Recorded Date Recorded By Document 10/04/19 08:32 DL [id number] 10/04/19 08:38 DL 10/04/19 08:32 Wound Center Nurse 1 [Ulcer Assessment] # 1 Coccyx -Current Size (cm) - Length 5.8 -Current Size (cm) - Width 5.4 -Current Size (cm) - Depth 1 -Total Square Cm 31.32 -Photo Taken No -Undermining/Tunneling Starts (O' 11 clock) -Undermining/Tunneling Ends (O'clock) 5 -Maximum Distance (cm) 3 -Exudate Amt Medium -Exudate Type Serosanguineous -Wound Margin Thickened & Rolled Under -Granulation Amt Large (67-100%) -Granulation Quality Red -Necrosis Amt None Present (0 %) -Structure Exposed N/A -Texture (Aishwarya-wound Skin Appearance) Scarring -Moisture (Aishwarya-wound Skin Appearance No Abnormality ) -Color (Aishwarya-wound Skin Appearance) No Abnormality -Tenderness on Palpation (Aishwarya-wound No Skin Appearance) -Ulcer Cleansing Rinsed/ Irrigated with Saline -Foul Odor after Cleansing No -Anesthetic Used 4% Lidocaine Solution Musculoskeletal: No Tenderness to Palpation of Joints or Extremities Neurological: Neuro grossly intact Psych/Mental Status: Normal Affect, Appropriate Debridement Note Post-Debridement Measurements/Treatment WC - Nurse 2 - General Ulcer CM Notes Start: 09/27/19 08:21 Freq: Status: Active Protocol: Activity Type Activity Date Activity User E-Sign Co-Sign Detail Recorded Client Recorded Date Recorded By Document 09/27/19 08:46 DREW [id number] 09/27/19 08:47 DREW 09/27/19 08:46 Wound Center Nurse 2 # 1 Coccyx -Time 08:46 -Correct Patient Yes -Correct Side, Site, Position Yes -Correct Procedure Yes -Procedure Performed Yes -Type of Procedure Debridement -Clinical Debridement Muscle -Post Debridement Size (cm) - Length 5.8 -Post Debridement Size (cm) - Width 5.5 -Post Debridement Size (cm) - Depth 1.0 -Total Square Cm 31.90 -Wound/Ulcer Outcome Not Healed -Ulcer Cleansing Rinsed/ Irrigated with Saline -Foul Odor after Cleansing No -Bioengineered Tissue No -Bleeding Controlled with Pressure -Other 9-5:00---2.9cm -Offloading No -Treatment Response Procedure Tolerated Well Pain Scale: 0-10 Numeric Is Patient Pain Free? Yes Wound debrided: sacral ulcer Type of Debridement: Excisional debridement Anesthesia Used: 4% Lidocaine Solution Depth: Down to and including healthy tissue, in the subcutaneous layer, to muscle - into the muscle, there is some bone exposure but that is decreasing Percentage of wound debrided: 100 Instrument Used: 7mm curette Tissue Removed: subcutaneous tissue and slough, into the muscle Severity: Fat Layer Exposed Amount of bleeding with debridement: Mild Bleeding Controlled with: Pressure Patient tolerated procedure well Assessment/Plan Active Problems Chronic osteomyelitis of pelvis (Chronic) Stage IV pressure ulcer of sacral region (Chronic) Spina bifida (Chronic) Assessment: 1. 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 2. Chronic osteomyelitis of the pelvis. 3. Spina bifida. 4. s/p excision sacral pressure sore in posterior aspect of pelvis, Stage IV, and partial ostectomy pelvis for osteomyelitis. Plan: Continue [facility] dressing changes twice a day. The wound continues to improve with granulation tissue and no exudate and the bone almost covered entirely with granulation tissue. Completed the IV Vancomycin for the Staphylococcus aureus and Streptococcus agalactiae. He has finished the Flagyl for the Anaerobes. His Prealbumin has improved since discharge from 7.5 while in the hospital to 17.2 on 08/30/19. Will DC PICC line today. His weekly labs while on Vancomycin are normal from 09/27/19 they were BUN was 15. Creatinine was 0.69. AST was 26. ALT was 33. Alkaline phosphatase was 113. Total Bilirubin was 0.40. ESR was 50. CRP was 20.5. Awaiting this weeks lab results. Followup one week. Code Visit 111xxx-113xx: 11940 Global Visit
[2019-10-18 09:43] VITALS: BP 141/67; PULSE 74; RESP 16; TEMP 37.1; BMI 23.1
--- NOTE | 2019-10-18 13:18 | PCM.WC.PN ---
(1) Stage IV pressure ulcer of sacral region Status: Chronic Code(s): L89.154 - Pressure ulcer of sacral region, stage 4 (2) Chronic osteomyelitis of pelvis Status: Chronic Code(s): M86.659 - Other chronic osteomyelitis, unspecified thigh (3) Spina bifida Status: Chronic Code(s): Q05.9 - Spina bifida, unspecified Type of Wound Date of Service: 10/18/19 Chief Complaint: Sacral pressure sore in the posterior aspect of the pelvis, Stage IV, with osteomyelitis of the pelvis. History of Wound: Surgery 08/05/19 - 1. Excision sacral pressure sore in posterior aspect of pelvis, Stage IV. 2. Partial ostectomy pelvis for osteomyelitis. Wound care - [facility]. Had the VAC initially. Operative cultures - Staphylococcus aureus and Anaerobic cocci in the soft tissue and negative in the bone. He was initially placed on Augmentin. Pathology was negative for osteomyelitis. Postop he had persistent fevers. He had a wound culture done on 08/16/19 which showed Staphylococcus aureus, Streptococcus agalactiae, Bacteroides fragilis, and Clostridium. It was felt the VAC was not functioning and his wound care was changed to [facility]. He was admitted to the hospital for IV antibiotics. He was started on Vancomycin. After discharge from the hospital, he was also started on Flagyl. CT Pelvis from 08/20/19 showed persistent, if slightly worse sacral decubitus ulcer when compared to the previous study from 12/07/2018. There are persistent erosive changes within the sacrum suggesting associated osteomyelitis. The ulcer measures approximate 4.9 x 3.4 x 4.9 cm, is gas-filled and appears to contain packing material. Stable surgical hardware in the lower lumbar spine and sacrum.. He was seen at the wound center on 08/16/19 and wound cultures were obtained that were positive for Staphylococcues aureus and Streptococcus agalactiae B, Bacteroides fragilis and Clostridium species. He was admitted on 08/18/19 due to persistent fevers and IV antibiotics. He was discharged home with PICC line and on Vancomycin. Flagyl was added for the Anaerobes. Prealbumin from 08/18/19 was 7.5. Encourage nutritional supplementation with protein to help the healing process. After discharge he was getting weekly labs while on Vancomycin. His labs from 10/04/2019 showed BUN was 24 and the Creatinine was 0.72. AST was 16. ALT was 29. Alkaline phosphatase was 114. Total Bilirubin was 0.30. ESR was 50. CRP was 8.26. He completed his antibiotics. Today he denies fever. His appetite is good. Progress of Wound: improved - Physical Exam Vital Signs Temp Pulse Resp BP 98.8 F 74 16 141/67 H 10/18/19 09:43 10/18/19 09:43 10/18/19 09:43 10/18/19 09:43 General: Alert, Oriented x3, Cooperative HEENT: Atraumatic Oral: Moist Mucosa Lungs: Normal air movement Cardiovascular: Regular rate Extremities: No edema, Capillary Refill Less than 3 Seconds Skin: Ulcer/ Wound - Sacral ulcer Wound Measurements and Assessment WC - Nurse 1 - General Ulcer Measurement Start: 09/27/19 08:21 Freq: Status: Active Protocol: Activity Type Activity Date Activity User E-Sign Co-Sign Detail Recorded Client Recorded Date Recorded By Document 10/18/19 09:43 MW [id number] 10/18/19 09:45 MW 10/18/19 09:43 Wound Center Nurse 1 [Ulcer Assessment] # 1 Coccyx -Combined with other wound No -Current Size (cm) - Length 5.8 -Current Size (cm) - Width 5.0 -Current Size (cm) - Depth 1.1 -Total Square Cm 29.00 -Photo Taken No -Epithelialization None Present -Tunneling No -Undermining/Tunneling No -Circular Undermining No -Exudate Amt Large -Exudate Type Serosanguineous -Wound Margin Flat & Intact -Granulation Amt Large (67-100%) -Granulation Quality Red -Slough/Fibrin Yes -Necrosis Amt Small (1-33%) -Necrotic Tissue Type Adherent Slough -Structure Exposed N/A -Texture (Aishwarya-wound Skin Appearance) Assessed, Scarring -Moisture (Aishwarya-wound Skin Appearance No Abnormality, ) Assessed -Color (Aishwarya-wound Skin Appearance) No Abnormality, Assessed -Temperature (Aishwarya-wound Skin No Abnormality Appearance) (Pt Warm) -Tenderness on Palpation (Aishwarya-wound No Skin Appearance) -Ulcer Cleansing Rinsed/ Irrigated with Saline -Foul Odor after Cleansing No -Anesthetic Used 5% Lidocaine Gel [Edema Assessment] -Lower Limb Edema Present No WC - Nurse 2 - General Ulcer CM Notes Start: 09/27/19 08:21 Freq: Status: Active Protocol: Activity Type Activity Date Activity User E-Sign Co-Sign Detail Recorded Client Recorded Date Recorded By Document 10/18/19 09:59 [id number] 10/18/19 10:00 10/18/19 09:59 Wound Center Nurse 2 [Procedure/Treatment] # 1 Coccyx -Time 09:59 -Correct Patient Yes -Correct Side, Site, Position Yes -Correct Procedure Yes -Procedure Performed Yes -Type of Procedure Debridement -Clinical Debridement Muscle -Post Debridement Size (cm) - Length 6.0 -Post Debridement Size (cm) - Width 5.0 -Post Debridement Size (cm) - Depth 1.4 -Total Square Cm 30.00 -Wound/Ulcer Outcome Not Healed -Ulcer Cleansing Rinsed/ Irrigated with Saline -Foul Odor after Cleansing No -Bioengineered Tissue No -Bleeding Controlled with Pressure -Other 3:00---2.5cm -Offloading No -Treatment Response Procedure Tolerated Well [See Physician Procedure note for Specifics] Pain Scale: 0-10 Numeric [Pain] -Is Patient Pain Free? Yes Musculoskeletal: No Tenderness to Palpation of Joints or Extremities Neurological: Neuro grossly intact Psych/Mental Status: Normal Affect, Appropriate Debridement Note Post-Debridement Measurements/Treatment WC - Nurse 2 - General Ulcer CM Notes Start: 09/27/19 08:21 Freq: Status: Active Protocol: Activity Type Activity Date Activity User E-Sign Co-Sign Detail Recorded Client Recorded Date Recorded By Document 09/27/19 08:46 [id number] 09/27/19 08:47 Document 10/18/19 09:59 [id number] 10/18/19 10:00 09/27/19 10/18/19 08:46 09:59 Wound Center Nurse 2 # 1 Coccyx -Time 08:46 09:59 -Correct Patient Yes Yes -Correct Side, Site, Position Yes Yes -Correct Procedure Yes Yes -Procedure Performed Yes Yes -Type of Procedure Debridement Debridement -Clinical Debridement Muscle Muscle -Post Debridement Size (cm) - Length 5.8 6.0 -Post Debridement Size (cm) - Width 5.5 5.0 -Post Debridement Size (cm) - Depth 1.0 1.4 -Total Square Cm 31.90 30.00 -Wound/Ulcer Outcome Not Healed Not Healed -Ulcer Cleansing Rinsed/ Rinsed/ Irrigated with Irrigated with Saline Saline -Foul Odor after Cleansing No No -Bioengineered Tissue No No -Bleeding Controlled with Pressure Pressure -Other 9-5:00---2.9cm 3:00---2.5cm -Offloading No No -Treatment Response Procedure Procedure Tolerated Well Tolerated Well Pain Scale: 0-10 Numeric Is Patient Pain Free? Yes Yes Wound debrided: Sacral ulcer Laterality: Not Applicable Type of Debridement: Excisional debridement Anesthesia Used: 5% Lidocaine Gel Depth: Down to and including healthy tissue, in the subcutaneous layer, to muscle Percentage of wound debrided: 100 Instrument Used: 7mm curette Tissue Removed: Subcutaneous tissues slough and the muscle Severity: Fat Layer Exposed Amount of bleeding with debridement: Mild Bleeding Controlled with: Pressure Patient tolerated procedure well Bone is no longer exposed Assessment/Plan Assessment: 1. 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 2. Chronic osteomyelitis of the pelvis. 3. Spina bifida. 4. s/p excision sacral pressure sore in posterior aspect of pelvis, Stage IV, and partial ostectomy pelvis for osteomyelitis. Plan: Continue [facility]in[facility] dressing changes twice a day. The wound continues to improve with granulation tissue and no exudate and the bone almost covered entirely with granulation tissue. Completed the IV Vancomycin for the Staphylococcus aureus and Streptococcus agalactiae. He has finished the Flagyl for the Anaerobes. His Prealbumin has improved since discharge from 7.5 while in the hospital to 17.2 on 08/30/19. Followup one week. Code Visit 111xxx-113xx: [id number] Global Visit
== END 2019-10-22 23:59 ==
LOC: WC 09:15
PROVIDERS: Family Provider Family Medicine; PCP Family Medicine; Visit Provider Nurse Practitioner Family
DX: L89.154 Pressure ulcer of sacral region, stage 4 (principal); Q05.9 Spina bifida, unspecified; M86.659 Other chronic osteomyelitis, unspecified thigh; M86.68 Other chronic osteomyelitis, other site
CPT/HCPCS: 11043; 11046; 36415; 80053; 80202; 85027; 85652; 86140

== ENCOUNTER 2019-10-25 08:12 | Outpatient (RCR) | payer MEDICAID, SELFPAY ==
[2019-10-23 01:03] VITALS: BP 141/67; PULSE 74; RESP 16; TEMP 37.1
[2019-10-25 09:43] VITALS: BP 125/70; PULSE 71; RESP 18; TEMP 37; BMI 23.1
--- NOTE | 2019-10-25 14:56 | PN.PCM_ITS ---
(1) Stage IV pressure ulcer of sacral region Status: Chronic Code(s): L89.154 - Pressure ulcer of sacral region, stage 4 (2) Chronic osteomyelitis of pelvis Status: Chronic Code(s): M86.659 - Other chronic osteomyelitis, unspecified thigh (3) Spina bifida Status: Chronic Code(s): Q05.9 - Spina bifida, unspecified Type of Wound Date of Service: 10/25/19 Chief Complaint: Sacral pressure sore in the posterior aspect of the pelvis, Stage IV, with osteomyelitis of the pelvis. History of Wound: Surgery 08/05/19 - 1. Excision sacral pressure sore in posterior aspect of pelvis, Stage IV. 2. Partial ostectomy pelvis for osteomyelitis. Wound care - Dakin's. Had the VAC initially. Will use silver when waiting for Dakkn's to be refilled. Operative cultures - Staphylococcus aureus and Anaerobic cocci in the soft tissue and negative in the bone. He was initially placed on Augmentin. Pathology was negative for osteomyelitis. Postop he had persistent fevers. He had a wound culture done on 08/16/19 which showed Staphylococcus aureus, Streptococcus agalactiae, Bacteroides fragilis, and Clostridium. It was felt the VAC was not functioning and his wound care was changed to Dakin's. He was admitted to the hospital for IV antibiotics. He was started on Vancomycin. After discharge from the hospital, he was also started on Flagyl. CT Pelvis from 08/20/19 showed persistent, if slightly worse sacral decubitus ulcer when compared to the previous study from 12/07/2018. There are persistent erosive changes within the sacrum suggesting associated osteomyelitis. The ulcer measures approximate 4.9 x 3.4 x 4.9 cm, is gas-filled and appears to contain packing material. Stable surgical hardware in the lower lumbar spine and sacrum.. He was seen at the wound center on 08/16/19 and wound cultures were obtained that were positive for Staphylococcues aureus and Streptococcus agalactiae B, Bacteroides fragilis and Clostridium species. He was admitted on 08/18/19 due to persistent fevers and IV antibiotics. He was discharged home with PICC line and on Vancomycin. Flagyl was added for the Anaerobes. Prealbumin from 08/18/19 was 7.5. Encourage nutritional supplementation with protein to help the healing process. After discharge he was getting weekly labs while on Vancomycin. His labs from 10/04/2019 showed BUN was 24 and the Creatinine was 0.72. AST was 16. ALT was 29. Alkaline phosphatase was 114. Total Bilirubin was 0.30. ESR was 50. CRP was 8.26. He completed his antibiotics. Today he denies fever. His appetite is good. Progress of Wound: improved - Physical Exam Vital Signs Temp Pulse Resp BP 98.6 F 71 18 125/70 H 10/25/19 09:43 10/25/19 09:43 10/25/19 09:43 10/25/19 09:43 General: Alert, Oriented x3, Cooperative HEENT: Atraumatic Oral: Moist Mucosa Lungs: Normal air movement Cardiovascular: Regular rate Extremities: Capillary Refill Less than 3 Seconds Skin: Ulcer/ Wound - sacral ulcer Wound Measurements and Assessment WC - Nurse 1 - General Ulcer Measurement Start: 10/25/19 09:43 Freq: Status: Active Protocol: Activity Type Activity Date Activity User E-Sign Co-Sign Detail Recorded Client Recorded Date Recorded By Document 10/25/19 09:43 [facility] [id number] 10/25/19 09:50 [facility] 10/25/19 09:43 Wound Center Nurse 1 [Ulcer Assessment] # 1 Coccyx -Current Size (cm) - Length 5 -Current Size (cm) - Width 5 -Current Size (cm) - Depth 2 -Total Square Cm 25 -Photo Taken No -Exudate Amt Medium -Exudate Type Serosanguineous -Wound Margin Distinct, Outline Attached -Granulation Amt Large (67-100%) -Granulation Quality Red -Necrosis Amt Small (1-33%) -Necrotic Tissue Type Adherent Slough -Structure Exposed N/A -Texture (Aishwarya-wound Skin Appearance) Scarring -Moisture (Aishwarya-wound Skin Appearance Maceration ) -Color (Aishwarya-wound Skin Appearance) No Abnormality -Temperature (Aishwarya-wound Skin No Abnormality Appearance) (Pt Warm) -Tenderness on Palpation (Aishwarya-wound No Skin Appearance) -Ulcer Cleansing Wound Cleanser -Foul Odor after Cleansing No -Anesthetic Used 4% Lidocaine Solution WC - Nurse 2 - General Ulcer CM Notes Start: 10/25/19 09:43 Freq: Status: Active Protocol: Activity Type Activity Date Activity User E-Sign Co-Sign Detail Recorded Client Recorded Date Recorded By Document 10/25/19 10:10 [id number] 10/25/19 10:12 10/25/19 10:10 Wound Center Nurse 2 [Procedure/Treatment] -Time 10:11 -Correct Patient Yes -Correct Side, Site, Position Yes -Correct Procedure Yes -Procedure Performed Yes -Type of Procedure Debridement -Clinical Debridement Muscle -Post Debridement Size (cm) - Length 5.5 -Post Debridement Size (cm) - Width 5.5 -Post Debridement Size (cm) - Depth 1.1 -Total Square Cm 30.25 -Wound/Ulcer Outcome Not Healed -Ulcer Cleansing Rinsed/ Irrigated with Saline -Foul Odor after Cleansing No -Bioengineered Tissue No -Bleeding Controlled with Pressure -Other tunnel 11-2.0cm 12-5:00--2. 5cm -Offloading No -Treatment Response Procedure Tolerated Well [See Physician Procedure note for Specifics] Pain Scale: 0-10 Numeric [Pain] -Is Patient Pain Free? Yes Musculoskeletal: No Tenderness to Palpation of Joints or Extremities Neurological: Deep Tendon Reflexes 2+/4 and Symmetrical Psych/Mental Status: Normal Affect, Appropriate Debridement Note Post-Debridement Measurements/Treatment WC - Nurse 2 - General Ulcer CM Notes Start: 10/25/19 09:43 Freq: Status: Active Protocol: Activity Type Activity Date Activity User E-Sign Co-Sign Detail Recorded Client Recorded Date Recorded By Document 10/25/19 10:10 DREW [id number] 10/25/19 10:12 10/25/19 10:10 Wound Center Nurse 2 # 1 Coccyx -Time 10:11 -Correct Patient Yes -Correct Side, Site, Position Yes -Correct Procedure Yes -Procedure Performed Yes -Type of Procedure Debridement -Clinical Debridement Muscle -Post Debridement Size (cm) - Length 5.5 -Post Debridement Size (cm) - Width 5.5 -Post Debridement Size (cm) - Depth 1.1 -Total Square Cm 30.25 -Wound/Ulcer Outcome Not Healed -Ulcer Cleansing Rinsed/ Irrigated with Saline -Foul Odor after Cleansing No -Bioengineered Tissue No -Bleeding Controlled with Pressure -Other tunnel 11-2.0cm 12-5:00--2. 5cm -Offloading No -Treatment Response Procedure Tolerated Well Pain Scale: 0-10 Numeric Is Patient Pain Free? Yes Wound debrided: sacral ulcer Type of Debridement: Excisional debridement Anesthesia Used: 4% Lidocaine Solution Depth: Down to and including healthy tissue, in the subcutaneous layer, to muscle Percentage of wound debrided: 100 Instrument Used: 7mm curette Tissue Removed: Subcutaneous tissue and slough into the muscle, the bone is covered Severity: Fat Layer Exposed Amount of bleeding with debridement: Mild Bleeding Controlled with: Pressure Patient tolerated procedure well Assessment/Plan Assessment: 1. 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 2. Chronic osteomyelitis of the pelvis. 3. Spina bifida. 4. s/p excision sacral pressure sore in posterior aspect of pelvis, Stage IV, and partial ostectomy pelvis for osteomyelitis. Plan: Continue Dakin's dressing changes twice a day (when run out of Dakin's and waiting for refill they use silver dressing). The wound continues to improve with granulation tissue and no exudate and the bone almost covered entirely with granulation tissue. Completed the IV Vancomycin for the Staphylococcus aureus and Streptococcus agalactiae. He has finished the Flagyl for the Anaerobes. His Prealbumin has improved since discharge from 7.5 while in the hospital to 17.2 on 08/30/19. Followup three weeks. Code Visit [id number]: [id number] Global Visit
== END 2019-11-20 23:59 ==
LOC: WC 08:12
PROVIDERS: Family Provider Family Medicine; PCP Family Medicine; Visit Provider Nurse Practitioner Family
DX: L89.154 Pressure ulcer of sacral region, stage 4 (principal); Q05.9 Spina bifida, unspecified; M86.659 Other chronic osteomyelitis, unspecified thigh; M86.68 Other chronic osteomyelitis, other site
CPT/HCPCS: 11043; 11046

== ENCOUNTER 2019-11-22 08:42 | Outpatient (RCR) | payer MEDICAID, SELFPAY ==
[2019-11-21 00:47] VITALS: BP 125/70; PULSE 71; RESP 18; TEMP 37
[2019-11-22 08:45] VITALS: BP 123/70; PULSE 67; RESP 18; TEMP 36.8; BMI 23.1
--- NOTE | 2019-11-22 09:19 | PCM.WC.PN ---
(1) Stage IV pressure ulcer of sacral region Status: Chronic Code(s): L89.154 - Pressure ulcer of sacral region, stage 4 (2) Chronic osteomyelitis of pelvis Status: Chronic Code(s): M86.659 - Other chronic osteomyelitis, unspecified thigh (3) Spina bifida Status: Chronic Code(s): Q05.9 - Spina bifida, unspecified Type of Wound Date of Service: 11/22/19 Chief Complaint: Sacral pressure sore in the posterior aspect of the pelvis, Stage IV, with osteomyelitis of the pelvis. History of Wound: Surgery 08/05/19 - 1. Excision sacral pressure sore in posterior aspect of pelvis, Stage IV. 2. Partial ostectomy pelvis for osteomyelitis. Wound care - Dakin's. Had the VAC initially. Operative cultures - Staphylococcus aureus and Anaerobic cocci in the soft tissue and negative in the bone. He was initially placed on Augmentin. Pathology was negative for osteomyelitis. Postop he had persistent fevers. He had a wound culture done on 08/16/19 which showed Staphylococcus aureus, Streptococcus agalactiae, Bacteroides fragilis, and Clostridium. It was felt the VAC was not functioning and his wound care was changed to Dakin's. He was admitted to the hospital for IV antibiotics. He was started on Vancomycin. After discharge from the hospital, he was also started on Flagyl. CT Pelvis from 08/20/19 showed persistent, if slightly worse sacral decubitus ulcer when compared to the previous study from 12/07/2018. There are persistent erosive changes within the sacrum suggesting associated osteomyelitis. The ulcer measures approximate 4.9 x 3.4 x 4.9 cm, is gas-filled and appears to contain packing material. Stable surgical hardware in the lower lumbar spine and sacrum.. He was seen at the wound center on 08/16/19 and wound cultures were obtained that were positive for Staphylococcues aureus and Streptococcus agalactiae B, Bacteroides fragilis and Clostridium species. He was admitted on 08/18/19 due to persistent fevers and IV antibiotics. He was discharged home with PICC line and on Vancomycin. Flagyl was added for the Anaerobes. Prealbumin from 08/18/19 was 7.5. Encourage nutritional supplementation with protein to help the healing process. After discharge he was getting weekly labs while on Vancomycin. His labs from 10/04/2019 showed BUN was 24 and the Creatinine was 0.72. AST was 16. ALT was 29. Alkaline phosphatase was 114. Total Bilirubin was 0.30. ESR was 50. CRP was 8.26. He completed his antibiotics. Today he denies fever. His appetite is good. Progress of Wound: Improved in the undermining area, and there is no bone exposed now. - Physical Exam Vital Signs Temp Pulse Resp BP 98.2 F 67 18 123/70 H 11/22/19 08:45 11/22/19 08:45 11/22/19 08:45 11/22/19 08:45 General: Alert, Oriented x3, Cooperative HEENT: Atraumatic Oral: Moist Mucosa Lungs: Normal air movement Cardiovascular: Regular rate Extremities: No edema, Capillary Refill Less than 3 Seconds Skin: Ulcer/ Wound - sacral ulcer Wound Measurements and Assessment WC - Nurse 1 - General Ulcer Measurement Start: 11/22/19 08:45 Freq: Status: Active Protocol: Activity Type Activity Date Activity User E-Sign Co-Sign Detail Recorded Client Recorded Date Recorded By Document 11/22/19 08:45 DL [id number] 11/22/19 08:52 DL 11/22/19 08:45 Wound Center Nurse 1 [Ulcer Assessment] # 1 Coccyx -Current Size (cm) - Length 5.6 -Current Size (cm) - Width 5 -Current Size (cm) - Depth 1.2 -Total Square Cm 28.0 -Photo Taken Yes -Undermining/Tunneling Starts (O' 10 clock) -Undermining/Tunneling Ends (O'clock) 5 -Maximum Distance (cm) 2.2 -Exudate Amt Small -Exudate Type Serosanguineous -Wound Margin Thickened & Rolled Under -Granulation Amt Large (67-100%) -Granulation Quality Red -Necrosis Amt Small (1-33%) -Necrotic Tissue Type Adherent Slough -Structure Exposed N/A -Texture (Aishwarya-wound Skin Appearance) Scarring -Moisture (Aishwarya-wound Skin Appearance No Abnormality ) -Color (Aishwarya-wound Skin Appearance) No Abnormality -Temperature (Aishwarya-wound Skin No Abnormality Appearance) (Pt Warm) -Tenderness on Palpation (Aishwarya-wound No Skin Appearance) -Ulcer Cleansing Wound Cleanser -Foul Odor after Cleansing No WC - Nurse 2 - General Ulcer CM Notes Start: 11/22/19 08:45 Freq: Status: Active Protocol: Activity Type Activity Date Activity User E-Sign Co-Sign Detail Recorded Client Recorded Date Recorded By Document 11/22/19 09:02 JF [id number] 11/22/19 09:06 11/22/19 09:02 Wound Center Nurse 2 [Procedure/Treatment] -Time 09:05 -Correct Patient Yes -Correct Side, Site, Position Yes -Correct Procedure Yes -Procedure Performed Yes -Type of Procedure Debridement -Clinical Debridement Muscle -Post Debridement Size (cm) - Length 5.5 -Post Debridement Size (cm) - Width 5.5 -Post Debridement Size (cm) - Depth 1.3 -Total Square Cm 30.25 -Wound/Ulcer Outcome Not Healed -Ulcer Cleansing Rinsed/ Irrigated with Saline -Foul Odor after Cleansing No -Bioengineered Tissue No -Bleeding Controlled with Pressure -Offloading No -Treatment Response Procedure Tolerated Well [See Physician Procedure note for Specifics] Pain Scale: 0-10 Numeric [Pain] -Is Patient Pain Free? Yes Musculoskeletal: No Tenderness to Palpation of Joints or Extremities Neurological: Neuro grossly intact Psych/Mental Status: Normal Affect, Appropriate Debridement Note Post-Debridement Measurements/Treatment WC - Nurse 2 - General Ulcer CM Notes Start: 11/22/19 08:45 Freq: Status: Active Protocol: Activity Type Activity Date Activity User E-Sign Co-Sign Detail Recorded Client Recorded Date Recorded By Document 11/22/19 09:02 JF [id number] 11/22/19 09:06 11/22/19 09:02 Wound Center Nurse 2 # 1 Coccyx -Time 09:05 -Correct Patient Yes -Correct Side, Site, Position Yes -Correct Procedure Yes -Procedure Performed Yes -Type of Procedure Debridement -Clinical Debridement Muscle -Post Debridement Size (cm) - Length 5.5 -Post Debridement Size (cm) - Width 5.5 -Post Debridement Size (cm) - Depth 1.3 -Total Square Cm 30.25 -Wound/Ulcer Outcome Not Healed -Ulcer Cleansing Rinsed/ Irrigated with Saline -Foul Odor after Cleansing No -Bioengineered Tissue No -Bleeding Controlled with Pressure -Offloading No -Treatment Response Procedure Tolerated Well Pain Scale: 0-10 Numeric Is Patient Pain Free? Yes Wound debrided: Sacral ulcer Type of Debridement: Excisional debridement Anesthesia Used: 4% Lidocaine Solution Depth: Down to and including healthy tissue, in the subcutaneous layer, to muscle Percentage of wound debrided: 100 Instrument Used: 7mm curette Tissue Removed: Subcutaneous tissue and slough into the muscle Severity: Fat Layer Exposed Amount of bleeding with debridement: Mild Bleeding Controlled with: Pressure Patient tolerated procedure well Assessment/Plan Assessment: 1. 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 2. Chronic osteomyelitis of the pelvis. 3. Spina bifida. 4. s/p excision sacral pressure sore in posterior aspect of pelvis, Stage IV, and partial ostectomy pelvis for osteomyelitis. Plan: Continue Dakin's dressing changes twice a day. The wound continues to improve with granulation tissue and no exudate and the bone almost covered entirely with granulation tissue. Completed the IV Vancomycin for the Staphylococcus aureus and Streptococcus agalactiae. He has finished the Flagyl for the Anaerobes. His Prealbumin has improved since discharge from 7.5 while in the hospital to 17.2 on 08/30/19. Followup three weeks. 111xxx-113xx: [id number] Alma Delia musc/fascia 20 sq cm/< Add On Codes: [id number] Alma Delia musc/fascia add-on
== END 2019-12-21 23:59 ==
LOC: WC 08:42
PROVIDERS: Family Provider Family Medicine; PCP Family Medicine; Visit Provider Nurse Practitioner Family
DX: L89.154 Pressure ulcer of sacral region, stage 4 (principal); M86.659 Other chronic osteomyelitis, unspecified thigh; M86.68 Other chronic osteomyelitis, other site; Q05.9 Spina bifida, unspecified
CPT/HCPCS: 11043; 11046

== ENCOUNTER 2020-01-31 09:50 | Outpatient (RCR) | payer MEDICAID, SELFPAY ==
[2020-01-31 09:54] VITALS: BP 148/77; PULSE 81; RESP 16; TEMP 36.9; BMI 23.1
--- NOTE | 2020-01-31 13:10 | PCM.WC.PN ---
(1) Stage IV pressure ulcer of sacral region Status: Chronic Code(s): L89.154 - Pressure ulcer of sacral region, stage 4 (2) Chronic osteomyelitis of pelvis Status: Chronic Code(s): M86.659 - Other chronic osteomyelitis, unspecified thigh (3) Spina bifida Status: Chronic Code(s): Q05.9 - Spina bifida, unspecified Type of Wound Date of Service: 01/31/20 Chief Complaint: Sacral pressure sore in the posterior aspect of the pelvis, Stage IV, with osteomyelitis of the pelvis. History of Wound: Surgery 08/05/19 - 1. Excision sacral pressure sore in posterior aspect of pelvis, Stage IV. 2. Partial ostectomy pelvis for osteomyelitis. Wound care - Dakin's. Had the VAC initially. Operative cultures - Staphylococcus aureus and Anaerobic cocci in the soft tissue and negative in the bone. He was initially placed on Augmentin. Pathology was negative for osteomyelitis. Postop he had persistent fevers. He had a wound culture done on 08/16/19 which showed Staphylococcus aureus, Streptococcus agalactiae, Bacteroides fragilis, and Clostridium. It was felt the VAC was not functioning and his wound care was changed to Dakin's. He was admitted to the hospital for IV antibiotics. He was started on Vancomycin. After discharge from the hospital, he was also started on Flagyl. CT Pelvis from 08/20/19 showed persistent, if slightly worse sacral decubitus ulcer when compared to the previous study from 12/07/2018. There are persistent erosive changes within the sacrum suggesting associated osteomyelitis. The ulcer measures approximate 4.9 x 3.4 x 4.9 cm, is gas-filled and appears to contain packing material. Stable surgical hardware in the lower lumbar spine and sacrum.. He was seen at the wound center on 08/16/19 and wound cultures were obtained that were positive for Staphylococcues aureus and Streptococcus agalactiae B, Bacteroides fragilis and Clostridium species. He was admitted on 08/18/19 due to persistent fevers and IV antibiotics. He was discharged home with PICC line and on Vancomycin. Flagyl was added for the Anaerobes. Prealbumin from 08/18/19 was 7.5. Encourage nutritional supplementation with protein to help the healing process. After discharge he was getting weekly labs while on Vancomycin. His labs from 10/04/2019 showed BUN was 24 and the Creatinine was 0.72. AST was 16. ALT was 29. Alkaline phosphatase was 114. Total Bilirubin was 0.30. ESR was 50. CRP was 8.26. He completed his antibiotics. Today he denies fever. His appetite is good. Progress of Wound: Stable. - Physical Exam Vital Signs Temp Pulse Resp BP 98.4 F 81 16 148/77 H 01/31/20 09:54 01/31/20 09:54 01/31/20 09:54 01/31/20 09:54 General: Alert, Oriented x3, Cooperative HEENT: Atraumatic Oral: Moist Mucosa Lungs: Clear to auscultation, Normal air movement Cardiovascular: Regular rate, Regular Rhythm Abdomen: Bowel Sounds Present, Soft, Non Tender Extremities: No edema, Capillary Refill Less than 3 Seconds Skin: Ulcer/ Wound - Sacral ulcer, stage IV. No bone palpated. Edges of ulcer with increased thickness of biofilm that was aggressively debrided Wound Measurements and Assessment WC - Nurse 1 - General Ulcer Measurement Start: 01/31/20 09:54 Freq: Status: Active Protocol: Activity Type Activity Date Activity User E-Sign Co-Sign Detail Recorded Client Recorded Date Recorded By Document 01/31/20 09:54 MW [id number] 01/31/20 10:03 MW 01/31/20 09:54 Wound Center Nurse 1 [Ulcer Assessment] #2 coccyx -Combined with other wound No -Current Size (cm) - Length 4.5 -Current Size (cm) - Width 4.7 -Current Size (cm) - Depth 0.9 -Total Square Cm 21.15 -Date of Last Picture (Recall this 01/31/20 field) -Photo Taken Yes -Epithelialization None Present -Tunneling No -Undermining/Tunneling No -Circular Undermining No -Exudate Amt Large -Exudate Type Serosanguineous -Wound Margin Thickened & Rolled Under -Granulation Amt Large (67-100%) -Granulation Quality Red -Slough/Fibrin Yes -Necrosis Amt Small (1-33%) -Necrotic Tissue Type Adherent Slough -Structure Exposed N/A -Texture (Aishwarya-wound Skin Appearance) Assessed, Scarring -Moisture (Aishwarya-wound Skin Appearance Assessed, ) Maceration -Color (Aishwarya-wound Skin Appearance) No Abnormality, Assessed -Temperature (Aishwarya-wound Skin No Abnormality Appearance) (Pt Warm) -Tenderness on Palpation (Aishwarya-wound Yes Skin Appearance) -Ulcer Cleansing soap and water -Foul Odor after Cleansing No -Anesthetic Used 4% Lidocaine Solution [Edema Assessment] -Lower Limb Edema Present No - Nurse 2 - General Ulcer CM Notes Start: 01/31/20 09:54 Freq: Status: Active Protocol: Activity Type Activity Date Activity User E-Sign Co-Sign Detail Recorded Client Recorded Date Recorded By Document 01/31/20 10:18 [id number] 01/31/20 10:21 01/31/20 10:18 Wound Center Nurse 2 [Procedure/Treatment] #2 coccyx -Time 10:18 -Correct Patient Yes -Correct Side, Site, Position Yes -Correct Procedure Yes -Procedure Performed Yes -Type of Procedure Debridement -Clinical Debridement Muscle -Post Debridement Size (cm) - Length 4.5 -Post Debridement Size (cm) - Width 4.0 -Post Debridement Size (cm) - Depth 1.2 -Total Square Cm 18.00 -Wound/Ulcer Outcome Not Healed -Ulcer Cleansing Rinsed/ Irrigated with Saline -Foul Odor after Cleansing No -Bioengineered Tissue No -Bleeding Controlled with Pressure -Other tunnel 2-3:00 3.2cm -Offloading No -Treatment Response Procedure Tolerated Well [See Physician Procedure note for Specifics] Pain Scale: 0-10 Numeric [Pain] -Is Patient Pain Free? Yes Musculoskeletal: No Tenderness to Palpation of Joints or Extremities Neurological: Neuro grossly intact Psych/Mental Status: Normal Affect, Appropriate Debridement Note Post-Debridement Measurements/Treatment - Nurse 2 - General Ulcer CM Notes Start: 01/31/20 09:54 Freq: Status: Active Protocol: Activity Type Activity Date Activity User E-Sign Co-Sign Detail Recorded Client Recorded Date Recorded By Document 01/31/20 10:18 JF [id number] 01/31/20 10:21 01/31/20 10:18 Wound Center Nurse 2 #2 coccyx -Time 10:18 -Correct Patient Yes -Correct Side, Site, Position Yes -Correct Procedure Yes -Procedure Performed Yes -Type of Procedure Debridement -Clinical Debridement Muscle -Post Debridement Size (cm) - Length 4.5 -Post Debridement Size (cm) - Width 4.0 -Post Debridement Size (cm) - Depth 1.2 -Total Square Cm 18.00 -Wound/Ulcer Outcome Not Healed -Ulcer Cleansing Rinsed/ Irrigated with Saline -Foul Odor after Cleansing No -Bioengineered Tissue No -Bleeding Controlled with Pressure -Other tunnel 2-3:00 3.2cm -Offloading No -Treatment Response Procedure Tolerated Well Pain Scale: 0-10 Numeric Is Patient Pain Free? Yes Wound debrided: Sacral ulcer Wound Grade/Stage: Stage IV Type of Debridement: Excisional debridement Anesthesia Used: 4% Lidocaine Solution Depth: Down to and including healthy tissue, in the subcutaneous layer, to muscle Percentage of wound debrided: 100 Instrument Used: 7mm curette Tissue Removed: Subcutaneous tissue and slough into the muscle Severity: Fat Layer Exposed Amount of bleeding with debridement: Mild Bleeding Controlled with: Pressure Patient tolerated procedure well Assessment/Plan Assessment: 1. 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 2. Chronic osteomyelitis of the pelvis. 3. Spina bifida. 4. s/p excision sacral pressure sore in posterior aspect of pelvis, Stage IV, and partial ostectomy pelvis for osteomyelitis. Plan: Continue Dakin's dressing changes twice a day. The wound continues to improve with granulation tissue and no exudate and the bone is now covered entirely with granulation tissue. Completed the IV Vancomycin for the Staphylococcus aureus and Streptococcus agalactiae. He has finished the Flagyl for the Anaerobes. His Prealbumin has improved since discharge from 7.5 while in the hospital to 17.2 on 08/30/19. Followup three weeks. Office Visits / Consults: [id number] OV L3 Est - 25 modifier 111xxx-113xx: [id number] Alma Delia musc/fascia 20 sq cm/<
== END 2020-02-20 23:59 ==
LOC: WC 09:50
PROVIDERS: PCP Family Medicine; Visit Provider Nurse Practitioner Family
DX: L89.154 Pressure ulcer of sacral region, stage 4 (principal); Q05.9 Spina bifida, unspecified; M86.68 Other chronic osteomyelitis, other site
CPT/HCPCS: 11043; 99213; G0463

== ENCOUNTER 2020-02-28 08:48 | Outpatient (RCR) | payer MEDICAID, SELFPAY ==
[2020-02-21 00:32] VITALS: BP 148/77; PULSE 81; RESP 16; TEMP 36.9
[2020-02-28 10:26] VITALS: BP 140/65; PULSE 89; RESP 16; TEMP 37.1; BMI 23.1
--- NOTE | 2020-02-28 13:12 | PN.PCM_ITS ---
(1) Stage IV pressure ulcer of sacral region Status: Chronic Current Visit: Yes Code(s): L89.154 - Pressure ulcer of sacral region, stage 4 (2) Chronic osteomyelitis of pelvis Status: Chronic Current Visit: Yes Code(s): M86.659 - Other chronic osteomyelitis, unspecified thigh (3) Spina bifida Status: Chronic Current Visit: Yes Code(s): Q05.9 - Spina bifida, unspecified Type of Wound Date of Service: 02/28/20 Chief Complaint: Sacral pressure sore in the posterior aspect of the pelvis, Stage IV, with osteomyelitis of the pelvis. History of Wound: Surgery 08/05/19 - 1. Excision sacral pressure sore in pos terior aspect of pelvis, Stage IV. 2. Partial ostectomy pelvis for osteomyelitis. Wound care - [facility]. Had the VAC initially. Operative cultures - Staphylococcus aureus and Anaerobic cocci in the soft tissue and negative in the bone. He was initially placed on Augmentin. Pathology was negative for osteomyelitis. Postop he had persistent fevers. He had a wound culture done on 08/16/19 which showed Staphylococcus aureus, Streptococcus agalactiae, Bacteroides fragilis, and Clostridium. It was felt the VAC was not functioning and his wound care was changed to [facility]. He was admitted to the hospital for IV antibiotics. He was started on Vancomycin. After discharge from the hospital, he was also started on Flagyl. CT Pelvis from 08/20/19 showed persistent, if slightly worse sacral decubitus ulcer when compared to the previous study from 12/07/2018. There are persistent erosive changes within the sacrum suggesting associated osteomyelitis. The ulcer measures approximate 4.9 x 3.4 x 4.9 cm, is gas-filled and appears to contain packing material. Stable surgical hardware in the lower lumbar spine and sacrum.. He was seen at the wound center on 08/16/19 and wound cultures were obtained that were positive for Staphylococcues aureus and Streptococcus agalactiae B, Bacteroides fragilis and Clostridium species. He was admitted on 08/18/19 due to persistent fevers and IV antibiotics. He was discharged home with PICC line and on Vancomycin. Flagyl was added for the Anaerobes. Prealbumin from 08/18/19 was 7.5. Encourage nutritional supplementation with protein to help the healing process. After discharge he was getting weekly labs while on Vancomycin. His labs from 10/04/2019 showed BUN was 24 and the Creatinine was 0.72. AST was 16. ALT was 29. Alkaline phosphatase was 114. Total Bilirubin was 0.30. ESR was 50. CRP was 8.26. He completed his antibiotics. Today he denies fever. His appetite is good. Progress of Wound: Stable. - Physical Exam Vital Signs Temp Pulse Resp BP 98.8 F 89 16 140/65 H 02/28/20 10:26 02/28/20 10:26 02/28/20 10:26 02/28/20 10:26 General: Alert, Oriented x3, Cooperative HEENT: Atraumatic Oral: Moist Mucosa Lungs: Normal air movement Cardiovascular: Regular rate Extremities: No edema, Capillary Refill Less than 3 Seconds Skin: Ulcer/ Wound - Sacral ulcer is pink with no bone exposure. Still has some undermining. Wound Measurements and Assessment WC - Nurse 1 - General Ulcer Measurement Start: 02/28/20 10:25 Freq: Status: Active Protocol: Activity Type Activity Date Activity User E-Sign Co-Sign Detail Recorded Client Recorded Date Recorded By Document 02/28/20 10:26 [facility] [id number] 02/28/20 10:32 [facility] 02/28/20 10:26 Wound Center Nurse 1 [Ulcer Assessment] #2 coccyx -Combined with other wound No -Current Size (cm) - Length 4.6 -Current Size (cm) - Width 4 -Current Size (cm) - Depth 0.8 -Total Square Cm 18.4 -Date of Last Picture (Recall this 02/28/20 field) -Photo Taken Yes -Tunneling Yes -Tunneling Position (O'clock) 2 -Tunneling Distance (cm) 1.6 -Undermining/Tunneling No -Circular Undermining No -Exudate Amt Large -Exudate Type Serosanguineous -Wound Margin Thickened -Granulation Amt Large (67-100%) -Granulation Quality Red -Slough/Fibrin Yes -Necrosis Amt Small (1-33%) -Necrotic Tissue Type Adherent Slough -Texture (Aishwarya-wound Skin Appearance) Assessed, Scarring -Moisture (Aishwarya-wound Skin Appearance Assessed,Dry/ ) Scaly -Color (Aishwarya-wound Skin Appearance) Assessed -Temperature (Aishwarya-wound Skin No Abnormality Appearance) (Pt Warm) -Tenderness on Palpation (Aishwarya-wound No Skin Appearance) -Ulcer Cleansing soapy water -Foul Odor after Cleansing No WC - Nurse 2 - General Ulcer CM Notes Start: 02/28/20 10:25 Freq: Status: Active Protocol: Activity Type Activity Date Activity User E-Sign Co-Sign Detail Recorded Client Recorded Date Recorded By Document 02/28/20 11:08 [email or web address] [id number] 02/28/20 11:12 02/28/20 11:08 Wound Center Nurse 2 [Procedure/Treatment] -Time 11:09 -Correct Patient Yes -Correct Side, Site, Position Yes -Correct Procedure Yes -Procedure Performed Yes -Type of Procedure Debridement -Clinical Debridement Muscle -Post Debridement Size (cm) - Length 4.7 -Post Debridement Size (cm) - Width 3.0 -Post Debridement Size (cm) - Depth 0.8 -Total Square Cm 14.10 -Wound/Ulcer Outcome Not Healed -Ulcer Cleansing Rinsed/ Irrigated with Saline -Foul Odor after Cleansing No -Bioengineered Tissue No -Bleeding Controlled with Pressure -Other tunnel-11:00-3. 0cm/// undermining 4-5 :00--0.6cm -Offloading No -Treatment Response Procedure Tolerated Well [See Physician Procedure note for Specifics] Pain Scale: 0-10 Numeric [Pain] -Is Patient Pain Free? Yes Musculoskeletal: No Tenderness to Palpation of Joints or Extremities Lymphatic: No Cervical, Supraclavicular, or Inguinal Adenopathy Neurological: Neuro grossly intact Psych/Mental Status: Normal Affect, Appropriate Debridement Note Post-Debridement Measurements/Treatment WC - Nurse 2 - General Ulcer CM Notes Start: 02/28/20 10:25 Freq: Status: Active Protocol: Activity Type Activity Date Activity User E-Sign Co-Sign Detail Recorded Client Recorded Date Recorded By Document 02/28/20 11:08 [id number] 02/28/20 11:12 02/28/20 11:08 Wound Center Nurse 2 #2 coccyx -Time 11:09 -Correct Patient Yes -Correct Side, Site, Position Yes -Correct Procedure Yes -Procedure Performed Yes -Type of Procedure Debridement -Clinical Debridement Muscle -Post Debridement Size (cm) - Length 4.7 -Post Debridement Size (cm) - Width 3.0 -Post Debridement Size (cm) - Depth 0.8 -Total Square Cm 14.10 -Wound/Ulcer Outcome Not Healed -Ulcer Cleansing Rinsed/ Irrigated with Saline -Foul Odor after Cleansing No -Bioengineered Tissue No -Bleeding Controlled with Pressure -Other tunnel-11:00-3. 0cm/// undermining 4-5 :00--0.6cm -Offloading No -Treatment Response Procedure Tolerated Well Pain Scale: 0-10 Numeric Is Patient Pain Free? Yes Wound debrided: Sacral ulcer Type of Debridement: Excisional debridement Anesthesia Used: 4% Lidocaine Solution Depth: Down to and including healthy tissue, in the subcutaneous layer, to muscle Percentage of wound debrided: 100 Instrument Used: 7mm curette Tissue Removed: Subcutaneous tissue and slough into the muscle. Severity: Fat Layer Exposed Amount of bleeding with debridement: Mild Bleeding Controlled with: Pressure Patient tolerated procedure well Assessment/Plan Active Problems Chronic osteomyelitis of pelvis (Chronic) Stage IV pressure ulcer of sacral region (Chronic) Spina bifida (Chronic) Assessment: 1. 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 2. Chronic osteomyelitis of the pelvis. 3. Spina bifida. 4. s/p excision sacral pressure sore in posterior aspect of pelvis, Stage IV, and partial ostectomy pelvis for osteomyelitis. Plan: Continue Dakin's dressing changes twice a day. The wound continues to improve with granulation tissue and no exudate and the bone is now covered entirely with granulation tissue. Completed the IV Vancomycin for the Staphylococcus aureus and Streptococcus agalactiae. He has finished the Flagyl for the Anaerobes. His Prealbumin has improved since discharge from 7.5 while in the hospital to 17.2 on 08/30/19. Followup four weeks. [id number]: [id number] Alma Delia musc/fascia 20 sq cm/<
== END 2020-03-21 23:59 ==
LOC: WC 08:48
PROVIDERS: PCP Family Medicine; Visit Provider Nurse Practitioner Family
DX: L89.154 Pressure ulcer of sacral region, stage 4 (principal); Q05.9 Spina bifida, unspecified; M86.68 Other chronic osteomyelitis, other site
CPT/HCPCS: 11043

== ENCOUNTER 2020-03-27 08:36 | Outpatient (RCR) | payer MEDICAID, SELFPAY ==
[2020-03-22 00:29] VITALS: BP 140/65; PULSE 89; RESP 16; TEMP 37.1
[2020-03-27 09:41] VITALS: BP 107/38; PULSE 74; RESP 18; TEMP 37.2; BMI 23.1
--- NOTE | 2020-03-27 12:19 | PN.PCM_ITS ---
(1) Stage IV pressure ulcer of sacral region Status: Chronic Current Visit: Yes Code(s): L89.154 - Pressure ulcer of sacral region, stage 4 (2) Spina bifida Status: Chronic Current Visit: Yes Code(s): Q05.9 - Spina bifida, unspecified (3) Chronic osteomyelitis of pelvis Status: Chronic Current Visit: Yes Code(s): M86.659 - Other chronic osteomyelitis, unspecified thigh Type of Wound Date of Service: 03/27/20 Chief Complaint: Sacral pressure sore in the posterior aspect of the pelvis, Stage IV, with osteomyelitis of the pelvis. History of Wound: Surgery 08/05/19 - 1. Excision sacral pressure sore in pos terior aspect of pelvis, Stage IV. 2. Partial ostectomy pelvis for osteomyelitis. Wound care - [facility]. Had the VAC initially. Operative cultures - Staphylococcus aureus and Anaerobic cocci in the soft tissue and negative in the bone. He was initially placed on Augmentin. Pathology was negative for osteomyelitis. Postop he had persistent fevers. He had a wound culture done on 08/16/19 which showed Staphylococcus aureus, Streptococcus agalactiae, Bacteroides fragilis, and Clostridium. It was felt the VAC was not functioning and his wound care was changed to [facility]. He was admitted to the hospital for IV antibiotics. He was started on Vancomycin. After discharge from the hospital, he was also started on Flagyl. CT Pelvis from 08/20/19 showed persistent, if slightly worse sacral decubitus ulcer when compared to the previous study from 12/07/2018. There are persistent erosive changes within the sacrum suggesting associated osteomyelitis. The ulcer measures approximate 4.9 x 3.4 x 4.9 cm, is gas-filled and appears to contain packing material. Stable surgical hardware in the lower lumbar spine and sacrum.. He was seen at the wound center on 08/16/19 and wound cultures were obtained that were positive for Staphylococcues aureus and Streptococcus agalactiae B, Bacteroides fragilis and Clostridium species. He was admitted on 08/18/19 due to persistent fevers and IV antibiotics. He was discharged home with PICC line and on Vancomycin. Flagyl was added for the Anaerobes. Prealbumin from 08/18/19 was 7.5. Encourage nutritional supplementation with protein to help the healing process. After discharge he was getting weekly labs while on Vancomycin. His labs from 10/04/2019 showed BUN was 24 and the Creatinine was 0.72. AST was 16. ALT was 29. Alkaline phosphatase was 114. Total Bilirubin was 0.30. ESR was 50. CRP was 8.26. He completed his antibiotics. Today he denies fever. His appetite is good. Progress of Wound: Stable. - Physical Exam Vital Signs Temp Pulse Resp BP 98.9 F 74 18 107/38 L 03/27/20 09:41 03/27/20 09:41 03/27/20 09:41 03/27/20 09:41 General: Alert, Oriented x3, Cooperative HEENT: Atraumatic Oral: Moist Mucosa Lungs: Normal air movement Cardiovascular: Regular rate Extremities: No edema, Capillary Refill Less than 3 Seconds Skin: Ulcer/ Wound - Sacral ulcer. Bone coverage but still has undermining aroung most of the parameter of the ulcer. Wound Measurements and Assessment WC - Nurse 1 - General Ulcer Measurement Start: 03/27/20 09:41 Freq: Status: Active Protocol: Activity Type Activity Date Activity User E-Sign Co-Sign Detail Recorded Client Recorded Date Recorded By Document 03/27/20 09:41 RB [id number] 03/27/20 09:43 RB 03/27/20 09:41 Wound Center Nurse 1 [Ulcer Assessment] #2 coccyx -Combined with other wound No -Current Size (cm) - Length 4 -Current Size (cm) - Width 3.3 -Current Size (cm) - Depth 0.5 -Total Square Cm 13.2 -Tunneling No -Undermining/Tunneling Yes -Undermining/Tunneling Starts (O' 12 clock) -Undermining/Tunneling Ends (O'clock) 12 -Maximum Distance (cm) 0.8 -Circular Undermining Yes -Exudate Amt Medium -Exudate Type Serosanguineous -Wound Margin Thickened & Rolled Under -Granulation Amt Medium (34-66%) -Granulation Quality [place] -Slough/Fibrin Yes -Necrosis Amt Small (1-33%) -Necrotic Tissue Type Adherent Slough -Structure Exposed N/A -Texture (Aishwarya-wound Skin Appearance) Assessed, Scarring -Moisture (Aishwarya-wound Skin Appearance Assessed ) -Color (Aishwarya-wound Skin Appearance) Assessed -Temperature (Aishwarya-wound Skin No Abnormality Appearance) (Pt Warm) -Tenderness on Palpation (Aishwarya-wound No Skin Appearance) -Ulcer Cleansing Wound Cleanser -Foul Odor after Cleansing No WC - Nurse 2 - General Ulcer CM Notes Start: 03/27/20 09:41 Freq: Status: Active Protocol: Activity Type Activity Date Activity User E-Sign Co-Sign Detail Recorded Client Recorded Date Recorded By Document 03/27/20 10:16 TANGELA [id number] 03/27/20 10:16 PL 03/27/20 10:16 Wound Center Nurse 2 [Procedure/Treatment] -Time 09:58 -Correct Patient Yes -Correct Side, Site, Position Yes -Correct Procedure Yes -Procedure Performed Yes -Type of Procedure Debridement -Clinical Debridement Subcutaneous -Post Debridement Size (cm) - Length 4 -Post Debridement Size (cm) - Width 3.2 -Post Debridement Size (cm) - Depth 0.9 -Total Square Cm 12.8 -Wound/Ulcer Outcome Not Healed -Ulcer Cleansing Rinsed/ Irrigated with Saline -Foul Odor after Cleansing No -Bleeding Controlled with Pressure -Treatment Response Procedure Tolerated Well [See Physician Procedure note for Specifics] Pain Scale: 0-10 Numeric [Pain] -Is Patient Pain Free? Yes Musculoskeletal: No Tenderness to Palpation of Joints or Extremities Neurological: Neuro grossly intact Psych/Mental Status: Normal Affect, Appropriate Debridement Note Post-Debridement Measurements/Treatment WC - Nurse 2 - General Ulcer CM Notes Start: 03/27/20 09:41 Freq: Status: Active Protocol: Activity Type Activity Date Activity User E-Sign Co-Sign Detail Recorded Client Recorded Date Recorded By Document 03/27/20 10:16 TANGELA [id number] 03/27/20 10:16 TANGELA 03/27/20 10:16 Wound Center Nurse 2 #2 coccyx -Time 09:58 -Correct Patient Yes -Correct Side, Site, Position Yes -Correct Procedure Yes -Procedure Performed Yes -Type of Procedure Debridement -Clinical Debridement Subcutaneous -Post Debridement Size (cm) - Length 4 -Post Debridement Size (cm) - Width 3.2 -Post Debridement Size (cm) - Depth 0.9 -Total Square Cm 12.8 -Wound/Ulcer Outcome Not Healed -Ulcer Cleansing Rinsed/ Irrigated with Saline -Foul Odor after Cleansing No -Bleeding Controlled with Pressure -Treatment Response Procedure Tolerated Well Pain Scale: 0-10 Numeric Is Patient Pain Free? Yes Wound debrided: Sacral ulcer Laterality: Not Applicable Type of Debridement: Excisional debridement Anesthesia Used: 4% Lidocaine Solution Depth: Down to and including healthy tissue, in the subcutaneous layer Percentage of wound debrided: 100 Instrument Used: 7mm curette Tissue Removed: Subcutaneous tissue and slough Severity: Fat Layer Exposed Amount of bleeding with debridement: Mild Bleeding Controlled with: Pressure, Compression and gauze Patient tolerated procedure well Assessment/Plan Active Problems Chronic osteomyelitis of pelvis (Chronic) Stage IV pressure ulcer of sacral region (Chronic) Spina bifida (Chronic) Assessment: 1. 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 2. Chronic osteomyelitis of the pelvis. 3. Spina bifida. 4. s/p excision sacral pressure sore in posterior aspect of pelvis, Stage IV, and partial ostectomy pelvis for osteomyelitis. Plan: Continue [facility]in's dressing changes twice a day. The wound continues to improve with granulation tissue and no exudate and the bone is now covered entirely with granulation tissue. Completed the IV Vancomycin for the Staphylococcus aureus and Streptococcus agalactiae. He has finished the Flagyl for the Anaerobes. His Prealbumin has improved since discharge from 7.5 while in the hospital to 17.2 on 08/30/19. Followup four weeks. 111xxx-113xx: [id number] Alma Delia subq tissue 20 sq cm/<
== END 2020-04-21 23:59 ==
LOC: WC 08:36
PROVIDERS: PCP Family Medicine; Visit Provider Nurse Practitioner Family
DX: L89.154 Pressure ulcer of sacral region, stage 4 (principal); Q05.9 Spina bifida, unspecified; M86.659 Other chronic osteomyelitis, unspecified thigh
CPT/HCPCS: 11042; 87070; 87075; 87077; 87186; 87205

== ENCOUNTER 2020-05-22 09:00 | Outpatient (RCR) | payer MEDICAID, SELFPAY ==
[2020-04-22 00:28] VITALS: BP 107/38; PULSE 74; RESP 18; TEMP 37.2
[2020-04-24 09:25] VITALS: BP 147/60; PULSE 72; RESP 16; TEMP 36.6; BMI 23.1
--- NOTE | 2020-04-24 10:19 | PN.PCM_ITS ---
(1) Stage IV pressure ulcer of sacral region Status: Chronic Current Visit: Yes Code(s): L89.154 - Pressure ulcer of sacral region, stage 4 (2) Chronic osteomyelitis of pelvis Status: Chronic Current Visit: Yes Code(s): M86.659 - Other chronic osteomyelitis, unspecified thigh (3) Spina bifida Status: Chronic Current Visit: Yes Code(s): Q05.9 - Spina bifida, unspecified Type of Wound Date of Service: 04/24/20 Chief Complaint: Sacral pressure sore in the posterior aspect of the pelvis, Stage IV, with osteomyelitis of the pelvis. History of Wound: Surgery 08/05/19 - 1. Excision sacral pressure sore in pos terior aspect of pelvis, Stage IV. 2. Partial ostectomy pelvis for osteomyelitis. Wound care - [facility]. Had the VAC initially. Cultures obtained 04/04/20 and were positive for Proteus mirabilis and Staphylococcus aureus. He is being treated with Augmentin and probiotic. Operative cultures - Staphylococcus aureus and Anaerobic cocci in the soft tissue and negative in the bone. He was initially placed on Augmentin. Pathology was negative for osteomyelitis. Postop he had persistent fevers. He had a wound culture done on 08/16/19 which showed Staphylococcus aureus, Streptococcus agalactiae, Bacteroides fragilis, and Clostridium. It was felt the VAC was not functioning and his wound care was changed to [facility]. He was admitted to the hospital for IV antibiotics. He was started on Vancomycin. After discharge from the hospital, he was also started on Flagyl. CT Pelvis from 08/20/19 showed persistent, if slightly worse sacral decubitus ulcer when compared to the previous study from 12/07/2018. There are persistent erosive changes within the sacrum suggesting associated osteomyelitis. The ulcer measures approximate 4.9 x 3.4 x 4.9 cm, is gas-filled and appears to contain packing material. Stable surgical hardware in the lower lumbar spine and sacrum.. He was seen at the wound center on 08/16/19 and wound cultures were obtained that were positive for Staphylococcues aureus and Streptococcus agalactiae B, Bacteroides fragilis and Clostridium species. He was admitted on 08/18/19 due to persistent fevers and IV antibiotics. He was discharged home with PICC line and on Vancomycin. Flagyl was added for the Anaerobes. Prealbumin from 08/18/19 was 7.5. Encourage nutritional supplementation with protein to help the healing process. After discharge he was getting weekly labs while on Vancomycin. His labs from 10/04/2019 showed BUN was 24 and the Creatinine was 0.72. AST was 16. ALT was 29. Alkaline phosphatase was 114. Total Bilirubin was 0.30. ESR was 50. CRP was 8.26. He completed his antibiotics. Today he denies fever. His appetite is good. Progress of Wound: Stable. - Physical Exam Vital Signs Temp Pulse Resp BP 98 F 72 16 147/60 H 04/24/20 09:25 04/24/20 09:25 04/24/20 09:25 04/24/20 09:25 General: Alert, Oriented x3, Cooperative HEENT: Atraumatic Oral: Moist Mucosa Lungs: Normal air movement Cardiovascular: Regular rate Extremities: No edema, Capillary Refill Less than 3 Seconds Skin: Ulcer/ Wound - Scral ulcer is pink, bone is covered. Wound Measurements and Assessment WC - Nurse 1 - General Ulcer Measurement Start: 04/24/20 09:25 Freq: Status: Active Protocol: Activity Type Activity Date Activity User E-Sign Co-Sign Detail Recorded Client Recorded Date Recorded By Document 04/24/20 09:25 [facility] [id number] 04/24/20 09:32 [facility] 04/24/20 09:25 Wound Center Nurse 1 [Ulcer Assessment] #2 coccyx -Current Size (cm) - Length 1.9 -Current Size (cm) - Width 5 -Current Size (cm) - Depth 0.4 -Total Square Cm 9.5 -Photo Taken Yes -Exudate Amt Small -Exudate Type Serosanguineous -Wound Margin Thickened -Granulation Amt Large (67-100%) -Granulation Quality Red -Necrosis Amt None Present (0 %) -Structure Exposed N/A -Texture (Aishwarya-wound Skin Appearance) Scarring -Moisture (Aishwarya-wound Skin Appearance No Abnormality ) -Color (Aishwarya-wound Skin Appearance) No Abnormality -Ulcer Cleansing Rinsed/ Irrigated with Saline -Foul Odor after Cleansing No WC - Nurse 2 - General Ulcer CM Notes Start: 04/24/20 09:25 Freq: Status: Active Protocol: Activity Type Activity Date Activity User E-Sign Co-Sign Detail Recorded Client Recorded Date Recorded By Document 04/24/20 09:58 [id number] 04/24/20 10:01 04/24/20 09:58 Wound Center Nurse 2 [Procedure/Treatment] -Time 09:59 -Correct Patient Yes -Correct Side, Site, Position Yes -Correct Procedure Yes -Procedure Performed Yes -Type of Procedure Debridement -Clinical Debridement Muscle -Post Debridement Size (cm) - Length 4.8 -Post Debridement Size (cm) - Width 2.5 -Post Debridement Size (cm) - Depth 1.0 -Total Square (cm) 12.00 -Wound/Ulcer Outcome Not Healed -Ulcer Cleansing Rinsed/ Irrigated with Saline -Foul Odor after Cleansing No -Bioengineered Tissue No -Bleeding Controlled with Pressure -Other tunnel 11-12:00 3.5cm -Offloading No -Treatment Response Procedure Tolerated Well [See Physician Procedure note for Specifics] Pain Scale: 0-10 Numeric [Pain] -Is Patient Pain Free? Yes Musculoskeletal: No Tenderness to Palpation of Joints or Extremities Neurological: Cranial nerves II-XII grossly intact Psych/Mental Status: Normal Affect, Appropriate Debridement Note Post-Debridement Measurements/Treatment - Nurse 2 - General Ulcer CM Notes Start: 04/24/20 09:25 Freq: Status: Active Protocol: Activity Type Activity Date Activity User E-Sign Co-Sign Detail Recorded Client Recorded Date Recorded By Document 04/24/20 09:58 [id number] 04/24/20 10:01 04/24/20 09:58 Wound Center Nurse 2 #2 coccyx -Time 09:59 -Correct Patient Yes -Correct Side, Site, Position Yes -Correct Procedure Yes -Procedure Performed Yes -Type of Procedure Debridement -Clinical Debridement Muscle -Post Debridement Size (cm) - Length 4.8 -Post Debridement Size (cm) - Width 2.5 -Post Debridement Size (cm) - Depth 1.0 -Total Square (cm) 12.00 -Wound/Ulcer Outcome Not Healed -Ulcer Cleansing Rinsed/ Irrigated with Saline -Foul Odor after Cleansing No -Bioengineered Tissue No -Bleeding Controlled with Pressure -Other tunnel 11-12:00 3.5cm -Offloading No -Treatment Response Procedure Tolerated Well Pain Scale: 0-10 Numeric Is Patient Pain Free? Yes Wound debrided: Sacral ulcer Laterality: Not Applicable Type of Debridement: Excisional debridement Anesthesia Used: 4% Lidocaine Solution Depth: Down to and including healthy tissue, in the subcutaneous layer, to muscle Percentage of wound debrided: 100 Instrument Used: 7mm curette Tissue Removed: Subcutaneous tissue and slough Severity: Fat Layer Exposed Amount of bleeding with debridement: Mild Bleeding Controlled with: Pressure, Compression and gauze Patient tolerated procedure well Assessment/Plan Active Problems Chronic osteomyelitis of pelvis (Chronic) Stage IV pressure ulcer of sacral region (Chronic) Spina bifida (Chronic) Assessment: 1. 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 2. Chronic osteomyelitis of the pelvis. 3. Spina bifida. 4. s/p excision sacral pressure sore in posterior aspect of pelvis, Stage IV, and partial ostectomy pelvis for osteomyelitis. Plan: Continue Dakin's dressing changes twice a day. The wound continues to improve with granulation tissue and no exudate and the bone is now covered entirely with granulation tissue. Cultures obtained 04/04/20 and were positive for Proteus mirabilis and Staphylococcus aureus. He is being treated with Augmentin and probiotic. Completed the IV Vancomycin for the Staphylococcus aureus and Streptococcus agalactiae. He has finished the Flagyl for the Anaerobes. His Prealbumin has improved since discharge from 7.5 while in the hospital to 17.2 on 08/30/19. Followup four weeks. 111xxx-113xx: [id number] Alma Delia subq tissue 20 sq cm/<
[2020-05-22 08:56] VITALS: BP 126/70; PULSE 84; RESP 20; TEMP 37.2; BMI 23.1
--- NOTE | 2020-05-22 09:49 | PN.PCM_ITS ---
(1) Stage IV pressure ulcer of sacral region Status: Chronic Current Visit: Yes Code(s): L89.154 - Pressure ulcer of sacral region, stage 4 (2) Chronic osteomyelitis of pelvis Status: Chronic Current Visit: Yes Code(s): M86.659 - Other chronic osteomyelitis, unspecified thigh (3) Spina bifida Status: Chronic Current Visit: Yes Code(s): Q05.9 - Spina bifida, unspecified Type of Wound Date of Service: 05/22/20 Chief Complaint: Sacral pressure sore in the posterior aspect of the pelvis, Stage IV, with osteomyelitis of the pelvis. History of Wound: Surgery 08/05/19 - 1. Excision sacral pressure sore in pos terior aspect of pelvis, Stage IV. 2. Partial ostectomy pelvis for osteomyelitis. Wound care - Dakin's. Had the VAC initially. Cultures obtained 04/04/20 and were positive for Proteus mirabilis and Staphylococcus aureus. He is being treated with Augmentin and probiotic. Operative cultures - Staphylococcus aureus and Anaerobic cocci in the soft tissue and negative in the bone. He was initially placed on Augmentin. Pathology was negative for osteomyelitis. Postop he had persistent fevers. He had a wound culture done on 08/16/19 which showed Staphylococcus aureus, Streptococcus agalactiae, Bacteroides fragilis, and Clostridium. It was felt the VAC was not functioning and his wound care was changed to Dakin's. He was admitted to the hospital for IV antibiotics. He was started on Vancomycin. After discharge from the hospital, he was also started on Flagyl. CT Pelvis from 08/20/19 showed persistent, if slightly worse sacral decubitus ulcer when compared to the previous study from 12/07/2018. There are persistent erosive changes within the sacrum suggesting associated osteomyelitis. The ulcer measures approximate 4.9 x 3.4 x 4.9 cm, is gas-filled and appears to contain packing material. Stable surgical hardware in the lower lumbar spine and sacrum.. He was seen at the wound center on 08/16/19 and wound cultures were obtained that were positive for Staphylococcues aureus and Streptococcus agalactiae B, Bacteroides fragilis and Clostridium species. He was admitted on 08/18/19 due to persistent fevers and IV antibiotics. He was discharged home with PICC line and on Vancomycin. Flagyl was added for the Anaerobes. Prealbumin from 08/18/19 was 7.5. Encourage nutritional supplementation with protein to help the healing process. After discharge he was getting weekly labs while on Vancomycin. His labs from 10/04/2019 showed BUN was 24 and the Creatinine was 0.72. AST was 16. ALT was 29. Alkaline phosphatase was 114. Total Bilirubin was 0.30. ESR was 50. CRP was 8.26. He completed his antibiotics. Today he denies fever. His appetite is good. Progress of Wound: Improved. - Physical Exam Vital Signs Temp Pulse Resp BP 98.9 F 84 20 H 126/70 H 05/22/20 08:56 05/22/20 08:56 05/22/20 08:56 05/22/20 08:56 General: Alert, Oriented x3, Cooperative HEENT: Atraumatic Oral: Moist Mucosa Lungs: Normal air movement Cardiovascular: Regular rate Extremities: No edema, Capillary Refill Less than 3 Seconds Skin: Ulcer/ Wound - Sacral ulcer where the bone is covered. Base is beefy pink with good bleeding. Tunneling at 11 o'clock is improving. Wound Measurements and Assessment WC - Nurse 1 - General Ulcer Measurement Start: 04/24/20 09:25 Freq: Status: Active Protocol: Activity Type Activity Date Activity User E-Sign Co-Sign Detail Recorded Client Recorded Date Recorded By Document 05/22/20 08:56 [email or web address] [id number] 05/22/20 09:03 DL 05/22/20 08:56 Wound Center Nurse 1 [Ulcer Assessment] #2 coccyx -Current Size (cm) - Length 4 -Current Size (cm) - Width 3 -Current Size (cm) - Depth 0.5 -Total Square Cm 12 -Photo Taken Yes -Exudate Amt Small -Exudate Type Serosanguineous -Wound Margin Thickened & Rolled Under -Granulation Amt Large (67-100%) -Granulation Quality Red -Necrosis Amt None Present (0 %) -Structure Exposed N/A -Texture (Aishwarya-wound Skin Appearance) Scarring -Moisture (Aishwarya-wound Skin Appearance No Abnormality ) -Color (Aishwarya-wound Skin Appearance) No Abnormality -Temperature (Aishwarya-wound Skin No Abnormality Appearance) (Pt Warm) -Tenderness on Palpation (Aishwarya-wound No Skin Appearance) -Ulcer Cleansing Rinsed/ Irrigated with Saline -Foul Odor after Cleansing No -Anesthetic Used 4% Lidocaine Solution WC - Nurse 2 - General Ulcer CM Notes Start: 05/22/20 09:22 Freq: Status: Active Protocol: Activity Type Activity Date Activity User E-Sign Co-Sign Detail Recorded Client Recorded Date Recorded By Document 05/22/20 09:22 DREW [id number] 05/22/20 09:25 DREW 05/22/20 09:22 Wound Center Nurse 2 [Procedure/Treatment] -Time 09:22 -Correct Patient Yes -Correct Side, Site, Position Yes -Correct Procedure Yes -Procedure Performed Yes -Type of Procedure Debridement -Clinical Debridement Muscle / Fascia -Tissue Removed Subcutaneous -Post Debridement (cm) - Length 4.0 -Post Debridement (cm) - Width 3.0 -Post Debridement (cm) - Depth 0.5 -Total Square (Post) (cm) 12.00 -Area of Debridement (cm) - Length 4.0 -Area of Debridement (cm) - Width 3.0 -Total Square (Area) (cm) 12.00 -Tunneling Yes -Tunneling Position (O'clock) 11 -Tunneling Distance (cm) 3.0 -Undermining/Tunneling No -Circular Undermining No -Wound/Ulcer Outcome Not Healed -Ulcer Cleansing Rinsed/ Irrigated with Saline -Foul Odor after Cleansing No -Bioengineered Tissue No -Bleeding Controlled with Pressure -Offloading No -Treatment Response Procedure Tolerated Well -Debridement - Muscle / Fascia, 1st Yes 20sq cm [See Physician Procedure note for Specifics] Pain Scale: 0-10 Numeric [Pain] -Is Patient Pain Free? Yes - Nurse 3 - General Ulcer D/C NN Start: 05/22/20 09:36 Freq: Status: Active Protocol: Activity Type Activity Date Activity User E-Sign Co-Sign Detail Recorded Client Recorded Date Recorded By Document 05/22/20 09:37 DL [id number] 05/22/20 09:38 DL 05/22/20 09:37 Wound Care Nurse 3 [Wound Dressing] #2 coccyx -Ulcer Cleansing Rinsed/ Irrigated with Saline -Foul Odor after Cleansing No -Primary Dressing Applied Silvercel -Primary Dressing Covered/Secured Dry Gauze, with Secured with Tape -Silvercel 1 [Post Procedure Tolerated] -Treatment Response Procedure Tolerated Well Pain Scale: 0-10 Numeric [Pain] -Is Patient Pain Free? Yes - Visit Discharge [Visit Discharge Information] -Discharge Condition Stable -Ambulatory Status Wheelchair -Transportation Private Auto Musculoskeletal: No Tenderness to Palpation of Joints or Extremities Neurological: Cranial nerves II-XII grossly intact Psych/Mental Status: Normal Affect, Appropriate Debridement Note Post-Debridement Measurements/Treatment STACY - Nurse 2 - General Ulcer CM Notes Start: 05/22/20 09:22 Freq: Status: Active Protocol: Activity Type Activity Date Activity User E-Sign Co-Sign Detail Recorded Client Recorded Date Recorded By Document 05/22/20 09:22 DREW [id number] 05/22/20 09:25 05/22/20 09:22 Wound Center Nurse 2 #2 coccyx -Time 09:22 -Correct Patient Yes -Correct Side, Site, Position Yes -Correct Procedure Yes -Procedure Performed Yes -Type of Procedure Debridement -Clinical Debridement Muscle / Fascia -Tissue Removed Subcutaneous -Post Debridement (cm) - Length 4.0 -Post Debridement (cm) - Width 3.0 -Post Debridement (cm) - Depth 0.5 -Total Square (Post) (cm) 12.00 -Area of Debridement (cm) - Length 4.0 -Area of Debridement (cm) - Width 3.0 -Total Square (Area) (cm) 12.00 -Tunneling Yes -Tunneling Position (O'clock) 11 -Tunneling Distance (cm) 3.0 -Undermining/Tunneling No -Circular Undermining No -Wound/Ulcer Outcome Not Healed -Ulcer Cleansing Rinsed/ Irrigated with Saline -Foul Odor after Cleansing No -Bioengineered Tissue No -Bleeding Controlled with Pressure -Offloading No -Treatment Response Procedure Tolerated Well -Debridement - Muscle / Fascia, 1st Yes 20sq cm Pain Scale: 0-10 Numeric Is Patient Pain Free? Yes STACY - Nurse 3 - General Ulcer D/C NN Start: 05/22/20 09:36 Freq: Status: Active Protocol: Activity Type Activity Date Activity User E-Sign Co-Sign Detail Recorded Client Recorded Date Recorded By Document 05/22/20 09:37 DL [id number] 05/22/20 09:38 DL 05/22/20 09:37 Wound Care Nurse 3 #2 coccyx -Ulcer Cleansing Rinsed/ Irrigated with Saline -Foul Odor after Cleansing No -Primary Dressing Applied Silvercel -Primary Dressing Covered/Secured with Dry Gauze, Secured with Tape -Silvercel 1 Treatment Response Procedure Tolerated Well Pain Scale: 0-10 Numeric Is Patient Pain Free? Yes WC - Visit Discharge Discharge Condition Stable Ambulatory Status Wheelchair Transportation Private Auto Wound debrided: Sacral ulcer Type of Debridement: Excisional debridement Anesthesia Used: 4% Lidocaine Solution Depth: Down to and including healthy tissue, in the subcutaneous layer, to muscle Percentage of wound debrided: 100 Instrument Used: 7mm curette Tissue Removed: Subcutaneous tissue and slough into the muscle Severity: Fat Layer Exposed Amount of bleeding with debridement: Mild Bleeding Controlled with: Pressure Patient tolerated procedure well Assessment/Plan Active Problems Chronic osteomyelitis of pelvis (Chronic) Stage IV pressure ulcer of sacral region (Chronic) Spina bifida (Chronic) Assessment: 1. 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 2. Chronic osteomyelitis of the pelvis. 3. Spina bifida. 4. s/p excision sacral pressure sore in posterior aspect of pelvis, Stage IV, and partial ostectomy pelvis for osteomyelitis. Plan: Continue Dakin's dressing changes twice a day. The wound continues to improve with granulation tissue and no exudate and the bone is now covered entirely with granulation tissue. Cultures obtained 04/04/20 and were positive for Proteus mirabilis and Staphylococcus aureus. He is being treated with Augmentin and probiotic. Completed the IV Vancomycin for the Staphylococcus aureus and Streptococcus agalactiae. He has finished the Flagyl for the Anaerobes. His Prealbumin has improved since discharge from 7.5 while in the hospital to 17.2 on 08/30/19. Followup four weeks. [id number]: [id number] Alma Delia musc/fascia 20 sq cm/<
== END 2020-05-22 23:59 ==
LOC: WC 09:00
PROVIDERS: PCP Family Medicine; Visit Provider Nurse Practitioner Family
DX: L89.154 Pressure ulcer of sacral region, stage 4 (principal); M86.659 Other chronic osteomyelitis, unspecified thigh; Q05.9 Spina bifida, unspecified; M86.68 Other chronic osteomyelitis, other site
CPT/HCPCS: 11043

== ENCOUNTER 2020-06-19 08:01 | Outpatient (RCR) | payer MEDICAID, SELFPAY ==
[2020-05-23 00:33] VITALS: BP 126/70; PULSE 84; RESP 20; TEMP 37.2
--- NOTE | 2020-06-09 12:00 | WC ---
Patient requesting a new order for Lisbeth's to be called into his pharmacy at [facility] in [place]. Notified Lacey Georges NP for approval and it was obtained and Junaid was called in to his requested pharmacy.
[2020-06-19 08:07] VITALS: BP 125/63; PULSE 67; RESP 20; TEMP 36.6; BMI 23.1
--- NOTE | 2020-06-19 12:58 | PN.PCM_ITS ---
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 History of Wound: Surgery 08/05/19 - 1. Excision sacral pressure sore in posterior aspect of pelvis, Stage IV. 2. Partial ostectomy pelvis for osteomyelitis. Wound care - Dakin's. Wound culture from 04/04/20 was positive for Proteus mirabilis and Staphylococcus aureus. He was placed on Augmentin and has finished them. Pathology was negative for osteomyelitis. CT Pelvis from 08/20/19 showed persistent, if slightly worse sacral decubitus ulcer when compared to the previous study from 12/07/2018. There are persistent erosive changes within the sacrum suggesting associated osteomyelitis. The ulcer measures approximate 4.9 x 3.4 x 4.9 cm, is gas-filled and appears to contain packing material. Stable surgical hardware in the lower lumbar spine and sacrum.. Prealbumin from 08/30/19 was 17.2. Encourage nutritional supplementation with protein to help the healing process. Today he denies fever. His appetite is good. Progress of Wound: Improved. - Physical Exam Vital Signs Temp Pulse Resp BP 98 F 67 20 H 125/63 H 06/19/20 08:07 06/19/20 08:07 06/19/20 08:07 06/19/20 08:07 Wound Measurements and Assessment WC - Nurse 1 - General Ulcer Measurement Start: 06/19/20 08:06 Freq: Status: Active Protocol: Activity Type Activity Date Activity User E-Sign Co-Sign Detail Recorded Client Recorded Date Recorded By Document 06/19/20 08:07 [id number] 06/19/20 08:15 DL 06/19/20 08:07 Wound Center Nurse 1 [Ulcer Assessment] #2 coccyx -Current Size (cm) - Length 3.7 -Current Size (cm) - Width 3 -Current Size (cm) - Depth 0.6 -Total Square Cm 11.1 -Photo Taken No -Maximum Distance #2 (cm) 0.5 -Circular Undermining Yes -Exudate Amt Small -Exudate Type Serosanguineous -Wound Margin Thickened & Rolled Under -Granulation Amt Large (67-100%) -Granulation Quality Red -Necrosis Amt Small (1-33%) -Necrotic Tissue Type Adherent Slough -Structure Exposed N/A -Texture (Aishwarya-wound Skin Appearance) Scarring -Moisture (Aishwarya-wound Skin Appearance Maceration ) -Color (Aishwarya-wound Skin Appearance) No Abnormality -Temperature (Aishwarya-wound Skin No Abnormality Appearance) (Pt Warm) -Tenderness on Palpation (Aishwarya-wound No Skin Appearance) -Ulcer Cleansing Wound Cleanser -Foul Odor after Cleansing No -Anesthetic Used 4% Lidocaine Solution WC - Nurse 2 - General Ulcer CM Notes Start: 06/19/20 08:06 Freq: Status: Active Protocol: Activity Type Activity Date Activity User E-Sign Co-Sign Detail Recorded Client Recorded Date Recorded By Document 06/19/20 08:41 DREW [id number] 06/19/20 08:44 DREW 06/19/20 08:41 Wound Center Nurse 2 [Procedure/Treatment] -Time 08:41 -Correct Patient Yes -Correct Side, Site, Position Yes -Correct Procedure Yes -Procedure Performed Yes -Type of Procedure Debridement -Clinical Debridement Muscle / Fascia -Tissue Removed Muscle -Post Debridement (cm) - Length 3.8 -Post Debridement (cm) - Width 3 -Post Debridement (cm) - Depth 0.6 -Total Square (Post) (cm) 11.4 -Area of Debridement (cm) - Length 3.8 -Area of Debridement (cm) - Width 3.0 -Total Square (Area) (cm) 11.40 -Tunneling Yes -Tunneling Position (O'clock) 12 -Tunneling Distance (cm) 2 -Tunneling Position #2 (O'clock) 3 -Tunneling Distance #2 (cm) 1 -Undermining/Tunneling No -Circular Undermining No -Wound/Ulcer Outcome Not Healed -Ulcer Cleansing Rinsed/ Irrigated with Saline -Foul Odor after Cleansing No -Bioengineered Tissue No -Bleeding Controlled with Pressure -Offloading No -Treatment Response Procedure Tolerated Well -Debridement - Muscle / Fascia, 1st Yes 20sq cm [See Physician Procedure note for Specifics] Pain Scale: 0-10 Numeric [Pain] -Is Patient Pain Free? Yes Debridement Note Post-Debridement Measurements/Treatment WC - Nurse 2 - General Ulcer CM Notes Start: 06/19/20 08:06 Freq: Status: Active Protocol: Activity Type Activity Date Activity User E-Sign Co-Sign Detail Recorded Client Recorded Date Recorded By Document 06/19/20 08:41 [id number] 06/19/20 08:44 06/19/20 08:41 Wound Center Nurse 2 #2 coccyx -Time 08:41 -Correct Patient Yes -Correct Side, Site, Position Yes -Correct Procedure Yes -Procedure Performed Yes -Type of Procedure Debridement -Clinical Debridement Muscle / Fascia -Tissue Removed Muscle -Post Debridement (cm) - Length 3.8 -Post Debridement (cm) - Width 3 -Post Debridement (cm) - Depth 0.6 -Total Square (Post) (cm) 11.4 -Area of Debridement (cm) - Length 3.8 -Area of Debridement (cm) - Width 3.0 -Total Square (Area) (cm) 11.40 -Tunneling Yes -Tunneling Position (O'clock) 12 -Tunneling Distance (cm) 2 -Tunneling Position #2 (O'clock) 3 -Tunneling Distance #2 (cm) 1 -Undermining/Tunneling No -Circular Undermining No -Wound/Ulcer Outcome Not Healed -Ulcer Cleansing Rinsed/ Irrigated with Saline -Foul Odor after Cleansing No -Bioengineered Tissue No -Bleeding Controlled with Pressure -Offloading No -Treatment Response Procedure Tolerated Well -Debridement - Muscle / Fascia, 1st Yes 20sq cm Pain Scale: 0-10 Numeric Is Patient Pain Free? Yes Wound debrided: #2 Posterior pelvis in sacral area. Laterality: Not Applicable Wound Grade/Stage: IV. Type of Debridement: Excisional debridement Anesthesia Used: 4% Lidocaine Solution Depth: Down to and including healthy tissue, in the subcutaneous layer, to muscle, to bone - bone is palpable but not exposed. Percentage of wound debrided: 100 Instrument Used: 7mm curette Tissue Removed: subcutaneous tissue and muscle. Severity: Fat Layer Exposed - muscle is exposed. bone is palpable but not exposed. Amount of bleeding with debridement: Mild Bleeding Controlled with: Pressure Patient tolerated procedure well Assessment/Plan Assessment: 1. 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 2. Chronic osteomyelitis of the pelvis. 3. Spina bifida. 4. s/p excision sacral pressure sore in posterior aspect of pelvis, Stage IV, and pa rtial ostectomy pelvis for osteomyelitis. Plan: Continue Dakin's dressing changes daily. The wound continues to improve with granulation tissue and no exudate and the bone is now covered entirely with granulation tissue. There is some mild maceration on the surrounding skin edges with some curling of the skin edges. 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 Discussed with him that another maintenance surgical excision may be beneficial to the healing process. There is no urgency to another surgery as the ulcer is stable. However there is a window of opportunity at this time because of COVID. He will talk to his parents about this and let us know at his next visit. Culture obtained 04/04/20 was positive for Proteus mirabilis and Staphylococcus aureus. He was placed on Augmentin and has finished them. His Prealbumin from 08/30/19 was 17.2. Encourage nutritional supplementation with protein to help the healing process. Followup four weeks. 111xxx-113xx: [id number] Alma Delia musc/fascia 20 sq cm/< - ICD-10 - L89.154, M86.659, Q05.9
== END 2020-06-21 23:59 ==
LOC: WC 08:01
PROVIDERS: PCP Family Medicine; Visit Provider Nurse Practitioner Family
DX: L89.154 Pressure ulcer of sacral region, stage 4 (principal); M86.659 Other chronic osteomyelitis, unspecified thigh; Q05.9 Spina bifida, unspecified; Z98.890 Other specified postprocedural states
CPT/HCPCS: 11043

== ENCOUNTER 2020-07-10 08:15 | Outpatient (RCR) | payer MEDICAID, SELFPAY ==
[2020-06-22 00:30] VITALS: BP 125/63; PULSE 67; RESP 20; TEMP 36.6
[2020-07-10 08:38] VITALS: BP 126/70; PULSE 67; RESP 16; TEMP 36.5; BMI 23.1
[2020-07-10 09:01] VITALS: BP 135/73; PULSE 73
--- NOTE | 2020-07-10 09:01 | PN.PCM_ITS ---
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 History of Wound: Surgery 08/05/19 - 1. Excision sacral pressure sore in posterior aspect of pelvis, Stage IV. 2. Partial ostectomy pelvis for osteomyelitis. Wound care - Dakin's. Wound culture from 04/04/20 was positive for Proteus mirabilis and Staphylococcus aureus. He was placed on Augmentin and has finished them. Pathology was negative for osteomyelitis. CT Pelvis from 08/20/19 showed persistent, if slightly worse sacral decubitus ulcer when compared to the previous study from 12/07/2018. There are persistent erosive changes within the sacrum suggesting associated osteomyelitis. The ulcer measures approximate 4.9 x 3.4 x 4.9 cm, is gas-filled and appears to contain packing material. Stable surgical hardware in the lower lumbar spine and sacrum.. Prealbumin from 08/30/19 was 17.2. Encourage nutritional supplementation with protein to help the healing process. Today he denies fever. His appetite is good. Progress of Wound: Improved. - Physical Exam Vital Signs Temp Pulse Resp BP 97.7 F L 67 16 126/70 H 07/10/20 08:38 07/10/20 08:38 07/10/20 08:38 07/10/20 08:38 Wound Measurements and Assessment WC - Nurse 1 - General Ulcer Measurement Start: 07/10/20 08:33 Freq: Status: Active Protocol: Activity Type Activity Date Activity User E-Sign Co-Sign Detail Recorded Client Recorded Date Recorded By Document 07/10/20 08:38 MS [id number] 07/10/20 08:42 MS 07/10/20 08:38 Wound Center Nurse 1 [Ulcer Assessment] #2 coccyx -Combined with other wound No -Current Size (cm) - Length 3.4 -Current Size (cm) - Width 3.3 -Current Size (cm) - Depth 0.8 -Total Square Cm 11.22 -Photo Taken No -Epithelialization Small 1-33% -Tunneling No -Undermining/Tunneling No -Circular Undermining No -Exudate Amt Medium -Exudate Type Serosanguineous -Wound Margin Thickened & Rolled Under -Granulation Amt Large (67-100%) -Granulation Quality Red -Slough/Fibrin Yes -Necrosis Amt None Present (0 %) -Structure Exposed N/A -Texture (Aishwaray-wound Skin Appearance) No Abnormality, Assessed -Moisture (Aishwarya-wound Skin Appearance Maceration ) -Color (Aishwarya-wound Skin Appearance) No Abnormality, Assessed -Temperature (Aishwarya-wound Skin No Abnormality Appearance) (Pt Warm) -Tenderness on Palpation (Aishwarya-wound No Skin Appearance) -Ulcer Cleansing Wound Cleanser -Foul Odor after Cleansing No [Edema Assessment] -Lower Limb Edema Present NA - Nurse 2 - General Ulcer CM Notes Start: 07/10/20 08:33 Freq: Status: Active Protocol: Activity Type Activity Date Activity User E-Sign Co-Sign Detail Recorded Client Recorded Date Recorded By Document 07/10/20 08:54 [id number] 07/10/20 08:55 07/10/20 08:54 Wound Center Nurse 2 [Procedure/Treatment] #2 coccyx -Time 08:54 -Correct Patient Yes -Correct Side, Site, Position Yes -Correct Procedure Yes -Procedure Performed Yes -Type of Procedure Debridement -Clinical Debridement Muscle / Fascia -Tissue Removed Muscle -Post Debridement (cm) - Length 3.5 -Post Debridement (cm) - Width 3.3 -Post Debridement (cm) - Depth 0.8 -Total Square (Post) (cm) 11.55 -Area of Debridement (cm) - Length 3.5 -Area of Debridement (cm) - Width 3.3 -Total Square (Area) (cm) 11.55 -Tunneling No -Undermining/Tunneling No -Circular Undermining No -Wound/Ulcer Outcome Not Healed -Ulcer Cleansing Rinsed/ Irrigated with Saline -Foul Odor after Cleansing No -Bioengineered Tissue No -Bleeding Controlled with Pressure -Offloading No -Treatment Response Procedure Tolerated Well -Debridement - Muscle / Fascia, 1st Yes 20sq cm [See Physician Procedure note for Specifics] Pain Scale: 0-10 Numeric [Pain] -Is Patient Pain Free? Yes Debridement Note Post-Debridement Measurements/Treatment - Nurse 2 - General Ulcer CM Notes Start: 07/10/20 08:33 Freq: Status: Active Protocol: Activity Type Activity Date Activity User E-Sign Co-Sign Detail Recorded Client Recorded Date Recorded By Document 07/10/20 08:54 [id number] 10/19/20 08:55 07/10/20 08:54 Wound Center Nurse 2 #2 coccyx -Time 08:54 -Correct Patient Yes -Correct Side, Site, Position Yes -Correct Procedure Yes -Procedure Performed Yes -Type of Procedure Debridement -Clinical Debridement Muscle / Fascia -Tissue Removed Muscle -Post Debridement (cm) - Length 3.5 -Post Debridement (cm) - Width 3.3 -Post Debridement (cm) - Depth 0.8 -Total Square (Post) (cm) 11.55 -Area of Debridement (cm) - Length 3.5 -Area of Debridement (cm) - Width 3.3 -Total Square (Area) (cm) 11.55 -Tunneling No -Undermining/Tunneling No -Circular Undermining No -Wound/Ulcer Outcome Not Healed -Ulcer Cleansing Rinsed/ Irrigated with Saline -Foul Odor after Cleansing No -Bioengineered Tissue No -Bleeding Controlled with Pressure -Offloading No -Treatment Response Procedure Tolerated Well -Debridement - Muscle / Fascia, 1st Yes 20sq cm Pain Scale: 0-10 Numeric Is Patient Pain Free? Yes Wound debrided: #2 Posterior pelvis in sacral area. Laterality: Not Applicable Wound Grade/Stage: IV. Type of Debridement: Excisional debridement Anesthesia Used: 4% Lidocaine Solution Depth: Down to and including healthy tissue, in the subcutaneous layer, to muscle, to bone - bone is palpable but not debrided. Percentage of wound debrided: 100 Instrument Used: 7mm curette Tissue Removed: subcutaneous tissue and muscle. Severity: Fat Layer Exposed - muscle is exposed. bone is palpable but not de brided. Amount of bleeding with debridement: Mild Bleeding Controlled with: Pressure Patient tolerated procedure well Assessment/Plan Assessment: 1. 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 2. Chronic osteomyelitis of the pelvis. 3. Spina bifida. 4. s/p excision sacral pressure sore in posterior aspect of pelvis, Stage IV, and partial ostectomy pelvis for osteomyelitis. Plan: Continue Dakin's dressing changes daily. The wound continues to improve with granulation tissue and no exudate and the bone is now covered entirely with granulation tissue. There is some mild maceration on the surrounding skin edges with some curling of the skin edges. 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 Discussed with him that another maintenance surgical excision may be beneficial to the healing process. There is no urgency to another surgery as the ulcer is stable. However there is a window of opportunity at this time because of COVID. I talked to his mother and they have decided to hold off on any surgical excision at this time. Culture obtained 04/04/20 was positive for Proteus mirabilis and Staphylococcus aureus. He was placed on Augmentin and has finished them. His Prealbumin from 08/30/19 was 17.2. Encourage nutritional supplementation with protein to help the healing process. Followup four weeks. [id number]: [id number] Al[place] Delia musc/fascia 20 sq cm/< - ICD-10 - L89.154, M86.659, Q05.9
== END 2020-07-22 23:59 ==
LOC: WC 08:15
PROVIDERS: PCP Family Medicine; Visit Provider Nurse Practitioner Family
DX: L89.154 Pressure ulcer of sacral region, stage 4 (principal); M86.659 Other chronic osteomyelitis, unspecified thigh; Q05.9 Spina bifida, unspecified; M86.68 Other chronic osteomyelitis, other site
CPT/HCPCS: 11043

== ENCOUNTER 2020-08-07 08:00 | Outpatient (RCR) | payer MEDICAID, SELFPAY ==
[2020-07-23 00:19] VITALS: BP 135/73; PULSE 73; RESP 16; TEMP 36.5
[2020-08-07 08:14] VITALS: BP 130/51; PULSE 73; TEMP 36.4; BMI 23.1
--- NOTE | 2020-08-07 15:56 | PCM.WC.PN ---
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 History of Wound: Surgery 08/05/19 - 1. Excision sacral pressure sore in posterior aspect of pelvis, Stage IV. 2. Partial ostectomy pelvis for osteomyelitis. Wound care - Dakin's. Wound culture from 04/04/20 was positive for Proteus mirabilis and Staphylococcus aureus. He was placed on Augmentin and has finished them. Pathology was negative for osteomyelitis. CT Pelvis from 08/20/19 showed persistent, if slightly worse sacral decubitus ulcer when compared to the previous study from 12/07/2018. There are persistent erosive changes within the sacrum suggesting associated osteomyelitis. The ulcer measures approximate 4.9 x 3.4 x 4.9 cm, is gas-filled and appears to contain packing material. Stable surgical hardware in the lower lumbar spine and sacrum.. Prealbumin from 08/30/19 was 17.2. Encourage nutritional supplementation with protein to help the healing process. Today he denies fever. His appetite is good. Progress of Wound: Slightly improved. - Physical Exam Vital Signs Temp Pulse Resp BP 97.6 F L 73 16 130/51 H 08/07/20 08:14 08/07/20 08:14 07/23/20 00:19 08/07/20 08:14 Wound Measurements and Assessment WC - Nurse 1 - General Ulcer Measurement Start: 08/07/20 08:14 Freq: Status: Active Protocol: Activity Type Activity Date Activity User E-Sign Co-Sign Detail Recorded Client Recorded Date Recorded By Document 08/07/20 08:14 SUPA [id number] 08/07/20 08:18 SUPA 08/07/20 08:14 Wound Center Nurse 1 [Ulcer Assessment] #2 coccyx -Combined with other wound No -Current Size (cm) - Length 3.3 -Current Size (cm) - Width 3 -Current Size (cm) - Depth 1 -Total Square Cm 9.9 -Photo Taken No -Epithelialization Small 1-33% -Undermining/Tunneling Yes -Undermining/Tunneling Starts (O' 11 clock) -Undermining/Tunneling Ends (O'clock) 4 -Maximum Distance (cm) 2.4 -Exudate Type Serosanguineous -Wound Margin Thickened & Rolled Under -Granulation Amt Large (67-100%) -Granulation Quality Red -Slough/Fibrin No -Necrosis Amt Small (1-33%) -Necrotic Tissue Type Adherent Slough -Structure Exposed N/A -Texture (Aishwarya-wound Skin Appearance) Assessed, Scarring -Moisture (Aishwarya-wound Skin Appearance No Abnormality ) -Color (Aishwarya-wound Skin Appearance) No Abnormality -Temperature (Aishwarya-wound Skin No Abnormality Appearance) (Pt Warm) -Tenderness on Palpation (Aishwarya-wound No Skin Appearance) -Ulcer Cleansing Rinsed/ Irrigated with Saline -Foul Odor after Cleansing No -Anesthetic Used 4% Lidocaine Solution STACY - Nurse 2 - General Ulcer CM Notes Start: 08/07/20 08:14 Freq: Status: Active Protocol: Activity Type Activity Date Activity User E-Sign Co-Sign Detail Recorded Client Recorded Date Recorded By Document 08/07/20 08:36 DREW [id number] 08/07/20 08:40 DREW 08/07/20 08:36 Wound Center Nurse 2 [Procedure/Treatment] -Time 08:38 -Correct Patient Yes -Correct Side, Site, Position Yes -Correct Procedure Yes -Procedure Performed Yes -Type of Procedure Debridement -Clinical Debridement Muscle / Fascia -Tissue Removed Muscle -Post Debridement (cm) - Length 3.5 -Post Debridement (cm) - Width 3.0 -Post Debridement (cm) - Depth 0.8 -Total Square (Post) (cm) 10.50 -Area of Debridement (cm) - Length 3.5 -Area of Debridement (cm) - Width 3.0 -Total Square (Area) (cm) 10.50 -Tunneling Yes -Tunneling Position (O'clock) 11 -Tunneling Distance (cm) 2.5 -Undermining/Tunneling No -Circular Undermining No -Wound/Ulcer Outcome Not Healed -Ulcer Cleansing Rinsed/ Irrigated with Saline -Foul Odor after Cleansing No -Bioengineered Tissue No -Bleeding Controlled with Pressure -Offloading No -Treatment Response Procedure Tolerated Well -Debridement - Muscle / Fascia, 1st Yes 20sq cm [See Physician Procedure note for Specifics] Pain Scale: 0-10 Numeric [Pain] -Is Patient Pain Free? Yes STACY - Nurse 3 - General Ulcer D/C NN Start: 08/07/20 08:14 Freq: Status: Active Protocol: Activity Type Activity Date Activity User E-Sign Co-Sign Detail Recorded Client Recorded Date Recorded By Document 08/07/20 08:56 DL [id number] 08/07/20 08:57 DL 08/07/20 08:56 Wound Care Nurse 3 [Wound Dressing] #2 coccyx -Ulcer Cleansing Wound Cleanser -Foul Odor after Cleansing No -Other Dressing moist gauze -Primary Dressing Covered/Secured Dry Gauze, with Secured with Tape [Post Procedure Tolerated] -Treatment Response Procedure Tolerated Well Pain Scale: 0-10 Numeric [Pain] -Is Patient Pain Free? Yes WC - Visit Discharge [Visit Discharge Information] -Discharge Condition Stable -Ambulatory Status Wheelchair -Transportation Private Auto -Notes: Resume Dakins at home Debridement Note Post-Debridement Measurements/Treatment - Nurse 2 - General Ulcer CM Notes Start: 08/07/20 08:14 Freq: Status: Active Protocol: Activity Type Activity Date Activity User E-Sign Co-Sign Detail Recorded Client Recorded Date Recorded By Document 08/07/20 08:36 [id number] 08/07/20 08:40 08/07/20 08:36 Wound Center Nurse 2 #2 coccyx -Time 08:38 -Correct Patient Yes -Correct Side, Site, Position Yes -Correct Procedure Yes -Procedure Performed Yes -Type of Procedure Debridement -Clinical Debridement Muscle / Fascia -Tissue Removed Muscle -Post Debridement (cm) - Length 3.5 -Post Debridement (cm) - Width 3.0 -Post Debridement (cm) - Depth 0.8 -Total Square (Post) (cm) 10.50 -Area of Debridement (cm) - Length 3.5 -Area of Debridement (cm) - Width 3.0 -Total Square (Area) (cm) 10.50 -Tunneling Yes -Tunneling Position (O'clock) 11 -Tunneling Distance (cm) 2.5 -Undermining/Tunneling No -Circular Undermining No -Wound/Ulcer Outcome Not Healed -Ulcer Cleansing Rinsed/ Irrigated with Saline -Foul Odor after Cleansing No -Bioengineered Tissue No -Bleeding Controlled with Pressure -Offloading No -Treatment Response Procedure Tolerated Well -Debridement - Muscle / Fascia, 1st Yes 20sq cm Pain Scale: 0-10 Numeric Is Patient Pain Free? Yes - Nurse 3 - General Ulcer D/C NN Start: 08/07/20 08:14 Freq: Status: Active Protocol: Activity Type Activity Date Activity User E-Sign Co-Sign Detail Recorded Client Recorded Date Recorded By Document 08/07/20 08:56 [email or web address] [id number] 08/07/20 08:57 DL 08/07/20 08:56 Wound Care Nurse 3 #2 coccyx -Ulcer Cleansing Wound Cleanser -Foul Odor after Cleansing No -Other Dressing moist gauze -Primary Dressing Covered/Secured with Dry Gauze, Secured with Tape Treatment Response Procedure Tolerated Well Pain Scale: 0-10 Numeric Is Patient Pain Free? Yes WC - Visit Discharge Discharge Condition Stable Ambulatory Status Wheelchair Transportation Private Auto Notes: Resume Dakins at home Wound debrided: #2 Posterior pelvis in sacral area. Laterality: Not Applicable Wound Grade/Stage: IV. Type of Debridement: Excisional debridement Anesthesia Used: 4% Lidocaine Solution Depth: Down to and including healthy tissue, in the subcutaneous layer, to muscle, to bone - bone is palpable but not debrided. Percentage of wound debrided: 100 Instrument Used: 5mm curette Tissue Removed: subcutaneous tissue and muscle. Severity: Fat Layer Exposed - muscle is exposed. bone is palpable but not debrided. Amount of bleeding with debridement: Mild Bleeding Controlled with: Pressure Patient tolerated procedure well Assessment/Plan Assessment: 1. 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 2. Chronic osteomyelitis of the pelvis. 3. Spina bifida. 4. s/p excision sacral pressure sore in posterior aspect of pelvis, Stage IV, and partial ostectomy pelvis for osteomyelitis. Plan: Continue Dakin's dressing changes daily. The wound continues to improve with granulation tissue and no exudate and the bone is now covered entirely with granulation tissue. There is some mild maceration on the surrounding skin edges with some curling of the skin edges. 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 Discussed with him that another maintenance surgical excision may be beneficial to the healing process. There is no urgency to another surgery as the ulcer is stable. However there is a window of opportunity at this time because of COVID. I talked to his mother and they have decided to hold off on any surgical excision at this time. Culture obtained 04/04/20 was positive for Proteus mirabilis and Staphylococcus aureus. He was placed on Augmentin and has finished them. His Prealbumin from 08/30/19 was 17.2. Encourage nutritional supplementation with protein to help the healing process. Followup four weeks. [id number]: [id number] Al[place] Delia musc/fascia 20 sq cm/< - ICD-10 - L89.154, M86.659, Q05.9
== END 2020-08-21 23:59 ==
LOC: WC 08:00
PROVIDERS: PCP Family Medicine; Visit Provider Nurse Practitioner Family
DX: L89.154 Pressure ulcer of sacral region, stage 4 (principal); Q05.9 Spina bifida, unspecified; M86.68 Other chronic osteomyelitis, other site
CPT/HCPCS: 11043

== ENCOUNTER 2020-09-04 08:35 | Outpatient (RCR) | payer MEDICAID, SELFPAY ==
[2020-08-22 00:20] VITALS: BP 130/51; PULSE 73; RESP 16; TEMP 36.4
[2020-09-04 08:39] VITALS: BP 134/56; PULSE 68; RESP 18; TEMP 35.6; BMI 23.1
--- NOTE | 2020-09-04 12:37 | PCM.WC.PN ---
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 History of Wound: Surgery 08/05/19 - 1. Excision sacral pressure sore in posterior aspect of pelvis, Stage IV. 2. Partial ostectomy pelvis for osteomyelitis. Wound care - Dakin's. Wound culture from 04/04/20 was positive for Proteus mirabilis and Staphylococcus aureus. He was placed on Augmentin and has finished them. Pathology was negative for osteomyelitis. CT Pelvis from 08/20/19 showed persistent, if slightly worse sacral decubitus ulcer when compared to the previous study from 12/07/2018. There are persistent erosive changes within the sacrum suggesting associated osteomyelitis. The ulcer measures approximate 4.9 x 3.4 x 4.9 cm, is gas-filled and appears to contain packing material. Stable surgical hardware in the lower lumbar spine and sacrum.. Prealbumin from 08/30/19 was 17.2. Encourage nutritional supplementation with protein to help the healing process. Today he denies fever. His appetite is good. Progress of Wound: Slightly improved. - Physical Exam Vital Signs Temp Pulse Resp BP 96.1 F L 68 18 134/56 H 09/04/20 08:39 09/04/20 08:39 09/04/20 08:39 09/04/20 08:39 Wound Measurements and Assessment WC - Nurse 1 - General Ulcer Measurement Start: 09/04/20 08:36 Freq: Status: Active Protocol: Activity Type Activity Date Activity User E-Sign Co-Sign Detail Recorded Client Recorded Date Recorded By Document 09/04/20 08:39 DL [id number] 09/04/20 08:47 DL 09/04/20 08:39 Wound Center Nurse 1 [Ulcer Assessment] #2 coccyx -Current Size (cm) - Length 3.3 -Current Size (cm) - Width 2.2 -Current Size (cm) - Depth 0.7 -Total Square Cm 7.26 -Photo Taken No -Maximum Distance #2 (cm) 0.8 -Circular Undermining Yes -Exudate Amt Small -Exudate Type Serosanguineous -Wound Margin Thickened & Rolled Under -Granulation Amt Large (67-100%) -Granulation Quality Red -Necrosis Amt Small (1-33%) -Necrotic Tissue Type Adherent Slough -Structure Exposed N/A -Texture (Aishwarya-wound Skin Appearance) Scarring -Moisture (Aishwarya-wound Skin Appearance No Abnormality ) -Color (Aishwarya-wound Skin Appearance) No Abnormality -Temperature (Aishwarya-wound Skin No Abnormality Appearance) (Pt Warm) -Tenderness on Palpation (Aishwarya-wound No Skin Appearance) -Ulcer Cleansing Wound Cleanser -Foul Odor after Cleansing No -Anesthetic Used 4% Lidocaine Solution WC - Nurse 2 - General Ulcer CM Notes Start: 09/04/20 08:36 Freq: Status: Active Protocol: Activity Type Activity Date Activity User E-Sign Co-Sign Detail Recorded Client Recorded Date Recorded By Document 09/04/20 09:01 [id number] 09/04/20 09:06 09/04/20 09:01 Wound Center Nurse 2 [Procedure/Treatment] -Time 09:01 -Correct Patient Yes -Correct Side, Site, Position Yes -Correct Procedure Yes -Procedure Performed Yes -Type of Procedure Debridement -Clinical Debridement Muscle / Fascia -Tissue Removed Muscle -Post Debridement (cm) - Length 3.7 -Post Debridement (cm) - Width 3.5 -Post Debridement (cm) - Depth 1 -Total Square (Post) (cm) 12.95 -Area of Debridement (cm) - Length 3.7 -Area of Debridement (cm) - Width 3.5 -Total Square (Area) (cm) 12.95 -Tunneling No -Undermining/Tunneling No -Circular Undermining No -Wound/Ulcer Outcome Not Healed -Ulcer Cleansing Rinsed/ Irrigated with Saline -Foul Odor after Cleansing No -Bioengineered Tissue No -Bleeding Controlled with Pressure -Offloading No -Treatment Response Procedure Tolerated Well -Debridement - Muscle / Fascia, 1st Yes 20sq cm [See Physician Procedure note for Specifics] Pain Scale: 0-10 Numeric [Pain] -Is Patient Pain Free? Yes - Nurse 3 - General Ulcer D/C NN Start: 09/04/20 08:36 Freq: Status: Active Protocol: Activity Type Activity Date Activity User E-Sign Co-Sign Detail Recorded Client Recorded Date Recorded By Document 09/04/20 09:15 DL [id number] 09/04/20 09:16 DL 09/04/20 09:15 Wound Care Nurse 3 [Wound Dressing] #2 coccyx -Ulcer Cleansing Rinsed/ Irrigated with Saline -Foul Odor after Cleansing No -Other Dressing moist gauze -Primary Dressing Covered/Secured Dry Gauze, with Secured with Tape [Post Procedure Tolerated] -Treatment Response Procedure Tolerated Well Pain Scale: 0-10 Numeric [Pain] -Is Patient Pain Free? Yes - Visit Discharge [Visit Discharge Information] -Discharge Condition Stable -Ambulatory Status Wheelchair -Transportation Private Auto -Notes: Pt to resume Dakins at home. Debridement Note Post-Debridement Measurements/Treatment WC - Nurse 2 - General Ulcer CM Notes Start: 09/04/20 08:36 Freq: Status: Active Protocol: Activity Type Activity Date Activity User E-Sign Co-Sign Detail Recorded Client Recorded Date Recorded By Document 09/04/20 09:01 DREW [id number] 09/04/20 09:06 DREW 09/04/20 09:01 Wound Center Nurse 2 #2 coccyx -Time 09:01 -Correct Patient Yes -Correct Side, Site, Position Yes -Correct Procedure Yes -Procedure Performed Yes -Type of Procedure Debridement -Clinical Debridement Muscle / Fascia -Tissue Removed Muscle -Post Debridement (cm) - Length 3.7 -Post Debridement (cm) - Width 3.5 -Post Debridement (cm) - Depth 1 -Total Square (Post) (cm) 12.95 -Area of Debridement (cm) - Length 3.7 -Area of Debridement (cm) - Width 3.5 -Total Square (Area) (cm) 12.95 -Tunneling No -Undermining/Tunneling No -Circular Undermining No -Wound/Ulcer Outcome Not Healed -Ulcer Cleansing Rinsed/ Irrigated with Saline -Foul Odor after Cleansing No -Bioengineered Tissue No -Bleeding Controlled with Pressure -Offloading No -Treatment Response Procedure Tolerated Well -Debridement - Muscle / Fascia, 1st Yes 20sq cm Pain Scale: 0-10 Numeric Is Patient Pain Free? Yes - Nurse 3 - General Ulcer D/C NN Start: 09/04/20 08:36 Freq: Status: Active Protocol: Activity Type Activity Date Activity User E-Sign Co-Sign Detail Recorded Client Recorded Date Recorded By Document 09/04/20 09:15 DL [id number] 09/04/20 09:16 DL 09/04/20 09:15 Wound Care Nurse 3 #2 coccyx -Ulcer Cleansing Rinsed/ Irrigated with Saline -Foul Odor after Cleansing No -Other Dressing moist gauze -Primary Dressing Covered/Secured with Dry Gauze, Secured with Tape Treatment Response Procedure Tolerated Well Pain Scale: 0-10 Numeric Is Patient Pain Free? Yes WC - Visit Discharge Discharge Condition Stable Ambulatory Status Wheelchair Transportation Private Auto Notes: Pt to resume Dakins at home. Wound debrided: #2 Posterior pelvis in sacral area. Laterality: Not Applicable Wound Grade/Stage: IV. Type of Debridement: Excisional debridement Anesthesia Used: 4% Lidocaine Solution Depth: Down to and including healthy tissue, in the subcutaneous layer, to muscle, to bone - bone is palpable but not debrided. Percentage of wound debrided: 100 Instrument Used: 7mm curette Tissue Removed: subcutaneous tissue and muscle. Severity: Fat Layer Exposed - muscle is exposed. bone is palpable but not debrided. Amount of bleeding with debridement: Mild Bleeding Controlled with: Pressure Patient tolerated procedure well Assessment/Plan Assessment: 1. 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 2. Chronic osteomyelitis of the pelvis. 3. Spina bifida. 4. s/p excision sacral pressure sore in posterior aspect of pelvis, Stage IV, and partial ostectomy pelvis for osteomyelitis. Plan: Continue Dakin's dressing changes daily. The wound continues to improve with granulation tissue and no exudate and the bone is now covered entirely with granulation tissue. There is some mild maceration on the surrounding skin edges with some curling of the skin edges. 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 Discussed with him that another maintenance surgical excision may be beneficial to the healing process. There is no urgency to another surgery as the ulcer is stable. However there is a window of opportunity at this time because of COVID. I talked to his mother and they have decided to hold off on any surgical excision at this time. Culture obtained 04/04/20 was positive for Proteus mirabilis and Staphylococcus aureus. He was placed on Augmentin and has finished them. His Prealbumin from 08/30/19 was 17.2. Encourage nutritional supplementation with protein to help the healing process. Followup four weeks. [id number]: [id number] Al[place] Delia musc/fascia 20 sq cm/< - ICD-10 - L89.154, M86.659, Q05.9
== END 2020-09-21 23:59 ==
LOC: WC 08:35
PROVIDERS: PCP Family Medicine; Visit Provider Nurse Practitioner Family
DX: L89.154 Pressure ulcer of sacral region, stage 4 (principal); Q05.9 Spina bifida, unspecified; M86.659 Other chronic osteomyelitis, unspecified thigh
CPT/HCPCS: 11043

== ENCOUNTER 2020-10-09 08:00 | Outpatient (RCR) | payer MEDICAID, SELFPAY ==
[2020-09-22 00:19] VITALS: BP 134/56; PULSE 68; RESP 18; TEMP 35.6
[2020-10-09 08:19] VITALS: BP 136/71; PULSE 70; TEMP 36.1; BMI 23.1
--- NOTE | 2020-10-09 20:13 | PCM.WC.PN ---
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 History of Wound: Surgery 08/05/19 - 1. Excision sacral pressure sore in posterior aspect of pelvis, Stage IV. 2. Partial ostectomy pelvis for osteomyelitis. Wound care - Dakin's. Wound culture from 04/04/20 was positive for Proteus mirabilis and Staphylococcus aureus. He was placed on Augmentin and has finished them. Pathology was negative for osteomyelitis. CT Pelvis from 08/20/19 showed persistent, if slightly worse sacral decubitus ulcer when compared to the previous study from 12/07/2018. There are persistent erosive changes within the sacrum suggesting associated osteomyelitis. The ulcer measures approximate 4.9 x 3.4 x 4.9 cm, is gas-filled and appears to contain packing material. Stable surgical hardware in the lower lumbar spine and sacrum.. Prealbumin from 08/30/19 was 17.2. Encourage nutritional supplementation with protein to help the healing process. Today he denies fever. His appetite is good. Progress of Wound: Slightly improved. - Physical Exam Vital Signs Temp Pulse Resp BP 97.0 F L 70 18 136/71 H 10/09/20 08:19 10/09/20 08:19 09/22/20 00:19 10/09/20 08:19 Wound Measurements and Assessment WC - Nurse 1 - General Ulcer Measurement Start: 10/09/20 08:19 Freq: Status: Active Protocol: Activity Type Activity Date Activity User E-Sign Co-Sign Detail Recorded Client Recorded Date Recorded By Document 10/09/20 08:19 KR [id number] 10/09/20 08:21 KR 10/09/20 08:19 Wound Center Nurse 1 [Ulcer Assessment] #2 coccyx -Current Size (cm) - Length 4.5 -Current Size (cm) - Width 3.2 -Current Size (cm) - Depth 2.1 -Total Square Cm 14.40 -Exudate Amt Medium -Exudate Type Serosanguineous -Wound Margin Distinct, Outline Attached -Granulation Amt Medium (34-66%) -Granulation Quality Red -Necrosis Amt Small (1-33%) -Necrotic Tissue Type Adherent Slough -Texture (Aishwarya-wound Skin Appearance) Assessed, Scarring -Moisture (Aishwarya-wound Skin Appearance No Abnormality, ) Assessed -Color (Aishwarya-wound Skin Appearance) No Abnormality, Assessed -Temperature (Aishwarya-wound Skin No Abnormality Appearance) (Pt Warm) -Tenderness on Palpation (Aishwarya-wound No Skin Appearance) -Ulcer Cleansing Rinsed/ Irrigated with Saline -Foul Odor after Cleansing No -Anesthetic Used 5% Lidocaine Gel STACY - Nurse 2 - General Ulcer CM Notes Start: 10/09/20 08:19 Freq: Status: Active Protocol: Activity Type Activity Date Activity User E-Sign Co-Sign Detail Recorded Client Recorded Date Recorded By Document 10/09/20 08:47 [id number] 10/09/20 08:53 JF 10/09/20 08:47 Wound Center Nurse 2 [Procedure/Treatment] -Time 08:47 -Correct Patient Yes -Correct Side, Site, Position Yes -Correct Procedure Yes -Procedure Performed Yes -Type of Procedure Debridement -Clinical Debridement Muscle / Fascia -Tissue Removed Muscle,Fascia -Post Debridement (cm) - Length 4 -Post Debridement (cm) - Width 3.6 -Post Debridement (cm) - Depth 1.4 -Total Square (Post) (cm) 14.4 -Area of Debridement (cm) - Length 4 -Area of Debridement (cm) - Width 3.6 -Total Square (Area) (cm) 14.4 -Tunneling Yes -Tunneling Position (O'clock) 11 -Tunneling Distance (cm) 1.1 -Undermining/Tunneling No -Circular Undermining No -Wound/Ulcer Outcome Not Healed -Ulcer Cleansing Rinsed/ Irrigated with Saline -Foul Odor after Cleansing No -Bioengineered Tissue No -Bleeding Controlled with Pressure,Silver Nitrate -Offloading No -Treatment Response Procedure Tolerated Well -Debridement - Muscle / Fascia, 1st Yes 20sq cm [See Physician Procedure note for Specifics] Pain Scale: 0-10 Numeric [Pain] -Is Patient Pain Free? Yes STACY - Nurse 3 - General Ulcer D/C NN Start: 10/09/20 08:19 Freq: Status: Active Protocol: Activity Type Activity Date Activity User E-Sign Co-Sign Detail Recorded Client Recorded Date Recorded By Document 10/09/20 08:59 DL [id number] 10/09/20 09:03 DL 10/09/20 08:59 Wound Care Nurse 3 [Wound Dressing] #2 coccyx -Foul Odor after Cleansing No -Primary Dressing Applied Aquacel AG 2x2 -Primary Dressing Covered/Secured Dry Gauze, with Secured with Tape -Other Covering silver Nitrate used today -Aquacel AG 2x2 1 [Post Procedure Tolerated] -Treatment Response Procedure Tolerated Well Pain Scale: 0-10 Numeric [Pain] -Is Patient Pain Free? Yes - Visit Discharge [Visit Discharge Information] -Discharge Condition Stable -Ambulatory Status Wheelchair -Transportation Private Auto Debridement Note Post-Debridement Measurements/Treatment WC - Nurse 2 - General Ulcer CM Notes Start: 10/09/20 08:19 Freq: Status: Active Protocol: Activity Type Activity Date Activity User E-Sign Co-Sign Detail Recorded Client Recorded Date Recorded By Document 10/09/20 08:47 DREW [id number] 10/09/20 08:53 DREW 10/09/20 08:47 Wound Center Nurse 2 #2 coccyx -Time 08:47 -Correct Patient Yes -Correct Side, Site, Position Yes -Correct Procedure Yes -Procedure Performed Yes -Type of Procedure Debridement -Clinical Debridement Muscle / Fascia -Tissue Removed Muscle,Fascia -Post Debridement (cm) - Length 4 -Post Debridement (cm) - Width 3.6 -Post Debridement (cm) - Depth 1.4 -Total Square (Post) (cm) 14.4 -Area of Debridement (cm) - Length 4 -Area of Debridement (cm) - Width 3.6 -Total Square (Area) (cm) 14.4 -Tunneling Yes -Tunneling Position (O'clock) 11 -Tunneling Distance (cm) 1.1 -Undermining/Tunneling No -Circular Undermining No -Wound/Ulcer Outcome Not Healed -Ulcer Cleansing Rinsed/ Irrigated with Saline -Foul Odor after Cleansing No -Bioengineered Tissue No -Bleeding Controlled with Pressure,Silver Nitrate -Offloading No -Treatment Response Procedure Tolerated Well -Debridement - Muscle / Fascia, 1st Yes 20sq cm Pain Scale: 0-10 Numeric Is Patient Pain Free? Yes - Nurse 3 - General Ulcer D/C NN Start: 10/09/20 08:19 Freq: Status: Active Protocol: Activity Type Activity Date Activity User E-Sign Co-Sign Detail Recorded Client Recorded Date Recorded By Document 10/09/20 08:59 DL [id number] 10/09/20 09:03 DL 10/09/20 08:59 Wound Care Nurse 3 #2 coccyx -Foul Odor after Cleansing No -Primary Dressing Applied Aquacel AG 2x2 -Primary Dressing Covered/Secured with Dry Gauze, Secured with Tape -Other Covering silver Nitrate used today -Aquacel AG 2x2 1 Treatment Response Procedure Tolerated Well Pain Scale: 0-10 Numeric Is Patient Pain Free? Yes WC - Visit Discharge Discharge Condition Stable Ambulatory Status Wheelchair Transportation Private Auto Wound debrided: #2 Posterior pelvis in sacral area. Laterality: Not Applicable Wound Grade/Stage: IV. Type of Debridement: Excisional debridement Anesthesia Used: 4% Lidocaine Solution Depth: Down to and including healthy tissue, in the subcutaneous layer, to muscle, to bone - bone is palpable but not debrided. Percentage of wound debrided: 100 Instrument Used: 7mm curette Tissue Removed: subcutaneous tissue and muscle. Severity: Fat Layer Exposed - muscle is exposed. bone is palpable but not debrided. Amount of bleeding with debridement: Mild Bleeding Controlled with: Pressure Patient tolerated procedure well Assessment/Plan Assessment: 1. 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 2. Chronic osteomyelitis of the pelvis. 3. Spina bifida. 4. s/p excision sacral pressure sore in posterior aspect of pelvis, Stage IV, and partial ostectomy pelvis for osteomyelitis. Plan: Continue Dakin's dressing changes daily. The wound continues to improve with granulation tissue and no exudate and the bone is now covered entirely with granulation tissue. There is some mild maceration on the surrounding skin edges with some curling of the skin edges. 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 Discussed with him that another maintenance surgical excision may be beneficial to the healing process. There is no urgency to another surgery as the ulcer is stable. However there is a window of opportunity at this time because of COVID. I talked to his mother and they have decided to hold off on any surgical excision at this time. His next tournament is scheduled for Jan, 2021. Culture obtained 04/04/20 was positive for Proteus mirabilis and Staphylococcus aureus. He was placed on Augmentin and has finished them. His Prealbumin from 08/30/19 was 17.2. Encourage nutritional supplementation with protein to help the healing process. Followup four weeks. [id number]: [id number] Alma Delia musc/fascia 20 sq cm/< - ICD-10 - L89.154, M86.659, Q05.9
== END 2020-10-22 23:59 ==
LOC: WC 08:00
PROVIDERS: PCP Family Medicine; Visit Provider Nurse Practitioner Family
DX: L89.154 Pressure ulcer of sacral region, stage 4 (principal); Q05.9 Spina bifida, unspecified; M86.659 Other chronic osteomyelitis, unspecified thigh
CPT/HCPCS: 11043

== ENCOUNTER 2020-11-02 11:30 | Outpatient (RCR) | payer MEDICAID, SELFPAY | END 2020-11-19 23:59 | LOC: NS 11:30 | PROVIDERS: PCP Family Medicine; Visit Provider Nurse Practitioner Family | DX: Z71.3 Dietary counseling and surveillance (principal); M86.659 Other chronic osteomyelitis, unspecified thigh; L89.154 Pressure ulcer of sacral region, stage 4; Q05.9 Spina bifida, unspecified | CPT/HCPCS: 97802 ==

== ENCOUNTER 2020-11-06 08:00 | Outpatient (RCR) | payer MEDICAID, SELFPAY ==
[2020-10-23 00:20] VITALS: BP 136/71; PULSE 70; RESP 18; TEMP 36.1
[2020-11-06 08:16] VITALS: BP 123/69; PULSE 75; RESP 18; TEMP 36.4; BMI 23.1
--- NOTE | 2020-11-06 09:44 | PN.PCM_ITS ---
(1) Chronic osteomyelitis of pelvis Status: Chronic Code(s): M86.659 - Other chronic osteomyelitis, unspecified thigh (2) Stage IV pressure ulcer of sacral region Status: Chronic Code(s): L89.154 - Pressure ulcer of sacral region, stage 4 (3) Spina bifida Status: Chronic Code(s): Q05.9 - Spina bifida, unspecified Type of Wound Date of Service: 11/06/20 Chief Complaint: Sacral pressure sore in the posterior aspect of the pelvis, Stage IV, with osteomyelitis of the pelvis. History of Wound: Surgery 08/05/19 - 1. Excision sacral pressure sore in posterior aspect of pelvis, Stage IV. 2. Partial ostectomy pelvis for osteomyelitis. Wound care - Dakin's. Wound culture from 04/04/20 was positive for Proteus mirabilis and Staphylococcus aureus. He was placed on Augmentin and has finished them. Pathology was negative for osteomyelitis. CT Pelvis from 08/20/19 showed persistent, if slightly worse sacral decubitus ulcer when compared to the previous study from 12/07/2018. There are persistent erosive changes within the sacrum suggesting associated osteomyelitis. The ulcer measu res approximate 4.9 x 3.4 x 4.9 cm, is gas-filled and appears to contain packing material. Stable surgical hardware in the lower lumbar spine and sacrum. Prealbumin from 08/30/19 was 17.2. Encourage nutritional supplementation with protein to help the healing process. Today he denies fever. His appetite is good. Progress of Wound: Stable. - Physical Exam Vital Signs Temp Pulse Resp BP 97.6 F L 75 18 123/69 H 11/06/20 08:16 11/06/20 08:16 11/06/20 08:16 11/06/20 08:16 General: Alert, Oriented x3, Cooperative HEENT: Atraumatic Oral: Moist Mucosa Lungs: Normal air movement Cardiovascular: Regular rate Extremities: Capillary Refill Less than 3 Seconds Skin: Ulcer/ Wound - Sacral ulcer is stable. It is pink. There is undermining from 12-2. There is thickened scar tissue surrounding the ulcer. Wound Measurements and Assessment WC - Nurse 1 - General Ulcer Measurement Start: 11/06/20 08:16 Freq: Status: Active Protocol: Activity Type Activity Date Activity User E-Sign Co-Sign Detail Recorded Client Recorded Date Recorded By Document 11/06/20 08:16 [email or web address] [id number] 11/06/20 08:24 DL 11/06/20 08:16 Wound Center Nurse 1 [Ulcer Assessment] #2 coccyx -Current Size (cm) - Length 3.4 -Current Size (cm) - Width 2.8 -Current Size (cm) - Depth 1.1 -Total Square Cm 9.52 -Undermining/Tunneling Starts (O' 10 clock) -Undermining/Tunneling Ends (O'clock) 2 -Maximum Distance (cm) 1.4 -Exudate Amt Medium -Exudate Type Serosanguineous -Wound Margin Thickened & Rolled Under -Granulation Amt Large (67-100%) -Granulation Quality Red -Necrosis Amt None Present (0 %) -Necrotic Tissue Type Adherent Slough -Structure Exposed N/A -Texture (Aishwarya-wound Skin Appearance) Scarring -Moisture (Aishwarya-wound Skin Appearance No Abnormality ) -Color (Aishwarya-wound Skin Appearance) No Abnormality -Temperature (Aishwarya-wound Skin No Abnormality Appearance) (Pt Warm) -Tenderness on Palpation (Aishwarya-wound No Skin Appearance) -Ulcer Cleansing Wound Cleanser -Foul Odor after Cleansing No -Anesthetic Used 4% Lidocaine Solution WC - Nurse 2 - General Ulcer CM Notes Start: 11/06/20 08:16 Freq: Status: Active Protocol: Activity Type Activity Date Activity User E-Sign Co-Sign Detail Recorded Client Recorded Date Recorded By Document 11/06/20 09:25 DREW [id number] 11/06/20 09:29 DREW 11/06/20 09:25 Wound Center Nurse 2 [Procedure/Treatment] -Time 09:26 -Correct Patient Yes -Correct Side, Site, Position Yes -Correct Procedure Yes -Procedure Performed Yes -Type of Procedure Debridement -Clinical Debridement Muscle / Fascia -Tissue Removed Muscle,Fascia -Post Debridement (cm) - Length 3.2 -Post Debridement (cm) - Width 3 -Post Debridement (cm) - Depth 0.7 -Total Square (Post) (cm) 9.6 -Area of Debridement (cm) - Length 3.2 -Area of Debridement (cm) - Width 3 -Total Square (Area) (cm) 9.6 -Tunneling No -Undermining/Tunneling No -Circular Undermining No -Wound/Ulcer Outcome Not Healed -Ulcer Cleansing Rinsed/ Irrigated with Saline -Foul Odor after Cleansing No -Bioengineered Tissue No -Bleeding Controlled with Pressure -Offloading No -Treatment Response Procedure Tolerated Well -Debridement - Muscle / Fascia, 1st Yes 20sq cm [See Physician Procedure note for Specifics] Pain Scale: 0-10 Numeric [Pain] -Is Patient Pain Free? Yes - Nurse 3 - General Ulcer D/C NN Start: 11/06/20 08:16 Freq: Status: Active Protocol: Activity Type Activity Date Activity User E-Sign Co-Sign Detail Recorded Client Recorded Date Recorded By Document 11/06/20 09:39 MS [id number] 11/06/20 09:41 MS 11/06/20 09:39 Wound Care Nurse 3 [Wound Dressing] #2 coccyx -Ulcer Cleansing Rinsed/ Irrigated with Saline -Foul Odor after Cleansing No -Primary Dressing Applied Aquacel AG 2x2 -Primary Dressing Covered/Secured Dry Gauze with -Other Covering abd -Aquacel AG 2x2 1 Pain Scale: 0-10 Numeric [Pain] -Is Patient Pain Free? No - Visit Discharge [Visit Discharge Information] -Discharge Condition Stable -Ambulatory Status Wheelchair -Medication Reconcilliation completed No & provided to patient/care provider -Clinical Summary of Care Provided Yes Musculoskeletal: No Tenderness to Palpation of Joints or Extremities Neurological: Cranial nerves II-XII grossly intact Psych/Mental Status: Normal Affect, Appropriate Debridement Note Post-Debridement Measurements/Treatment WC - Nurse 2 - General Ulcer CM Notes Start: 11/06/20 08:16 Freq: Status: Active Protocol: Activity Type Activity Date Activity User E-Sign Co-Sign Detail Recorded Client Recorded Date Recorded By Document 11/06/20 09:25 [id number] 11/06/20 09:29 11/06/20 09:25 Wound Center Nurse 2 #2 coccyx -Time 09:26 -Correct Patient Yes -Correct Side, Site, Position Yes -Correct Procedure Yes -Procedure Performed Yes -Type of Procedure Debridement -Clinical Debridement Muscle / Fascia -Tissue Removed Muscle,Fascia -Post Debridement (cm) - Length 3.2 -Post Debridement (cm) - Width 3 -Post Debridement (cm) - Depth 0.7 -Total Square (Post) (cm) 9.6 -Area of Debridement (cm) - Length 3.2 -Area of Debridement (cm) - Width 3 -Total Square (Area) (cm) 9.6 -Tunneling No -Undermining/Tunneling No -Circular Undermining No -Wound/Ulcer Outcome Not Healed -Ulcer Cleansing Rinsed/ Irrigated with Saline -Foul Odor after Cleansing No -Bioengineered Tissue No -Bleeding Controlled with Pressure -Offloading No -Treatment Response Procedure Tolerated Well -Debridement - Muscle / Fascia, 1st Yes 20sq cm Pain Scale: 0-10 Numeric Is Patient Pain Free? Yes WC - Nurse 3 - General Ulcer D/C NN Start: 11/06/20 08:16 Freq: Status: Active Protocol: Activity Type Activity Date Activity User E-Sign Co-Sign Detail Recorded Client Recorded Date Recorded By Document 11/06/20 09:39 MS [id number] 11/06/20 09:41 MS 11/06/20 09:39 Wound Care Nurse 3 #2 coccyx -Ulcer Cleansing Rinsed/ Irrigated with Saline -Foul Odor after Cleansing No -Primary Dressing Applied Aquacel AG 2x2 -Primary Dressing Covered/Secured with Dry Gauze -Other Covering abd -Aquacel AG 2x2 1 Pain Scale: 0-10 Numeric Is Patient Pain Free? No WC - Visit Discharge Discharge Condition Stable Ambulatory Status Wheelchair Medication Reconcilliation completed & No provided to patient/care provider Clinical Summary of Care Provided Yes Wound debrided: Sacral ulcer Type of Debridement: Excisional debridement Anesthesia Used: 4% Lidocaine Solution Depth: Down to and including healthy tissue, in the subcutaneous layer, to muscle Percentage of wound debrided: 100 Instrument Used: 7mm curette Tissue Removed: Subcutaneous tissue and slough Severity: Fat Layer Exposed Amount of bleeding with debridement: Mild Bleeding Controlled with: Pressure Patient tolerated procedure well Assessment/Plan Assessment: 1. 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 2. Chronic osteomyelitis of the pelvis. 3. Spina bifida. 4. s/p excision sacral pressure sore in posterior aspect of pelvis, Stage IV, and partial ostectomy pelvis for osteomyelitis. Plan: Continue Dakin's dressing changes daily. The wound continues to improve with granulation tissue and no exudate and the bone is now covered entirely with granulation tissue. There is some mild maceration on the surrounding skin edges with some curling of the skin edges. 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 He is not interested in any type of surgery at this time. 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 Culture obtained 04/04/20 was positive for Proteus mirabilis and Staphylococcus aureus. He was placed on Augmentin and has finished them. His Prealbumin from 08/30/19 was 17.2. Encourage nutritional supplementation with protein to help the healing process. Followup four weeks. [id number]: [id number] Alma Delia musc/fascia 20 sq cm/<
== END 2020-11-19 23:59 ==
LOC: WC 08:00
PROVIDERS: PCP Family Medicine; Visit Provider Nurse Practitioner Family
DX: L89.154 Pressure ulcer of sacral region, stage 4 (principal); M86.68 Other chronic osteomyelitis, other site; Q05.9 Spina bifida, unspecified
CPT/HCPCS: 11043

== ENCOUNTER 2020-12-04 08:11 | Outpatient (RCR) | payer MEDICAID, SELFPAY ==
[2020-11-20 00:19] VITALS: BP 123/69; PULSE 75; RESP 18; TEMP 36.4
[2020-12-04 08:23] VITALS: BP 144/74; PULSE 67; RESP 18; TEMP 36.2; BMI 23.1
[2020-12-04 09:00] VITALS: BP 134/78
--- NOTE | 2020-12-04 10:35 | PN.PCM_ITS ---
(1) Stage IV pressure ulcer of sacral region Status: Chronic Code(s): L89.154 - Pressure ulcer of sacral region, stage 4 (2) Chronic osteomyelitis of pelvis Status: Chronic Code(s): M86.659 - Other chronic osteomyelitis, unspecified thigh (3) Spina bifida Status: Chronic Code(s): Q05.9 - Spina bifida, unspecified Type of Wound Date of Service: 12/04/20 Chief Complaint: Sacral pressure sore in the posterior aspect of the pelvis, Stage IV, with osteomyelitis of the pelvis. History of Wound: Surgery 08/05/19 - 1. Excision sacral pressure sore in posterior aspect of pelvis, Stage IV. 2. Partial ostectomy pelvis for osteomyelitis. Wound care - Dakin's. Wound culture from 04/04/20 was positive for Proteus mirabilis and Staphylococcus aureus. He was placed on Augmentin and has finished them. Pathology was negative for osteomyelitis. CT Pelvis from 08/20/19 showed persistent, if slightly worse sacral decubitus ulcer when compared to the previous study from 12/07/2018. There are persistent erosive changes within the sacrum suggesting associated osteomyelitis. The ulcer measu res approximate 4.9 x 3.4 x 4.9 cm, is gas-filled and appears to contain packing material. Stable surgical hardware in the lower lumbar spine and sacrum. Prealbumin from 08/30/19 was 17.2. Encourage nutritional supplementation with protein to help the healing process. Today he denies fever. His appetite is good. Progress of Wound: Stable. - Physical Exam Vital Signs Temp Pulse Resp BP 97.1 F L 67 18 134/78 H 12/04/20 08:23 12/04/20 08:23 12/04/20 08:23 12/04/20 09:00 General: Alert, Oriented x3, Cooperative HEENT: Atraumatic Oral: Moist Mucosa Lungs: Normal air movement Cardiovascular: Regular rate Extremities: No edema, Capillary Refill Less than 3 Seconds Skin: Ulcer/ Wound - Sacral ulcer is beefy pink. There is some undermining from 9-11 o'clock. He has some thickening scar tissue on the left side of the ulcer. Wound Measurements and Assessment WC - Nurse 1 - General Ulcer Measurement Start: 12/04/20 08:23 Freq: Status: Active Protocol: Activity Type Activity Date Activity User E-Sign Co-Sign Detail Recorded Client Recorded Date Recorded By Document 12/04/20 08:23 RB [id number] 12/04/20 08:25 RB 12/04/20 08:23 Wound Center Nurse 1 [Ulcer Assessment] #2 coccyx -Combined with other wound No -Current Size (cm) - Length 2.8 -Current Size (cm) - Width 1.9 -Current Size (cm) - Depth 0.2 -Total Square Cm 5.32 -Tunneling No -Undermining/Tunneling No -Circular Undermining No -Exudate Amt Medium -Exudate Type Serosanguineous -Wound Margin Thickened & Rolled Under -Granulation Amt Medium (34-66%) -Granulation Quality [place] -Slough/Fibrin Yes -Necrosis Amt Medium (34-66%) -Necrotic Tissue Type Adherent Slough -Structure Exposed N/A -Texture (Aishwarya-wound Skin Appearance) Assessed -Moisture (Aishwarya-wound Skin Appearance Maceration ) -Color (Aishwarya-wound Skin Appearance) Assessed -Temperature (Aishwarya-wound Skin No Abnormality Appearance) (Pt Warm) -Tenderness on Palpation (Aishwarya-wound No Skin Appearance) -Ulcer Cleansing Wound Cleanser -Foul Odor after Cleansing No WC - Nurse 2 - General Ulcer CM Notes Start: 12/04/20 08:23 Freq: Status: Active Protocol: Activity Type Activity Date Activity User E-Sign Co-Sign Detail Recorded Client Recorded Date Recorded By Document 12/04/20 08:48 DREW [id number] 12/04/20 08:49 DREW 12/04/20 08:48 Wound Center Nurse 2 [Procedure/Treatment] -Time 08:48 -Correct Patient Yes -Correct Side, Site, Position Yes -Correct Procedure Yes -Procedure Performed Yes -Type of Procedure Debridement -Clinical Debridement Muscle / Fascia -Tissue Removed Muscle -Post Debridement (cm) - Length 3.2 -Post Debridement (cm) - Width 2.5 -Post Debridement (cm) - Depth 0.6 -Total Square (Post) (cm) 8.00 -Area of Debridement (cm) - Length 3.2 -Area of Debridement (cm) - Width 2.5 -Total Square (Area) (cm) 8.00 -Tunneling No -Undermining/Tunneling Yes -Undermining/Tunneling Starts (O' 9 clock) -Undermining/Tunneling Ends (O'clock) 1 -Maximum Distance (cm) 2.5 -Circular Undermining No -Wound/Ulcer Outcome Not Healed -Ulcer Cleansing Rinsed/ Irrigated with Saline -Foul Odor after Cleansing No -Bioengineered Tissue No -Bleeding Controlled with Pressure -Offloading No -Treatment Response Procedure Tolerated Well -Debridement - Muscle / Fascia, 1st Yes 20sq cm [See Physician Procedure note for Specifics] Pain Scale: 0-10 Numeric [Pain] -Is Patient Pain Free? Yes - Nurse 3 - General Ulcer D/C NN Start: 12/04/20 08:23 Freq: Status: Active Protocol: Activity Type Activity Date Activity User E-Sign Co-Sign Detail Recorded Client Recorded Date Recorded By Document 12/04/20 09:00 CANDACE [id number] 12/04/20 09:02 RB 12/04/20 09:00 Wound Care Nurse 3 [Wound Dressing] #2 coccyx -Ulcer Cleansing Rinsed/ Irrigated with Saline -Primary Dressing Applied Aquacel AG 2x2 -Other Dressing abd -Primary Dressing Covered/Secured Dry Gauze, with Secured with Tape -Aquacel AG 2x2 1 Vital Signs [Blood Pressure] -Blood Pressure (90/60-120/80) 134/78 H -Blood Pressure Mean (mm Hg) 96 -Source Monitor -Position Sitting -Blood Pressure Location Left Arm Pain Scale: 0-10 Numeric [Pain] -Is Patient Pain Free? Yes - Visit Discharge [Visit Discharge Information] -Discharge Condition Stable -Ambulatory Status Wheelchair -Transportation Private Auto -Medication Reconcilliation completed No & provided to patient/care provider -Clinical Summary of Care Provided Yes Musculoskeletal: No Tenderness to Palpation of Joints or Extremities Neurological: Cranial nerves II-XII grossly intact Psych/Mental Status: Normal Affect, Appropriate Debridement Note Post-Debridement Measurements/Treatment - Nurse 2 - General Ulcer CM Notes Start: 12/04/20 08:23 Freq: Status: Active Protocol: Activity Type Activity Date Activity User E-Sign Co-Sign Detail Recorded Client Recorded Date Recorded By Document 12/04/20 08:48 DREW [id number] 12/04/20 08:49 DREW 12/04/20 08:48 Wound Center Nurse 2 #2 coccyx -Time 08:48 -Correct Patient Yes -Correct Side, Site, Position Yes -Correct Procedure Yes -Procedure Performed Yes -Type of Procedure Debridement -Clinical Debridement Muscle / Fascia -Tissue Removed Muscle -Post Debridement (cm) - Length 3.2 -Post Debridement (cm) - Width 2.5 -Post Debridement (cm) - Depth 0.6 -Total Square (Post) (cm) 8.00 -Area of Debridement (cm) - Length 3.2 -Area of Debridement (cm) - Width 2.5 -Total Square (Area) (cm) 8.00 -Tunneling No -Undermining/Tunneling Yes -Undermining/Tunneling Starts (O'clock 9 ) -Undermining/Tunneling Ends (O'clock) 1 -Maximum Distance (cm) 2.5 -Circular Undermining No -Wound/Ulcer Outcome Not Healed -Ulcer Cleansing Rinsed/ Irrigated with Saline -Foul Odor after Cleansing No -Bioengineered Tissue No -Bleeding Controlled with Pressure -Offloading No -Treatment Response Procedure Tolerated Well -Debridement - Muscle / Fascia, 1st Yes 20sq cm Pain Scale: 0-10 Numeric Is Patient Pain Free? Yes - Nurse 3 - General Ulcer D/C NN Start: 12/04/20 08:23 Freq: Status: Active Protocol: Activity Type Activity Date Activity User E-Sign Co-Sign Detail Recorded Client Recorded Date Recorded By Document 12/04/20 09:00 [id number] 12/04/20 09:02 RB 12/04/20 09:00 Wound Care Nurse 3 #2 coccyx -Ulcer Cleansing Rinsed/ Irrigated with Saline -Primary Dressing Applied Aquacel AG 2x2 -Other Dressing abd -Primary Dressing Covered/Secured with Dry Gauze, Secured with Tape -Aquacel AG 2x2 1 Vital Signs Blood Pressure (90/60-120/80) 134/78 H Blood Pressure Mean (mm Hg) 96 Source Monitor Position Sitting Blood Pressure Location Left Arm Pain Scale: 0-10 Numeric Is Patient Pain Free? Yes WC - Visit Discharge Discharge Condition Stable Ambulatory Status Wheelchair Transportation Private Auto Medication Reconcilliation completed & No provided to patient/care provider Clinical Summary of Care Provided Yes Wound debrided: Sacral ulcer Wound Grade/Stage: Stage IV Type of Debridement: Excisional debridement Anesthesia Used: 5% Lidocaine Gel Depth: Down to and including healthy tissue, in the subcutaneous layer, to muscle Percentage of wound debrided: 100 Instrument Used: 7mm curette Tissue Removed: Subcutaneous tissue and slough into the muscle. Severity: Fat Layer Exposed Amount of bleeding with debridement: Mild Bleeding Controlled with: Pressure, Compression and gauze Patient tolerated procedure well Assessment/Plan Active Problems Chronic osteomyelitis of pelvis (Chronic) Stage IV pressure ulcer of sacral region (Chronic) Spina bifida (Chronic) Assessment: 1. 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 2. Chronic osteomyelitis of the pelvis. 3. Spina bifida. 4. s/p excision sacral pressure sore in posterior aspect of pelvis, Stage IV, and partial ostectomy pelvis for osteomyelitis. Plan: Continue Dakin's dressing changes daily. The wound continues to improve with granulation tissue and no exudate and the bone is now covered entirely with granulation tissue. There is some mild maceration on the surrounding skin edges with some curling of the skin edges. 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 He is not interested in any type of surgery at this time. 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 Culture obtained 04/04/20 was positive for Proteus mirabilis and Staphylococcus aureus. He was placed on Augmentin and has finished them. His Prealbumin from 08/30/19 was 17.2. Encourage nutritional supplementation with protein to help the healing process. Followup four weeks. [id number]: [id number] Alma Delia musc/fascia 20 sq cm/<
== END 2020-12-20 23:59 ==
LOC: WC 08:11
PROVIDERS: PCP Family Medicine; Visit Provider Nurse Practitioner Family
DX: L89.154 Pressure ulcer of sacral region, stage 4 (principal); M86.659 Other chronic osteomyelitis, unspecified thigh; Q05.9 Spina bifida, unspecified; M86.68 Other chronic osteomyelitis, other site
CPT/HCPCS: 11043

== ENCOUNTER 2020-12-12 08:50 | Outpatient (RCR) | payer MEDICAID, SELFPAY | END 2020-12-12 23:59 | disposition home or self-care (01) | LOC: NS 08:50 | PROVIDERS: PCP Family Medicine; Visit Provider Nurse Practitioner Family | DX: Z71.3 Dietary counseling and surveillance (principal); M86.659 Other chronic osteomyelitis, unspecified thigh; L89.154 Pressure ulcer of sacral region, stage 4; Q05.9 Spina bifida, unspecified | CPT/HCPCS: 97803 ==

== ENCOUNTER 2021-01-01 08:38 | Outpatient (RCR) | payer MEDICAID, SELFPAY ==
[2020-12-21 00:30] VITALS: BP 134/78; PULSE 67; RESP 18; TEMP 36.2
[2021-01-01 08:44] VITALS: BP 134/62; PULSE 69; RESP 18; TEMP 36.5; BMI 23.1
--- NOTE | 2021-01-01 10:30 | PCM.WC.PN ---
(1) Chronic osteomyelitis of pelvis Status: Chronic Code(s): M86.659 - Other chronic osteomyelitis, unspecified thigh (2) Stage IV pressure ulcer of sacral region Status: Chronic Code(s): L89.154 - Pressure ulcer of sacral region, stage 4 (3) Spina bifida Status: Chronic Code(s): Q05.9 - Spina bifida, unspecified Type of Wound Date of Service: 01/01/21 Chief Complaint: Sacral pressure sore in the posterior aspect of the pelvis, Stage IV, with osteomyelitis of the pelvis. History of Wound: Surgery 08/05/19 - 1. Excision sacral pressure sore in posterior aspect of pelvis, Stage IV. 2. Partial ostectomy pelvis for osteomyelitis. Wound care - Dakin's. Wound culture from 04/04/20 was positive for Proteus mirabilis and Staphylococcus aureus. He was placed on Augmentin and has finished them. Pathology was negative for osteomyelitis. CT Pelvis from 08/20/19 showed persistent, if slightly worse sacral decubitus ulcer when compared to the previous study from 12/07/2018. There are persistent erosive changes within the sacrum suggesting associated osteomyelitis. The ulcer measures approximate 4.9 x 3.4 x 4.9 cm, is gas-filled and appears to contain packing material. Stable surgical hardware in the lower lumbar spine and sacrum. Prealbumin from 08/30/19 was 17.2. Encourage nutritional supplementation with protein to help the healing process. Today he denies fever. His appetite is good. Progress of Wound: Stable. - Physical Exam Vital Signs Temp Pulse Resp BP 97.7 F L 69 18 134/62 H 01/01/21 08:44 01/01/21 08:44 01/01/21 08:44 01/01/21 08:44 General: Alert, Oriented x3, Cooperative HEENT: Atraumatic Oral: Moist Mucosa Lungs: Normal air movement Cardiovascular: Regular rate Extremities: No edema, Capillary Refill Less than 3 Seconds Skin: Ulcer/ Wound - Coccyx ulcer into the muscle. No bone is exposed at this time. There is tunneling from 10-12. Wound bed is beefy pink. Wound Measurements and Assessment WC - Nurse 1 - General Ulcer Measurement Start: 01/01/21 08:44 Freq: Status: Active Protocol: Activity Type Activity Date Activity User E-Sign Co-Sign Detail Recorded Client Recorded Date Recorded By Document 01/01/21 08:44 DL [id number] 01/01/21 08:49 DL 01/01/21 08:44 Wound Center Nurse 1 [Ulcer Assessment] #2 coccyx -Current Size (cm) - Length 2.8 -Current Size (cm) - Width 1.8 -Current Size (cm) - Depth 0.6 -Total Square Cm 5.04 -Photo Taken No -Undermining/Tunneling Starts (O' 10 clock) -Undermining/Tunneling Ends (O'clock) 1 -Maximum Distance (cm) 2.8 -Exudate Amt Medium -Exudate Type Serosanguineous -Wound Margin Thickened & Rolled Under -Granulation Amt Large (67-100%) -Granulation Quality Red -Necrosis Amt Small (1-33%) -Necrotic Tissue Type Adherent Slough -Structure Exposed N/A -Texture (Aishwarya-wound Skin Appearance) Scarring -Moisture (Aishwarya-wound Skin Appearance Maceration ) -Color (Aishwarya-wound Skin Appearance) No Abnormality -Temperature (Aishwarya-wound Skin No Abnormality Appearance) (Pt Warm) -Tenderness on Palpation (Aishwarya-wound No Skin Appearance) -Ulcer Cleansing Wound Cleanser -Foul Odor after Cleansing No -Anesthetic Used 4% Lidocaine Solution WC - Nurse 2 - General Ulcer CM Notes Start: 01/01/21 08:44 Freq: Status: Active Protocol: Activity Type Activity Date Activity User E-Sign Co-Sign Detail Recorded Client Recorded Date Recorded By Document 01/01/21 09:08 DREW [id number] 01/01/21 09:11 DREW 01/01/21 09:08 Wound Center Nurse 2 [Procedure/Treatment] -Time 09:08 -Correct Patient Yes -Correct Side, Site, Position Yes -Correct Procedure Yes -Procedure Performed Yes -Type of Procedure Debridement -Clinical Debridement Muscle / Fascia -Tissue Removed Muscle,Fascia -Post Debridement (cm) - Length 3.1 -Post Debridement (cm) - Width 2.0 -Post Debridement (cm) - Depth 0.6 -Total Square (Post) (cm) 6.20 -Area of Debridement (cm) - Length 3.1 -Area of Debridement (cm) - Width 2 -Total Square (Area) (cm) 6.2 -Tunneling No -Undermining/Tunneling Yes -Undermining/Tunneling Starts (O' 10 clock) -Undermining/Tunneling Ends (O'clock) 12 -Maximum Distance (cm) 2.6 -Circular Undermining No -Wound/Ulcer Outcome Not Healed -Ulcer Cleansing Rinsed/ Irrigated with Saline -Foul Odor after Cleansing No -Bioengineered Tissue No -Bleeding Controlled with Pressure -Offloading No -Treatment Response Procedure Tolerated Well -Debridement - Muscle / Fascia, 1st Yes 20sq cm [See Physician Procedure note for Specifics] Pain Scale: 0-10 Numeric [Pain] -Is Patient Pain Free? Yes - Nurse 3 - General Ulcer D/C NN Start: 01/01/21 08:44 Freq: Status: Active Protocol: Activity Type Activity Date Activity User E-Sign Co-Sign Detail Recorded Client Recorded Date Recorded By Document 01/01/21 09:18 JIMMIE [id number] 01/01/21 09:18 DL 01/01/21 09:18 Wound Care Nurse 3 [Wound Dressing] #2 coccyx -Ulcer Cleansing Rinsed/ Irrigated with Saline -Primary Dressing Applied Aquacel AG 4x4 -Primary Dressing Covered/Secured Dry Gauze, with Secured with Tape -Aquacel AG 4x4 1 Pain Scale: 0-10 Numeric [Pain] -Is Patient Pain Free? Yes - Visit Discharge [Visit Discharge Information] -Discharge Condition Stable -Ambulatory Status Wheelchair -Transportation Private Auto Musculoskeletal: No Tenderness to Palpation of Joints or Extremities Neurological: Cranial nerves II-XII grossly intact Psych/Mental Status: Normal Affect, Appropriate Debridement Note Post-Debridement Measurements/Treatment - Nurse 2 - General Ulcer CM Notes Start: 01/01/21 08:44 Freq: Status: Active Protocol: Activity Type Activity Date Activity User E-Sign Co-Sign Detail Recorded Client Recorded Date Recorded By Document 01/01/21 09:08 DREW [id number] 01/01/21 09:11 DREW 01/01/21 09:08 Wound Center Nurse 2 #2 coccyx -Time 09:08 -Correct Patient Yes -Correct Side, Site, Position Yes -Correct Procedure Yes -Procedure Performed Yes -Type of Procedure Debridement -Clinical Debridement Muscle / Fascia -Tissue Removed Muscle,Fascia -Post Debridement (cm) - Length 3.1 -Post Debridement (cm) - Width 2.0 -Post Debridement (cm) - Depth 0.6 -Total Square (Post) (cm) 6.20 -Area of Debridement (cm) - Length 3.1 -Area of Debridement (cm) - Width 2 -Total Square (Area) (cm) 6.2 -Tunneling No -Undermining/Tunneling Yes -Undermining/Tunneling Starts (O'clock 10 ) -Undermining/Tunneling Ends (O'clock) 12 -Maximum Distance (cm) 2.6 -Circular Undermining No -Wound/Ulcer Outcome Not Healed -Ulcer Cleansing Rinsed/ Irrigated with Saline -Foul Odor after Cleansing No -Bioengineered Tissue No -Bleeding Controlled with Pressure -Offloading No -Treatment Response Procedure Tolerated Well -Debridement - Muscle / Fascia, 1st Yes 20sq cm Pain Scale: 0-10 Numeric Is Patient Pain Free? Yes - Nurse 3 - General Ulcer D/C NN Start: 01/01/21 08:44 Freq: Status: Active Protocol: Activity Type Activity Date Activity User E-Sign Co-Sign Detail Recorded Client Recorded Date Recorded By Document 01/01/21 09:18 JIMMIE [id number] 01/01/21 09:18 JIMMIE 01/01/21 09:18 Wound Care Nurse 3 #2 coccyx -Ulcer Cleansing Rinsed/ Irrigated with Saline -Primary Dressing Applied Aquacel AG 4x4 -Primary Dressing Covered/Secured with Dry Gauze, Secured with Tape -Aquacel AG 4x4 1 Pain Scale: 0-10 Numeric Is Patient Pain Free? Yes - Visit Discharge Discharge Condition Stable Ambulatory Status Wheelchair Transportation Private Auto Wound debrided: Coccyx ulcer Wound Grade/Stage: Stage IV Type of Debridement: Excisional debridement Anesthesia Used: 5% Lidocaine Gel Depth: Down to and including healthy tissue, in the subcutaneous layer, to muscle Percentage of wound debrided: 100 Instrument Used: 5mm curette Tissue Removed: Subcutaneous tissue and slough Severity: Fat Layer Exposed Amount of bleeding with debridement: Mild Bleeding Controlled with: Pressure, Compression and gauze Patient tolerated procedure well Assessment/Plan Assessment: 1. 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 2. Chronic osteomyelitis of the pelvis. 3. Spina bifida. 4. s/p excision sacral pressure sore in posterior aspect of pelvis, Stage IV, and partial ostectomy pelvis for osteomyelitis. Plan: Continue Dakin's dressing changes daily. The wound continues to improve with granulation tissue and no exudate and the bone is now covered entirely with granulation tissue. There is some mild maceration on the surrounding skin edges with some curling of the skin edges. 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 He is not interested in any type of surgery at this time. 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 Culture obtained 04/04/20 was positive for Proteus mirabilis and Staphylococcus aureus. He was placed on Augmentin and has finished them. His Prealbumin from 08/30/19 was 17.2. Encourage nutritional supplementation with protein to help the healing process. 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 [id number]: [id number] Alma Delia musc/fascia 20 sq cm/<
== END 2021-01-19 23:59 ==
LOC: WC 08:38
PROVIDERS: PCP Family Medicine; Visit Provider Nurse Practitioner Family
DX: L89.154 Pressure ulcer of sacral region, stage 4 (principal); Q05.9 Spina bifida, unspecified; M86.659 Other chronic osteomyelitis, unspecified thigh
CPT/HCPCS: 11043

== ENCOUNTER 2021-01-22 13:00 | Outpatient (RCR) | payer MEDICAID, SELFPAY ==
[2021-01-20 00:30] VITALS: BP 134/62; PULSE 69; RESP 18; TEMP 36.5
[2021-01-22 13:09] VITALS: BP 123/75; PULSE 63; RESP 18; TEMP 36.5; BMI 23.1
--- NOTE | 2021-01-22 15:38 | PCM.WC.PN ---
History of Present Illness Date of Service: 01/22/21 Chief Complaint: Sacral pressure sore in the posterior aspect of the pelvis, Stage IV, with osteomyelitis of the pelvis. History of Wound: Surgery 08/05/19 - 1. Excision sacral pressure sore in posterior aspect of pelvis, Stage IV. 2. Partial ostectomy pelvis for osteomyelitis. Wound care - Dakin's. Wound culture from 04/04/20 was positive for Proteus mirabilis and Staphylococcus aureus. He was placed on Augmentin and has finished them. Pathology was negative for osteomyelitis. CT Pelvis from 08/20/19 showed persistent, if slightly worse sacral decubitus ulcer when compared to the previous study from 12/07/2018. There are persistent erosive changes within the sacrum suggesting associated osteomyelitis. The ulcer measures approximate 4.9 x 3.4 x 4.9 cm, is gas-filled and appears to contain packing material. Stable surgical hardware in the lower lumbar spine and sacrum. Prealbumin from 08/30/19 was 17.2. Encourage nutritional supplementation with protein to help the healing process. Today he denies fever. His appetite is good. Objective Data Objective Data Vital Signs: Vital Signs Temp Pulse Resp BP 97.7 F L 63 18 123/75 H 01/22/21 13:09 01/22/21 13:09 01/22/21 13:09 01/22/21 13:09 Body Mass Index (BMI) 23.1 Assessment & Plan Assessment/Plan (1) Stage IV pressure ulcer of sacral region: Status: Chronic Code(s): L89.154 - Pressure ulcer of sacral region, stage 4 (2) Spina bifida: Status: Chronic Code(s): Q05.9 - Spina bifida, unspecified (3) Chronic osteomyelitis of pelvis: Status: Chronic Code(s): M86.659 - Other chronic osteomyelitis, unspecified thigh Plan: Continue Dakin's dressing changes daily. The wound continues to improve with granulation tissue and no exudate and the bone is now covered entirely with granulation tissue. ? There is some mild maceration on the surrounding skin edges with some curling of the skin edges.? He is training now for the [employer] now. He leaves next week for [employer].? He is not interested in any type of surgery at this time.? 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 He states it has been helpful.? Culture obtained 04/04/20 was positive for Proteus mirabilis and Staphylococcus aureus.? He was placed on Augmentin and has finished them.? His Prealbumin from 08/30/19 was 17.2.? Encourage nutritional supplementation with protein to help the healing process.? Followup four weeks. Charges/Coding Procedures Integumentary 111xxx-113xx: 63354 Alma Delia musc/fascia 20 sq cm/< Physical Exam Const alert and oriented x3 General Appearance: cooperative HEENT normocephalic Head and Scalp: atraumatic Eyes PERRL Resp normal respiratory effort Cardio regular rate Extremity normal capillary refill General Extremity: Negative for edema Skin Wound Narrative: Sacral ulcer is stable. The bone is covered. The bed of the ulcer is pink. There some increased scar tissue surrounding the ulcer. Neuro CN's II-XII intact bilaterally Sensorium / Orientation: awake and alert Psych Appearance: grossly normal and well kempt Debridement Note Debridement Note Post-Debridement Measurements and Additional Note: Post-Debridement Measurements/Treatment WC - Nurse 2 - General Ulcer CM Notes Start: 01/22/21 13:09 Freq: Status: Active Protocol: Activity Type Activity Date Activity User E-Sign Co-Sign Detail Recorded Client Recorded Date Recorded By Document 01/22/21 13:19 [id number] 01/22/21 13:26 01/22/21 13:19 Wound Center Nurse 2 #2 coccyx -Time 13:23 -Correct Patient Yes -Correct Side, Site, Position Yes -Correct Procedure Yes -Procedure Performed Yes -Type of Procedure Debridement -Clinical Debridement Muscle / Fascia -Tissue Removed Muscle,Fascia -Post Debridement (cm) - Length 3.2 -Post Debridement (cm) - Width 2.3 -Post Debridement (cm) - Depth 1 -Total Square (Post) (cm) 7.36 -Area of Debridement (cm) - Length 3.2 -Area of Debridement (cm) - Width 2.3 -Total Square (Area) (cm) 7.36 -Tunneling No -Undermining/Tunneling Yes -Undermining/Tunneling Starts (O'clock 11 ) -Undermining/Tunneling Ends (O'clock) 12 -Maximum Distance (cm) 2.6 -Circular Undermining No -Wound/Ulcer Outcome Not Healed -Ulcer Cleansing Rinsed/ Irrigated with Saline -Foul Odor after Cleansing No -Bioengineered Tissue No -Bleeding Controlled with Pressure -Offloading No -Treatment Response Procedure Tolerated Well -Debridement - Muscle / Fascia, 1st Yes 20sq cm Pain Scale: 0-10 Numeric Is Patient Pain Free? Yes - Nurse 3 - General Ulcer D/C NN Start: 01/22/21 13:09 Freq: Status: Active Protocol: Activity Type Activity Date Activity User E-Sign Co-Sign Detail Recorded Client Recorded Date Recorded By Document 01/22/21 13:38 SUPA [id number] 01/22/21 13:39 SUPA 01/22/21 13:38 Wound Care Nurse 3 #2 coccyx -Ulcer Cleansing Rinsed/ Irrigated with Saline -Other Dressing moisten gauze -Primary Dressing Covered/Secured with Dry Gauze, Secured with Tape Pain Scale: 0-10 Numeric Is Patient Pain Free? Yes WC - Visit Discharge Discharge Condition Stable Ambulatory Status Wheelchair Transportation Private Auto Wound debrided: sacral ulcer Wound Grade/Stage: Stage IV Type of Debridement: Excisional debridement Anesthesia Used: 4% Lidocaine Solution Depth: Down to and including healthy tissue, in the subcutaneous layer and to muscle Percentage of wound debrided: 100 Instrument Used: 7mm curette Tissue Removed: Subcutaneous tissue and slough into the muscle. Severity: Fat Layer Exposed Amount of bleeding with debridement: Mild Bleeding Controlled with: Pressure Patient tolerated procedure: Patient tolerated procedure well Debridement Free Text: Increased white scar tissue/slough surrounding the ulcer was debrided today.
== END 2021-02-19 23:59 ==
LOC: WC 13:00
PROVIDERS: PCP Family Medicine; Visit Provider Nurse Practitioner Family
DX: L89.154 Pressure ulcer of sacral region, stage 4 (principal); Q05.9 Spina bifida, unspecified; M86.659 Other chronic osteomyelitis, unspecified thigh
CPT/HCPCS: 11043

== ENCOUNTER 2021-03-12 14:41 | Emergency (ER) | payer MEDICAID, SELFPAY ==
[2021-03-12 14:42] VITALS: BP 132/74; PULSE 99; RESP 18; TEMP 37.3; O2SAT 100; BMI 24.0
--- NOTE | 2021-03-12 15:05 | ED.RN ---
PT [facility]BS AT [id number]
== END 2021-03-12 14:58 | disposition left against medical advice (07) ==
LOC: ED 15:07
PROVIDERS: PCP Family Medicine
DX: Z53.21 Procedure and treatment not carried out due to patient leaving prior to being seen by health care provider (principal)

== ENCOUNTER 2021-04-09 09:57 | Outpatient (RCR) | payer MEDICAID, SELFPAY ==
[2021-02-20 00:19] VITALS: BP 123/75; PULSE 63; RESP 18; TEMP 36.5
[2021-04-09 10:08] VITALS: BP 110/54; PULSE 76; RESP 16; TEMP 36.4; BMI 24.0
--- NOTE | 2021-04-09 13:01 | PCM.WC.PN ---
History of Present Illness Date of Service: 04/09/21 Chief Complaint: Sacral pressure sore in the posterior aspect of the pelvis, Stage IV, with osteomyelitis of the pelvis. History of Wound: Surgery 08/05/19 - 1. Excision sacral pressure sore in posterior aspect of pelvis, Stage IV. 2. Partial ostectomy pelvis for osteomyelitis. Wound care - Dakin's. Wound culture from 04/04/20 was positive for Proteus mirabilis and Staphylococcus aureus. He was placed on Augmentin and has finished them. Pathology was negative for osteomyelitis. CT Pelvis from 08/20/19 showed persistent, if slightly worse sacral decubitus ulcer when compared to the previous study from 12/07/2018. There are persistent erosive changes within the sacrum suggesting associated osteomyelitis. The ulcer measures approximate 4.9 x 3.4 x 4.9 cm, is gas-filled and appears to contain packing material. Stable surgical hardware in the lower lumbar spine and sacrum. Prealbumin from 08/30/19 was 17.2. Encourage nutritional supplementation with protein to help the healing process. Today he denies fever. His appetite is good. Progress of Wound: Stable Objective Data Objective Data Vital Signs: Vital Signs Temp Pulse Resp BP 97.5 F L 76 16 110/54 L 04/09/21 10:08 04/09/21 10:08 04/09/21 10:08 04/09/21 10:08 Oxygen Delivery Method Room Air Body Mass Index (BMI) 24.0 Charges/Coding Procedures Integumentary 111xxx-113xx: [id number] Alma Delia musc/fascia 20 sq cm/< Physical Exam Const alert and oriented x3 General Appearance: cooperative HEENT normocephalic Eyes PERRL Lymph Lymphatic: no lymphedema noted Resp normal respiratory effort Cardio regular rate GI non-tender Palpation: soft Extremity normal capillary refill Skin Wound Narrative: Sacral ulcer is stable. No bone is exposed. Increased scar tissue surrounding the ulcer. Ulcer base is pink. Neuro CN's II-XII intact bilaterally Psych Appearance: grossly normal Debridement Note Debridement Note Post-Debridement Measurements and Additional Note: Post-Debridement Measurements/Treatment STACY - Nurse 1 - General Ulcer Assessment Start: 04/09/21 10:07 Freq: Status: Active Protocol: RAULEXT Activity Type Activity Date Activity User E-Sign Co-Sign Detail Recorded Client Recorded Date Recorded By Document 04/09/21 10:08 [facility] [id number] 04/09/21 10:14 [facility] 04/09/21 10:08 WC - Today's Visit Information Type of service Follow-up Visit (Physician/BILINGUAL BRANCH MANAGER ) Arrival Mode Ambulatory Transfer Assistance Other Transfer Assist (Other) stand by Patient Identification Verified (Name & Yes ) Patient Requires Transmission-Based No Precautions Height and Weight Body Mass Index (BMI) 24.0 BMI Classification Normal Vital Signs Temperature (97.8 F-99.1 F) 97.5 F L Temperature Source Temporal Pulse Rate (60-100) 76 Pulse Location Monitor Respiratory Rate (12-18) 16 Respiratory rate source Observation Oxygen Delivery Method Room Air Blood Pressure (90/60-120/80) 110/54 L Blood Pressure Mean (mm Hg) 72 Source Monitor Position Sitting Blood Pressure Location Left Arm History Since Last Visit- (Skip if this is Patient's initial visit) Have you changed medications since your No last visit? Any new allergies or adverse reactions No Had a fall/change in ADL's that may No increase risk of falls Signs or symptoms of abuse and/or No neglect since last visit Have you been in the hospital since your No last visit? Has dressing in place as prescribed Yes Has compression in place as prescribed N/A Has offloadiing in place as prescribed N/A Experienced any changes in pain level or No management Left Footwear Regular Shoe Right Footwear Regular Shoe Pain Scale: 0-10 Numeric Is Patient Pain Free? Yes - Nurse 1 - General Ulcer Measurement Start: 04/09/21 10:07 Freq: Status: Active Protocol: Activity Type Activity Date Activity User E-Sign Co-Sign Detail Recorded Client Recorded Date Recorded By Document 04/09/21 10:08 [facility] [id number] 04/09/21 10:14 [facility] 04/09/21 10:08 Wound Center Nurse 1 #3- coccyx -Combined with other wound No -Current Size (cm) - Length 3 -Current Size (cm) - Width 2.4 -Current Size (cm) - Depth 1.5 -Total Square Cm 7.2 -Date of Last Picture (Recall this 04/09/21 field) -Photo Taken Yes -Epithelialization None Present -Tunneling No -Undermining/Tunneling Yes -Undermining/Tunneling Starts (O'clock 6 ) -Undermining/Tunneling Ends (O'clock) 8 -Maximum Distance (cm) 0.7 -Circular Undermining No -Exudate Amt Medium -Exudate Type Serosanguineous -Wound Margin Distinct, Outline Attached -Granulation Amt Large (67-100%) -Granulation Quality Red -Slough/Fibrin Yes -Necrosis Amt Small (1-33%) -Necrotic Tissue Type Adherent Slough -Texture (Aishwarya-wound Skin Appearance) Assessed, Scarring -Moisture (Aishwarya-wound Skin Appearance) Assessed -Color (Aishwarya-wound Skin Appearance) Assessed -Temperature (Aishwarya-wound Skin No Abnormality Appearance) (Pt Warm) -Tenderness on Palpation (Aishwayra-wound No Skin Appearance) -Ulcer Cleansing Rinsed/ Irrigated with Saline -Foul Odor after Cleansing No -Anesthetic Used 5% Lidocaine Gel #2 coccyx -Combined with other wound No WC - Nurse 3 - General Ulcer D/C NN Start: 04/09/21 10:07 Freq: Status: Active Protocol: Activity Type Activity Date Activity User E-Sign Co-Sign Detail Recorded Client Recorded Date Recorded By Document 04/09/21 11:32 SUPA [id number] 04/09/21 11:33 SUPA 04/09/21 11:32 Wound Care Nurse 3 #3- coccyx -Ulcer Cleansing Rinsed/ Irrigated with Saline -Other Dressing wet to dry -Primary Dressing Covered/Secured with Dry Gauze, Secured with Tape Pain Scale: 0-10 Numeric Is Patient Pain Free? Yes WC - Visit Discharge Discharge Condition Stable Ambulatory Status Wheelchair Transportation Private Auto Wound debrided: Sacral ulcer Laterality: Not Applicable Wound Grade/Stage: Stage IV Type of Debridement: Excisional debridement Anesthesia Used: 4% Lidocaine Solution Depth: Down to and including healthy tissue, in the subcutaneous layer and to muscle Percentage of wound debrided: 100 Instrument Used: 5mm curette Tissue Removed: Subcutaneous tissue and slough Severity: Fat Layer Exposed Amount of bleeding with debridement: Mild Bleeding Controlled with: Pressure and Compression and gauze Patient tolerated procedure: Patient tolerated procedure well Assessment/Plan Assessment/Plan (1) Stage IV pressure ulcer of sacral region: CODE(S): L89.154 - Pressure ulcer of sacral region, stage 4 (2) Spina bifida: CODE(S): Q05.9 - Spina bifida, unspecified PLAN: Continue Dakin's dressing changes daily. The wound continues to improve with granulation tissue and no exudate and the bone is now covered entirely with granulation tissue. There is some mild maceration on the surrounding skin edges with some curling of the skin edges. He is not interested in any type of surgery at this time. 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 Culture obtained 04/04/20 was positive for Proteus mirabilis and Staphylococcus aureus. He was placed on Augmentin and has finished them. His Prealbumin from 08/30/19 was 17.2. Encourage nutritional supplementation with protein to help the healing process. Followup four weeks.
== END 2021-04-21 23:59 ==
LOC: WC 09:57
PROVIDERS: PCP Family Medicine; Visit Provider Nurse Practitioner Family
DX: L89.154 Pressure ulcer of sacral region, stage 4 (principal)
CPT/HCPCS: 11042

== ENCOUNTER 2021-05-07 13:00 | Outpatient (RCR) | payer MEDICAID, SELFPAY ==
[2021-04-22 00:12] VITALS: BP 110/54; PULSE 76; RESP 16; TEMP 36.4
[2021-05-07 13:11] VITALS: BP 135/72; PULSE 68; RESP 16; TEMP 36.6; BMI 24.0
--- NOTE | 2021-05-07 13:59 | PCM.WC.PN ---
History of Present Illness Date of Service: 05/07/21 Chief Complaint: Sacral pressure sore in the posterior aspect of the pelvis, Stage IV, with osteomyelitis of the pelvis. History of Wound: Surgery 08/05/19 - 1. Excision sacral pressure sore in posterior aspect of pelvis, Stage IV. 2. Partial ostectomy pelvis for osteomyelitis. Wound care - Dakin's. Wound culture from 04/04/20 was positive for Proteus mirabilis and Staphylococcus aureus. He was placed on Augmentin and has finished them. Pathology was negative for osteomyelitis. CT Pelvis from 08/20/19 showed persistent, if slightly worse sacral decubitus ulcer when compared to the previous study from 12/07/2018. There are persistent erosive changes within the sacrum suggesting associated osteomyelitis. The ulcer measures approximate 4.9 x 3.4 x 4.9 cm, is gas-filled and appears to contain packing material. Stable surgical hardware in the lower lumbar spine and sacrum. Prealbumin from 08/30/19 was 17.2. Encourage nutritional supplementation with protein to help the healing process. Today he denies fever. His appetite is good. Progress of Wound: Stable. Objective Data Objective Data Vital Signs: Vital Signs Temp Pulse Resp BP 98 F 68 16 135/72 H 05/07/21 13:11 05/07/21 13:11 05/07/21 13:11 05/07/21 13:11 Oxygen Delivery Method Room Air Body Mass Index (BMI) 24.0 Charges/Coding Procedures Integumentary 111xxx-113xx: 31459 Alma Delia musc/fascia 20 sq cm/< Physical Exam Const alert and oriented x3 General Appearance: cooperative HEENT normocephalic Eyes PERRL Lymph Lymphatic: no lymphedema noted Resp normal respiratory effort Cardio regular rate GI normal to inspection, nondistended, normoactive bowel sounds Extremity normal capillary refill Skin Wound Narrative: Sacral ulcer is stable. There is undermining around 9-12 o'clock. No bone is exposed. Neuro CN's II-XII intact bilaterally Psych Appearance: grossly normal Debridement Note Debridement Note Post-Debridement Measurements and Additional Note: Post-Debridement Measurements/Treatment STACY - Nurse 1 - General Ulcer Assessment Start: 05/07/21 13:10 Freq: Status: Active Protocol: RAULEXT Activity Type Activity Date Activity User E-Sign Co-Sign Detail Recorded Client Recorded Date Recorded By Document 05/07/21 13:11 [facility] [id number] 05/07/21 13:21 [facility] 05/07/21 13:11 WC - Today's Visit Information Type of service Follow-up Visit (Physician/CUFF SETTER LOCKSTITCH ) Arrival Mode Wheelchair Transfer Assistance None Patient Identification Verified (Name & Yes ) Patient Requires Transmission-Based No Precautions Height and Weight Body Mass Index (BMI) 24.0 BMI Classification Normal Vital Signs Temperature (97.8 F-99.1 F) 98 F Temperature Source Temporal Pulse Rate (60-100) 68 Pulse Location Monitor Respiratory Rate (12-18) 16 Respiratory rate source Observation Oxygen Delivery Method Room Air Blood Pressure (90/60-120/80) 135/72 H Blood Pressure Mean (mm Hg) 93 Source Monitor Position Sitting Blood Pressure Location Right Arm History Since Last Visit- (Skip if this is Patient's initial visit) Have you changed medications since your No last visit? Any new allergies or adverse reactions No Had a fall/change in ADL's that may No increase risk of falls Signs or symptoms of abuse and/or No neglect since last visit Have you been in the hospital since your No last visit? Has dressing in place as prescribed Yes Has compression in place as prescribed N/A Has offloadiing in place as prescribed N/A Experienced any changes in pain level or No management Left Footwear Regular Shoe Right Footwear Regular Shoe Pain Scale: 0-10 Numeric Is Patient Pain Free? Yes - Nurse 1 - General Ulcer Measurement Start: 05/07/21 13:10 Freq: Status: Active Protocol: Activity Type Activity Date Activity User E-Sign Co-Sign Detail Recorded Client Recorded Date Recorded By Document 05/07/21 13:11 [facility] [id number] 05/07/21 13:21 [facility] 05/07/21 13:11 Wound Center Nurse 1 #3- coccyx -Combined with other wound No -Current Size (cm) - Length 4.4 -Current Size (cm) - Width 0.5 -Current Size (cm) - Depth 0.4 -Total Square Cm 2.20 -Photo Taken No -Epithelialization Small 1-33% -Tunneling No -Undermining/Tunneling Yes -Undermining/Tunneling Starts (O'clock 7 ) -Undermining/Tunneling Ends (O'clock) 11 -Maximum Distance (cm) 1 -Circular Undermining No -Exudate Amt Medium -Exudate Type Serosanguineous -Wound Margin Thickened -Granulation Amt Large (67-100%) -Granulation Quality Red -Slough/Fibrin Yes -Necrosis Amt Small (1-33%) -Necrotic Tissue Type Adherent Slough -Texture (Aishwarya-wound Skin Appearance) Assessed, Scarring -Moisture (Aishwarya-wound Skin Appearance) Assessed -Color (Aishwarya-wound Skin Appearance) Assessed -Temperature (Aishwarya-wound Skin No Abnormality Appearance) (Pt Warm) -Tenderness on Palpation (Aishwarya-wound No Skin Appearance) -Ulcer Cleansing Rinsed/ Irrigated with Saline -Foul Odor after Cleansing No -Anesthetic Used 5% Lidocaine Gel STACY - Nurse 2 - General Ulcer CM Notes Start: 05/07/21 13:10 Freq: Status: Active Protocol: Activity Type Activity Date Activity User E-Sign Co-Sign Detail Recorded Client Recorded Date Recorded By Document 05/07/21 13:26 DREW [id number] 05/07/21 13:28 DREW 05/07/21 13:26 Wound Center Nurse 2 -Time 13:26 -Correct Patient Yes -Correct Side, Site, Position Yes -Correct Procedure Yes -Procedure Performed Yes -Type of Procedure Debridement -Clinical Debridement Muscle / Fascia -Tissue Removed Muscle -Post Debridement (cm) - Length 4 -Post Debridement (cm) - Width 3 -Post Debridement (cm) - Depth 1 -Total Square (Post) (cm) 12 -Area of Debridement (cm) - Length 4 -Area of Debridement (cm) - Width 3 -Total Square (Area) (cm) 12 -Tunneling No -Undermining/Tunneling Yes -Undermining/Tunneling Starts (O'clock 7 ) -Undermining/Tunneling Ends (O'clock) 11 -Maximum Distance (cm) 1.4 -Circular Undermining No -Wound/Ulcer Outcome Not Healed -Ulcer Cleansing Rinsed/ Irrigated with Saline -Foul Odor after Cleansing No -Bioengineered Tissue No -Bleeding Controlled with Pressure -Offloading No -Treatment Response Procedure Tolerated Well -Debridement - Muscle / Fascia, 1st Yes 20sq cm Pain Scale: 0-10 Numeric Is Patient Pain Free? Yes STACY - Nurse 3 - General Ulcer D/C NN Start: 05/07/21 13:10 Freq: Status: Active Protocol: Activity Type Activity Date Activity User E-Sign Co-Sign Detail Recorded Client Recorded Date Recorded By Document 05/07/21 13:34 DL [id number] 05/07/21 13:35 DL 05/07/21 13:34 Wound Care Nurse 3 #3- coccyx -Ulcer Cleansing Rinsed/ Irrigated with Saline -Foul Odor after Cleansing No -Other Dressing moist gauze -Primary Dressing Covered/Secured with Dry Gauze & Roll Gauze, Secured with Tape Treatment Response Procedure Tolerated Well Pain Scale: 0-10 Numeric Is Patient Pain Free? Yes WC - Visit Discharge Discharge Condition Stable Ambulatory Status Wheelchair Transportation Private Auto Wound debrided: Sacral ulcer Type of Debridement: Excisional debridement Anesthesia Used: 5% Lidocaine Gel Depth: Down to and including healthy tissue, in the subcutaneous layer and to muscle Percentage of wound debrided: 100 Instrument Used: 5mm curette Tissue Removed: Subcutnaneous tissue and slough into the muscle. Severity: Fat Layer Exposed Amount of bleeding with debridement: Mild Bleeding Controlled with: Pressure and Compression and gauze Patient tolerated procedure: Patient tolerated procedure well Assessment/Plan Assessment/Plan (1) Stage IV pressure ulcer of sacral region: CODE(S): L89.154 - Pressure ulcer of sacral region, stage 4 (2) Chronic osteomyelitis of pelvis: CODE(S): M86.659 - Other chronic osteomyelitis, unspecified thigh (3) Spina bifida: CODE(S): Q05.9 - Spina bifida, unspecified PLAN: Continue Dakin's dressing changes daily. The wound continues to improve with granulation tissue and no exudate and the bone is now covered entirely with granulation tissue. There is some mild maceration on the surrounding skin edges with some curling of the skin edges. He is not interested in any type of surgery at this time. 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 Culture obtained 04/04/20 was positive for Proteus mirabilis and Staphylococcus aureus. He was placed on Augmentin and has finished them. His Prealbumin from 08/30/19 was 17.2. Encourage nutritional supplementation with protein to help the healing process. Followup four weeks.
== END 2021-05-22 23:59 ==
LOC: WC 13:00
PROVIDERS: PCP Family Medicine; Visit Provider Nurse Practitioner Family
DX: L89.154 Pressure ulcer of sacral region, stage 4 (principal); M86.68 Other chronic osteomyelitis, other site; Q05.9 Spina bifida, unspecified
CPT/HCPCS: 11043

== ENCOUNTER 2021-06-11 13:14 | Outpatient (RCR) | payer MEDICAID, SELFPAY ==
[2021-05-23 00:19] VITALS: BP 135/72; PULSE 68; RESP 16; TEMP 36.6; BMI 24.0
--- NOTE | 2021-06-11 13:28 | PCM.WC.PN ---
History of Present Illness Date of Service: 06/11/21 Chief Complaint: Sacral pressure sore in the posterior aspect of the pelvis, Stage IV, with osteomyelitis of the pelvis. History of Wound: Surgery 08/05/19 - 1. Excision sacral pressure sore in posterior aspect of pelvis, Stage IV. 2. Partial ostectomy pelvis for osteomyelitis. Wound care - Dakin's. Wound culture from 04/04/20 was positive for Proteus mirabilis and Staphylococcus aureus. He was placed on Augmentin and has finished them. Pathology was negative for osteomyelitis. CT Pelvis from 08/20/19 showed persistent, if slightly worse sacral decubitus ulcer when compared to the previous study from 12/07/2018. There are persistent erosive changes within the sacrum suggesting associated osteomyelitis. The ulcer measures approximate 4.9 x 3.4 x 4.9 cm, is gas-filled and appears to contain packing material. Stable surgical hardware in the lower lumbar spine and sacrum. Prealbumin from 08/30/19 was 17.2. Encourage nutritional supplementation with protein to help the healing process. Today he denies fever. His appetite is good. Progress of Wound: Stable with thickening scar tissue that curls around the edges of the ulcer Objective Data Objective Data Vital Signs: Vital Signs Temp Pulse Resp BP 98 F 68 16 135/72 H 05/23/21 00:19 05/23/21 00:19 05/23/21 00:19 05/23/21 00:19 Body Mass Index (BMI) 24.0 Charges/Coding Procedures Integumentary 111xxx-113xx: 73023 Alma Delia musc/fascia 20 sq cm/< Physical Exam Const alert and oriented x3 General Appearance: cooperative HEENT normocephalic Resp normal respiratory effort Cardio regular rate GI Palpation: soft Extremity normal capillary refill Skin Wound Narrative: Sacral ulcer with increased scar tissue, especially curling around the edges of the ulcer that has thickened. Ulcer to the muscle. No bone exposure. Neuro CN's II-XII intact bilaterally Psych Appearance: grossly normal Debridement Note Debridement Note Wound debrided: Sacral ulcer Laterality: Not Applicable Wound Grade/Stage: stage IV Type of Debridement: Excisional debridement Anesthesia Used: 4% Lidocaine Solution Depth: in the subcutaneous layer and to muscle Percentage of wound debrided: 100 Instrument Used: 5mm curette Tissue Removed: Subcutaneous tissue and slough, into the muscle. There is no bone exposure Bleeding Controlled with: Pressure Patient tolerated procedure: Patient tolerated procedure well Post-Debridement Measurements and Additional Note: Post-Debridement Measurements/Treatment WC - Nurse 2 - General Ulcer CM Notes Start: 06/11/21 13:19 Freq: Status: Active Protocol: Activity Type Activity Date Activity User E-Sign Co-Sign Detail Recorded Client Recorded Date Recorded By Document 06/11/21 13:19 [id number] 06/11/21 13:23 06/11/21 13:19 Wound Center Nurse 2 #3- coccyx -Time 13:20 -Correct Patient Yes -Correct Side, Site, Position Yes -Correct Procedure Yes -Procedure Performed Yes -Type of Procedure Debridement -Clinical Debridement Muscle / Fascia -Tissue Removed Muscle -Post Debridement (cm) - Length 4 -Post Debridement (cm) - Width 2.8 -Post Debridement (cm) - Depth 0.7 -Total Square (Post) (cm) 11.2 -Area of Debridement (cm) - Length 4 -Area of Debridement (cm) - Width 2.8 -Total Square (Area) (cm) 11.2 -Tunneling Yes -Tunneling Position (O'clock) 10 -Tunneling Distance (cm) 2.3 -Undermining/Tunneling No -Circular Undermining No -Wound/Ulcer Outcome Not Healed -Ulcer Cleansing Rinsed/ Irrigated with Saline -Foul Odor after Cleansing No -Bioengineered Tissue No -Bleeding Controlled with Pressure -Offloading No -Treatment Response Procedure Tolerated Well -Debridement - Muscle / Fascia, 1st Yes 20sq cm Pain Scale: 0-10 Numeric Is Patient Pain Free? Yes Assessment/Plan Assessment/Plan (1) Stage IV pressure ulcer of sacral region: CODE(S): L89.154 - Pressure ulcer of sacral region, stage 4 (2) Chronic osteomyelitis of pelvis: CODE(S): M86.659 - Other chronic osteomyelitis, unspecified thigh (3) Spina bifida: CODE(S): Q05.9 - Spina bifida, unspecified PLAN: Continue Dakin's dressing changes daily. The wound is stable with increased scar tissue around the edges with curling and in the base of the ulcer. Discussed with him that he wound benefit from an operative debridement to help remove some of the thickened scar tissue. He said he would discuss this with his parents. He is not interested in any type flap for closure. 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 Culture obtained 04/04/20 was positive for Proteus mirabilis and Staphylococcus aureus. He was placed on Augmentin and has finished them. His Prealbumin from 08/30/19 was 17.2. Encourage nutritional supplementation with protein to help the healing process. Followup four weeks.
[2021-06-11 14:10] VITALS: BP 125/74; PULSE 71; TEMP 36.3; BMI 24.0
== END 2021-06-21 23:59 ==
LOC: WC 13:14
PROVIDERS: PCP Family Medicine; Visit Provider Nurse Practitioner Family
DX: L89.154 Pressure ulcer of sacral region, stage 4 (principal); M86.659 Other chronic osteomyelitis, unspecified thigh; Q05.9 Spina bifida, unspecified; B96.4 Proteus (mirabilis) (morganii) as the cause of diseases classified elsewhere
CPT/HCPCS: 11043

== ENCOUNTER 2021-07-09 13:12 | Outpatient (RCR) | payer MEDICAID, SELFPAY ==
[2021-06-22 00:14] VITALS: BP 125/74; PULSE 71; RESP 16; TEMP 36.3; BMI 24.0
[2021-07-09 13:15] VITALS: BP 142/60; PULSE 60; RESP 16; TEMP 36.7; BMI 24.0
--- NOTE | 2021-07-09 16:19 | PCM.WC.PN ---
History of Present Illness Date of Service: 07/09/21 Chief Complaint: Sacral pressure sore in the posterior aspect of the pelvis, Stage IV, with osteomyelitis of the pelvis. History of Wound: Surgery 08/05/19 - 1. Excision sacral pressure sore in posterior aspect of pelvis, Stage IV. 2. Partial ostectomy pelvis for osteomyelitis. Wound care - Dakin's. Wound culture from 04/04/20 was positive for Proteus mirabilis and Staphylococcus aureus. He was placed on Augmentin and has finished them. Pathology was negative for osteomyelitis. CT Pelvis from 08/20/19 showed persistent, if slightly worse sacral decubitus ulcer when compared to the previous study from 12/07/2018. There are persistent erosive changes within the sacrum suggesting associated osteomyelitis. The ulcer measures approximate 4.9 x 3.4 x 4.9 cm, is gas-filled and appears to contain packing material. Stable surgical hardware in the lower lumbar spine and sacrum. Prealbumin from 08/30/19 was 17.2. Encourage nutritional supplementation with protein to help the healing process. Today he denies fever. His appetite is good. Progress of Wound: Scar tissue over majority of ulcer, which his father is requesting that we do not remove because he feels we are preventing the ulcer from healing. There is beefy pink on the edge from 9-12 o'clock. Objective Data Objective Data Vital Signs: Vital Signs Temp Pulse Resp BP 98.0 F 60 16 142/60 H 07/09/21 13:15 07/09/21 13:15 07/09/21 13:15 07/09/21 13:15 Body Mass Index (BMI) 24.0 Charges/Coding Procedures Integumentary 111xxx-113xx: [id number] Alma Delia musc/fascia 20 sq cm/< Physical Exam Const alert and oriented x3 General Appearance: cooperative HEENT normocephalic Lymph Lymphatic: no lymphedema noted Resp normal respiratory effort Cardio regular rate GI Palpation: soft Extremity normal capillary refill Skin Wound Narrative: Sacral ulcer is stage IV. There is scar tissue on the majority of the ulcer. There is beefy pink edge from 9-12 o'clock. Periwound is clear. Neuro CN's II-XII intact bilaterally Psych Appearance: grossly normal Debridement Note Debridement Note Wound debrided: sacral ulcer Laterality: Not Applicable Wound Grade/Stage: Stage IV Type of Debridement: Excisional debridement Anesthesia Used: 4% Lidocaine Solution Depth: Down to and including healthy tissue, in the subcutaneous layer and to muscle Percentage of wound debrided: 100 Instrument Used: 3mm curette Tissue Removed: Subcutaneous tissue and slough into the muscle. Severity: Fat Layer Exposed Amount of bleeding with debridement: Mild Bleeding Controlled with: Pressure and Compression and gauze Patient tolerated procedure: Patient tolerated procedure well Debridement Free Text: Did not debride the scar tissue off the ulcer per the patient's father's request Post-Debridement Measurements and Additional Note: Post-Debridement Measurements/Treatment - Nurse 1 - General Ulcer Assessment Start: 07/09/21 13:15 Freq: Status: Active Protocol: RACHELLE Activity Type Activity Date Activity User E-Sign Co-Sign Detail Recorded Client Recorded Date Recorded By Document 07/09/21 13:15 ML [id number] 07/09/21 13:17 ML 07/09/21 13:15 WC - Today's Visit Information Type of service Follow-up Visit (Physician/SURVEYOR ROD HELPER ) Arrival Mode Wheelchair Transfer Assistance None Patient Identification Verified (Name & Yes ) Patient Requires Transmission-Based No Precautions Safety Precautions NA Height and Weight Body Mass Index (BMI) 24.0 BMI Classification Normal Vital Signs Temperature (97.8 F-99.1 F) 98.0 F Temperature Source Temporal Pulse Rate (60-100) 60 Pulse Location Monitor Respiratory Rate (12-18) 16 Respiratory rate source Observation Blood Pressure (90/60-120/80) 142/60 H Blood Pressure Mean (mm Hg) 87 Source Monitor Position Sitting Blood Pressure Location Right Arm History Since Last Visit- (Skip if this is Patient's initial visit) Have you changed medications since your No last visit? Any new allergies or adverse reactions No Had a fall/change in ADL's that may No increase risk of falls Signs or symptoms of abuse and/or No neglect since last visit Have you been in the hospital since your No last visit? Has dressing in place as prescribed Yes Has compression in place as prescribed N/A Has offloadiing in place as prescribed N/A Experienced any changes in pain level or No management Left Footwear Regular Shoe Right Footwear Regular Shoe Pain Scale: 0-10 Numeric Is Patient Pain Free? Yes - Nurse 1 - General Ulcer Measurement Start: 07/09/21 13:15 Freq: Status: Active Protocol: Activity Type Activity Date Activity User E-Sign Co-Sign Detail Recorded Client Recorded Date Recorded By Document 07/09/21 13:15 ML [id number] 07/09/21 13:17 ML 07/09/21 13:15 Wound Center Nurse 1 #3- coccyx -Current Size (cm) - Length 5 -Current Size (cm) - Width 2.5 -Current Size (cm) - Depth 0.6 -Total Square Cm 12.5 -Exudate Amt Medium -Exudate Type Serosanguineous -Wound Margin Distinct, Outline Attached -Granulation Amt Medium (34-66%) -Slough/Fibrin Yes -Necrosis Amt Medium (34-66%) -Texture (Aishwarya-wound Skin Appearance) Assessed -Moisture (Aishwarya-wound Skin Appearance) Assessed, Maceration -Color (Aishwarya-wound Skin Appearance) Assessed -Temperature (Aishwarya-wound Skin No Abnormality Appearance) (Pt Warm) -Tenderness on Palpation (Aishwarya-wound No Skin Appearance) -Ulcer Cleansing Rinsed/ Irrigated with Saline -Foul Odor after Cleansing No WC - Nurse 2 - General Ulcer CM Notes Start: 07/09/21 13:15 Freq: Status: Active Protocol: Activity Type Activity Date Activity User E-Sign Co-Sign Detail Recorded Client Recorded Date Recorded By Document 07/09/21 13:26 [id number] 07/09/21 13:36 07/09/21 13:26 Wound Center Nurse 2 -Time 13:28 -Correct Patient Yes -Correct Side, Site, Position Yes -Correct Procedure Yes -Procedure Performed Yes -Type of Procedure Debridement -Clinical Debridement Muscle / Fascia -Tissue Removed Muscle -Post Debridement (cm) - Length 2 -Post Debridement (cm) - Width 0.8 -Post Debridement (cm) - Depth 0.6 -Total Square (Post) (cm) 1.6 -Area of Debridement (cm) - Length 2 -Area of Debridement (cm) - Width 0.8 -Total Square (Area) (cm) 1.6 -Tunneling Yes -Tunneling Position (O'clock) 10 -Tunneling Distance (cm) 1.5 -Undermining/Tunneling No -Circular Undermining No -Wound/Ulcer Outcome Not Healed -Ulcer Cleansing Rinsed/ Irrigated with Saline -Foul Odor after Cleansing No -Bioengineered Tissue No -Bleeding Controlled with Pressure,Silver Nitrate -Offloading No -Treatment Response Procedure Tolerated Well -Debridement - Muscle / Fascia, 1st Yes 20sq cm Pain Scale: 0-10 Numeric Is Patient Pain Free? Yes - Nurse 3 - General Ulcer D/C NN Start: 07/09/21 13:15 Freq: Status: Active Protocol: Activity Type Activity Date Activity User E-Sign Co-Sign Detail Recorded Client Recorded Date Recorded By Document 07/09/21 13:48 DL [id number] 07/09/21 13:49 DL 07/09/21 13:48 Wound Care Nurse 3 #3- coccyx -Ulcer Cleansing Rinsed/ Irrigated with Saline -Foul Odor after Cleansing No -Primary Dressing Applied Aquacel AG 4x4 -Primary Dressing Covered/Secured with Dry Gauze, Secured with Tape -Aquacel AG 4x4 1 Treatment Response Procedure Tolerated Well Pain Scale: 0-10 Numeric Is Patient Pain Free? Yes WC - Visit Discharge Discharge Condition Stable Ambulatory Status Wheelchair Transportation Private Auto Facility Type [facility] Care Facility Orders Sent Yes Assessment/Plan Assessment/Plan (1) Stage IV pressure ulcer of sacral region: CODE(S): L89.154 - Pressure ulcer of sacral region, stage 4 (2) Chronic osteomyelitis of pelvis: CODE(S): M86.659 - Other chronic osteomyelitis, unspecified thigh (3) Spina bifida: CODE(S): Q05.9 - Spina bifida, unspecified PLAN: Will apply Aquacel-Ag covered with gauze daily. The patient's father requested that the thickened scar tissue not be debrided. Instructed him that it could impact the healing of the ulcer. Discussed with him that he wound benefit from an operative debridement to help remove some of the thickened scar tissue. The parents are not interested in any surgical debridement because that will make the ulcer larger again. The are not interested in any type flap for closure. 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 Culture obtained 04/04/20 was positive for Proteus mirabilis and Staphylococcus aureus. He was placed on Augmentin and has finished them. His Prealbumin from 08/30/19 was 17.2. Encourage nutritional supplementation with protein to help the healing process. Followup four weeks.
== END 2021-07-22 23:59 ==
LOC: WC 13:12
PROVIDERS: PCP Family Medicine; Visit Provider Nurse Practitioner Family
DX: L89.154 Pressure ulcer of sacral region, stage 4 (principal); M86.659 Other chronic osteomyelitis, unspecified thigh; Q05.9 Spina bifida, unspecified
CPT/HCPCS: 11043

== ENCOUNTER 2021-08-06 13:00 | Outpatient (RCR) | payer MEDICAID, SELFPAY ==
[2021-07-23 00:10] VITALS: BP 142/60; PULSE 60; RESP 16; TEMP 36.7; BMI 24.0
[2021-08-06 13:07] VITALS: BP 132/67; PULSE 63; RESP 16; TEMP 36.2; BMI 24.0
--- NOTE | 2021-08-06 15:31 | PN.PCM_ITS ---
History of Present Illness Date of Service: 08/06/21 Chief Complaint: Sacral pressure sore in the posterior aspect of the pelvis, Stage IV, with osteomyelitis of the pelvis. History of Wound: Surgery 08/05/19 - 1. Excision sacral pressure sore in posterior aspect of pelvis, Stage IV. 2. Partial ostectomy pelvis for osteomyelitis. Wound care - Aquacel-Ag (silver alginate) covered by gauze daily. Wound culture from 04/04/20 was positive for Proteus mirabilis and Staphylococcus aureus. He was placed on Augmentin and has finished them. Pathology was negative for osteomyelitis. CT Pelvis from 08/20/19 showed persistent, if slightly worse sacral decubitus ulcer when compared to the previous study from 12/07/2018. There are persistent erosive changes within the sacrum suggesting associated osteomyelitis. The ulcer measures approximate 4.9 x 3.4 x 4.9 cm, is gas-filled and appears to contain packing material. Stable surgical hardware in the lower lumbar spine and sacrum. Prealbumin from 08/30/19 was 17.2. Encourage nutritional supplementation with protein to help the healing process. Today he denies fever. His appetite is good. Progress of Wound: There is an area around 9 o'clock that has no scar tissue covering it. It is beefy pink and bleeds with debridement. The patient's parents have requested that we do not debride the fibrous scar tissue off the remaining ulcer because they believe that is healed. Objective Data Objective Data Vital Signs: Vital Signs Temp Pulse Resp BP 97.2 F L 63 16 132/67 H 08/06/21 13:07 08/06/21 13:07 08/06/21 13:07 08/06/21 13:07 Oxygen Delivery Method Room Air Body Mass Index (BMI) 24.0 Charges/Coding Procedures Integumentary 111xxx-113xx: [id number] Alma Delia subq tissue 20 sq cm/< Physical Exam Const alert and oriented x3 General Appearance: cooperative HEENT normocephalic Resp normal respiratory effort Cardio regular rate GI non-tender Extremity normal capillary refill Skin Wound Narrative: Sacral ulcer has thick, dry, pink, fibrous scar tissue covering the majority of the ulcer except at the 9 o'clock area where there is still some minor undermining/depth that bleeds with debridement and is beefy pink. Neuro CN's II-XII intact bilaterally Psych Appearance: grossly normal Debridement Note Debridement Note Wound debrided: Sacral ulcer Laterality: Not Applicable Type of Debridement: Excisional debridement Anesthesia Used: 4% Lidocaine Solution Depth: Down to and including healthy tissue and in the subcutaneous layer Percentage of wound debrided: 20 Instrument Used: 3mm curette Tissue Removed: Subcutaneous tissue and slough Severity: Fat Layer Exposed Amount of bleeding with debridement: Mild Bleeding Controlled with: Pressure Patient tolerated procedure: Patient tolerated procedure well Debridement Free Text: Patient's parents are requesting that we do not debride the thick, pink, fibrous scar tissue off of the ulcer, therefore only the area that does not have scar tissue covering it was debrided. The undermining area at 9 o'clock was debrided. Post-Debridement Measurements and Additional Note: Post-Debridement Measurements/Treatment - Nurse 1 - General Ulcer Assessment Start: 08/06/21 13:07 Freq: Status: Active Protocol: STACY.LOWEXT Activity Type Activity Date Activity User E-Sign Co-Sign Detail Recorded Client Recorded Date Recorded By Document 08/06/21 13:07 [facility] [id number] 08/06/21 13:12 [facility] 08/06/21 13:07 - Today's Visit Information Type of service Follow-up Visit (Physician/REHAB CONSULTANT ) Arrival Mode Wheelchair Transfer Assistance Other Transfer Assist (Other) stand by Patient Identification Verified (Name & Yes ) Patient Requires Transmission-Based No Precautions Height and Weight Body Mass Index (BMI) 24.0 BMI Classification Normal Vital Signs Temperature (97.8 F-99.1 F) 97.2 F L Temperature Source Temporal Pulse Rate (60-100) 63 Pulse Location Monitor Respiratory Rate (12-18) 16 Respiratory rate source Observation Oxygen Delivery Method Room Air Blood Pressure (90/60-120/80) 132/67 H Blood Pressure Mean (mm Hg) 88 Source Monitor Position Sitting Blood Pressure Location Right Arm History Since Last Visit- (Skip if this is Patient's initial visit) Have you changed medications since your No last visit? Any new allergies or adverse reactions No Had a fall/change in ADL's that may No increase risk of falls Signs or symptoms of abuse and/or No neglect since last visit Have you been in the hospital since your No last visit? Has dressing in place as prescribed Yes Has compression in place as prescribed N/A Has offloadiing in place as prescribed N/A Experienced any changes in pain level or No management Left Footwear Regular Shoe Right Footwear Regular Shoe Pain Scale: 0-10 Numeric Is Patient Pain Free? Yes - Nurse 1 - General Ulcer Measurement Start: 08/06/21 13:07 Freq: Status: Active Protocol: Activity Type Activity Date Activity User E-Sign Co-Sign Detail Recorded Client Recorded Date Recorded By Document 08/06/21 13:07 [facility] [id number] 08/06/21 13:12 [facility] 08/06/21 13:07 Wound Center Nurse 1 #3- coccyx -Combined with other wound No -Current Size (cm) - Length 3.2 -Current Size (cm) - Width 2.9 -Current Size (cm) - Depth 1.4 -Total Square Cm 9.28 -Date of Last Picture (Recall this 08/06/21 field) -Photo Taken Yes -Epithelialization None Present -Tunneling No -Undermining/Tunneling Yes -Undermining/Tunneling Starts (O'clock 7 ) -Undermining/Tunneling Ends (O'clock) 12 -Maximum Distance (cm) 1.9 -Circular Undermining No -Exudate Amt Medium -Exudate Type Serosanguineous -Wound Margin Thickened -Granulation Amt Medium (34-66%) -Granulation Quality [place] -Slough/Fibrin Yes -Necrosis Amt Medium (34-66%) -Necrotic Tissue Type Adherent Slough -Texture (Aishwarya-wound Skin Appearance) Assessed, Scarring -Moisture (Aishwarya-wound Skin Appearance) Assessed -Color (Aishwarya-wound Skin Appearance) Assessed -Temperature (Aishwarya-wound Skin No Abnormality Appearance) (Pt Warm) -Tenderness on Palpation (Aishwarya-wound No Skin Appearance) -Ulcer Cleansing Rinsed/ Irrigated with Saline -Foul Odor after Cleansing No -Anesthetic Used 4% Lidocaine Solution - Nurse 2 - General Ulcer CM Notes Start: 08/06/21 13:07 Freq: Status: Active Protocol: Activity Type Activity Date Activity User E-Sign Co-Sign Detail Recorded Client Recorded Date Recorded By Document 08/06/21 13:21 [id number] 08/06/21 13:24 08/06/21 13:21 Wound Center Nurse 2 -Time 13:22 -Correct Patient Yes -Correct Side, Site, Position Yes -Correct Procedure Yes -Procedure Performed Yes -Type of Procedure Debridement -Clinical Debridement Subcutaneous -Tissue Removed Subcutaneous -Post Debridement (cm) - Length 2.5 -Post Debridement (cm) - Width 0.4 -Post Debridement (cm) - Depth 0.1 -Total Square (Post) (cm) 1.00 -Area of Debridement (cm) - Length 2.5 -Area of Debridement (cm) - Width 0.4 -Total Square (Area) (cm) 1.00 -Tunneling No -Undermining/Tunneling No -Circular Undermining No -Wound/Ulcer Outcome Not Healed -Ulcer Cleansing Rinsed/ Irrigated with Saline -Foul Odor after Cleansing No -Bioengineered Tissue No -Bleeding Controlled with Pressure -Offloading No -Treatment Response Procedure Tolerated Well -Debridement - Subq, 1st 20sq cm Yes Pain Scale: 0-10 Numeric Is Patient Pain Free? Yes - Nurse 3 - General Ulcer D/C NN Start: 08/06/21 13:07 Freq: Status: Active Protocol: Activity Type Activity Date Activity User E-Sign Co-Sign Detail Recorded Client Recorded Date Recorded By Document 08/06/21 13:57 SUPA [id number] 08/06/21 13:57 SUPA 08/06/21 13:57 Wound Care Nurse 3 #3- coccyx -Ulcer Cleansing Rinsed/ Irrigated with Saline -Primary Dressing Applied Aquacel AG 2x2 -Primary Dressing Covered/Secured with Dry Gauze, Secured with Tape -Aquacel AG 2x2 1 Pain Scale: 0-10 Numeric Is Patient Pain Free? Yes - Visit Discharge Discharge Condition Stable Ambulatory Status Wheelchair Transportation Private Auto Assessment/Plan Assessment/Plan (1) Stage IV pressure ulcer of sacral region: CODE(S): L89.154 - Pressure ulcer of sacral region, stage 4 (2) Chronic osteomyelitis of pelvis: CODE(S): M86.659 - Other chronic osteomyelitis, unspecified thigh (3) Spina bifida: CODE(S): Q05.9 - Spina bifida, unspecified PLAN: Wound care - Aquacel-Ag covered with gauze to the area not covered with thickened scar tissue daily. There is mild undermining and tissue is beefy pink at 9 o'clock. The patient's father requested that the thickened, fibrous scar tissue not be debrided because they are considering that area healed. Instructed him that it could impact the healing of the ulcer and it all can reopen. Discussed with him that he wound benefit from an operative debridement to help remove some of the thickened scar tissue. The parents are not interested in any surgical debridement because that will make the ulcer larger again. The are not interested in any type flap for closure. 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 Culture obtained 04/04/20 was positive for Proteus mirabilis and Staphylococcus aureus. He was placed on Augmentin and has finished them. His Prealbumin from 08/30/19 was 17.2. Encourage nutritional supplementation with protein to help the healing process. Followup four weeks.
== END 2021-08-21 23:59 ==
LOC: WC 13:00
PROVIDERS: PCP Family Medicine; Visit Provider Nurse Practitioner Family
DX: L89.154 Pressure ulcer of sacral region, stage 4 (principal); Q05.9 Spina bifida, unspecified; M86.659 Other chronic osteomyelitis, unspecified thigh; B96.4 Proteus (mirabilis) (morganii) as the cause of diseases classified elsewhere
CPT/HCPCS: 11042

== ENCOUNTER 2021-09-17 13:00 | Outpatient (RCR) | payer MEDICAID, SELFPAY ==
[2021-08-22 00:16] VITALS: BP 132/67; PULSE 63; RESP 16; TEMP 36.2; BMI 24.0
[2021-09-17 13:06] VITALS: BP 137/57; PULSE 69; TEMP 36.4; BMI 24.0
--- NOTE | 2021-09-17 14:29 | PCM.WC.PN ---
History of Present Illness Date of Service: 09/17/21 Chief Complaint: Sacral pressure sore in the posterior aspect of the pelvis, Stage IV, with osteomyelitis of the pelvis. History of Wound: Surgery 08/05/19 - 1. Excision sacral pressure sore in posterior aspect of pelvis, Stage IV. 2. Partial ostectomy pelvis for osteomyelitis. Wound care - Aquacel-Ag (silver alginate) covered by gauze daily. Wound culture from 04/04/20 was positive for Proteus mirabilis and Staphylococcus aureus. He was placed on Augmentin and has finished them. Pathology was negative for osteomyelitis. CT Pelvis from 08/20/19 showed persistent, if slightly worse sacral decubitus ulcer when compared to the previous study from 12/07/2018. There are persistent erosive changes within the sacrum suggesting associated osteomyelitis. The ulcer measures approximate 4.9 x 3.4 x 4.9 cm, is gas-filled and appears to contain packing material. Stable surgical hardware in the lower lumbar spine and sacrum. Prealbumin from 08/30/19 was 17.2. Encourage nutritional supplementation with protein to help the healing process. Today he denies fever. His appetite is good. Progress of Wound: His ulcer has scar tissue present that is more pink than white. He has undermining around 12 o'clock and this is the only area that requires packing with the dressing. The rest of the ulcer is covered with scar tissue and is currently stable. Objective Data Objective Data Vital Signs: Vital Signs Temp Pulse Resp BP 97.6 F L 69 16 137/57 H 09/17/21 13:06 09/17/21 13:06 08/22/21 00:16 09/17/21 13:06 Body Mass Index (BMI) 24.0 Charges/Coding Procedures Integumentary 111xxx-113xx: 73402 Alma Delia subq tissue 20 sq cm/< Physical Exam Const alert, oriented x3 and no apparent distress General Appearance: cooperative HEENT normocephalic Head and Scalp: atraumatic Lymph Lymphatic: no lymphedema noted Resp normal respiratory effort Cardio regular rate GI non-tender Extremity normal capillary refill Skin Wound Narrative: Sacral ulcer is pink with scar tissue present. There is under mining at 12 o'clock that is open and is the only place that the dressing needs to be changed. Neuro CN's II-XII intact bilaterally Psych Appearance: grossly normal Debridement Note Debridement Note Wound debrided: Sacral ulcer Laterality: Not Applicable Type of Debridement: Excisional debridement Anesthesia Used: 4% Lidocaine Solution Depth: Down to and including healthy tissue and in the subcutaneous layer Percentage of wound debrided: 100 Instrument Used: 3mm curette Tissue Removed: Non viable tissue and slough Severity: Fat Layer Exposed Amount of bleeding with debridement: Mild Bleeding Controlled with: Pressure and Compression and gauze Patient tolerated procedure: Patient tolerated procedure well Post-Debridement Measurements and Additional Note: Post-Debridement Measurements/Treatment - Nurse 1 - General Ulcer Assessment Start: 09/17/21 13:06 Freq: Status: Active Protocol: RACHELLE Activity Type Activity Date Activity User E-Sign Co-Sign Detail Recorded Client Recorded Date Recorded By Document 09/17/21 13:06 SUPA [id number] 09/17/21 13:12 SUPA 09/17/21 13:06 STACY - Today's Visit Information Type of service Follow-up Visit (Physician/PERISHABLE FREIGHT INSPECTOR ) Arrival Mode Wheelchair Patient Identification Verified (Name & Yes ) Height and Weight Body Mass Index (BMI) 24.0 BMI Classification Normal Vital Signs Temperature (97.8 F-99.1 F) 97.6 F L Temperature Source Temporal Pulse Rate (60-100) 69 Pulse Location Monitor Blood Pressure (90/60-120/80) 137/57 H Blood Pressure Mean (mm Hg) 83 Source Monitor Position Sitting Blood Pressure Location Right Arm History Since Last Visit- (Skip if this is Patient's initial visit) Have you changed medications since your No last visit? Any new allergies or adverse reactions No Had a fall/change in ADL's that may No increase risk of falls Signs or symptoms of abuse and/or No neglect since last visit Have you been in the hospital since your No last visit? Has dressing in place as prescribed Yes Has compression in place as prescribed N/A Has offloadiing in place as prescribed N/A Experienced any changes in pain level or No management Left Footwear Regular Shoe Right Footwear Regular Shoe Pain Scale: 0-10 Numeric Is Patient Pain Free? Yes STACY Medina Nurse 1 - General Ulcer Measurement Start: 09/17/21 13:06 Freq: Status: Active Protocol: Activity Type Activity Date Activity User E-Sign Co-Sign Detail Recorded Client Recorded Date Recorded By Document 09/17/21 13:06 SUPA [id number] 09/17/21 13:12 09/17/21 13:06 Wound Center Nurse 1 #3- coccyx -Current Size (cm) - Length 1.4 -Current Size (cm) - Width 0.5 -Current Size (cm) - Depth 0.2 -Total Square Cm 0.70 -Exudate Amt Small -Exudate Type Serosanguineous -Wound Margin Distinct, Outline Attached -Granulation Amt Small (1-33%) -Granulation Quality [place] -Slough/Fibrin No -Necrosis Amt None Present (0 %) -Texture (Aishwarya-wound Skin Appearance) No Abnormality, Scarring -Moisture (Aishwarya-wound Skin Appearance) No Abnormality, Assessed -Color (Aishwarya-wound Skin Appearance) No Abnormality, Assessed -Temperature (Aishwarya-wound Skin No Abnormality Appearance) (Pt Warm) -Tenderness on Palpation (Aishwarya-wound No Skin Appearance) -Ulcer Cleansing Soap and Water -Foul Odor after Cleansing No -Anesthetic Used 4% Lidocaine Solution WC - Nurse 2 - General Ulcer CM Notes Start: 09/17/21 13:06 Freq: Status: Active Protocol: Activity Type Activity Date Activity User E-Sign Co-Sign Detail Recorded Client Recorded Date Recorded By Document 09/17/21 13:17 [id number] 09/17/21 13:21 09/17/21 13:17 Wound Center Nurse 2 -Time 13:19 -Correct Patient Yes -Correct Side, Site, Position Yes -Correct Procedure Yes -Procedure Performed Yes -Type of Procedure Debridement -Clinical Debridement Subcutaneous -Tissue Removed Subcutaneous -Post Debridement (cm) - Length 1.0 -Post Debridement (cm) - Width 0.2 -Post Debridement (cm) - Depth 0.6 -Total Square (Post) (cm) 0.20 -Area of Debridement (cm) - Length 1.0 -Area of Debridement (cm) - Width 0.2 -Total Square (Area) (cm) 0.20 -Tunneling No -Undermining/Tunneling No -Circular Undermining No -Wound/Ulcer Outcome Not Healed -Ulcer Cleansing Rinsed/ Irrigated with Saline -Foul Odor after Cleansing No -Bioengineered Tissue No -Bleeding Controlled with Pressure -Offloading No -Treatment Response Procedure Tolerated Well -Debridement - Subq, 1st 20sq cm Yes Pain Scale: 0-10 Numeric Is Patient Pain Free? Yes WC - Nurse 3 - General Ulcer D/C NN Start: 09/17/21 13:06 Freq: Status: Active Protocol: Activity Type Activity Date Activity User E-Sign Co-Sign Detail Recorded Client Recorded Date Recorded By Document 09/17/21 13:38 DL [id number] 09/17/21 13:40 DL 09/17/21 13:38 Wound Care Nurse 3 #3- coccyx -Ulcer Cleansing Rinsed/ Irrigated with Saline -Foul Odor after Cleansing No -Primary Dressing Applied Aquacel AG 4x4 -Primary Dressing Covered/Secured with Dry Gauze, Secured with Tape -Aquacel AG 4x4 1 Treatment Response Procedure Tolerated Well Pain Scale: 0-10 Numeric Is Patient Pain Free? Yes WC - Visit Discharge Discharge Condition Stable Ambulatory Status Wheelchair Transportation Private Auto Accompanied by father Assessment/Plan Assessment/Plan (1) Stage IV pressure ulcer of sacral region: CODE(S): L89.154 - Pressure ulcer of sacral region, stage 4 (2) Spina bifida: CODE(S): Q05.9 - Spina bifida, unspecified PLAN: Wound care - Aquacel-Ag covered with gauze to the area not covered with thickened scar tissue daily. There is mild undermining and tissue is beefy pink at 12 o'clock. 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 Culture obtained 04/04/20 was positive for Proteus mirabilis and Staphylococcus aureus. He was placed on Augmentin and has finished them. His Prealbumin from 08/30/19 was 17.2. Encourage nutritional supplementation with protein to help the healing process. Followup four weeks.
== END 2021-09-21 23:59 ==
LOC: WC 13:00
PROVIDERS: PCP Family Medicine; Visit Provider Nurse Practitioner Family
DX: L89.154 Pressure ulcer of sacral region, stage 4 (principal); Q05.9 Spina bifida, unspecified
CPT/HCPCS: 11042

== ENCOUNTER 2021-10-22 13:15 | Outpatient (RCR) | payer MEDICAID, SELFPAY ==
[2021-09-22 00:16] VITALS: BP 137/57; PULSE 69; RESP 16; TEMP 36.4; BMI 24.0
[2021-10-22 13:23] VITALS: BP 136/74; PULSE 75; RESP 16; TEMP 36.8; BMI 24.0
--- NOTE | 2021-10-22 18:18 | PCM.WC.PN ---
History of Present Illness Date of Service: 10/22/21 Chief Complaint: Sacral pressure sore in the posterior aspect of the pelvis, Stage IV, with osteomyelitis of the pelvis. History of Wound: Surgery 08/05/19 - 1. Excision sacral pressure sore in posterior aspect of pelvis, Stage IV. 2. Partial ostectomy pelvis for osteomyelitis. Wound care - Collagen hydrogel covered by gauze daily. Wound culture from 04/04/20 was positive for Proteus mirabilis and Staphylococcus aureus. He was placed on Augmentin and has finished them. Pathology was negative for osteomyelitis. CT Pelvis from 08/20/19 showed persistent, if slightly worse sacral decubitus ulcer when compared to the previous study from 12/07/2018. There are persistent erosive changes within the sacrum suggesting associated osteomyelitis. The ulcer measures approximate 4.9 x 3.4 x 4.9 cm, is gas-filled and appears to contain packing material. Stable surgical hardware in the lower lumbar spine and sacrum. Prealbumin from 08/30/19 was 17.2. Encourage nutritional supplementation with protein to help the healing process. Today he denies fever. His appetite is good. Progress of Wound: There is a beefy pink opened ulcer at the 12 o'clock portion of the ulcer. The remaining ulcer has scar tissue covering it. Objective Data Objective Data Vital Signs: Vital Signs Temp Pulse Resp BP 98.2 F 75 16 136/74 H 10/22/21 13:23 10/22/21 13:23 10/22/21 13:23 10/22/21 13:23 Oxygen Delivery Method Room Air Body Mass Index (BMI) 24.0 Charges/Coding Procedures Integumentary 111xxx-113xx: 17900 Alma Delia subq tissue 20 sq cm/< Physical Exam Const alert and oriented x3 General Appearance: cooperative HEENT normocephalic Lymph Lymphatic: no lymphedema noted Resp normal respiratory effort Cardio regular rate GI non-tender Palpation: soft Extremity normal capillary refill General Extremity: Negative for edema Skin Wound Narrative: Sacral ulcer with small opening at the 12 o'clock portion of the ulcer. The ulcer is healing well and showing improvement. There is minimal undermining of this area. Neuro CN's II-XII intact bilaterally Psych Appearance: grossly normal Debridement Note Debridement Note Wound debrided: sacral ulcer Laterality: Not Applicable Type of Debridement: Excisional debridement Anesthesia Used: 4% Lidocaine Solution Depth: Down to and including healthy tissue and in the subcutaneous layer Percentage of wound debrided: 100 Instrument Used: 3mm curette Tissue Removed: Subcutaneous tissue and slough Severity: Fat Layer Exposed Amount of bleeding with debridement: Mild Bleeding Controlled with: Pressure and Compression and gauze Patient tolerated procedure: Patient tolerated procedure well Post-Debridement Measurements and Additional Note: Post-Debridement Measurements/Treatment STACY - Nurse 1 - General Ulcer Assessment Start: 10/22/21 13:23 Freq: Status: Active Protocol: RACHELLE Activity Type Activity Date Activity User E-Sign Co-Sign Detail Recorded Client Recorded Date Recorded By Document 10/22/21 13:23 [facility] [id number] 10/22/21 13:27 [facility] 10/22/21 13:23 WC - Today's Visit Information Type of service Follow-up Visit (Physician/RIM TECHNICIAN ) Arrival Mode Stretcher Transfer Assistance None Patient Identification Verified (Name & Yes ) Patient Requires Transmission-Based No Precautions Height and Weight Body Mass Index (BMI) 24.0 BMI Classification Normal Vital Signs Temperature (97.8 F-99.1 F) 98.2 F Temperature Source Temporal Pulse Rate (60-100) 75 Pulse Location Monitor Respiratory Rate (12-18) 16 Respiratory rate source Observation Oxygen Delivery Method Room Air Blood Pressure (90/60-120/80) 136/74 H Blood Pressure Mean (mm Hg) 94 Source Monitor Position Sitting Blood Pressure Location Right Arm History Since Last Visit- (Skip if this is Patient's initial visit) Have you changed medications since your No last visit? Any new allergies or adverse reactions No Had a fall/change in ADL's that may No increase risk of falls Signs or symptoms of abuse and/or No neglect since last visit Have you been in the hospital since your No last visit? Has dressing in place as prescribed Yes Has compression in place as prescribed N/A Has offloadiing in place as prescribed N/A Left Footwear Regular Shoe Right Footwear Regular Shoe Pain Scale: 0-10 Numeric Is Patient Pain Free? Yes STACY Medina Nurse 1 - General Ulcer Measurement Start: 10/22/21 13:23 Freq: Status: Active Protocol: Activity Type Activity Date Activity User E-Sign Co-Sign Detail Recorded Client Recorded Date Recorded By Document 10/22/21 13:23 [facility] [id number] 10/22/21 13:27 BMF 10/22/21 13:23 Wound Center Nurse 1 #3- coccyx -Combined with other wound No -Current Size (cm) - Length 0.1 -Current Size (cm) - Width 0.1 -Current Size (cm) - Depth 0.1 -Total Square Cm 0.01 -Date of Last Picture (Recall this 10/22/21 field) -Photo Taken Yes -Epithelialization Large 67-100% -Tunneling No -Undermining/Tunneling No -Circular Undermining No -Exudate Amt Small -Exudate Type Serous -Wound Margin Thickened -Granulation Amt Large (67-100%) -Granulation Quality Red -Slough/Fibrin No -Necrosis Amt None Present (0 %) -Texture (Aishwarya-wound Skin Appearance) Assessed, Scarring -Moisture (Aishwarya-wound Skin Appearance) Assessed -Color (Aishwarya-wound Skin Appearance) Assessed -Temperature (Aishwarya-wound Skin No Abnormality Appearance) (Pt Warm) -Tenderness on Palpation (Aishwarya-wound No Skin Appearance) -Ulcer Cleansing Rinsed/ Irrigated with Saline -Foul Odor after Cleansing No -Anesthetic Used 5% Lidocaine Gel WC - Nurse 2 - General Ulcer CM Notes Start: 10/22/21 13:23 Freq: Status: Active Protocol: Activity Type Activity Date Activity User E-Sign Co-Sign Detail Recorded Client Recorded Date Recorded By Document 10/22/21 13:52 [id number] 10/22/21 13:57 10/22/21 13:52 Wound Center Nurse 2 -Time 13:55 -Correct Patient Yes -Correct Side, Site, Position Yes -Correct Procedure Yes -Procedure Performed Yes -Type of Procedure Debridement -Clinical Debridement Subcutaneous -Tissue Removed Subcutaneous -Post Debridement (cm) - Length 0.3 -Post Debridement (cm) - Width 1.0 -Post Debridement (cm) - Depth 0.4 -Total Square (Post) (cm) 0.30 -Area of Debridement (cm) - Length 0.3 -Area of Debridement (cm) - Width 1.0 -Total Square (Area) (cm) 0.30 -Tunneling No -Undermining/Tunneling No -Circular Undermining No -Wound/Ulcer Outcome Not Healed -Ulcer Cleansing Rinsed/ Irrigated with Saline -Foul Odor after Cleansing No -Bioengineered Tissue No -Bleeding Controlled with Pressure -Offloading No -Treatment Response Procedure Tolerated Well -Debridement - Subq, 1st 20sq cm Yes Pain Scale: 0-10 Numeric Is Patient Pain Free? Yes Assessment/Plan Assessment/Plan (1) Stage IV pressure ulcer of sacral region: CODE(S): L89.154 - Pressure ulcer of sacral region, stage 4 (2) Chronic osteomyelitis of pelvis: CODE(S): M86.659 - Other chronic osteomyelitis, unspecified thigh (3) Spina bifida: CODE(S): Q05.9 - Spina bifida, unspecified PLAN: Wound care - Start Collagen hydrogel to the open ulcer area at 12 o'clock daily covered with gauze. 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 Culture obtained 04/04/20 was positive for Proteus mirabilis and Staphylococcus aureus. He was placed on Augmentin and has finished them. His Prealbumin from 08/30/19 was 17.2. Encourage nutritional supplementation with protein to help the healing process. Followup four weeks.
== END 2021-10-22 23:59 ==
LOC: WC 13:15
PROVIDERS: PCP Family Medicine; Visit Provider Nurse Practitioner Family
DX: L89.154 Pressure ulcer of sacral region, stage 4 (principal); Q05.9 Spina bifida, unspecified; M86.659 Other chronic osteomyelitis, unspecified thigh
CPT/HCPCS: 11042

== ENCOUNTER 2021-11-19 13:05 | Outpatient (RCR) | payer MEDICAID, SELFPAY ==
[2021-10-23 00:20] VITALS: BP 136/74; PULSE 75; RESP 16; TEMP 36.8; BMI 24.0
[2021-11-19 13:06] VITALS: BP 133/66; PULSE 61; RESP 16; TEMP 36.7; BMI 24.0
--- NOTE | 2021-11-19 13:45 | PCM.WC.PN ---
History of Present Illness Date of Service: 11/19/21 Chief Complaint: Sacral pressure sore in the posterior aspect of the pelvis, Stage IV, with osteomyelitis of the pelvis. History of Wound: Surgery 08/05/19 - 1. Excision sacral pressure sore in posterior aspect of pelvis, Stage IV. 2. Partial ostectomy pelvis for osteomyelitis. Wound care - Aquacel-Ag (silver alginate) covered by gauze daily. Wound culture from 04/04/20 was positive for Proteus mirabilis and Staphylococcus aureus. He was placed on Augmentin and has finished them. Pathology was negative for osteomyelitis. CT Pelvis from 08/20/19 showed persistent, if slightly worse sacral decubitus ulcer when compared to the previous study from 12/07/2018. There are persistent erosive changes within the sacrum suggesting associated osteomyelitis. The ulcer measures approximate 4.9 x 3.4 x 4.9 cm, is gas-filled and appears to contain packing material. Stable surgical hardware in the lower lumbar spine and sacrum. Prealbumin from 08/30/19 was 17.2. Encourage nutritional supplementation with protein to help the healing process. Today he denies fever. His appetite is good. Progress of Wound: There continues to be a small ulcer present at 12 o'clock with small amount of undermining. Objective Data Objective Data Vital Signs: Vital Signs Temp Pulse Resp BP 98.0 F 61 16 133/66 H 11/19/21 13:06 11/19/21 13:06 11/19/21 13:06 11/19/21 13:06 Body Mass Index (BMI) 24.0 Charges/Coding Procedures Integumentary 111xxx-113xx: 17621 Alma Delia subq tissue 20 sq cm/< Physical Exam Const alert and oriented x3 General Appearance: cooperative HEENT normocephalic Lymph Lymphatic: no lymphedema noted Resp normal respiratory effort Cardio regular rate Extremity normal capillary refill Skin Wound Narrative: Sacral ulcer that has an opening at 12:00 with a small amount of undermining. There is healed scar tissue over the remaining portion of the ulcer. Neuro CN's II-XII intact bilaterally Psych Appearance: grossly normal Debridement Note Debridement Note Wound debrided: Sacral ulcer Laterality: Not Applicable Type of Debridement: Excisional debridement Anesthesia Used: 4% Lidocaine Solution Depth: Down to and including healthy tissue and in the subcutaneous layer Percentage of wound debrided: 100 Instrument Used: 3mm curette Tissue Removed: Subcutaneous tissue and slough Severity: Fat Layer Exposed Bleeding Controlled with: Pressure Patient tolerated procedure: Patient tolerated procedure well Post-Debridement Measurements and Additional Note: Post-Debridement Measurements/Treatment - Nurse 1 - General Ulcer Assessment Start: 11/19/21 13:06 Freq: Status: Active Protocol: RACHELLE Activity Type Activity Date Activity User E-Sign Co-Sign Detail Recorded Client Recorded Date Recorded By Document 11/19/21 13:06 DREW [id number] 11/19/21 13:11 DREW 11/19/21 13:06 STACY - Today's Visit Information Type of service Follow-up Visit (Physician/ENROLLMENT PROCESSOR ) Arrival Mode Wheelchair Transfer Assistance Manual Patient Identification Verified (Name & Yes ) Patient Requires Transmission-Based No Precautions Height and Weight Body Mass Index (BMI) 24.0 BMI Classification Normal Vital Signs Temperature (97.8 F-99.1 F) 98.0 F Temperature Source Temporal Pulse Rate (60-100) 61 Pulse Location Monitor Respiratory Rate (12-18) 16 Respiratory rate source Monitor Blood Pressure (90/60-120/80) 133/66 H Blood Pressure Mean (mm Hg) 88 History Since Last Visit- (Skip if this is Patient's initial visit) Have you changed medications since your No last visit? Any new allergies or adverse reactions No Had a fall/change in ADL's that may No increase risk of falls Signs or symptoms of abuse and/or No neglect since last visit Have you been in the hospital since your No last visit? Has dressing in place as prescribed Yes Has compression in place as prescribed N/A Has offloadiing in place as prescribed N/A Experienced any changes in pain level or No management Left Footwear Regular Shoe Right Footwear Regular Shoe Pain Scale: 0-10 Numeric Is Patient Pain Free? Yes - Nurse 1 - General Ulcer Measurement Start: 11/19/21 13:06 Freq: Status: Active Protocol: Activity Type Activity Date Activity User E-Sign Co-Sign Detail Recorded Client Recorded Date Recorded By Document 11/19/21 13:06 DREW [id number] 11/19/21 13:11 DREW 11/19/21 13:06 Wound Center Nurse 1 #3- coccyx -Combined with other wound No -Current Size (cm) - Length 0.1 -Current Size (cm) - Width 0.6 -Current Size (cm) - Depth 0.2 -Total Square Cm 0.06 -Photo Taken Yes -Epithelialization Large 67-100% -Tunneling No -Undermining/Tunneling No -Circular Undermining No -Exudate Amt Small -Exudate Type Serosanguineous -Wound Margin Thickened -Granulation Amt Medium (34-66%) -Granulation Quality Red -Slough/Fibrin Yes -Necrosis Amt Small (1-33%) -Necrotic Tissue Type Adherent Slough -Structure Exposed N/A -Texture (Aishwarya-wound Skin Appearance) Assessed -Moisture (Aishwarya-wound Skin Appearance) Assessed, Maceration -Color (Aishwarya-wound Skin Appearance) Assessed -Temperature (Aishwarya-wound Skin No Abnormality Appearance) (Pt Warm) -Tenderness on Palpation (Aishwarya-wound No Skin Appearance) -Ulcer Cleansing Rinsed/ Irrigated with Saline -Foul Odor after Cleansing No Lower Limb Edema Present NA WC - Nurse 2 - General Ulcer CM Notes Start: 11/19/21 13:06 Freq: Status: Active Protocol: Activity Type Activity Date Activity User E-Sign Co-Sign Detail Recorded Client Recorded Date Recorded By Document 11/19/21 13:17 [id number] 11/19/21 13:19 DREW 11/19/21 13:17 Wound Center Nurse 2 #3- coccyx -Time 13:18 -Correct Patient Yes -Correct Side, Site, Position Yes -Correct Procedure Yes -Procedure Performed Yes -Type of Procedure Debridement -Clinical Debridement Subcutaneous -Tissue Removed Subcutaneous -Post Debridement (cm) - Length 0.3 -Post Debridement (cm) - Width 0.7 -Post Debridement (cm) - Depth 0.1 -Total Square (Post) (cm) 0.21 -Area of Debridement (cm) - Length 0.3 -Area of Debridement (cm) - Width 0.7 -Total Square (Area) (cm) 0.21 -Tunneling No -Undermining/Tunneling No -Circular Undermining No -Wound/Ulcer Outcome Not Healed -Ulcer Cleansing Rinsed/ Irrigated with Saline -Foul Odor after Cleansing No -Bioengineered Tissue No -Bleeding Controlled with Pressure -Offloading No -Treatment Response Procedure Tolerated Well -Debridement - Subq, 1st 20sq cm Yes Pain Scale: 0-10 Numeric Is Patient Pain Free? Yes - Nurse 3 - General Ulcer D/C NN Start: 11/19/21 13:06 Freq: Status: Active Protocol: Activity Type Activity Date Activity User E-Sign Co-Sign Detail Recorded Client Recorded Date Recorded By Document 11/19/21 13:22 DREW [id number] 11/19/21 13:23 DREW 11/19/21 13:22 Wound Care Nurse 3 #3- coccyx -Ulcer Cleansing Rinsed/ Irrigated with Saline -Foul Odor after Cleansing No -Primary Dressing Covered/Secured with Dry Gauze, Secured with Tape Pain Scale: 0-10 Numeric Is Patient Pain Free? Yes WC - Visit Discharge Discharge Condition Stable Ambulatory Status Wheelchair Transportation Private Auto Medication Reconcilliation completed & Yes provided to patient/care provider Clinical Summary of Care Provided Yes Assessment/Plan Assessment/Plan (1) Stage IV pressure ulcer of sacral region: CODE(S): L89.154 - Pressure ulcer of sacral region, stage 4 (2) Spina bifida: CODE(S): Q05.9 - Spina bifida, unspecified (3) Chronic osteomyelitis of pelvis: CODE(S): M86.659 - Other chronic osteomyelitis, unspecified thigh PLAN: Wound care - Collagen hydrogel to the open ulcer area at 12 o'clock daily covered with gauze. 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 Culture obtained 04/04/20 was positive for Proteus mirabilis and Staphylococcus aureus. He was placed on Augmentin and has finished them. His Prealbumin from 08/30/19 was 17.2. Encourage nutritional supplementation with protein to help the healing process. Followup four weeks.
== END 2021-11-19 23:59 | disposition home or self-care (01) ==
LOC: WC 13:05
PROVIDERS: PCP Family Medicine; Visit Provider Nurse Practitioner Family
DX: L89.154 Pressure ulcer of sacral region, stage 4 (principal); Q05.9 Spina bifida, unspecified; M86.659 Other chronic osteomyelitis, unspecified thigh
CPT/HCPCS: 11042

== ENCOUNTER 2021-12-17 13:00 | Outpatient (RCR) | payer MEDICAID, SELFPAY ==
[2021-11-20 00:22] VITALS: BP 133/66; PULSE 61; RESP 16; TEMP 36.7; BMI 24.0
[2021-12-17 13:05] VITALS: BP 136/62; PULSE 63; RESP 18; TEMP 36.7; BMI 24.0
--- NOTE | 2021-12-17 15:19 | PN.PCM_ITS ---
History of Present Illness Date of Service: 12/17/21 Chief Complaint: Sacral pressure sore in the posterior aspect of the pelvis, Stage IV, with osteomyelitis of the pelvis. History of Wound: Surgery 08/05/19 - 1. Excision sacral pressure sore in posterior aspect of pelvis, Stage IV. 2. Partial ostectomy pelvis for osteomyelitis. Wound care - Aquacel-Ag (silver alginate) covered by gauze daily. Wound culture from 04/04/20 was positive for Proteus mirabilis and Staphylococcus aureus. He was placed on Augmentin and has finished them. Pathology was negative for osteomyelitis. CT Pelvis from 08/20/19 showed persistent, if slightly worse sacral decubitus ulcer when compared to the previous study from 12/07/2018. There are persistent erosive changes within the sacrum suggesting associated osteomyelitis. The ulcer measures approximate 4.9 x 3.4 x 4.9 cm, is gas-filled and appears to contain packing material. Stable surgical hardware in the lower lumbar spine and sacrum. Prealbumin from 08/30/19 was 17.2. Encourage nutritional supplementation with protein to help the healing process. Today he denies fever. His appetite is good. Progress of Wound: There is a small tunnel at 9 o'clock that is beefy pink. Objective Data Objective Data Vital Signs: Vital Signs Temp Pulse Resp BP 98.1 F 63 18 136/62 H 12/17/21 13:05 12/17/21 13:05 12/17/21 13:05 12/17/21 13:05 Body Mass Index (BMI) 24.0 Charges/Coding Procedures Integumentary 111xxx-113xx: 28191 Alma Delia subq tissue 20 sq cm/< Physical Exam Const alert and oriented x3 General Appearance: cooperative HEENT normocephalic Head and Scalp: atraumatic Lymph Lymphatic: no lymphedema noted Resp normal respiratory effort Cardio regular rate GI non-tender Palpation: soft Extremity normal capillary refill Skin Wound Narrative: Ulcer is smaller in size but there is a small tunnel at 9 o'clock Neuro CN's II-XII intact bilaterally Psych Appearance: grossly normal and well kempt Debridement Note Debridement Note Wound debrided: Sacral ulcer Laterality: Not Applicable Type of Debridement: Excisional debridement Anesthesia Used: 4% Lidocaine Solution Depth: Down to and including healthy tissue and in the subcutaneous layer Percentage of wound debrided: 100 Instrument Used: 3mm curette Tissue Removed: Nonviable tissue and slough Severity: Fat Layer Exposed Amount of bleeding with debridement: Mild Bleeding Controlled with: Pressure and Compression and gauze Patient tolerated procedure: Patient tolerated procedure well Post-Debridement Measurements and Additional Note: Post-Debridement Measurements/Treatment - Nurse 1 - General Ulcer Assessment Start: 12/17/21 13:04 Freq: Status: Active Protocol: RACHELLE Activity Type Activity Date Activity User E-Sign Co-Sign Detail Recorded Client Recorded Date Recorded By Document 12/17/21 13:05 DL [id number] 12/17/21 13:11 DL 12/17/21 13:05 WC - Today's Visit Information Type of service Follow-up Visit (Physician/PARTS DEPARTMENT SUPERVISOR ) Arrival Mode Stretcher Transfer Assistance None Patient Identification Verified (Name & Yes ) Patient Requires Transmission-Based No Precautions Height and Weight Body Mass Index (BMI) 24.0 BMI Classification Normal Vital Signs Temperature (97.8 F-99.1 F) 98.1 F Temperature Source Temporal Pulse Rate (60-100) 63 Pulse Location Monitor Respiratory Rate (12-18) 18 Respiratory rate source Observation Blood Pressure (90/60-120/80) 136/62 H Blood Pressure Mean (mm Hg) 86 Source Monitor History Since Last Visit- (Skip if this is Patient's initial visit) Have you changed medications since your No last visit? Any new allergies or adverse reactions No Had a fall/change in ADL's that may No increase risk of falls Signs or symptoms of abuse and/or No neglect since last visit Have you been in the hospital since your No last visit? Has dressing in place as prescribed Yes Has compression in place as prescribed N/A Has offloadiing in place as prescribed Yes Experienced any changes in pain level or No management Pain Scale: 0-10 Numeric Is Patient Pain Free? Yes - Nurse 1 - General Ulcer Measurement Start: 12/17/21 13:04 Freq: Status: Active Protocol: Activity Type Activity Date Activity User E-Sign Co-Sign Detail Recorded Client Recorded Date Recorded By Document 12/17/21 13:05 DL [id number] 12/17/21 13:11 DL 12/17/21 13:05 Wound Center Nurse 1 #3- coccyx -Current Size (cm) - Length 0.1 -Current Size (cm) - Width 0.1 -Current Size (cm) - Depth 0.1 -Total Square Cm 0.01 -Photo Taken Yes -Exudate Amt None Present -Wound Margin Thickened -Granulation Amt Large (67-100%) -Granulation Quality [place] -Necrosis Amt None Present (0 %) -Structure Exposed N/A -Texture (Aishwarya-wound Skin Appearance) Scarring -Moisture (Aishwarya-wound Skin Appearance) No Abnormality -Color (Aishwarya-wound Skin Appearance) No Abnormality -Temperature (Aishwarya-wound Skin No Abnormality Appearance) (Pt Warm) -Tenderness on Palpation (Aishwarya-wound No Skin Appearance) -Ulcer Cleansing Rinsed/ Irrigated with Saline -Foul Odor after Cleansing No -Anesthetic Used 4% Lidocaine Solution STACY - Nurse 2 - General Ulcer CM Notes Start: 12/17/21 13:04 Freq: Status: Active Protocol: Activity Type Activity Date Activity User E-Sign Co-Sign Detail Recorded Client Recorded Date Recorded By Document 12/17/21 13:22 [id number] 12/17/21 13:25 DREW 12/17/21 13:22 Wound Center Nurse 2 -Time 13:24 -Correct Patient Yes -Correct Side, Site, Position Yes -Correct Procedure Yes -Procedure Performed Yes -Type of Procedure Debridement -Clinical Debridement Subcutaneous -Tissue Removed Subcutaneous -Post Debridement (cm) - Length 0.8 -Post Debridement (cm) - Width 0.2 -Post Debridement (cm) - Depth 0.9 -Total Square (Post) (cm) 0.16 -Area of Debridement (cm) - Length 0.8 -Area of Debridement (cm) - Width 0.2 -Total Square (Area) (cm) 0.16 -Tunneling No -Undermining/Tunneling No -Circular Undermining No -Wound/Ulcer Outcome Not Healed -Ulcer Cleansing Rinsed/ Irrigated with Saline -Foul Odor after Cleansing No -Bioengineered Tissue No -Bleeding Controlled with Pressure -Treatment Response Procedure Tolerated Well -Offloading No -Pressure Reduction Wheelchair cushion -Debridement - Subq, 1st 20sq cm Yes Pain Scale: 0-10 Numeric Is Patient Pain Free? Yes STACY - Nurse 3 - General Ulcer D/C NN Start: 12/17/21 13:04 Freq: Status: Active Protocol: Activity Type Activity Date Activity User E-Sign Co-Sign Detail Recorded Client Recorded Date Recorded By Document 12/17/21 13:29 DREW [id number] 12/17/21 13:30 DREW 12/17/21 13:29 Wound Care Nurse 3 #3- coccyx -Ulcer Cleansing Rinsed/ Irrigated with Saline -Foul Odor after Cleansing No -Primary Dressing Applied Aquacel AG 4x4 -Primary Dressing Covered/Secured with Dry Gauze, Secured with Tape -Aquacel AG 4x4 1 Pain Scale: 0-10 Numeric Is Patient Pain Free? Yes WC - Visit Discharge Discharge Condition Stable Ambulatory Status Wheelchair Transportation Private Auto Medication Reconcilliation completed & Yes provided to patient/care provider Clinical Summary of Care Provided Yes Assessment/Plan Assessment/Plan (1) Stage IV pressure ulcer of sacral region: CODE(S): L89.154 - Pressure ulcer of sacral region, stage 4 (2) Chronic osteomyelitis of pelvis: CODE(S): M86.659 - Other chronic osteomyelitis, unspecified thigh (3) Spina bifida: CODE(S): Q05.9 - Spina bifida, unspecified PLAN: This is a chronic ulcer that we are doing palliative maintenance. Patient and his parents are not interested in further surgeries or flaps. Wound care - Place Aquacel - Ag into the tunnel, it is small and will be difficult to pack, cover with gauze. Do this daily after washing the area with soap and water. 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 Culture obtained 04/04/20 was positive for Proteus mirabilis and Staphylococcus aureus. He was placed on Augmentin and has finished them. His Prealbumin from 08/30/19 was 17.2. Encourage nutritional supplementation with protein to help the healing process. Followup four weeks.
== END 2021-12-20 23:59 | disposition home or self-care (01) ==
LOC: WC 13:00
PROVIDERS: PCP Family Medicine; Visit Provider Nurse Practitioner Family
DX: L89.154 Pressure ulcer of sacral region, stage 4 (principal); Q05.9 Spina bifida, unspecified; M86.659 Other chronic osteomyelitis, unspecified thigh
CPT/HCPCS: 11042

== ENCOUNTER 2022-02-12 14:15 | Outpatient (RCR) | payer MEDICAID, SELFPAY ==
[2021-12-21 00:23] VITALS: BP 136/62; PULSE 63; RESP 18; TEMP 36.7; BMI 24.0
[2022-02-12 14:03] VITALS: BP 131/61; PULSE 77; TEMP 37; BMI 24.0
--- NOTE | 2022-02-12 15:57 | PN.PCM_ITS ---
History of Present Illness Date of Service: 02/12/22 Chief Complaint: Sacral pressure sore in the posterior aspect of the pelvis, Stage IV, with osteomyelitis of the pelvis. History of Wound: Surgery 08/05/19 - 1. Excision sacral pressure sore in posterior aspect of pelvis, Stage IV. 2. Partial ostectomy pelvis for osteomyelitis. Wound care - Aquacel-Ag (silver alginate) covered by gauze daily. Wound culture from 04/04/20 was positive for Proteus mirabilis and Staphylococcus aureus. He was placed on Augmentin and has finished them. Pathology was negative for osteomyelitis. CT Pelvis from 08/20/19 showed persistent, if slightly worse sacral decubitus ulcer when compared to the previous study from 12/07/2018. There are persistent erosive changes within the sacrum suggesting associated osteomyelitis. The ulcer measures approximate 4.9 x 3.4 x 4.9 cm, is gas-filled and appears to contain packing material. Stable surgical hardware in the lower lumbar spine and sacrum. Prealbumin from 08/30/19 was 17.2. Encourage nutritional supplementation with protein to help the healing process. Today he denies fever. His appetite is good. Progress of Wound: Has a small opening of the ulcer at 9 o'clock with some undermining. It is pink with a small amount of drainage. Objective Data Objective Data Vital Signs: Vital Signs Temp Pulse Resp BP 98.6 F 77 18 131/61 H 02/12/22 14:03 02/12/22 14:03 12/21/21 00:23 02/12/22 14:03 Body Mass Index (BMI) 24.0 Charges/Coding Procedures Integumentary 111xxx-113xx: 63187 Alma Delia subq tissue 20 sq cm/< Physical Exam Const alert and oriented x3 General Appearance: cooperative HEENT normocephalic Head and Scalp: atraumatic Lymph Lymphatic: no lymphedema noted Resp normal respiratory effort Cardio regular rate GI non-tender Palpation: soft Extremity normal capillary refill Skin Wound Narrative: Ulcer is smaller in size but there is a small area of undermining at 9 o'clock Neuro CN's II-XII intact bilaterally Psych Appearance: grossly normal and well kempt Debridement Note Debridement Note Wound debrided: sacral ulcer Type of Debridement: Excisional debridement Anesthesia Used: 4% Lidocaine Solution Depth: Down to and including healthy tissue and in the subcutaneous layer Percentage of wound debrided: 100 Instrument Used: 3mm curette Tissue Removed: Non viable tissue and slough Severity: Fat Layer Exposed Amount of bleeding with debridement: Mild Bleeding Controlled with: Pressure Patient tolerated procedure: Patient tolerated procedure well Post-Debridement Measurements and Additional Note: Post-Debridement Measurements/Treatment - Nurse 1 - General Ulcer Assessment Start: 02/12/22 14:03 Freq: Status: Active Protocol: RACHELLE Activity Type Activity Date Activity User E-Sign Co-Sign Detail Recorded Client Recorded Date Recorded By Document 02/12/22 14:03 ALEX [id number] 02/12/22 14:14 SC 02/12/22 14:03 WC - Today's Visit Information Type of service Follow-up Visit (Physician/INFRASTRUCTURE DIRECTOR ) Arrival Mode Wheelchair Transfer Assistance Transfer Board Patient Identification Verified (Name & Yes ) Patient Requires Transmission-Based No Precautions Height and Weight Body Mass Index (BMI) 24.0 BMI Classification Normal Vital Signs Temperature (97.8 F-99.1 F) 98.6 F Temperature Source Temporal Pulse Rate (60-100) 77 Pulse Location Monitor Blood Pressure (90/60-120/80) 131/61 H Blood Pressure Mean (mm Hg) 84 Source Monitor History Since Last Visit- (Skip if this is Patient's initial visit) Have you changed medications since your No last visit? Any new allergies or adverse reactions No Had a fall/change in ADL's that may No increase risk of falls Signs or symptoms of abuse and/or No neglect since last visit Have you been in the hospital since your No last visit? Has dressing in place as prescribed Yes Has compression in place as prescribed N/A Has offloadiing in place as prescribed Yes Experienced any changes in pain level or No management Left Footwear Regular Shoe Right Footwear Regular Shoe Pain Scale: 0-10 Numeric Is Patient Pain Free? Yes - Nurse 1 - General Ulcer Measurement Start: 02/12/22 14:03 Freq: Status: Active Protocol: Activity Type Activity Date Activity User E-Sign Co-Sign Detail Recorded Client Recorded Date Recorded By Document 02/12/22 14:03 ALEX [id number] 02/12/22 14:14 SC 02/12/22 14:03 Wound Center Nurse 1 #3- coccyx -Combined with other wound No -Current Size (cm) - Length 4 -Current Size (cm) - Width 4 -Current Size (cm) - Depth 1.2 -Total Square Cm 16 -Date of Last Picture (Recall this 02/12/22 field) -Photo Taken Yes -Epithelialization Large 67-100% -Tunneling Yes -Tunneling Position (O'clock) 9 -Tunneling Distance (cm) 1 -Undermining/Tunneling No -Circular Undermining No -Exudate Amt Large -Exudate Type Serosanguineous -Wound Margin Distinct, Outline Attached -Granulation Amt Large (67-100%) -Granulation Quality Pale,[place] -Slough/Fibrin Yes -Necrosis Amt Medium (34-66%) -Necrotic Tissue Type Adherent Slough -Structure Exposed Bone -Texture (Aishwarya-wound Skin Appearance) Assessed, Scarring -Moisture (Aishwarya-wound Skin Appearance) No Abnormality, Assessed -Color (Aishwarya-wound Skin Appearance) No Abnormality, Assessed -Temperature (Aishwarya-wound Skin No Abnormality Appearance) (Pt Warm) -Tenderness on Palpation (Aishwarya-wound No Skin Appearance) -Ulcer Cleansing Soap and Water -Foul Odor after Cleansing No WC - Nurse 2 - General Ulcer CM Notes Start: 02/12/22 14:03 Freq: Status: Active Protocol: Activity Type Activity Date Activity User E-Sign Co-Sign Detail Recorded Client Recorded Date Recorded By Document 02/12/22 15:06 DREW [id number] 02/12/22 15:07 DREW 02/12/22 15:06 Wound Center Nurse 2 -Correct Patient Yes -Correct Side, Site, Position Yes -Correct Procedure Yes -Procedure Performed Yes -Type of Procedure Debridement -Clinical Debridement Subcutaneous -Tissue Removed Subcutaneous -Post Debridement (cm) - Length 1.0 -Post Debridement (cm) - Width 0.2 -Post Debridement (cm) - Depth 0.8 -Total Square (Post) (cm) 0.20 -Area of Debridement (cm) - Length 1.0 -Area of Debridement (cm) - Width 0.2 -Total Square (Area) (cm) 0.20 -Tunneling Yes -Tunneling Position (O'clock) 9 -Tunneling Distance (cm) 0.8 -Undermining/Tunneling No -Circular Undermining No -Wound/Ulcer Outcome Not Healed -Ulcer Cleansing Rinsed/ Irrigated with Saline -Foul Odor after Cleansing No -Bioengineered Tissue No -Bleeding Controlled with Pressure -Treatment Response Procedure Tolerated Well -Offloading No -Pressure Reduction Wheelchair cushion -Debridement - Subq, 1st 20sq cm Yes Pain Scale: 0-10 Numeric Is Patient Pain Free? 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 Yes WC - Visit Discharge Discharge Condition Stable Ambulatory Status Wheelchair Transportation Private Auto Assessment/Plan Assessment/Plan (1) Stage IV pressure ulcer of sacral region: CODE(S): L89.154 - Pressure ulcer of sacral region, stage 4 (2) Chronic osteomyelitis of pelvis: CODE(S): M86.659 - Other chronic osteomyelitis, unspecified thigh (3) Spina bifida: CODE(S): Q05.9 - Spina bifida, unspecified PLAN: This is a chronic ulcer that we are doing palliative maintenance. Patient and his parents are not interested in further surgeries or flaps. Wound care - Place Aquacel - Ag into the undermining at 9 o'clock, it is small and will be difficult to pack, cover with gauze. Do this daily after washing the area with soap and water. 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 Culture obtained 04/04/20 was positive for Proteus mirabilis and Staphylococcus aureus. He was placed on Augmentin and has finished them. His Prealbumin from 08/30/19 was 17.2. Encourage nutritional supplementation with protein to help the healing process. Followup four weeks.
== END 2022-02-19 23:59 | disposition home or self-care (01) ==
LOC: WC 14:15
PROVIDERS: PCP Family Medicine; Visit Provider Nurse Practitioner Family
DX: L89.154 Pressure ulcer of sacral region, stage 4 (principal); Q05.9 Spina bifida, unspecified; M46.28 Osteomyelitis of vertebra, sacral and sacrococcygeal region; M86.659 Other chronic osteomyelitis, unspecified thigh
CPT/HCPCS: 11042

== ENCOUNTER 2022-03-11 13:00 | Outpatient (RCR) | payer MEDICAID, SELFPAY ==
[2022-02-20 00:12] VITALS: BP 131/61; PULSE 77; RESP 18; TEMP 37; BMI 24.0
[2022-03-11 13:01] VITALS: BP 138/74; PULSE 73; TEMP 36.1; BMI 24.0
--- NOTE | 2022-03-11 16:33 | PCM.WC.PN ---
History of Present Illness Date of Service: 03/11/22 Chief Complaint: Sacral pressure sore in the posterior aspect of the pelvis, Stage IV, with osteomyelitis of the pelvis. History of Wound: Surgery 08/05/19 - 1. Excision sacral pressure sore in posterior aspect of pelvis, Stage IV. 2. Partial ostectomy pelvis for osteomyelitis. Wound culture obtained today 03/11/22 since there has a not been much improvement. Wound care - Purvi covered by gauze daily. Wound culture from 04/04/20 was positive for Proteus mirabilis and Staphylococcus aureus. He was placed on Augmentin and has finished them. Pathology was negative for osteomyelitis. CT Pelvis from 08/20/19 showed persistent, if slightly worse sacral decubitus ulcer when compared to the previous study from 12/07/2018. There are persistent erosive changes within the sacrum suggesting associated osteomyelitis. The ulcer measures approximate 4.9 x 3.4 x 4.9 cm, is gas-filled and appears to contain packing material. Stable surgical hardware in the lower lumbar spine and sacrum. Prealbumin from 08/30/19 was 17.2. Encourage nutritional supplementation with protein to help the healing process. Today he denies fever. His appetite is good. Progress of Wound: Has a small opening of the ulcer at 9 o'clock with some undermining. It is pink with a small amount of drainage. Wound culture obtained. Objective Data Objective Data Vital Signs: Vital Signs Temp Pulse Resp BP 97.0 F L 73 18 138/74 H 03/11/22 13:01 03/11/22 13:01 02/20/22 00:12 03/11/22 13:01 Body Mass Index (BMI) 24.0 Charges/Coding Procedures Integumentary [id number]: [id number] Alma Delia subq tissue 20 sq cm/< Physical Exam Const alert and oriented x3 General Appearance: cooperative HEENT normocephalic Head and Scalp: atraumatic Lymph Lymphatic: no lymphedema noted Resp normal respiratory effort Cardio regular rate GI non-tender Palpation: soft Extremity normal capillary refill Skin Wound Narrative: Ulcer is smaller in size but there is a small area of undermining at 9 o'clock Neuro CN's II-XII intact bilaterally Psych Appearance: grossly normal and well kempt Debridement Note Debridement Note Wound debrided: sacral ulcer Type of Debridement: Excisional debridement Anesthesia Used: 4% Lidocaine Solution Depth: Down to and including healthy tissue and in the subcutaneous layer Percentage of wound debrided: 100 Instrument Used: 3mm curette Tissue Removed: Non viable tissue and slough Severity: Fat Layer Exposed Amount of bleeding with debridement: Mild Bleeding Controlled with: Pressure Patient tolerated procedure: Patient tolerated procedure well Post-Debridement Measurements and Additional Note: Post-Debridement Measurements/Treatment STACY - Nurse 1 - General Ulcer Assessment Start: 03/11/22 13:01 Freq: Status: Active Protocol: RACHELLE Activity Type Activity Date Activity User E-sign Co-sign Detail Recorded Client Recorded Date Recorded By Document 03/11/22 13:01 SUPA [id number] 03/11/22 13:03 SUPA 03/11/22 13:01 WC - Today's Visit Information Type of service Follow-up Visit (Physician/CLINICAL ORTHOPTIST ) Arrival Mode Wheelchair Patient Identification Verified (Name & Yes ) Height and Weight Body Mass Index (BMI) 24.0 BMI Classification Normal Vital Signs Temperature (97.8 F-99.1 F) 97.0 F L Temperature Source Temporal Pulse Rate (60-100) 73 Pulse Location Monitor Blood Pressure (90/60-120/80) 138/74 H Blood Pressure Mean (mm Hg) 95 Source Monitor Position Semi-Fowlers Blood Pressure Location Right Arm History Since Last Visit- (Skip if this is Patient's initial visit) Have you changed medications since your No last visit? Any new allergies or adverse reactions No Had a fall/change in ADL's that may No increase risk of falls Signs or symptoms of abuse and/or No neglect since last visit Have you been in the hospital since your No last visit? Has dressing in place as prescribed Yes Has compression in place as prescribed N/A Has offloadiing in place as prescribed N/A Experienced any changes in pain level or No management Left Footwear Regular Shoe Right Footwear Regular Shoe Pain Scale: 0-10 Numeric Is Patient Pain Free? Yes STACY - Nurse 1 - General Ulcer Measurement Start: 03/11/22 13:01 Freq: Status: Active Protocol: Activity Type Activity Date Activity User E-sign Co-sign Detail Recorded Client Recorded Date Recorded By Document 03/11/22 13:01 SUPA [id number] 03/11/22 13:03 SUPA 03/11/22 13:01 Wound Center Nurse 1 #3- coccyx -Current Size (cm) - Length 3.5 -Current Size (cm) - Width 3.5 -Current Size (cm) - Depth 2.5 -Total Square Cm 12.25 -Exudate Amt Small -Exudate Type Serosanguineous -Wound Margin Distinct, Outline Attached -Granulation Amt Large (67-100%) -Granulation Quality Pale -Necrosis Amt None Present (0 %) -Texture (Aishwarya-wound Skin Appearance) Assessed, Scarring -Moisture (Aishwarya-wound Skin Appearance) No Abnormality, Assessed -Color (Aishwarya-wound Skin Appearance) No Abnormality, Assessed -Temperature (Aishwarya-wound Skin No Abnormality Appearance) (Pt Warm) -Tenderness on Palpation (Aishwarya-wound No Skin Appearance) -Ulcer Cleansing Rinsed/ Irrigated with Saline -Foul Odor after Cleansing No -Anesthetic Used 4% Lidocaine Solution STACY - Nurse 2 - General Ulcer CM Notes Start: 03/11/22 13:01 Freq: Status: Active Protocol: Activity Type Activity Date Activity User E-sign Co-sign Detail Recorded Client Recorded Date Recorded By Document 03/11/22 13:10 [id number] 03/11/22 13:17 DREW 03/11/22 13:10 Wound Center Nurse 2 -Time 13:11 -Correct Patient Yes -Correct Side, Site, Position Yes -Correct Procedure Yes -Procedure Performed Yes -Type of Procedure Debridement -Clinical Debridement Subcutaneous -Tissue Removed Subcutaneous -Post Debridement (cm) - Length 0.4 -Post Debridement (cm) - Width 0.6 -Post Debridement (cm) - Depth 0.2 -Total Square (Post) (cm) 0.24 -Area of Debridement (cm) - Length 0.4 -Area of Debridement (cm) - Width 0.6 -Total Square (Area) (cm) 0.24 -Undermining/Tunneling No -Circular Undermining No -Wound/Ulcer Outcome Not Healed -Ulcer Cleansing Rinsed/ Irrigated with Saline -Foul Odor after Cleansing No -Bioengineered Tissue No -Bleeding Controlled with Pressure -Treatment Response Procedure Tolerated Well -Offloading No -Pressure Reduction Wheelchair cushion -Debridement - Subq, 1st 20sq cm Yes Pain Scale: 0-10 Numeric Is Patient Pain Free? Yes STACY - Nurse 3 - General Ulcer D/C NN Start: 03/11/22 13:01 Freq: Status: Active Protocol: Activity Type Activity Date Activity User E-sign Co-sign Detail Recorded Client Recorded Date Recorded By Document 03/11/22 13:32 SUPA [id number] 03/11/22 13:32 SUPA 03/11/22 13:32 Wound Care Nurse 3 #3- coccyx -Ulcer Cleansing Rinsed/ Irrigated with Saline -Primary Dressing Applied Promogran -Primary Dressing Covered/Secured with Dry Gauze, Secured with Tape -Promogran 1 Pain Scale: 0-10 Numeric Is Patient Pain Free? Yes WC - Visit Discharge Discharge Condition Stable Ambulatory Status Wheelchair Transportation Private Auto Assessment/Plan Assessment/Plan (1) Stage IV pressure ulcer of sacral region: CODE(S): L89.154 - Pressure ulcer of sacral region, stage 4 (2) Chronic osteomyelitis of pelvis: CODE(S): M86.659 - Other chronic osteomyelitis, unspecified thigh (3) Spina bifida: CODE(S): Q05.9 - Spina bifida, unspecified PLAN: Plan This is a chronic ulcer that we are doing palliative maintenance. Patient and his parents are not interested in further surgeries or flaps. Wound care - Stop Aquacel - Ag and start Purvi in the undermining at 9 o'clock, it is small and will be difficult to pack, cover with gauze. Do this daily after washing the area with soap and water. Wound culture obtained today, 03/11/22 due to ulcer not showing much improvement. Depending on the results of the culture, it may necessitate the need to treat with antibiotics. 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 Culture obtained 04/04/20 was positive for Proteus mirabilis and Staphylococcus aureus. He was placed on Augmentin and has finished them. His Prealbumin from 08/30/19 was 17.2. Encourage nutritional supplementation with protein to help the healing process. Followup four weeks.
== END 2022-03-21 23:59 | disposition home or self-care (01) ==
LOC: WC 13:00
PROVIDERS: PCP Family Medicine; Visit Provider Nurse Practitioner Family
DX: L89.154 Pressure ulcer of sacral region, stage 4 (principal); Q05.9 Spina bifida, unspecified; M86.659 Other chronic osteomyelitis, unspecified thigh
CPT/HCPCS: 11042; 87070; 87075; 87077; 87205

== ENCOUNTER 2022-06-24 13:31 | Outpatient (RCR) | payer MEDICAID, SELFPAY ==
[2022-03-22 00:13] VITALS: BP 138/74; PULSE 73; RESP 18; TEMP 36.1; BMI 24.0
[2022-06-24 14:00] VITALS: BP 124/75; PULSE 64; TEMP 36.6; BMI 24.0
--- NOTE | 2022-06-24 15:26 | PN.PCM_ITS ---
History of Present Illness Date of Service: 06/24/22 Chief Complaint: Sacral pressure sore in the posterior aspect of the pelvis, Stage IV, with osteomyelitis of the pelvis. History of Wound: Surgery 08/05/19 - 1. Excision sacral pressure sore in posterior aspect of pelvis, Stage IV. 2. Partial ostectomy pelvis for osteomyelitis. Wound culture obtained today 03/11/22 since there has a not been much improvement. Wound care - Purvi covered by gauze daily. Wound culture from 04/04/20 was positive for Proteus mirabilis and Staphylococcus aureus. He was placed on Augmentin and has finished them. Pathology was negative for osteomyelitis. CT Pelvis from 08/20/19 showed persistent, if slightly worse sacral decubitus ulcer when compared to the previous study from 12/07/2018. There are persistent erosive changes within the sacrum suggesting associated osteomyelitis. The ulcer measures approximate 4.9 x 3.4 x 4.9 cm, is gas-filled and appears to contain packing material. Stable surgical hardware in the lower lumbar spine and sacrum. Prealbumin from 08/30/19 was 17.2. Encourage nutritional supplementation with protein to help the healing process. Today he denies fever. His appetite is good. Progress of Wound: Patient has not been seen since the end of February. He states that his ulcer healed but his mother told him to follow up to make sure that everything was ok before he stopped coming to the wound center. His sacral ulcer is healed today. Objective Data Objective Data Vital Signs: Vital Signs Temp Pulse Resp BP 97.9 F 64 18 124/75 H 06/24/22 14:00 06/24/22 14:00 03/22/22 00:13 06/24/22 14:00 Body Mass Index (BMI) 24.0 Charges/Coding Visit Charges Office Visits / Consults: 90860 OV L3 Est Physical Exam Const alert and oriented x3 General Appearance: cooperative HEENT normocephalic Head and Scalp: atraumatic Lymph Lymphatic: no lymphedema noted Resp normal respiratory effort and clear to auscultation bilaterally Cardio regular rate and regular rhythm GI normal to inspection, nondistended, normoactive bowel sounds and non-tender Palpation: soft Extremity normal capillary refill Skin Skin Narrative: Sacral ulcer is healed. There was some thickened scabbing on the scar tissue that was easily removed. Wound Narrative: Ulcer is smaller in size but there is a small area of undermining at 9 o'clock Neuro CN's II-XII intact bilaterally Psych affect normal Appearance: grossly normal and well kempt Debridement Note Debridement Note No debridement was completed: No debridement was completed today Post-Debridement Measurements and Additional Note: Post-Debridement Measurements/Treatment - Nurse 1 - General Ulcer Assessment Start: 06/24/22 13:59 Freq: Status: Active Protocol: LOWEXTrip Activity Type Activity Date Activity User E-sign Co-sign Detail Recorded Client Recorded Date Recorded By Document 06/24/22 14:00 SUPA [id number] 06/24/22 14:02 KR 06/24/22 14:00 WC - Today's Visit Information Type of service Follow-up Visit (Physician/FIRE SYSTEMS INSPECTOR ) Arrival Mode Wheelchair Patient Identification Verified (Name & Yes ) Height and Weight Body Mass Index (BMI) 24.0 BMI Classification Normal Vital Signs Temperature (97.8 F-99.1 F) 97.9 F Temperature Source Temporal Pulse Rate (60-100) 64 Pulse Location Monitor Blood Pressure (90/60-120/80) 124/75 H Blood Pressure Mean (mm Hg) 91 Source Monitor Position Sitting Blood Pressure Location Right Arm History Since Last Visit- (Skip if this is Patient's initial visit) Have you changed medications since your No last visit? Any new allergies or adverse reactions No Had a fall/change in ADL's that may No increase risk of falls Signs or symptoms of abuse and/or No neglect since last visit Have you been in the hospital since your No last visit? Has dressing in place as prescribed No Has compression in place as prescribed N/A Has offloadiing in place as prescribed N/A Experienced any changes in pain level or No management Left Footwear Regular Shoe Right Footwear Regular Shoe Pain Scale: 0-10 Numeric Is Patient Pain Free? Yes - Nurse 1 - General Ulcer Measurement Start: 06/24/22 13:59 Freq: Status: Active Protocol: Activity Type Activity Date Activity User E-sign Co-sign Detail Recorded Client Recorded Date Recorded By Document 06/24/22 14:00 SUPA [id number] 06/24/22 14:02 KR 06/24/22 14:00 Wound Center Nurse 1 #3- coccyx -Current Size (cm) - Length 0.1 -Current Size (cm) - Width 0.1 -Current Size (cm) - Depth 0.1 -Total Square Cm 0.01 -Exudate Amt None Present -Wound Margin Distinct, Outline Attached -Granulation Amt None Present (0 %) -Necrosis Amt None Present (0 %) -Texture (Aishwarya-wound Skin Appearance) Assessed, Scarring -Moisture (Aishwarya-wound Skin Appearance) No Abnormality, Assessed -Color (Aishwarya-wound Skin Appearance) No Abnormality, Assessed -Temperature (Aishwarya-wound Skin No Abnormality Appearance) (Pt Warm) -Tenderness on Palpation (Aishwarya-wound No Skin Appearance) -Ulcer Cleansing Rinsed/ Irrigated with Saline -Foul Odor after Cleansing No -Anesthetic Used 5% Lidocaine Gel - Nurse 2 - General Ulcer CM Notes Start: 06/24/22 13:59 Freq: Status: Active Protocol: Activity Type Activity Date Activity User E-sign Co-sign Detail Recorded Client Recorded Date Recorded By Document 06/24/22 14:32 [id number] 06/24/22 14:33 06/24/22 14:32 Wound Center Nurse 2 -Correct Patient No -Correct Side, Site, Position No -Correct Procedure No -Procedure Performed No -Post Debridement (cm) - Length 0 -Post Debridement (cm) - Width 0 -Post Debridement (cm) - Depth 0 -Total Square (Post) (cm) 0 -Area of Debridement (cm) - Length 0 -Area of Debridement (cm) - Width 0 -Total Square (Area) (cm) 0 -Wound/Ulcer Outcome Healed- Epithelialized Pain Scale: 0-10 Numeric Is Patient Pain Free? Yes - Nurse 3 - General Ulcer D/C NN Start: 06/24/22 13:59 Freq: Status: Active Protocol: Activity Type Activity Date Activity User E-sign Co-sign Detail Recorded Client Recorded Date Recorded By Document 06/24/22 14:34 [id number] 06/24/22 14:34 06/24/22 14:34 Is Patient Pain Free? Yes WC - Visit Discharge Discharge Condition Stable Ambulatory Status Wheelchair Transportation Private Auto Medication Reconcilliation completed & Yes provided to patient/care provider Clinical Summary of Care Provided Yes Assessment/Plan Assessment/Plan (1) Stage IV pressure ulcer of sacral region: CODE(S): L89.154 - Pressure ulcer of sacral region, stage 4 (2) Chronic osteomyelitis of pelvis: CODE(S): M86.659 - Other chronic osteomyelitis, unspecified thigh (3) Spina bifida: CODE(S): Q05.9 - Spina bifida, unspecified PLAN: Plan Sacral ulcer is healed. Instructed to massage lotion into this area daily to help soften the scarring. Instructed patient to make sure that he off loads to prevent pressure in this area. Scar tissue is more fragile than normal tissue, so he needs to take extra care with it to prevent it from ulcerating again. Followup as needed.
== END 2022-06-24 15:39 | disposition home or self-care (01) ==
LOC: WC 13:31
PROVIDERS: PCP Family Medicine; Visit Provider Nurse Practitioner Family
DX: L89.154 Pressure ulcer of sacral region, stage 4 (principal); Q05.9 Spina bifida, unspecified; M46.28 Osteomyelitis of vertebra, sacral and sacrococcygeal region
CPT/HCPCS: 99213; G0463

== ENCOUNTER 2024-03-13 20:25 | Observation (INO) | payer MEDICAID, SELFPAY ==
[2024-03-13 20:37] VITALS: BP 132/70; PULSE 126; RESP 20; TEMP 36.6; O2SAT 99
--- NOTE | 2024-03-13 20:58 | CT_ITS ---
STUDY: CT ABDOMEN AND PELVIS WITH CONTRAST REASON FOR EXAM: Male, 28 years old. PAIN RADIATION DOSAGE (If Supplied By Facility): CTDIvol = ( 20.19 ) mGy, DLP = ( 641.92 ) mGycm TECHNIQUE: Transaxial images were obtained from the dome of the diaphragm to the symphysis pubis without oral contrast. IV 100mL Isovue-370 was administered. Sagittal and coronal images were reconstructed. Individualized dose optimization techniques were used for this CT. COMPARISON: None. FINDINGS: The visualized lung bases are unremarkable. The visualized portions of the heart are within normal limits. Normal liver. Normal gallbladder and extrahepatic biliary system. Normal spleen. Normal pancreas. Normal bilateral adrenal glands. Normal right kidney. Normal left kidney. Normal visualized stomach. Normal small intestine. Fecal retention in the colon. The appendix is nonvisualized. Normal abdominal aorta. Normal inferior vena cava. Normal retroperitoneum. Normal urinary bladder. There is a shunt catheter present with tip in the left mid abdomen. Vertebral rods are present with artifact limiting images. CT/Abdomen/Pelvis W IV Cont ONLY IMPRESSION: Colonic fecal retention. Limited study due to artifact. Electronically Signed: Quincy Echevarria DO at 22:14 EDT Reading Location ID and State: [facility] / [place] Tel [phone], Service support ,
[2024-03-13] MEDS: 0.9% Normal Saline (1000mL) 1,000 ML 999 ML IV (21:10)
[2024-03-13] MEDS: Morphine 4 MG/ML Syringe IV (21:10)
[2024-03-13] MEDS: Ondansetron 4 MG/2 ML Vial IV (21:10)
--- NOTE | 2024-03-13 21:16 | ED.VIS.GI ---
HPI HPI - GI History of Present Illness Chief Complaint: Abd Pain Informant: patient Narrative Narrative: Patient is a 28-year-old male with history of spina bifida status post shunt (no longer works), abdominal surgeries and spinal fusion, self caths at baseline presenting with sudden onset of epigastric abdominal pain. He feels its under his rib cage. It started at 2 PM today. Has associated nausea and vomiting. The vomit was just the food he is eating. He states it feels like his prior small bowel obstruction and he wanted to have this evaluated. Questionabley he had a fever but does not feel like he currently has a fever right now. He had a bowel movement yesterday which is normal and been passing small amount of gas today. Denies any blood in his vomit or stools. Denies any sick contacts. No other complaints at this time. [facility] Medical History Kidney stones Migraines Home Medications ?Medication ?Instructions ?Recorded ?Last Taken ?Type darifenacin 15 mg tablet,extended 15 mg PO QHS BLADDER 10/09/17 08/17/19 History release 24 hr docusate sodium 283 mg/5 mL enema 1 ea RECTAL QODAY constipation 08/18/19 08/17/19 History sodium hypochlorite 0.25 % solution 1 applic topical BID 08/23/19 Unknown Rx Allergy/AdvReac Type Severity Reaction Status Date / Time codeine Allergy Hives Verified 03/13/24 20:26 latex Allergy precaution Verified 03/13/24 20:26 danyel Surgical History History of appendectomy Social History Smoking Status: Never smoker ROS ROS ED Constitutional Constitutional ED: Reports chills Cardiovascular Cardiovascular: Denies chest pain or palpitations Respiratory/Chest Respiratory/Chest: Denies cough or dyspnea Gastrointestinal Gastrointestinal: Reports abdominal pain, nausea and vomiting; Denies constipation or diarrhea Musculoskeletal Musculoskeletal: Denies arthralgias or myalgias Integumentary Denies rash Neurologic Neurologic: Denies headache(s) or weakness EXAM Physical Exam Const Vital Signs: 03/13/24 20:37 03/13/24 22:25 Temperature 97.8 F 98.8 F Temperature Source Temporal Oral Pulse Rate 126 H 74 Respiratory Rate 20 H 16 Blood Pressure 132/70 H 133/76 H Blood Pressure Mean 90 95 Pulse Ox 99 98 Oxygen Delivery Method Room Air Room Air Positive well nourished and well developed General Appearance ED: well developed HEENT Reports moist mucous membranes Eyes PERRL Neck supple Resp normal respiratory effort and clear to auscultation bilaterally Cardio regular rhythm Rate: tachycardic GI non-distended Auscultation: hypoactive bowel sounds Palpation: soft; Negative for guarding or rigid Extremity Extremity Narrative: Atrophy of the lower extremities consistent with a spina bifida Neuro Sensorium / Orientation: alert, oriented to person, oriented to place and oriented to time Motor Exam: Negative for general weakness Psych mental status grossly normal and thought process normal Skin no wounds MDM MDM MDM Narrative Medical decision making narrative: Patient is a 28-year-old male presenting with nausea, vomiting abdominal pain. Does have a history of small bowel obstruction and his symptoms feel reminiscent of this. Workup shows a mild leukocytosis 11.2 and a slightly hemoconcentrated with a hemoglobin of 16.8 however his platelets are normal. CMP largely unremarkable and his lipase is normal. Urinalysis does show 150 ketones with positive nitrates and 0-5 white blood cells. No bacteria seen but will send for culture. Patient is she is given IV morphine, fluids and Zofran. On repeat evaluation he is feeling improved but his pain does return. He has had given a GI cocktail. CT of the abdomen and pelvis shows colonic fecal retention but study is limited secondary to artifact. Rates are reviewed with the family who are concerned because last time he had a small bowel obstruction it sounds it was more insidious and took a while to diagnose. Apparently patient does use an enema every other day but with the symptoms tried another enema today with no results. Discussed that there could be component of dehydration especially given that he is undergoing pretty extensive training for [employer]. Case is discussed with general surgery on-call, Dr. Lennon, who reviews the films. He does feel that likely this is more of a fecal retention/constipation picture. He does not think there is an ileus or small bowel obstruction. Will attempt soapsuds enema and if patient has excess plan to discharge home with magnesium citrate for further GI cleanout. If this is unsuccessful patient might require admission for further cleanout. Patient signed out to oncoming physician for final disposition. Lab Data Labs: Laboratory Results - last 24 hr 03/13/24 03/13/24 21:22 23:23 WBC 11.2 H RBC 6.28 H Hgb 16.8 H Hct 52.9 MCV 84.2 MCH 26.8 L MCHC 31.8 L RDW Std Deviation 41.1 RDW Coeff of Walter 13.3 Plt Count 295 MPV 10.8 Immature Gran % (Auto) 0.200 Neut % (Auto) 88.7 H Lymph % (Auto) 7.9 L [place] % (Auto) 3.1 Eos % (Auto) 0.0 Baso % (Auto) 0.1 Absolute Neuts (auto) 10.0 H Absolute Lymphs (auto) 0.89 Nucleated RBC % 0 Sodium 137 Potassium 3.8 Chloride 103 Carbon Dioxide 28.0 Anion Gap 6 BUN 14 Creatinine 0.73 Estim Creat Clear Calc 78.69 Est GFR (MDRD) Af Amer 166 Est GFR (MDRD) Non-Af 137 BUN/Creatinine Ratio 19.2 Glucose 102 Lactic Acid 1.7 Calcium 9.9 Total Bilirubin 0.70 AST 19 ALT 26 Alkaline Phosphatase 99 Total Protein 8.8 H Albumin 4.6 Globulin 4.2 Albumin/Globulin Ratio 1.1 Lipase 44 Urine Color Yellow Urine Clarity Clear Urine pH 5.0 Ur Specific [place] 1.010 Urine Protein 15 H Urine Glucose (UA) Normal Urine Ketones 150 A* Urine Occult Blood Negative Urine Nitrite Positive H Urine Bilirubin Negative Urine Urobilinogen 1 H Ur Leukocyte Esterase 100 H Urine RBC 0 SEEN Urine WBC 0-5 SEEN Ur Squamous Epith Cells 0 SEEN Urine Bacteria 0 SEEN Urine Mucus 0 SEEN Radiography Diagnostic Testing: Clinical Impression(s) from Imaging Studies Abdomen/Pelvis CT 03/13/24 20:58 IMPRESSION: Colonic fecal retention. Limited study due to artifact. Electronically Signed: Quincy Echevarria DO at 22:14 EDT Reading Location ID and State: [facility] / [place] Tel [phone], Service support , Discharge Plan Triage Chief Complaint: Abd Pain ED Provider: Hilda Lewis Dx/Rx/DC Orders Clinical Impression: Abdominal pain, Nausea & vomiting, Fecal retention Prescriptions: No Action darifenacin 15 MG tablet extended release 24 hr 15 mg PO QHS docusate sodium 283 MG/5 ML enema 1 ea RECTAL QODAY Patient Comments: INSERT ONE ENEMA RECTALLY ONCE DAILY sodium hypochlorite 1 APPLIC bottle 1 applic topical BID 0RF Protocol: *Topical Application Instructions APPLICATION INSTRUCTIONS: apply with tano conde and ABD Primary Care Provider: Kevin Coleman Referrals: Kevin Coleman MD [Primary Care Provider] - Print Language: Indonesian
[2024-03-13 21:17] VITALS: BMI 13.8
[2024-03-13 21:29] LABS: Absolute Lymphocyte Count 0.89 X10^3/uL (0.83-4.51); Basophil# 0.01 X10^3/uL; Basophil% 0.1 % (0-1); Hematocrit 52.9 % (40-54); Hemoglobin 16.8 g/dL (13.0-16.5); Lymphocyte # 0.89 X10^3/ul (0.83-4.51); Lymphocyte % 7.9 % (19-41); Mean Corp Hgb Conc 31.8 g/dL (32-36); Mean Corpuscular Hgb 26.8 pg (27.0-32.0); Mean Corpuscular Volume 84.2 fL (80-94); Mean Platelet Vol. 10.8 fl (6.2-12.0); Monocyte# 0.35 X10^3/uL; Monocyte% 3.1 % (0-10); NRBC Flagged by Analyzer 0 % (0-5); Neutrophil # 9.96 X10^3/uL (2.7-7.7); Neutrophil % 88.7 % (47-70); Platelet Count 295 K/mm3 (150-450); RBC Distribution Width CV 13.3 % (11.6-14.6); RBC Distribution Width SD 41.1 fl (35.1-43.9); Red Blood Count 6.28 M/mm3 (4.6-6.2); White Blood Count 11.2 K/mm3 (4.4-11.0)
[2024-03-13 21:51] LABS: ALB/GLOB Ratio 1.1 RATIO (0.9-2.4); AST(SGOT) 19 U/L (15-37); Alanine Aminotransfer ALT/SGPT 26 U/L (16-61); Albumin, Serum 4.6 g/dL (3.2-5.0); Alkaline Phosphatase 99 U/L (45-117); Anion Gap 6 (5-15); BUN 14 mg/dL (7-18); BUN/Creat Ratio 19.2 RATIO (10-20); Calcium,Total 9.9 mg/dL (8.5-10.1); Chloride 103 mmol/L (98-107); Creatinine, Serum 0.73 mg/dL (0.70-1.30); EST Glomerular Filtration Rate 137 mL/min (>60); Est Glom Filt Rate - Afr Amer 166 mL/min (>60); Estimated Creatinine Clearance 78.69 ml/min; Globulin 4.2 g/dL (2.2-4.2); Glucose 102 mg/dL (74-106); Lipase 44 U/L (13-75); Potassium 3.8 mmol/L (3.5-5.1); Protein, Total 8.8 g/dL (6.4-8.2); Sodium Level 137 mmol/L (136-145)
[2024-03-13 22:11] LABS: Lactic Acid 1.7 mmol/L (0.4-1.9)
[2024-03-13 22:25] VITALS: BP 133/76; PULSE 74; RESP 16; TEMP 37.1; O2SAT 98
[2024-03-13 23:29] LABS: Bacteria 0 SEEN /hpf (None Seen); Mucous, Urine 0 SEEN /hpf (<or=2+); Red Blood Cells-Urine 0 SEEN /hpf (0-5); Squamous Epithelial Cells - UA 0 SEEN /hpf (0-5)
[2024-03-13 23:39] LABS: Color, Urine Yellow (Yellow); Glucose, Dipstick Normal (Normal); Leukocyte Esterase-Dipstick 100 /ul (Negative); Nitrite-Dipstick Positive (Negative); Occult Blood-Urine Negative /ul (Negative); Protein-Dipstick 15 mg/dl (Negative); Urine Bilirubin Dipstick Negative (Negative); Urine Clarity Clear (Clear); Urine Urobilinogen 1 mg/dl (Normal)
[2024-03-13 23:43] LABS: Ketone-Dipstick 150 mg/dl (Negative)
[2024-03-13 23:55] LABS: White Blood Cells 0-5 SEEN /hpf (0-5)
[2024-03-14] VITALS (9 sets, daily range): BP systolic 108–146; BP diastolic 53–80; PULSE 75–82; RESP 16; TEMP 37–37.3; O2SAT 96–98; BMI 22.8
[2024-03-14] MEDS: Lidocaine 2% Viscous15 ML UDC 15 ML PO (00:41)
[2024-03-14] MEDS: Mag Hydrox/Al Hydrox/Simeth 30 ML UDC PO (00:41)
[2024-03-14] MEDS: 0.9% Normal Saline (1000mL) 1,000 ML 999 ML IV (00:41)
[2024-03-14] MEDS: LORazepam 2 MG/ML Syringe 1 MG IV (03:04)
[2024-03-14] MEDS: Lactulose 20 GM/30 ML UDC 30 GM PO (03:24)
--- NOTE | 2024-03-14 04:46 | PCM.HP.STD ---
[facility] - General General Date of Admission: 03/14/24 Date of Service: 03/14/24 Chief Complaint: Constipation, Nausea and Vomiting. HPI Narrative RORY HERNÁNDEZ, is a 28 M with a past medical history of spina bifida; status post shunt (no longer operational), history of spinal fusion, history of stage IV pressure ulcer of the sacral region, chronic osteomyelitis of the pelvis, neurogenic bladder; with history of self-catheterization, migraine headaches, history of renal calculi, history of appendectomy, history of SBO and history of fecal retention and chronic constipation who presents to [facility] ER complaining of constipation, nausea and vomiting. Mr. Hernández reports his symptoms began approximately 2 PM on March 13, 2024 with the abrupt onset of abdominal pain that was primarily in the epigastric region, under his rib cage, cramping, moderate and was made better or worse by nothing. He also admits to associated nausea with emesis appearing like the food he had just eaten with no evidence of bleeding. He also noted subjective fever. He states he had a normal bowel movement yesterday and has been passing small amounts of gas today. He informed the ER provider that his abdominal pain felt very similar to her previous small bowel obstruction and this caused him to seek further medical attention. He is interested in potential colonoscopy and general surgery thinks it would be indicated. 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 In the ER he was treated with an enema and oral lactulose but without subsequent bowel movement with CT confirming colonic fecal retention so the ER provider has not contacted the hospitalist to admit this patient to the general medical floor under observation status for severe constipation for stay that is expected to be less than 2 midnights. [facility] Medical History (Updated 03/14/24 @ 06:[address] Justus Roche, DO) Spina bifida Nonfunctioning ventriculoperitoneal shunt Kidney stones Migraines Home Medications ?Medication ?Instructions ?Recorded ?Last Taken ?Type darifenacin 15 mg tablet,extended 15 mg PO QHS BLADDER 10/09/17 08/17/19 History release 24 hr docusate sodium 283 mg/5 mL enema 1 ea RECTAL QODAY constipation 08/18/19 08/17/19 History sodium hypochlorite 0.25 % solution 1 applic topical BID 08/23/19 Unknown Rx Allergy/AdvReac Type Severity Reaction Status Date / Time codeine Allergy Hives Verified 03/13/24 20:26 latex Allergy precaution Verified 03/13/24 20:26 danyel Surgical History History of appendectomy Social History Smoking Status: Never smoker ROS ROS Narrative Review of systems: General: Patient admits to subjective fever but denies chills. HENT: Denies headache, denies stuffy nose, denies sore throat EYES: Denies changes in vision or discharge from eyes. Resp: Denies cough, denies shortness of breath Cardiac: Denies chest pain, palpitations or heart racing. GI: Patient admits to abdominal pain with nausea and emesis as per HPI. He denies blood in stools or vomit. : Denies changes in urination Extremity: Denies swelling Musculoskeletal: Feels somewhat generally weak and unwell but he denies arthralgias or myalgias. Neuro: Patient denies headache, paresthesias or focal neurologic deficits. Heme: Denies any bleeding or bruising Skin: Denies rashes Psychiatric: No complaints voiced related to uncontrolled depression or anxiety. Endocrine: No polyuria, polydipsia or polyphagia. The rest of the 14 point ROS was negative except for positives in HPI. Vital Signs Vital Signs Vital Signs: 03/13/24 20:37 03/13/24 22:25 03/14/24 00:00 Temperature 97.8 F 98.8 F Temperature Source Temporal Oral Pulse Rate 126 H 74 75 Respiratory Rate 20 H 16 16 Blood Pressure 132/70 H 133/76 H 116/79 Blood Pressure Mean 90 95 91 Pulse Ox 99 98 97 Oxygen Delivery Method Room Air Room Air Room Air 03/14/24 02:00 03/14/24 02:57 Temperature Temperature Source Pulse Rate 76 78 Respiratory Rate 16 16 Blood Pressure 110/76 124/68 H Blood Pressure Mean 87 86 Pulse Ox 97 97 Oxygen Delivery Method Room Air Weight Weight: 80 lb 11.027 oz Body Mass Index (BMI) 13.8 Physical Exam Const alert, oriented x3 and no apparent distress Constitutional Narrative: Patient has spina bifida. General Appearance: cooperative HEENT normocephalic, head/scalp atraumatic, hearing grossly normal bilaterally and moist oral mucous membranes Eyes PERRL and EOMs intact bilaterally Neck no lymphadenopathy and supple Resp normal respiratory effort, no retractions, no use of accessory muscles and clear to auscultation bilaterally Cardio regular rate and regular rhythm GI GI Narrative: Abdomen soft, nondistended and nontender with hypoactive bowel sounds. Auscultation: hyperactive bowel sounds Extremity no clubbing, cyanosis or edema Extremity Narrative: Atrophy of the lower extremities consistent with spina bifida. Skin Skin Narrative: Patient has no evidence of rash, jaundice or abscess. Neuro oriented x3, CN's II-XII intact bilaterally and no focal motor deficits Sensorium / Orientation: awake, alert, oriented to person, oriented to place and oriented to time Speech: speech normal Psych affect normal Results Medical Records Data Attestation: I reviewed the patient's medical records Lab / Micro Data Attestation: I reviewed the patient's lab results. 03/13/24 21:22 03/13/24 21:22 Labs: Laboratory Results - last 24 hr 03/13/24 21:22: WBC 11.2 H, RBC 6.28 H, Hgb 16.8 H, Hct 52.9, MCV 84.2, MCH 26.8 L, MCHC 31.8 L, RDW Std Deviation 41.1, RDW Coeff of Walter 13.3, Plt Count 295, MPV 10.8, Immature Gran % (Auto) 0.200, Neut % (Auto) 88.7 H, Lymph % (Auto) 7.9 L, [place] % (Auto) 3.1, Eos % (Auto) 0.0, Baso % (Auto) 0.1, Absolute Neuts (auto) 10.0 H, Absolute Lymphs (auto) 0.89, Nucleated RBC % 0, Sodium 137, Potassium 3.8, Chloride 103, Carbon Dioxide 28.0, Anion Gap 6, BUN 14, Creatinine 0.73, Estim Creat Clear Calc 78.69, Est GFR (MDRD) Af Amer 166, Est GFR (MDRD) Non-Af 137, BUN/Creatinine Ratio 19.2, Glucose 102, Lactic Acid 1.7, Calcium 9.9, Total Bilirubin 0.70, AST 19, ALT 26, Alkaline Phosphatase 99, Total Protein 8.8 H, Albumin 4.6, Globulin 4.2, Albumin/Globulin Ratio 1.1, Lipase 44 03/13/24 23:23: Urine Color Yellow, Urine Clarity Clear, Urine pH 5.0, Ur Specific [place] 1.010, Urine Protein 15 H, Urine Glucose (UA) Normal, Urine Ketones 150 A*, Urine Occult Blood Negative, Urine Nitrite Positive H, Urine Bilirubin Negative, Urine Urobilinogen 1 H, Ur Leukocyte Esterase 100 H, Urine RBC 0 SEEN, Urine WBC 0-5 SEEN, Ur Squamous Epith Cells 0 SEEN, Urine Bacteria 0 SEEN, Urine Mucus 0 SEEN Imaging Radiology Impression Abdomen/Pelvis CT 03/13/24 20:58 IMPRESSION: Colonic fecal retention. Limited study due to artifact. Electronically Signed: Quincy Echevarria DO at 22:14 EDT Reading Location ID and State: [facility] / [place] Tel [phone], Service support , Assessment & Plan Assessment/Plan (1) Fecal retention: QUALIFIERS: Constipation type: unspecified constipation type Qualified Code(s): K59.00 - Constipation, unspecified (2) Nausea & vomiting: QUALIFIERS: Vomiting type: unspecified Qualified Code(s): R11.2 - Nausea with vomiting, unspecified (3) Abdominal pain: QUALIFIERS: Abdominal location: epigastric Qualified Code(s): R10.13 - Epigastric pain (4) Spina bifida: QUALIFIERS: Spinal region: unspecified Presence of hydrocephalus: without hydrocephalus Qualified Code(s): Q05.9 - Spina bifida, unspecified (5) Chronic osteomyelitis of pelvis: QUALIFIERS: Laterality: unspecified laterality Qualified Code(s): M86.659 - Other chronic osteomyelitis, unspecified thigh (6) Nonfunctioning ventriculoperitoneal shunt: QUALIFIERS: Encounter type: initial encounter Qualified Code(s): T85.09XA - Other mechanical complication of ventricular intracranial (communicating) shunt, initial encounter PLAN: Plan 1. Severe constipation refractory to treatment with enema and oral lactulose with CT confirming colonic fecal retention in the setting of previous SBO and known fecal retention with chronic constipation - Admit to general medical floor under observation status. Give IV fluid normal saline at 150 cc/h. Give IV Zofran as needed to control nausea vomiting. Keep n.p.o. except ice chips, sips and medications for now and consult general surgery to see patient on rounds in the a.m. for further recommendations with help appreciated in advance. 2. Spina bifida; status post shunt (no longer operational) complicating #1 - Noted. 3. History of spinal fusion - Noted. 4. History of stage IV pressure ulcer of the sacral region with chronic osteomyelitis of the pelvis - Noted. 5. Neurogenic bladder; with history of self-catheterization - Resume self-catheterization schedule as previous. 6. Migraine headaches - Stable no complaints of headache at this time. 7. History of renal calculi - Noted with no evidence of recurrence on CT this admission. 8. History of appendectomy - Noted. 9. DVT prophylaxis - SCD's only with possible impending colonoscopy. Total time: Approximately 75 minutes. Charges/Coding Visit Charges OBSV E&M: 18086 Observ/hosp same date L2
[2024-03-14] MEDS: Ketorolac 30 MG/ML Syringe IV (04:49)
[2024-03-14] MEDS: 0.9% Saline Lock 10 ML Syringe IV (06:32)
[2024-03-14] MEDS: 0.9% Normal Saline (1000mL) 1,000 ML 150 ML IV (06:32)
--- NOTE | 2024-03-14 07:27 | CON.PCM.SX_ITS ---
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 Admittedly, his CT imaging is difficult to interpret given the concurrent presence of hardware in his spine causing artifact in the flexion of the x-rays. However, my independent review of this imaging agrees with radiology is that there is no clear evidence of an obstructive process but evidence of significant fecal burden. In fact, I see some partial fecalization of even the distal small bowel. Coupling this observation with marked elevation of patient's hemoglobin on intake I am suspicious for some acute dehydration contributing to his current picture. Moreover or alternatively patient has an abnormal UA (which is not completely unexpected given his routine of self-catheterization), but does introduce the possibility of a concurrent urinary tract infection. I have outlined the above impressions with patient and his mother at bedside. I presented the CT imaging and outlined my interpretation as we reviewed it together. Patient's mother is cautiously receptive given shortcomings of imaging to guide medical decision making in the past but is willing to proceed as recommended. Therefore recommend: 3 times daily enemas Clear liquid diet Obtain daily KUBs Reassess abdominal exam Follow-up urine cultures Fernando Lennon MD General Surgery Endocrine Surgery Pager: [facility] [place] [address] [place] [address], [facility], [address] [place] [id number] Office: [phone] HPI Consult Data Date of Consult: 03/14/24 HPI Narrative Reason for Consultation: Severe constipation and abdominal pain HPI Narrative: RORY HERNÁNDEZ, is a 28 M who presents to [facility] after experiencing minimal results with his routine bowel regimen and nausea and vomiting. Patient's mother is in the room with him and provides much of the history. She shares that her son uses Enemeez enemas every other day to remain regular but had reported to her that he was feeling gassy still after a large bowel movement on 03/12/2024 so he decided to take another enema. However, following that enema he was unable to produce much output and awoke from a nap with nausea and vomiting. With this response they decided to seek prompt evaluation in the emergency department given a history of small bowel obstruction. Patient's ER workup was notable for normal laboratories apart from some evidence of hemoconcentration with a hemoglobin of greater than 16 (patient's baseline appears to be about 13 based on review of patient's historical EMR levels). CT of the abdomen pelvis was performed notable for significant fecal impaction but no evidence of obstruction was seen by radiology. Urinalysis was performed and suggestive of concurrent urinary tract infection. Patient has a history of spina bifida and is status post FUN[employer] LOCATION MANAGER shunt insertion but the shunt is reportedly nonfunctional. Patient also has required peritoneal approach for ureter repair after a spine surgery and thereafter developed obstructive symptoms that presented atypically requiring a diagnostic laparoscopy procedure with findings of adhesions around the small bowel. As with respect to this latter procedure that patient's mother states that she remains apprehensive because the workup previously was not necessarily reliable. Given patient's underlying diagnosis he intermittently performs self catheterizations to relieve his bladder. Mr. Hernández received a soapsuds enema yesterday and reportedly had some output but not the full volume as instilled. He now, however, reports improvement of his abdominal pain and denies any reflux (a symptom with which he presented). He also shares that he has a bit of an appetite this morning. [facility] Medical History (Updated 03/14/24 @ 06:[address] Justus Roche, ) Spina bifida Nonfunctioning ventriculoperitoneal shunt Kidney stones Migraines Home Medications ?Medication ?Instructions ?Recorded ?Last Taken ?Type darifenacin 15 mg tablet,extended 15 mg PO QHS BLADDER 10/09/17 08/17/19 History release 24 hr docusate sodium 283 mg/5 mL enema 1 ea RECTAL QODAY constipation 08/18/19 08/17/19 History Allergy/AdvReac Type Severity Reaction Status Date / Time codeine Allergy Hives Verified 03/13/24 20:26 latex Allergy precaution Verified 03/13/24 20:26 danyel Surgical History History of appendectomy Social History Smoking Status: Never smoker Physical Exam Const alert and oriented x3 Lab / Micro Data 03/14/24 07:30 03/14/24 07:30 Labs: Laboratory Results - last 24 hr 03/13/24 21:22: WBC 11.2 H, RBC 6.28 H, Hgb 16.8 H, Hct 52.9, MCV 84.2, MCH 26.8 L, MCHC 31.8 L, RDW Std Deviation 41.1, RDW Coeff of Walter 13.3, Plt Count 295, MPV 10.8, Immature Gran % (Auto) 0.200, Neut % (Auto) 88.7 H, Lymph % (Auto) 7.9 L, [place] % (Auto) 3.1, Eos % (Auto) 0.0, Baso % (Auto) 0.1, Absolute Neuts (auto) 10.0 H, Absolute Lymphs (auto) 0.89, Nucleated RBC % 0, Sodium 137, Potassium 3.8, Chloride 103, Carbon Dioxide 28.0, Anion Gap 6, BUN 14, Creatinine 0.73, Estim Creat Clear Calc 78.69, Est GFR (MDRD) Af Amer 166, Est GFR (MDRD) Non-Af 137, BUN/Creatinine Ratio 19.2, Glucose 102, Lactic Acid 1.7, Calcium 9.9, Total Bilirubin 0.70, AST 19, ALT 26, Alkaline Phosphatase 99, Total Protein 8.8 H, Albumin 4.6, Globulin 4.2, Albumin/Globulin Ratio 1.1, Lipase 44 03/13/24 23:23: Urine Color Yellow, Urine Clarity Clear, Urine pH 5.0, Ur Specific [place] 1.010, Urine Protein 15 H, Urine Glucose (UA) Normal, Urine Ketones 150 A*, Urine Occult Blood Negative, Urine Nitrite Positive H, Urine Bilirubin Negative, Urine Urobilinogen 1 H, Ur Leukocyte Esterase 100 H, Urine RBC 0 SEEN, Urine WBC 0-5 SEEN, Ur Squamous Epith Cells 0 SEEN, Urine Bacteria 0 SEEN, Urine Mucus 0 SEEN Imaging Radiology Impression Abdomen/Pelvis CT 03/13/24 20:58 IMPRESSION: Colonic fecal retention. Limited study due to artifact. Electronically Signed: Quincy Echevarria DO at 22:14 EDT , Charges/Coding Visit Charges Inpatient E&M: 79426 Init Hosp L2
[2024-03-14 07:51] LABS: Absolute Lymphocyte Count 2.26 X10^3/uL (0.83-4.51); Anion Gap 5 (5-15); BUN 10 mg/dL (7-18); BUN/Creat Ratio 17.8 RATIO (10-20); Basophil# 0.03 X10^3/uL; Basophil% 0.3 % (0-1); Calcium,Total 8.9 mg/dL (8.5-10.1); Chloride 106 mmol/L (98-107); Creatinine, Serum 0.56 mg/dL (0.70-1.30); EST Glomerular Filtration Rate 184 mL/min (>60); Eosinophil# 0.04 X10^3/uL; Eosinophils% 0.3 % (0-5); Est Glom Filt Rate - Afr Amer 223 mL/min (>60); Estimated Creatinine Clearance 165.91 ml/min; Glucose 92 mg/dL (74-106); Hematocrit 45.2 % (40-54); Hemoglobin 14.1 g/dL (13.0-16.5); Lymphocyte # 2.26 X10^3/ul (0.83-4.51); Lymphocyte % 19.7 % (19-41); Mean Corp Hgb Conc 31.2 g/dL (32-36); Mean Corpuscular Hgb 26.6 pg (27.0-32.0); Mean Corpuscular Volume 85.3 fL (80-94); Mean Platelet Vol. 10.4 fl (6.2-12.0); Monocyte# 1.09 X10^3/uL; Monocyte% 9.5 % (0-10); NRBC Flagged by Analyzer 0 % (0-5); Neutrophil # 7.99 X10^3/uL (2.7-7.7); Neutrophil % 69.8 % (47-70); Platelet Count 253 K/mm3 (150-450); Potassium 3.6 mmol/L (3.5-5.1); RBC Distribution Width CV 13.4 % (11.6-14.6); RBC Distribution Width SD 41.7 fl (35.1-43.9); Sodium Level 136 mmol/L (136-145); White Blood Count 11.5 K/mm3 (4.4-11.0)
--- NOTE | 2024-03-14 10:20 | RAD_ITS ---
STUDY: X-RAY - ABDOMEN/PELVIS REASON FOR EXAM: Male, 28 years old. Abdominal pain and distention TECHNIQUE: 2 AP portable views COMPARISON: None. FINDINGS: Normal visualized lung bases. Stable appearance of a right-sided catheter, likely a THREAD PULLER shunt Borderline distended air-filled loops of small and large bowel throughout the abdomen consistent with ileus. There is no demonstrated free abdominal air. The visualized liver, spleen and kidneys are grossly normal in size and morphology. Normal soft tissue structures. Degenerative bony changes with surgical changes noted throughout the lower thoracic and lumbar spine, no complications, although one of the screws across the right sacroiliac joint is fractured RAD/Abdomen Single View (Portable) IMPRESSION: Ileus Electronically Signed: Dontae Valentine MD at 13:16 EDT ,
--- NOTE | 2024-03-14 12:39 | PCM.HOSP.N ---
Hospitalist Note Patient admitted early this morning for severe constipation refractory to treatment at home. I saw patient at bedside later this morning. He was sitting up fairly comfortably in bed, in no acute distress. He was somewhat disinterested appearing and answer questions with only short responses. He was seen by general surgery this morning and current plan is for 3 times daily scheduled enemas, clinical diet, daily KUBs and abdominal exams for reassessment. Will monitor and see how patient does with these enemas. Full progress note to follow tomorrow.
[2024-03-14] MEDS: Acetaminophen 325 MG Tablet 650 MG PO (13:28)
[2024-03-14] MEDS: Ondansetron 4 MG/2 ML Vial IV (14:48)
--- NOTE | 2024-03-14 14:56 | CPS ---
patient is able to take deep breaths and jacobs cough
--- NOTE | 2024-03-14 15:34 | CT_ITS ---
EXAM: CT ABDOMEN AND PELVIS WITH INTRAVENOUS CONTRAST CLINICAL INDICATION: f/u ileus w inc pain -- IV and oral TECHNIQUE: Helically acquired images were obtained of the abdomen and pelvis with intravenous contrast. This CT exam was performed using one or more of the following dose reduction techniques: automated exposure control, adjustment of the mA and/or kV according to patient size, and/or use of iterative reconstruction technique. CONTRAST: Oral and amp; IV Readi-CAT and amp; 100mL Isovue-370 RADIATION DOSE: CTDIvol = 14.82 mGy, DLP = 739.40 mGy-cm COMPARISON: Study done yesterday FINDINGS: LOWER THORAX: Unremarkable. Lung bases are clear. No cardiomegaly. No significant pericardial effusion. ABDOMEN: LIVER: Unremarkable. Homogeneous. No focal mass. GALLBLADDER AND BILE DUCTS: Unremarkable. No calcified gallstones. No gallbladder distention or wall edema. No intra- or extrahepatic biliary ductal dilation. PANCREAS: Unremarkable. No focal cystic or solid mass. SPLEEN: Unremarkable. Normal size without focal cystic or solid mass. ADRENALS: Unremarkable. No nodules. KIDNEYS AND URETERS: Unremarkable. Normal renal size and position. No hydronephrosis. STOMACH AND BOWEL: Dilated small bowel containing air-fluid levels. Findings concerning for small bowel obstruction. This is likely related to an internal hernia with a transition point in the right lower quadrant. Series 601 on image 76. No focal inflammatory change. PELVIS: APPENDIX: No evidence of acute appendicitis. BLADDER: Unremarkable. REPRODUCTIVE: Unremarkable as visualized. No mass. ABDOMEN and PELVIS: INTRAPERITONEAL SPACE: Unremarkable. No ascites or other fluid collection. No free air. BONES/JOINTS: Scoliosis of the lumbar spine. Lumbar spinal fixation hardware noted. Screws transfixing the bilateral SI joints. No suspicious lytic or blastic abnormality. SOFT TISSUES: Unremarkable. No discrete abdominal or pelvic wall hernia. VASCULATURE: Unremarkable. Abdominal aorta is non-dilated. LYMPH NODES: Unremarkable. No enlarged lymph nodes. TUBES, LINES AND DEVICES: Right-sided ELECTRICAL TECHNICIAN INSTRUCTOR shunt enters in the right lower quadrant. Tip resides in the left lower quadrant. CT/Abdomen/Pelvis WITH Contrast IMPRESSION: Dilated small bowel containing air-fluid levels. Findings concerning for small bowel obstruction. This is likely related to an internal hernia with a transition point in the right lower quadrant. Series 601 on image 76. Electronically Signed: Michael Sánchez MD at 18:36 EDT ,
--- NOTE | 2024-03-14 16:47 | NURSING ---
Pt had 250 clear emesis. Instructed pt to stop drinking contrast.
[2024-03-14] MEDS: Ketorolac 15 MG/ML Vial IV (18:36)
--- NOTE | 2024-03-14 19:31 | PN_ITS ---
Progress Note I was notified this afternoon that patient had poorly tolerated a enema and was describing increased pain. I shared that I would present to bedside to reevaluate and discuss next options with family. Upon evaluation patient appeared to be sleeping but was easily arousable. His abdominal exam did not demonstrate any marked distention but he did express diffuse tenderness and given his history of spina bifida I was concerned for the reliability/ability to localize his discomfort. Thus I recommended proceeding with imaging with enteric contrast. Patient's mother stated she felt that her son could ingested contrast without placement of an NG tube so an order was placed and CT is notified. After completion of the exam radiology read the study was concerning for small bowel obstruction secondary to an internal hernia transition point in the right lower quadrant. I reviewed the imaging after it was read and presented immediately back to the patient's room to discuss the findings with his family. Patient's mother and father were both at bedside. Apparently patient had a difficult time with contrast and this resulted in a large volume emesis with additional pain. Yet, upon my reevaluation his pain was well- controlled and only mild with deep palpation in the right lower quadrant. After sharing not only the findings in summary but also directly showing family patient's imaging they immediately agreed that transfer to a tertiary facility with both general surgery and neurosurgery capabilities was in order. Additionally, patient's mother requested evaluation for expertise in spina bifida. I attempted to reassure her that problem before it should be readily managed by simply ensuring that both general surgical and neurosurgical capabilities were immediately available. She provided her consent to proceed with seeking transfer and I started with [facility] at her request as Mr. Keenan's last surgery was affiliated with this facility. [facility] initially stated they did not have bed availability, but after presenting the clinical scenario the transfer line did find acceptance with the general surgeon on-call and a bed was made available. Patient's family was updated on this development. In the interim we will look to place a nasogastric tube at bedside. PACS images were also been pushed to that facility. Patient remained stable and controlled for pain at this time.
--- NOTE | 2024-03-14 20:36 | NURSING ---
this rn and nurse discharge planner in room to place NG attempted x1 pt coughed and unable to tolerate, denies nausea at this time, parents present and asked if it can wait until he gets to [facility] to be placed when pt goes to surgery if they need it. nurse discharge planner notified Dr. Lennon
--- NOTE | 2024-03-14 20:53 | NURSING ---
pt and family updated about pickup time [facility] 2230 [facility], mother states she has room number already. mother inquired about getting copies of medical record for ct, notified about [facility] portal and/or medical records dept.
--- NOTE | 2024-03-14 21:03 | NURSING ---
called report to nurse alves at [facility]
--- NOTE | 2024-03-14 23:27 | NURSING ---
report given to [facility] for transfer
== END 2024-03-14 23:30 | disposition short-term general hospital (02) ==
LOC: ED 03-14 04:47 → MS3 03-14 05:11
PROVIDERS: Admitting Provider Internal Medicine; Emergency Provider Emergency Medicine; PCP Family Medicine; Visit Provider Hospitalist
DX: K59.00 Constipation, unspecified (principal); L89.154 Pressure ulcer of sacral region, stage 4; M86.68 Other chronic osteomyelitis, other site; Q05.4 Unspecified spina bifida with hydrocephalus; N31.9 Neuromuscular dysfunction of bladder, unspecified; Z98.2 Presence of cerebrospinal fluid drainage device
CPT/HCPCS: 36415; 74018; 74177; 80048; 80053; 81001; 83605; 83690; 85025; 87077; 87086; 87088; 87186; 96361; 96374; 96375; 96376; 99221; 99284; J7030; Q9967; A4216; G0378; J2405